=== PATIENT | male | born 1935 | race Caucasian/White ===

== ENCOUNTER 2018-10-26 11:15 | Outpatient (RCR) | payer MEDICARE, SELFPAY ==
--- NOTE | 2018-09-04 16:18 | PT.OIE ---
Current Diagnoses Unilateral primary osteoarthritis, left knee (09/04/18) Past Surgical History History of knee replacement History of vasectomy Provider Visit Care Team Role Provider Type Mechelle Hernandez DO Family Provider Physician Primary Care Provider Specialty: Family Practice Address: [address] [place] [address], [id number] Email: [email or web address] Norman Conrad MD Attending Provider Non-Staff Specialty: Orthopedics Address: [address] [place] [address] , [place], [address] Email: Physical Therapy Initial Evaluation PT-OP-A Visit Information Start: 09/04/18 12:59 Freq: Status: Active Protocol: Document 09/04/18 13:00 AMB (Rec: 09/04/18 15:52 AMB [email or web address]) Out-Patient Physical Therapy Visit Information Visit Information Visit Type Initial Evaluation Visit Start Time 13:00 Visit Stop Time 13:55 Total Visit Minutes 55 Visit Number 1 Number of HOT BRAIDER Visits 0 Evaluation Information Evaluation Date 09/04/18 PT-OP-B Current Condition Start: 09/04/18 12:59 Freq: Status: Active Protocol: Document 09/04/18 13:00 AMB (Rec: 09/04/18 15:52 AMB [email or web address]) Current Condition History of Current Condition Onset Date 08/28/18 Current Complaints s/p L TKA History of Current Condition The patient has had knee pain for years, prior history of R TKA which went well per his report in the mid . Pt lives in multilevel home with his with 2 steps to enter and one railing. He states everything he needs is on the main floor. Things have been going fine since the surgery, does have some neuropathy baseline and notices that the L leg swells in general. Previously he was not using an assistive device, today he attends with a FWW that is too short for him. Treatment Goals Patient/Caregiver Goals Return to golfing Prior Functional Status Baseline Function- ADL's Independent Baseline Function- Mobility Independent Current Functional Impairments (Reported) Functional Limitations- ADL's limited in lower body dressing donning doffing shoes/socks. Functional Limitations- Mobility/Gait Currently using 4WW PT-OP-C Subjective Start: 09/04/18 12:59 Freq: Status: Active Protocol: Document 09/04/18 13:00 AMB (Rec: 09/04/18 15:52 AMB [email or web address]) Patient Questionnaires Lower Extremity Functional Scale LEFS Score 10 LEFS Impairment 80 to 99% Impaired (Score 1-16 ) OP-PT Pain Assessment Pain Assessment Grid Paper Pain Assessment Grid Completed Yes Location Left Knee Intensity 4 Scale Used Numeric (1 - 10) PT-OP-G Mobility & Gait Start: 09/04/18 12:59 Freq: Status: Active Protocol: Document 09/04/18 13:00 AMB (Rec: 09/04/18 16:18 AMB [email or web address]) OP Gait Assessment Gait Gait Assistance Required: Independent Distance (Feet) 50 Able to Maintain Weight Bearing Status Yes During Gait Assistive Devices Assistive Device Front Wheeled Walker Gait Deviations General Gait Pattern Antalgic Decreased Stride Length Decreased Feet Clearance PT-OP-J Posture/Palpation/Skin Start: 09/04/18 12:59 Freq: Status: Active Protocol: Document 09/04/18 13:00 AMB (Rec: 09/04/18 16:18 AMB [email or web address]) Skin Assessment Edema Assessment Left Leg Edema Type Pitting Edema Degree 2+ Edema Appearance Firm Incisional Assessment Incision Appearance/Comments Covered with gauze PT-OP-K Range of Motion Start: 09/04/18 12:59 Freq: Status: Active Protocol: Document 09/04/18 13:00 AMB (Rec: 09/04/18 16:18 AMB [email or web address]) Knee Goniometric Range of Motion Knee Measured in Degrees Right Knee ROM WFL Yes Patient Position Supine Flexion Passive (degrees) 125 Extension Passive (degrees) 0 Left Patient Position Supine Flexion Active (degrees) 80 Flexion Passive (degrees) 77 Extension Active (degrees) 6 Extension Passive (degrees) 3 Knee ROM Limitations Knee ROM Limitations Pain Swelling PT-OP-M Strength Start: 09/04/18 12:59 Freq: Status: Active Protocol: Document 09/04/18 13:00 AMB (Rec: 09/04/18 16:18 AMB [email or web address]) Hip Strength Hip Manual Muscle Testing Right Flexion (L2) 4+ Good+ Extension (S1) 4+ Good+ Abduction 4+ Good+ Left Flexion (L2) 4+ Good+ Extension (S1) 4 Good Abduction 4 Good Knee Strength Knee Manual Muscle Testing Right Flexion (S2) 4+ Good+ Extension (L3) 4+ Good+ Left Flexion (S2) 4 Good Extension (L3) 4 Good PT-OP-R Modalities Start: 09/04/18 12:59 Freq: Status: Active Protocol: Document 09/04/18 13:45 AMB (Rec: 09/04/18 15:54 AMB [email or web address]) Electric Stimulation Electric Stimulation Interferential Current (IFC) Body Location L knee Duration (Minutes) 15 Patient Position Hooklying Combined With Heat/Cold Cold Pack PT-OP-T Assessment and Plan Start: 09/04/18 12:59 Freq: Status: Active Protocol: Document 09/04/18 13:00 AMB (Rec: 09/04/18 16:12 AMB [email or web address]) Physical Therapy Assessment Rehab Potential Rehabilitation Potential Good Evaluation Complexity Number of Personal Factors/Comorbidities 1-2 Number of Body Systems Impaired 4 or More Clinical Presentation at Evaluation Stable Impairments Impairments Balance Functional Mobility Gait Integument Pain ROM Strength Goals Two Impairment Gait Short Term Goal (STG) The patient will ambulate without AD in his home with 2/ 10 knee pain or less. STG Duration 4 weeks Computer Systems Architect Goal (LTG) The patient will ambulate in the community without assistive device for 30 minutes over grass/gravel/ hills to be able to return to golf. LTG Duration 8 weeks Three Impairment Strength Short Term Goal (STG) The patient will improve his LE strength so he can perform a partial squat without UE support. STG Duration 4 weeks Half-Way Goal (LTG) The patient will be independent with his HEP. LTG Duration 8 weeks One Impairment ROM Short Term Goal (STG) The patient will improve his PROM to 0-115 degrees. STG Duration 4 weeks Half-Way Goal (LTG) The patient will improve his AROM to 0-120 degrees. LTG Duration 8 weeks Assessment Summary Assessment The patient attends PT 1 week s/p TKA with swelling pain, and significantly restricted knee flexion. He will benefit from skilled PT to progress his strengthening, ROM, gait, and balance. Physical Therapy Plan Frequency and Duration Frequency of Treatment 3x/Week Duration of Treatment 8 weeks Plan of Care Start Date 09/04/18 Plan of Care End Date 10/30/18 Therapeutic Interventions Therapeutic Interventions Balance Training Gait Training Home Exercise Program Joint Mobilizations Manual Therapy Neuromuscular Re-education Self-Care/Home Management Soft Tissue Mobilization Therapeutic Activities Therapeutic Exercises Modalities Cold Pack/Ice Massage Electric Stimulation Next Visit Focus/Plan Next Note Type Treatment Note Next Visit Plan Start bike vs stepper, work on knee flexion, quad activation
--- NOTE | 2018-09-04 16:19 | PT.OPPOC ---
Current Diagnoses Unilateral primary osteoarthritis, left knee (09/04/18) Provider Visit Care Team Role Provider Type Mechelle Hernandez DO Family Provider Physician Primary Care Provider Specialty: Family Practice Address: [address] [place] [address], [address] Email: [email or web address] Norman Conrad MD Attending Provider Non-Staff Specialty: Orthopedics Address: [address] [place] [address] [place], [address] Email: Plan Of Care PT-OP-T Assessment and Plan Start: 09/04/18 12:59 Freq: Status: Active Protocol: Document 09/04/18 13:00 AMB (Rec: 09/04/18 16:12 AMB [email or web address]) Physical Therapy Assessment Rehab Potential Rehabilitation Potential Good Evaluation Complexity Number of Personal Factors/Comorbidities 1-2 Number of Body Systems Impaired 4 or More Clinical Presentation at Evaluation Stable Impairments Impairments Balance Functional Mobility Gait Integument Pain ROM Strength Goals Two Impairment Gait Short Term Goal (STG) The patient will ambulate without AD in his home with 2/ 10 knee pain or less. STG Duration 4 weeks Nursing Home Goal (LTG) The patient will ambulate in the community without assistive device for 30 minutes over grass/gravel/ hills to be able to return to golf. LTG Duration 8 weeks Three Impairment Strength Short Term Goal (STG) The patient will improve his LE strength so he can perform a partial squat without UE support. STG Duration 4 weeks Bioinformatics Programmer Goal (LTG) The patient will be independent with his HEP. LTG Duration 8 weeks One Impairment ROM Short Term Goal (STG) The patient will improve his PROM to 0-115 degrees. STG Duration 4 weeks Nursing Home Goal (LTG) The patient will improve his AROM to 0-120 degrees. LTG Duration 8 weeks Assessment Summary Assessment The patient attends PT 1 week s/p TKA with swelling pain, and significantly restricted knee flexion. He will benefit from skilled PT to progress his strengthening, ROM, gait, and balance. Physical Therapy Plan Frequency and Duration Frequency of Treatment 3x/Week Duration of Treatment 8 weeks Plan of Care Start Date 09/04/18 Plan of Care End Date 10/30/18 Therapeutic Interventions Therapeutic Interventions Balance Training Gait Training Home Exercise Program Joint Mobilizations Manual Therapy Neuromuscular Re-education Self-Care/Home Management Soft Tissue Mobilization Therapeutic Activities Therapeutic Exercises Modalities Cold Pack/Ice Massage Electric Stimulation Next Visit Focus/Plan Next Note Type Treatment Note Next Visit Plan Start bike vs stepper, work on knee flexion, quad activation Plan of Care Dates Plan of Care Start Date 09/04/18 Plan of Care End Date 10/30/18 Please Sign and Return: I have reviewed this Plan of Care and certify that the skilled therapy services above are required to meet the patient?s needs. Physician Signature Date Printed Name and Credentials Clinical Instructor Signature Printed Name and Credentials
--- NOTE | 2018-09-06 14:10 | PT.OTN ---
Current Diagnoses Unilateral primary osteoarthritis, left knee (09/06/18) Physical Therapy Treatment Note PT-OP-A Visit Information Start: 09/04/18 12:59 Freq: Status: Active Protocol: Document 09/06/18 13:00 AMB (Rec: 09/06/18 13:10 AMB [id number]) Out-Patient Physical Therapy Visit Information Visit Information Visit Type Treatment Note Visit Start Time 13:00 Visit Stop Time 13:55 Total Visit Minutes 55 Visit Number 2 Number of MANAGER GAS Visits 0 Evaluation Information Evaluation Date 09/04/18 PT-OP-B Current Condition Start: 09/04/18 12:59 Freq: Status: Active Protocol: Document 09/04/18 13:00 AMB (Rec: 09/04/18 15:52 AMB [email or web address]) Current Condition History of Current Condition Onset Date 08/28/18 Current Complaints s/p L TKA History of Current Condition The patient has had knee pain for years, prior history of R TKA which went well per his report in the mid . Pt lives in multilevel home with his with 2 steps to enter and one railing. He states everything he needs is on the main floor. Things have been going fine since the surgery, does have some neuropathy baseline and notices that the L leg swells in general. Previously he was not using an assistive device, today he attends with a FWW that is too short for him. Treatment Goals Patient/Caregiver Goals Return to golfing Prior Functional Status Baseline Function- ADL's Independent Baseline Function- Mobility Independent Current Functional Impairments (Reported) Functional Limitations- ADL's limited in lower body dressing donning doffing shoes/socks. Functional Limitations- Mobility/Gait Currently using 4WW PT-OP-C Subjective Start: 09/04/18 12:59 Freq: Status: Active Protocol: Document 09/06/18 13:00 AMB (Rec: 09/06/18 13:10 AMB [id number]) OP-PT Subjective Patient Comments Patient Comments Pt states he slept poorly after last visit, last night he slept fine. PT-OP-G Mobility & Gait Start: 09/04/18 12:59 Freq: Status: Active Protocol: Document 09/04/18 13:00 AMB (Rec: 09/04/18 16:18 AMB [email or web address]) OP Gait Assessment Gait Gait Assistance Required: Independent Distance (Feet) 50 Able to Maintain Weight Bearing Status Yes During Gait Assistive Devices Assistive Device Front Wheeled Walker Gait Deviations General Gait Pattern Antalgic Decreased Stride Length Decreased Feet Clearance PT-OP-J Posture/Palpation/Skin Start: 09/04/18 12:59 Freq: Status: Active Protocol: Document 09/04/18 13:00 AMB (Rec: 09/04/18 16:18 AMB [email or web address]) Skin Assessment Edema Assessment Left Leg Edema Type Pitting Edema Degree 2+ Edema Appearance Firm Incisional Assessment Incision Appearance/Comments Covered with gauze PT-OP-K Range of Motion Start: 09/04/18 12:59 Freq: Status: Active Protocol: Document 09/04/18 13:00 AMB (Rec: 09/04/18 16:18 AMB [email or web address]) Knee Goniometric Range of Motion Knee Measured in Degrees Right Knee ROM WFL Yes Patient Position Supine Flexion Passive (degrees) 125 Extension Passive (degrees) 0 Left Patient Position Supine Flexion Active (degrees) 80 Flexion Passive (degrees) 77 Extension Active (degrees) 6 Extension Passive (degrees) 3 Knee ROM Limitations Knee ROM Limitations Pain Swelling PT-OP-M Strength Start: 09/04/18 12:59 Freq: Status: Active Protocol: Document 09/04/18 13:00 AMB (Rec: 09/04/18 16:18 AMB [email or web address]) Hip Strength Hip Manual Muscle Testing Right Flexion (L2) 4+ Good+ Extension (S1) 4+ Good+ Abduction 4+ Good+ Left Flexion (L2) 4+ Good+ Extension (S1) 4 Good Abduction 4 Good Knee Strength Knee Manual Muscle Testing Right Flexion (S2) 4+ Good+ Extension (L3) 4+ Good+ Left Flexion (S2) 4 Good Extension (L3) 4 Good PT-OP-Q Treatments Start: 09/04/18 12:59 Freq: Status: Active Protocol: Document 09/06/18 13:00 AMB (Rec: 09/06/18 13:27 AMB [id number]) Cardio Equipment Recumbent Bicycle Duration (Minutes) 6 Other 1/2 revolution Gym Equipment Shuttle Recovery Bilateral Squats Resistance 50# Shuttle Recovery Platform Stable Reps/Time 1x10 Unilateral Squats Resistance 50# Shuttle Recovery Platform Stable Reps/Time 2x10 Therapeutic Exercises Supine Exercises 4 Supine Exercise Name heel slide Reps/Minutes 2x12 3 Supine Exercise Name SLR Reps/Minutes 2x10 2 Supine Exercise Name hamstring stretch Reps/Minutes 30x2 1 Supine Exercise Name quad stretch Reps/Minutes 30x2 PT-OP-R Modalities Start: 09/04/18 12:59 Freq: Status: Active Protocol: Document 09/06/18 13:00 AMB (Rec: 09/06/18 13:48 AMB [id number]) Electric Stimulation Electric Stimulation Interferential Current (IFC) Body Location L knee Duration (Minutes) 15 Patient Position Hooklying Combined With Heat/Cold Cold Pack PT-OP-T Assessment and Plan Start: 09/04/18 12:59 Freq: Status: Active Protocol: Document 09/06/18 13:00 AMB (Rec: 09/06/18 14:07 AMB [email or web address]) Physical Therapy Assessment Assessment Summary Assessment The patient seemed to tolerate PT well, altough flexion continues to be stiff. Physical Therapy Plan Next Visit Focus/Plan Next Note Type Treatment Note Next Visit Plan Progress HEP as tolerated.
--- NOTE | 2018-09-08 14:57 | PT.OTN ---
Current Diagnoses Unilateral primary osteoarthritis, left knee (09/08/18) Physical Therapy Treatment Note PT-OP-A Visit Information Start: 09/04/18 12:59 Freq: Status: Active Protocol: Document 09/08/18 13:00 AMB (Rec: 09/08/18 13:12 AMB [id number]) Out-Patient Physical Therapy Visit Information Visit Information Visit Type Treatment Note Visit Start Time 13:00 Visit Stop Time 13:55 Total Visit Minutes 55 Visit Number 3 Number of LEARNING AND DEVELOPMENT ASSISTANT Visits 0 Evaluation Information Evaluation Date 09/04/18 PT-OP-B Current Condition Start: 09/04/18 12:59 Freq: Status: Active Protocol: Document 09/04/18 13:00 AMB (Rec: 09/04/18 15:52 AMB [email or web address]) Current Condition History of Current Condition Onset Date 08/28/18 Current Complaints s/p L TKA History of Current Condition The patient has had knee pain for years, 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 Pt lives in multilevel home with his with 2 steps to enter and one railing. He states everything he needs is on the main floor. Things have been going fine since the surgery, does have some neuropathy baseline and notices that the L leg swells in general. Previously he was not using an assistive device, today he attends with a FWW that is too short for him. Treatment Goals Patient/Caregiver Goals Return to golfing Prior Functional Status Baseline Function- ADL's Independent Baseline Function- Mobility Independent Current Functional Impairments (Reported) Functional Limitations- ADL's limited in lower body dressing donning doffing shoes/socks. Functional Limitations- Mobility/Gait Currently using 4WW PT-OP-C Subjective Start: 09/04/18 12:59 Freq: Status: Active Protocol: Document 09/08/18 13:00 AMB (Rec: 09/08/18 13:12 AMB [id number]) OP-PT Subjective Patient Comments Patient Comments Pt is doing well, was able to use his 's bike yesterday. PT-OP-G Mobility & Gait Start: 09/04/18 12:59 Freq: Status: Active Protocol: Document 09/04/18 13:00 AMB (Rec: 09/04/18 16:18 AMB [email or web address]) OP Gait Assessment Gait Gait Assistance Required: Independent Distance (Feet) 50 Able to Maintain Weight Bearing Status Yes During Gait Assistive Devices Assistive Device Front Wheeled Walker Gait Deviations General Gait Pattern Antalgic Decreased Stride Length Decreased Feet Clearance PT-OP-J Posture/Palpation/Skin Start: 09/04/18 12:59 Freq: Status: Active Protocol: Document 09/04/18 13:00 AMB (Rec: 09/04/18 16:18 AMB [email or web address]) Skin Assessment Edema Assessment Left Leg Edema Type Pitting Edema Degree 2+ Edema Appearance Firm Incisional Assessment Incision Appearance/Comments Covered with gauze PT-OP-K Range of Motion Start: 09/04/18 12:59 Freq: Status: Active Protocol: Document 09/04/18 13:00 AMB (Rec: 09/04/18 16:18 AMB [email or web address]) Knee Goniometric Range of Motion Knee Measured in Degrees Right Knee ROM WFL Yes Patient Position Supine Flexion Passive (degrees) 125 Extension Passive (degrees) 0 Left Patient Position Supine Flexion Active (degrees) 80 Flexion Passive (degrees) 77 Extension Active (degrees) 6 Extension Passive (degrees) 3 Knee ROM Limitations Knee ROM Limitations Pain Swelling PT-OP-M Strength Start: 09/04/18 12:59 Freq: Status: Active Protocol: Document 09/04/18 13:00 AMB (Rec: 09/04/18 16:18 AMB [email or web address]) Hip Strength Hip Manual Muscle Testing Right Flexion (L2) 4+ Good+ Extension (S1) 4+ Good+ Abduction 4+ Good+ Left Flexion (L2) 4+ Good+ Extension (S1) 4 Good Abduction 4 Good Knee Strength Knee Manual Muscle Testing Right Flexion (S2) 4+ Good+ Extension (L3) 4+ Good+ Left Flexion (S2) 4 Good Extension (L3) 4 Good PT-OP-Q Treatments Start: 09/04/18 12:59 Freq: Status: Active Protocol: Document 09/08/18 13:00 AMB (Rec: 09/08/18 13:14 AMB [id number]) Cardio Equipment Recumbent Bicycle Duration (Minutes) 6 Seat Position none Other full revolution after 4 min Gym Equipment Shuttle Recovery Bilateral Squats Resistance 75# Shuttle Recovery Platform Stable Reps/Time 2x10 Unilateral Squats Resistance 50# Shuttle Recovery Platform Stable Reps/Time 2x10 Therapeutic Exercises Supine Exercises 4 Supine Exercise Name heel slide Reps/Minutes 2x12 3 Supine Exercise Name SLR Reps/Minutes 2x10 2 Supine Exercise Name hamstring stretch Reps/Minutes 30x2 1 Supine Exercise Name quad stretch Reps/Minutes 30x2 Manual Therapy Treatment Joint Mobilizations 1 Joint tibiofemoral, PA and AP Manual Techniques 1 Type PROM with OP Comments into flexion and extension PT-OP-R Modalities Start: 09/04/18 12:59 Freq: Status: Active Protocol: Document 09/08/18 13:00 AMB (Rec: 09/08/18 13:22 AMB [id number]) Electric Stimulation Electric Stimulation Interferential Current (IFC) Body Location L knee Duration (Minutes) 15 Patient Position Hooklying Combined With Heat/Cold Cold Pack PT-OP-T Assessment and Plan Start: 09/04/18 12:59 Freq: Status: Active Protocol: Document 09/08/18 13:00 AMB (Rec: 09/08/18 13:22 AMB [id number]) Physical Therapy Assessment Assessment Summary Assessment Pt is progressing appropriately, needs to progress HEP. Physical Therapy Plan Next Visit Focus/Plan Next Note Type Treatment Note Next Visit Plan Progress ROM, gait, strength HEP.
--- NOTE | 2018-09-11 15:52 | PT.OTN ---
Current Diagnoses Unilateral primary osteoarthritis, left knee (09/11/18) Physical Therapy Treatment Note PT-OP-A Visit Information Start: 09/04/18 12:59 Freq: Status: Active Protocol: Document 09/11/18 13:00 AMB (Rec: 09/11/18 13:00 AMB [id number]) Out-Patient Physical Therapy Visit Information Visit Information Visit Type Treatment Note Visit Start Time 13:00 Visit Stop Time 13:55 Total Visit Minutes 55 Visit Number 4 Number of SQL ENGINEER Visits 0 Evaluation Information Evaluation Date 09/04/18 PT-OP-B Current Condition Start: 09/04/18 12:59 Freq: Status: Active Protocol: Document 09/04/18 13:00 AMB (Rec: 09/04/18 15:52 AMB [email or web address]) Current Condition History of Current Condition Onset Date 08/28/18 Current Complaints s/p L TKA History of Current Condition The patient has had knee pain for years, prior history of R TKA which went well per his report in the mid . Pt lives in multilevel home with his with 2 steps to enter and one railing. He states everything he needs is on the main floor. Things have been going fine since the surgery, does have some neuropathy baseline and notices that the L leg swells in general. Previously he was not using an assistive device, today he attends with a FWW that is too short for him. Treatment Goals Patient/Caregiver Goals Return to golfing Prior Functional Status Baseline Function- ADL's Independent Baseline Function- Mobility Independent Current Functional Impairments (Reported) Functional Limitations- ADL's limited in lower body dressing donning doffing shoes/socks. Functional Limitations- Mobility/Gait Currently using 4WW PT-OP-C Subjective Start: 09/04/18 12:59 Freq: Status: Active Protocol: Document 09/11/18 13:00 AMB (Rec: 09/11/18 13:11 AMB [id number]) OP-PT Subjective Patient Comments Patient Comments Pt reports he has been walking and working on the recumbent bike. PT-OP-G Mobility & Gait Start: 09/04/18 12:59 Freq: Status: Active Protocol: Document 09/04/18 13:00 AMB (Rec: 09/04/18 16:18 AMB [email or web address]) OP Gait Assessment Gait Gait Assistance Required: Independent Distance (Feet) 50 Able to Maintain Weight Bearing Status Yes During Gait Assistive Devices Assistive Device Front Wheeled Walker Gait Deviations General Gait Pattern Antalgic Decreased Stride Length Decreased Feet Clearance PT-OP-J Posture/Palpation/Skin Start: 09/04/18 12:59 Freq: Status: Active Protocol: Document 09/04/18 13:00 AMB (Rec: 09/04/18 16:18 AMB [email or web address]) Skin Assessment Edema Assessment Left Leg Edema Type Pitting Edema Degree 2+ Edema Appearance Firm Incisional Assessment Incision Appearance/Comments Covered with gauze PT-OP-K Range of Motion Start: 09/04/18 12:59 Freq: Status: Active Protocol: Document 09/04/18 13:00 AMB (Rec: 09/04/18 16:18 AMB [email or web address]) Knee Goniometric Range of Motion Knee Measured in Degrees Right Knee ROM WFL Yes Patient Position Supine Flexion Passive (degrees) 125 Extension Passive (degrees) 0 Left Patient Position Supine Flexion Active (degrees) 80 Flexion Passive (degrees) 77 Extension Active (degrees) 6 Extension Passive (degrees) 3 Knee ROM Limitations Knee ROM Limitations Pain Swelling PT-OP-M Strength Start: 09/04/18 12:59 Freq: Status: Active Protocol: Document 09/04/18 13:00 AMB (Rec: 09/04/18 16:18 AMB [email or web address]) Hip Strength Hip Manual Muscle Testing Right Flexion (L2) 4+ Good+ Extension (S1) 4+ Good+ Abduction 4+ Good+ Left Flexion (L2) 4+ Good+ Extension (S1) 4 Good Abduction 4 Good Knee Strength Knee Manual Muscle Testing Right Flexion (S2) 4+ Good+ Extension (L3) 4+ Good+ Left Flexion (S2) 4 Good Extension (L3) 4 Good PT-OP-Q Treatments Start: 09/04/18 12:59 Freq: Status: Active Protocol: Document 09/11/18 13:00 AMB (Rec: 09/11/18 13:11 AMB [id number]) Cardio Equipment Recumbent Bicycle Duration (Minutes) 6 Resistance 4 Seat Position 8 Other full revolution after 4 min Gym Equipment Shuttle Recovery Bilateral Squats Resistance 75# Shuttle Recovery Platform Stable Reps/Time 2x10 Unilateral Squats Resistance 50# Shuttle Recovery Platform Stable Reps/Time 2x10 Therapeutic Exercises Supine Exercises 4 Supine Exercise Name heel slide Reps/Minutes 2x12 3 Supine Exercise Name SLR Reps/Minutes 2x10 2 Supine Exercise Name hamstring stretch Reps/Minutes 30x2 1 Supine Exercise Name quad stretch Reps/Minutes 30x2 Standing Exercises 1 Standing Exercise Name sit to stand Reps/Minutes 12 Comments vc for equal weightbearing Manual Therapy Treatment Joint Mobilizations 1 Joint tibiofemoral, PA and AP Manual Techniques 1 Type PROM with OP Comments into flexion and extension PT-OP-R Modalities Start: 09/04/18 12:59 Freq: Status: Active Protocol: Document 09/11/18 13:00 AMB (Rec: 09/11/18 13:21 AMB [id number]) Electric Stimulation Electric Stimulation Interferential Current (IFC) Body Location L knee Duration (Minutes) 15 Patient Position Hooklying Combined With Heat/Cold Cold Pack PT-OP-T Assessment and Plan Start: 09/04/18 12:59 Freq: Status: Active Protocol: Document 09/11/18 13:00 AMB (Rec: 09/11/18 13:21 AMB [id number]) Physical Therapy Assessment Goals Two Impairment Gait Short Term Goal (STG) The patient will ambulate without AD in his home with 2/ 10 knee pain or less. STG Duration 4 weeks Prospecting Observer Goal (LTG) The patient will ambulate in the community without assistive device for 30 minutes over grass/gravel/ hills to be able to return to golf. LTG Duration 8 weeks Three Impairment Strength Short Term Goal (STG) The patient will improve his LE strength so he can perform a partial squat without UE support. STG Duration 4 weeks Prospecting Observer Goal (LTG) The patient will be independent with his HEP. LTG Duration 8 weeks One Impairment ROM Short Term Goal (STG) The patient will improve his PROM to 0-115 degrees. STG Duration 4 weeks Prospecting Observer Goal (LTG) The patient will improve his AROM to 0-120 degrees. LTG Duration 8 weeks Assessment Summary Assessment Pt noticing posterior knee discomfort. Continues to need to progress, ROM, gait progressing well. Physical Therapy Plan Frequency and Duration Frequency of Treatment 3x/Week Duration of Treatment 8 weeks Plan of Care Start Date 09/04/18 Plan of Care End Date 10/30/18 Therapeutic Interventions Therapeutic Interventions Balance Training Gait Training Home Exercise Program Joint Mobilizations Manual Therapy Neuromuscular Re-education Self-Care/Home Management Soft Tissue Mobilization Therapeutic Activities Therapeutic Exercises Modalities Cold Pack/Ice Massage Electric Stimulation Next Visit Focus/Plan Next Note Type Treatment Note Next Visit Plan Progress ROM, gait, strength HEP.
--- NOTE | 2018-09-13 16:33 | PT.OTN ---
Current Diagnoses Unilateral primary osteoarthritis, left knee (09/13/18) Physical Therapy Treatment Note PT-OP-A Visit Information Start: 09/04/18 12:59 Freq: Status: Active Protocol: Document 09/13/18 13:00 AMB (Rec: 09/13/18 16:33 AMB [email or web address]) Out-Patient Physical Therapy Visit Information Visit Information Visit Type Treatment Note Visit Start Time 13:00 Visit Stop Time 13:55 Total Visit Minutes 55 Visit Number 5 Number of BRANCH OPERATIONS SPECIALIST Visits 0 Evaluation Information Evaluation Date 09/04/18 PT-OP-B Current Condition Start: 09/04/18 12:59 Freq: Status: Active Protocol: Document 09/04/18 13:00 AMB (Rec: 09/04/18 15:52 AMB [email or web address]) Current Condition History of Current Condition Onset Date 08/28/18 Current Complaints s/p L TKA History of Current Condition The patient has had knee pain for years, prior history of R TKA which went well per his report in the mid . Pt lives in multilevel home with his with 2 steps to enter and one railing. He states everything he needs is on the main floor. Things have been going fine since the surgery, does have some neuropathy baseline and notices that the L leg swells in general. Previously he was not using an assistive device, today he attends with a FWW that is too short for him. Treatment Goals Patient/Caregiver Goals Return to golfing Prior Functional Status Baseline Function- ADL's Independent Baseline Function- Mobility Independent Current Functional Impairments (Reported) Functional Limitations- ADL's limited in lower body dressing donning doffing shoes/socks. Functional Limitations- Mobility/Gait Currently using 4WW PT-OP-C Subjective Start: 09/04/18 12:59 Freq: Status: Active Protocol: Document 09/13/18 13:00 AMB (Rec: 09/13/18 16:33 AMB [email or web address]) OP-PT Subjective Patient Comments Patient Comments Pt saw yesterday and was cleared to drive. Steri strips are off. PT-OP-G Mobility & Gait Start: 09/04/18 12:59 Freq: Status: Active Protocol: Document 09/04/18 13:00 AMB (Rec: 09/04/18 16:18 AMB [email or web address]) OP Gait Assessment Gait Gait Assistance Required: Independent Distance (Feet) 50 Able to Maintain Weight Bearing Status Yes During Gait Assistive Devices Assistive Device Front Wheeled Walker Gait Deviations General Gait Pattern Antalgic Decreased Stride Length Decreased Feet Clearance PT-OP-J Posture/Palpation/Skin Start: 09/04/18 12:59 Freq: Status: Active Protocol: Document 09/04/18 13:00 AMB (Rec: 09/04/18 16:18 AMB [email or web address]) Skin Assessment Edema Assessment Left Leg Edema Type Pitting Edema Degree 2+ Edema Appearance Firm Incisional Assessment Incision Appearance/Comments Covered with gauze PT-OP-K Range of Motion Start: 09/04/18 12:59 Freq: Status: Active Protocol: Document 09/13/18 13:00 AMB (Rec: 09/13/18 16:33 AMB [email or web address]) Knee Goniometric Range of Motion Knee Measured in Degrees Left Flexion Passive (degrees) 103 PT-OP-M Strength Start: 09/04/18 12:59 Freq: Status: Active Protocol: Document 09/04/18 13:00 AMB (Rec: 09/04/18 16:18 AMB [email or web address]) Hip Strength Hip Manual Muscle Testing Right Flexion (L2) 4+ Good+ Extension (S1) 4+ Good+ Abduction 4+ Good+ Left Flexion (L2) 4+ Good+ Extension (S1) 4 Good Abduction 4 Good Knee Strength Knee Manual Muscle Testing Right Flexion (S2) 4+ Good+ Extension (L3) 4+ Good+ Left Flexion (S2) 4 Good Extension (L3) 4 Good PT-OP-Q Treatments Start: 09/04/18 12:59 Freq: Status: Active Protocol: Document 09/13/18 13:00 AMB (Rec: 09/13/18 16:33 AMB [email or web address]) Cardio Equipment Bicycle (Upright) Duration (Minutes) 6 Resistance 5 Seat Position 5 Gym Equipment Shuttle Recovery Bilateral Squats Resistance 100# Shuttle Recovery Platform Stable Reps/Time 2x10 Unilateral Squats Resistance 75# Shuttle Recovery Platform Stable Reps/Time 2x10 Therapeutic Exercises Supine Exercises 4 Supine Exercise Name heel slide Reps/Minutes 2x12 3 Supine Exercise Name SLR Reps/Minutes 2x10 2 Supine Exercise Name hamstring stretch Reps/Minutes 30x2 1 Supine Exercise Name quad stretch Reps/Minutes 30x2 Standing Exercises 1 Standing Exercise Name sit to stand Reps/Minutes 12 Comments vc for equal weightbearing PT-OP-R Modalities Start: 09/04/18 12:59 Freq: Status: Active Protocol: Document 09/13/18 13:00 AMB (Rec: 09/13/18 16:33 AMB [email or web address]) Electric Stimulation Electric Stimulation Interferential Current (IFC) Body Location L knee Duration (Minutes) 15 Patient Position Hooklying Combined With Heat/Cold Cold Pack PT-OP-T Assessment and Plan Start: 09/04/18 12:59 Freq: Status: Active Protocol: Document 09/13/18 13:00 AMB (Rec: 09/13/18 16:33 AMB [email or web address]) Physical Therapy Assessment Assessment Summary Assessment Oked pt to ambulate without assistive device. Physical Therapy Plan Next Visit Focus/Plan Next Note Type Treatment Note Next Visit Plan Progress ROM, gait, strength HEP.
--- NOTE | 2018-09-15 15:37 | PT.OTN ---
Current Diagnoses Unilateral primary osteoarthritis, left knee (09/15/18) Physical Therapy Treatment Note PT-OP-A Visit Information Start: 09/04/18 12:59 Freq: Status: Active Protocol: Document 09/15/18 09:00 AMB (Rec: 09/15/18 09:08 AMB [email or web address]) Out-Patient Physical Therapy Visit Information Visit Information Visit Type Treatment Note Visit Start Time 09:00 Visit Stop Time 09:55 Total Visit Minutes 55 Visit Number 6 Number of ROLLER PICKER Visits 0 Evaluation Information Evaluation Date 09/04/18 PT-OP-B Current Condition Start: 09/04/18 12:59 Freq: Status: Active Protocol: Document 09/04/18 13:00 AMB (Rec: 09/04/18 15:52 AMB [email or web address]) Current Condition History of Current Condition Onset Date 08/28/18 Current Complaints s/p L TKA History of Current Condition The patient has had knee pain for years, prior history of R TKA which went well per his report in the mid . Pt lives in multilevel home with his with 2 steps to enter and one railing. He states everything he needs is on the main floor. Things have been going fine since the surgery, does have some neuropathy baseline and notices that the L leg swells in general. Previously he was not using an assistive device, today he attends with a FWW that is too short for him. Treatment Goals Patient/Caregiver Goals Return to golfing Prior Functional Status Baseline Function- ADL's Independent Baseline Function- Mobility Independent Current Functional Impairments (Reported) Functional Limitations- ADL's limited in lower body dressing donning doffing shoes/socks. Functional Limitations- Mobility/Gait Currently using 4WW PT-OP-C Subjective Start: 09/04/18 12:59 Freq: Status: Active Protocol: Document 09/15/18 09:00 AMB (Rec: 09/15/18 09:08 AMB [id number]) OP-PT Subjective Patient Comments Patient Comments Pt reports mild quad pain with car transfer (shifting leg over to the side) PT-OP-G Mobility & Gait Start: 09/04/18 12:59 Freq: Status: Active Protocol: Document 09/04/18 13:00 AMB (Rec: 09/04/18 16:18 AMB [email or web address]) OP Gait Assessment Gait Gait Assistance Required: Independent Distance (Feet) 50 Able to Maintain Weight Bearing Status Yes During Gait Assistive Devices Assistive Device Front Wheeled Walker Gait Deviations General Gait Pattern Antalgic Decreased Stride Length Decreased Feet Clearance PT-OP-J Posture/Palpation/Skin Start: 09/04/18 12:59 Freq: Status: Active Protocol: Document 09/04/18 13:00 AMB (Rec: 09/04/18 16:18 AMB [email or web address]) Skin Assessment Edema Assessment Left Leg Edema Type Pitting Edema Degree 2+ Edema Appearance Firm Incisional Assessment Incision Appearance/Comments Covered with gauze PT-OP-K Range of Motion Start: 09/04/18 12:59 Freq: Status: Active Protocol: Document 09/15/18 09:00 AMB (Rec: 09/15/18 15:32 AMB [email or web address]) Knee Goniometric Range of Motion Knee Measured in Degrees Left Flexion Passive (degrees) 107 PT-OP-M Strength Start: 09/04/18 12:59 Freq: Status: Active Protocol: Document 09/04/18 13:00 AMB (Rec: 09/04/18 16:18 AMB [email or web address]) Hip Strength Hip Manual Muscle Testing Right Flexion (L2) 4+ Good+ Extension (S1) 4+ Good+ Abduction 4+ Good+ Left Flexion (L2) 4+ Good+ Extension (S1) 4 Good Abduction 4 Good Knee Strength Knee Manual Muscle Testing Right Flexion (S2) 4+ Good+ Extension (L3) 4+ Good+ Left Flexion (S2) 4 Good Extension (L3) 4 Good PT-OP-Q Treatments Start: 09/04/18 12:59 Freq: Status: Active Protocol: Document 09/15/18 09:00 AMB (Rec: 09/15/18 09:08 AMB [id number]) Cardio Equipment Bicycle (Upright) Duration (Minutes) 6 Resistance 5 Seat Position 5 Therapeutic Exercises Supine Exercises 4 Supine Exercise Name heel slide Reps/Minutes 2x12 3 Supine Exercise Name SLR Reps/Minutes 2x10 2 Supine Exercise Name hamstring stretch Reps/Minutes 30x2 1 Supine Exercise Name quad stretch Reps/Minutes 30x2 Standing Exercises 2 Standing Exercise Name lifting Comments 12# from floor to waist 1 Standing Exercise Name sit to stand Reps/Minutes 12 Comments vc for equal weightbearing Manual Therapy Treatment Joint Mobilizations 1 Joint tibiofemoral, PA and AP Manual Techniques 1 Type PROM with OP Comments into flexion and extension PT-OP-R Modalities Start: 09/04/18 12:59 Freq: Status: Active Protocol: Document 09/15/18 09:00 AMB (Rec: 09/15/18 15:33 AMB [email or web address]) Electric Stimulation Electric Stimulation Interferential Current (IFC) Body Location L knee Duration (Minutes) 15 Patient Position Hooklying Combined With Heat/Cold Cold Pack PT-OP-T Assessment and Plan Start: 09/04/18 12:59 Freq: Status: Active Protocol: Document 09/15/18 09:00 AMB (Rec: 09/15/18 15:32 AMB [email or web address]) Physical Therapy Assessment Assessment Summary Assessment Encouraged pt in equalizing weightbearing with sit to stand. Does notice some quad discomfort. Physical Therapy Plan Next Visit Focus/Plan Next Note Type Treatment Note Next Visit Plan Progress balance
--- NOTE | 2018-09-18 15:51 | PT.OTN ---
Current Diagnoses Unilateral primary osteoarthritis, left knee (09/18/18) Physical Therapy Treatment Note PT-OP-A Visit Information Start: 09/04/18 12:59 Freq: Status: Active Protocol: Document 09/18/18 13:00 AMB (Rec: 09/18/18 13:09 AMB [id number]) Out-Patient Physical Therapy Visit Information Visit Information Visit Type Treatment Note Visit Start Time 13:00 Visit Stop Time 13:55 Total Visit Minutes 55 Visit Number 7 Number of WIRE STOCKKEEPER Visits 0 Evaluation Information Evaluation Date 09/04/18 PT-OP-B Current Condition Start: 09/04/18 12:59 Freq: Status: Active Protocol: Document 09/04/18 13:00 AMB (Rec: 09/04/18 15:52 AMB [email or web address]) Current Condition History of Current Condition Onset Date 08/28/18 Current Complaints s/p L TKA History of Current Condition The patient has had knee pain for years, prior history of R TKA which went well per his report in the mid . Pt lives in multilevel home with his with 2 steps to enter and one railing. He states everything he needs is on the main floor. Things have been going fine since the surgery, does have some neuropathy baseline and notices that the L leg swells in general. Previously he was not using an assistive device, today he attends with a FWW that is too short for him. Treatment Goals Patient/Caregiver Goals Return to golfing Prior Functional Status Baseline Function- ADL's Independent Baseline Function- Mobility Independent Current Functional Impairments (Reported) Functional Limitations- ADL's limited in lower body dressing donning doffing shoes/socks. Functional Limitations- Mobility/Gait Currently using 4WW PT-OP-C Subjective Start: 09/04/18 12:59 Freq: Status: Active Protocol: Document 09/18/18 13:00 AMB (Rec: 09/18/18 13:09 AMB [id number]) OP-PT Subjective Patient Comments Patient Comments Pt continues to note mild quad discomfort. PT-OP-G Mobility & Gait Start: 09/04/18 12:59 Freq: Status: Active Protocol: Document 09/04/18 13:00 AMB (Rec: 09/04/18 16:18 AMB [email or web address]) OP Gait Assessment Gait Gait Assistance Required: Independent Distance (Feet) 50 Able to Maintain Weight Bearing Status Yes During Gait Assistive Devices Assistive Device Front Wheeled Walker Gait Deviations General Gait Pattern Antalgic Decreased Stride Length Decreased Feet Clearance PT-OP-J Posture/Palpation/Skin Start: 09/04/18 12:59 Freq: Status: Active Protocol: Document 09/04/18 13:00 AMB (Rec: 09/04/18 16:18 AMB [email or web address]) Skin Assessment Edema Assessment Left Leg Edema Type Pitting Edema Degree 2+ Edema Appearance Firm Incisional Assessment Incision Appearance/Comments Covered with gauze PT-OP-K Range of Motion Start: 09/04/18 12:59 Freq: Status: Active Protocol: Document 09/15/18 09:00 AMB (Rec: 09/15/18 15:32 AMB [email or web address]) Knee Goniometric Range of Motion Knee Measured in Degrees Left Flexion Passive (degrees) 107 PT-OP-M Strength Start: 09/04/18 12:59 Freq: Status: Active Protocol: Document 09/04/18 13:00 AMB (Rec: 09/04/18 16:18 AMB [email or web address]) Hip Strength Hip Manual Muscle Testing Right Flexion (L2) 4+ Good+ Extension (S1) 4+ Good+ Abduction 4+ Good+ Left Flexion (L2) 4+ Good+ Extension (S1) 4 Good Abduction 4 Good Knee Strength Knee Manual Muscle Testing Right Flexion (S2) 4+ Good+ Extension (L3) 4+ Good+ Left Flexion (S2) 4 Good Extension (L3) 4 Good PT-OP-Q Treatments Start: 09/04/18 12:59 Freq: Status: Active Protocol: Document 09/18/18 13:00 AMB (Rec: 09/18/18 13:09 AMB [email or web address]) Cardio Equipment Bicycle (Upright) Duration (Minutes) 6 Resistance 5 Seat Position 5 Therapeutic Exercises Supine Exercises 2 Supine Exercise Name hamstring stretch Reps/Minutes 30x2 1 Supine Exercise Name quad stretch Reps/Minutes 30x2 Standing Exercises 2 Standing Exercise Name lifting Comments 12# from floor to waist 1 Standing Exercise Name sit to stand Reps/Minutes 12 Comments vc for equal weightbearing Therapeutic Activity Therapeutic Activity 1 Name weightshift for golgIcare Pharmag Manual Therapy Treatment Soft Tissue Mobilization 2 Body Location quad Mobilization Type Myofascial Release Rolling Strumming Intensity/Depth Moderate 1 Body Location scar tissue Mobilization Type Cross-Friction Rolling Intensity/Depth Superficial Joint Mobilizations 1 Joint tibiofemoral, PA and AP Manual Techniques 1 Type PROM with OP Comments into flexion and extension PT-OP-R Modalities Start: 09/04/18 12:59 Freq: Status: Active Protocol: Document 09/18/18 13:00 AMB (Rec: 09/18/18 13:09 AMB [id number]) Electric Stimulation Electric Stimulation Interferential Current (IFC) Body Location L knee Duration (Minutes) 15 Patient Position Hooklying Combined With Heat/Cold Cold Pack PT-OP-T Assessment and Plan Start: 09/04/18 12:59 Freq: Status: Active Protocol: Document 09/18/18 13:00 AMB (Rec: 09/18/18 13:45 AMB [id number]) Physical Therapy Assessment Assessment Summary Assessment Pt tolerated chipping practice well. Good weightshift, but larger golf swings would be harder. Will need to progress balance. Physical Therapy Plan Next Visit Focus/Plan Next Note Type Treatment Note Next Visit Plan Progress balance
--- NOTE | 2018-09-20 15:37 | PT.OTN ---
Current Diagnoses Unilateral primary osteoarthritis, left knee (09/20/18) Physical Therapy Treatment Note PT-OP-A Visit Information Start: 09/04/18 12:59 Freq: Status: Active Protocol: Document 09/20/18 13:00 AMB (Rec: 09/20/18 13:08 AMB [id number]) Out-Patient Physical Therapy Visit Information Visit Information Visit Type Treatment Note Visit Start Time 13:00 Visit Stop Time 13:55 Total Visit Minutes 55 Visit Number 8 Number of TEST DATA DEVELOPER Visits 0 PT-OP-B Current Condition Start: 09/04/18 12:59 Freq: Status: Active Protocol: Document 09/04/18 13:00 AMB (Rec: 09/04/18 15:52 AMB [email or web address]) Current Condition History of Current Condition Onset Date 08/28/18 Current Complaints s/p L TKA History of Current Condition The patient has had knee pain for years, 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 Pt lives in multilevel home with his with 2 steps to enter and one railing. He states everything he needs is on the main floor. Things have been going fine since the surgery, does have some neuropathy baseline and notices that the L leg swells in general. Previously he was not using an assistive device, today he attends with a FWW that is too short for him. Treatment Goals Patient/Caregiver Goals Return to golfing Prior Functional Status Baseline Function- ADL's Independent Baseline Function- Mobility Independent Current Functional Impairments (Reported) Functional Limitations- ADL's limited in lower body dressing donning doffing shoes/socks. Functional Limitations- Mobility/Gait Currently using 4WW PT-OP-C Subjective Start: 09/04/18 12:59 Freq: Status: Active Protocol: Document 09/20/18 13:00 AMB (Rec: 09/20/18 13:08 AMB [id number]) OP-PT Subjective Patient Comments Patient Comments Pt is stiff today Quad pain still. PT-OP-G Mobility & Gait Start: 09/04/18 12:59 Freq: Status: Active Protocol: Document 09/04/18 13:00 AMB (Rec: 09/04/18 16:18 AMB [email or web address]) OP Gait Assessment Gait Gait Assistance Required: Independent Distance (Feet) 50 Able to Maintain Weight Bearing Status Yes During Gait Assistive Devices Assistive Device Front Wheeled Walker Gait Deviations General Gait Pattern Antalgic Decreased Stride Length Decreased Feet Clearance PT-OP-J Posture/Palpation/Skin Start: 09/04/18 12:59 Freq: Status: Active Protocol: Document 09/04/18 13:00 AMB (Rec: 09/04/18 16:18 AMB [email or web address]) Skin Assessment Edema Assessment Left Leg Edema Type Pitting Edema Degree 2+ Edema Appearance Firm Incisional Assessment Incision Appearance/Comments Covered with gauze PT-OP-K Range of Motion Start: 09/04/18 12:59 Freq: Status: Active Protocol: Document 09/15/18 09:00 AMB (Rec: 09/15/18 15:32 AMB [email or web address]) Knee Goniometric Range of Motion Knee Measured in Degrees Left Flexion Passive (degrees) 107 PT-OP-M Strength Start: 09/04/18 12:59 Freq: Status: Active Protocol: Document 09/04/18 13:00 AMB (Rec: 09/04/18 16:18 AMB [email or web address]) Hip Strength Hip Manual Muscle Testing Right Flexion (L2) 4+ Good+ Extension (S1) 4+ Good+ Abduction 4+ Good+ Left Flexion (L2) 4+ Good+ Extension (S1) 4 Good Abduction 4 Good Knee Strength Knee Manual Muscle Testing Right Flexion (S2) 4+ Good+ Extension (L3) 4+ Good+ Left Flexion (S2) 4 Good Extension (L3) 4 Good PT-OP-Q Treatments Start: 09/04/18 12:59 Freq: Status: Active Protocol: Document 09/20/18 13:00 AMB (Rec: 09/20/18 15:37 AMB [email or web address]) Cardio Equipment Bicycle (Upright) Duration (Minutes) 6 Resistance 5 Seat Position 4 Gym Equipment Shuttle Recovery Bilateral Squats Resistance 100# Shuttle Recovery Platform Stable Reps/Time 2x10 Unilateral Squats Resistance 75# Shuttle Recovery Platform Stable Reps/Time 2x10 Therapeutic Exercises Standing Exercises 4 Standing Exercise Name standing quad stretch on stair Reps/Minutes 30x2 3 Standing Exercise Name standing hamstring stretch Reps/Minutes 30x2 1 Standing Exercise Name sit to stand Reps/Minutes 12 Comments vc for equal weightbearing Manual Therapy Treatment Soft Tissue Mobilization 2 Body Location quad Mobilization Type Myofascial Release Rolling Strumming Intensity/Depth Moderate 1 Body Location scar tissue Mobilization Type Cross-Friction Rolling Intensity/Depth Superficial Joint Mobilizations 1 Joint tibiofemoral, PA and AP Manual Techniques 1 Type PROM with OP Comments into flexion and extension PT-OP-R Modalities Start: 09/04/18 12:59 Freq: Status: Active Protocol: Document 09/20/18 13:00 AMB (Rec: 09/20/18 15:37 AMB [email or web address]) Electric Stimulation Electric Stimulation Interferential Current (IFC) Body Location L knee Duration (Minutes) 15 Patient Position Hooklying Combined With Heat/Cold Cold Pack PT-OP-T Assessment and Plan Start: 09/04/18 12:59 Freq: Status: Active Protocol: Document 09/20/18 13:00 AMB (Rec: 09/20/18 15:37 AMB [email or web address]) Physical Therapy Assessment Assessment Summary Assessment Pt is progressing, but will need to watch quad soreness Physical Therapy Plan Next Visit Focus/Plan Next Note Type Treatment Note Next Visit Plan Progress dynamic stability exercises
--- NOTE | 2018-09-22 16:12 | PT.OTN ---
Current Diagnoses Unilateral primary osteoarthritis, left knee (09/22/18) Physical Therapy Treatment Note PT-OP-A Visit Information Start: 09/04/18 12:59 Freq: Status: Active Protocol: Document 09/22/18 13:00 AMB (Rec: 09/22/18 13:07 AMB [id number]) Out-Patient Physical Therapy Visit Information Visit Information Visit Type Treatment Note Visit Start Time 13:00 Visit Stop Time 13:55 Total Visit Minutes 55 Visit Number 9 Number of HOSE CEMENTER Visits 0 PT-OP-B Current Condition Start: 09/04/18 12:59 Freq: Status: Active Protocol: Document 09/04/18 13:00 AMB (Rec: 09/04/18 15:52 AMB [email or web address]) Current Condition History of Current Condition Onset Date 08/28/18 Current Complaints s/p L TKA History of Current Condition The patient has had knee pain for years, prior history of R TKA which went well per his report in the mid . Pt lives in multilevel home with his with 2 steps to enter and one railing. He states everything he needs is on the main floor. Things have been going fine since the surgery, does have some neuropathy baseline and notices that the L leg swells in general. Previously he was not using an assistive device, today he attends with a FWW that is too short for him. Treatment Goals Patient/Caregiver Goals Return to golfing Prior Functional Status Baseline Function- ADL's Independent Baseline Function- Mobility Independent Current Functional Impairments (Reported) Functional Limitations- ADL's limited in lower body dressing donning doffing shoes/socks. Functional Limitations- Mobility/Gait Currently using 4WW PT-OP-C Subjective Start: 09/04/18 12:59 Freq: Status: Active Protocol: Document 09/22/18 13:00 AMB (Rec: 09/22/18 13:07 AMB [id number]) OP-PT Subjective Patient Comments Patient Comments Left sided knee pain with twisting leg at night. PT-OP-G Mobility & Gait Start: 09/04/18 12:59 Freq: Status: Active Protocol: Document 09/04/18 13:00 AMB (Rec: 09/04/18 16:18 AMB [email or web address]) OP Gait Assessment Gait Gait Assistance Required: Independent Distance (Feet) 50 Able to Maintain Weight Bearing Status Yes During Gait Assistive Devices Assistive Device Front Wheeled Walker Gait Deviations General Gait Pattern Antalgic Decreased Stride Length Decreased Feet Clearance PT-OP-J Posture/Palpation/Skin Start: 09/04/18 12:59 Freq: Status: Active Protocol: Document 09/04/18 13:00 AMB (Rec: 09/04/18 16:18 AMB [email or web address]) Skin Assessment Edema Assessment Left Leg Edema Type Pitting Edema Degree 2+ Edema Appearance Firm Incisional Assessment Incision Appearance/Comments Covered with gauze PT-OP-K Range of Motion Start: 09/04/18 12:59 Freq: Status: Active Protocol: Document 09/22/18 13:00 AMB (Rec: 09/22/18 16:12 AMB [email or web address]) Knee Goniometric Range of Motion Knee Measured in Degrees Left Flexion Passive (degrees) 111 PT-OP-M Strength Start: 09/04/18 12:59 Freq: Status: Active Protocol: Document 09/04/18 13:00 AMB (Rec: 09/04/18 16:18 AMB [email or web address]) Hip Strength Hip Manual Muscle Testing Right Flexion (L2) 4+ Good+ Extension (S1) 4+ Good+ Abduction 4+ Good+ Left Flexion (L2) 4+ Good+ Extension (S1) 4 Good Abduction 4 Good Knee Strength Knee Manual Muscle Testing Right Flexion (S2) 4+ Good+ Extension (L3) 4+ Good+ Left Flexion (S2) 4 Good Extension (L3) 4 Good PT-OP-Q Treatments Start: 09/04/18 12:59 Freq: Status: Active Protocol: Document 09/22/18 13:00 AMB (Rec: 09/22/18 13:11 AMB [id number]) Cardio Equipment Bicycle (Upright) Duration (Minutes) 6 Resistance 5 Seat Position 3 Gym Equipment Shuttle Recovery Bilateral Squats Resistance 100# Shuttle Recovery Platform Stable Reps/Time 2x10 Unilateral Squats Resistance 75# Shuttle Recovery Platform Stable Reps/Time 2x10 Therapeutic Exercises Supine Exercises 2 Supine Exercise Name hamstring stretch Reps/Minutes 30x2 1 Supine Exercise Name quad stretch Reps/Minutes 30x2 Sidelying Exercises 2 Sidelying Exercise Name hip ER Reps/Minutes 2x10 1 Sidelying Exercise Name hip abd Reps/Minutes 2x10 Standing Exercises 4 Standing Exercise Name standing quad stretch on stair Reps/Minutes 30x2 3 Standing Exercise Name standing hamstring stretch Reps/Minutes 30x2 1 Standing Exercise Name sit to stand Reps/Minutes 12 Comments vc for equal weightbearing Manual Therapy Treatment Soft Tissue Mobilization 2 Body Location quad Mobilization Type Myofascial Release Rolling Strumming Intensity/Depth Moderate 1 Body Location scar tissue Mobilization Type Cross-Friction Rolling Intensity/Depth Superficial Manual Techniques 1 Type PROM with OP Comments into flexion and extension PT-OP-R Modalities Start: 09/04/18 12:59 Freq: Status: Active Protocol: Document 09/22/18 13:00 AMB (Rec: 09/22/18 16:03 AMB [email or web address]) Electric Stimulation Electric Stimulation Interferential Current (IFC) Body Location L knee Duration (Minutes) 15 Patient Position Hooklying Combined With Heat/Cold Cold Pack PT-OP-T Assessment and Plan Start: 09/04/18 12:59 Freq: Status: Active Protocol: Document 09/22/18 13:00 AMB (Rec: 09/22/18 13:18 AMB [id number]) Physical Therapy Assessment Assessment Summary Assessment Continue to work on lateral knee tightness, progress hip abduction strength Physical Therapy Plan Next Visit Focus/Plan Next Note Type Treatment Note Next Visit Plan Progress dynamic stability exercises
--- NOTE | 2018-09-25 15:16 | PT.OTN ---
Current Diagnoses Unilateral primary osteoarthritis, left knee (09/25/18) Physical Therapy Treatment Note PT-OP-A Visit Information Start: 09/04/18 12:59 Freq: Status: Active Protocol: Document 09/25/18 13:00 AMB (Rec: 09/25/18 13:08 AMB [id number]) Out-Patient Physical Therapy Visit Information Visit Information Visit Type Treatment Note Visit Start Time 13:00 Visit Stop Time 13:55 Total Visit Minutes 55 Visit Number 10 Number of LABORATORY ANALYST Visits 0 PT-OP-B Current Condition Start: 09/04/18 12:59 Freq: Status: Active Protocol: Document 09/04/18 13:00 AMB (Rec: 09/04/18 15:52 AMB [email or web address]) Current Condition History of Current Condition Onset Date 08/28/18 Current Complaints s/p L TKA History of Current Condition The patient has had knee pain for years, 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 Pt lives in multilevel home with his with 2 steps to enter and one railing. He states everything he needs is on the main floor. Things have been going fine since the surgery, does have some neuropathy baseline and notices that the L leg swells in general. Previously he was not using an assistive device, today he attends with a FWW that is too short for him. Treatment Goals Patient/Caregiver Goals Return to golfing Prior Functional Status Baseline Function- ADL's Independent Baseline Function- Mobility Independent Current Functional Impairments (Reported) Functional Limitations- ADL's limited in lower body dressing donning doffing shoes/socks. Functional Limitations- Mobility/Gait Currently using 4WW PT-OP-C Subjective Start: 09/04/18 12:59 Freq: Status: Active Protocol: Document 09/25/18 13:00 AMB (Rec: 09/25/18 13:08 AMB [id number]) OP-PT Subjective Patient Comments Patient Comments Pt reporting lateral knee pain is better , some groin pain. PT-OP-G Mobility & Gait Start: 09/04/18 12:59 Freq: Status: Active Protocol: Document 09/04/18 13:00 AMB (Rec: 09/04/18 16:18 AMB [email or web address]) OP Gait Assessment Gait Gait Assistance Required: Independent Distance (Feet) 50 Able to Maintain Weight Bearing Status Yes During Gait Assistive Devices Assistive Device Front Wheeled Walker Gait Deviations General Gait Pattern Antalgic Decreased Stride Length Decreased Feet Clearance PT-OP-J Posture/Palpation/Skin Start: 09/04/18 12:59 Freq: Status: Active Protocol: Document 09/04/18 13:00 AMB (Rec: 09/04/18 16:18 AMB [email or web address]) Skin Assessment Edema Assessment Left Leg Edema Type Pitting Edema Degree 2+ Edema Appearance Firm Incisional Assessment Incision Appearance/Comments Covered with gauze PT-OP-K Range of Motion Start: 09/04/18 12:59 Freq: Status: Active Protocol: Document 09/22/18 13:00 AMB (Rec: 09/22/18 16:12 AMB [email or web address]) Knee Goniometric Range of Motion Knee Measured in Degrees Left Flexion Passive (degrees) 111 PT-OP-M Strength Start: 09/04/18 12:59 Freq: Status: Active Protocol: Document 09/04/18 13:00 AMB (Rec: 09/04/18 16:18 AMB [email or web address]) Hip Strength Hip Manual Muscle Testing Right Flexion (L2) 4+ Good+ Extension (S1) 4+ Good+ Abduction 4+ Good+ Left Flexion (L2) 4+ Good+ Extension (S1) 4 Good Abduction 4 Good Knee Strength Knee Manual Muscle Testing Right Flexion (S2) 4+ Good+ Extension (L3) 4+ Good+ Left Flexion (S2) 4 Good Extension (L3) 4 Good PT-OP-Q Treatments Start: 09/04/18 12:59 Freq: Status: Active Protocol: Document 09/25/18 13:00 AMB (Rec: 09/25/18 13:16 AMB [id number]) Cardio Equipment Bicycle (Upright) Duration (Minutes) 6 Resistance 5 Seat Position 3, then 2 Gym Equipment Shuttle Recovery Bilateral Squats Resistance 112# Shuttle Recovery Platform Stable Reps/Time 2x10 Unilateral Squats Resistance 75# Shuttle Recovery Platform Stable Reps/Time 2x10 Therapeutic Exercises Supine Exercises 2 Supine Exercise Name hamstring stretch Reps/Minutes 30x2 Comments with adductor 1 Supine Exercise Name quad stretch Reps/Minutes 30x2 Therapeutic Activity Therapeutic Activity 1 Name Floor transfer training Comments with environmental support SBA pt tolerated kneeling well Manual Therapy Treatment Soft Tissue Mobilization 1 Body Location scar tissue Mobilization Type Cross-Friction Rolling Intensity/Depth Superficial Joint Mobilizations 1 Joint tibiofemoral, PA and AP Manual Techniques 1 Type PROM with OP Comments into flexion and extension PT-OP-R Modalities Start: 09/04/18 12:59 Freq: Status: Active Protocol: Document 09/25/18 13:00 AMB (Rec: 09/25/18 15:15 AMB [email or web address]) Electric Stimulation Electric Stimulation Interferential Current (IFC) Body Location L knee Duration (Minutes) 15 Patient Position Hooklying Combined With Heat/Cold Cold Pack PT-OP-T Assessment and Plan Start: 09/04/18 12:59 Freq: Status: Active Protocol: Document 09/25/18 13:00 AMB (Rec: 09/25/18 13:18 AMB [id number]) Physical Therapy Assessment Assessment Summary Assessment Pt tolerated adductor stretching and quadruped well. Physical Therapy Plan Next Visit Focus/Plan Next Note Type Treatment Note Next Visit Plan Progress dynamic stability exercises
--- NOTE | 2018-09-28 13:45 | PT.OTN ---
Current Diagnoses Unilateral primary osteoarthritis, left knee (09/28/18) Physical Therapy Treatment Note PT-OP-A Visit Information Start: 09/04/18 12:59 Freq: Status: Active Protocol: Document 09/28/18 13:00 AMB (Rec: 09/28/18 13:10 AMB [id number]) Out-Patient Physical Therapy Visit Information Visit Information Visit Type Treatment Note Visit Start Time 13:00 Visit Stop Time 13:55 Total Visit Minutes 55 Visit Number 11 Number of GEODETIC ENGINEER Visits 0 Evaluation Information Evaluation Date 09/04/18 PT-OP-B Current Condition Start: 09/04/18 12:59 Freq: Status: Active Protocol: Document 09/04/18 13:00 AMB (Rec: 09/04/18 15:52 AMB [email or web address]) Current Condition History of Current Condition Onset Date 08/28/18 Current Complaints s/p L TKA History of Current Condition The patient has had knee pain for years, prior history of R TKA which went well per his report in the mid . Pt lives in multilevel home with his with 2 steps to enter and one railing. He states everything he needs is on the main floor. Things have been going fine since the surgery, does have some neuropathy baseline and notices that the L leg swells in general. Previously he was not using an assistive device, today he attends with a FWW that is too short for him. Treatment Goals Patient/Caregiver Goals Return to golfing Prior Functional Status Baseline Function- ADL's Independent Baseline Function- Mobility Independent Current Functional Impairments (Reported) Functional Limitations- ADL's limited in lower body dressing donning doffing shoes/socks. Functional Limitations- Mobility/Gait Currently using 4WW PT-OP-C Subjective Start: 09/04/18 12:59 Freq: Status: Active Protocol: Document 09/28/18 13:00 AMB (Rec: 09/28/18 13:10 AMB [id number]) OP-PT Subjective Patient Comments Patient Comments Some inner thigh pain continues, feels like he overdid it on Tuesday and was sore, difficulty sleeping that night. PT-OP-G Mobility & Gait Start: 09/04/18 12:59 Freq: Status: Active Protocol: Document 09/04/18 13:00 AMB (Rec: 09/04/18 16:18 AMB [email or web address]) OP Gait Assessment Gait Gait Assistance Required: Independent Distance (Feet) 50 Able to Maintain Weight Bearing Status Yes During Gait Assistive Devices Assistive Device Front Wheeled Walker Gait Deviations General Gait Pattern Antalgic Decreased Stride Length Decreased Feet Clearance PT-OP-J Posture/Palpation/Skin Start: 09/04/18 12:59 Freq: Status: Active Protocol: Document 09/04/18 13:00 AMB (Rec: 09/04/18 16:18 AMB [email or web address]) Skin Assessment Edema Assessment Left Leg Edema Type Pitting Edema Degree 2+ Edema Appearance Firm Incisional Assessment Incision Appearance/Comments Covered with gauze PT-OP-K Range of Motion Start: 09/04/18 12:59 Freq: Status: Active Protocol: Document 09/22/18 13:00 AMB (Rec: 09/22/18 16:12 AMB [email or web address]) Knee Goniometric Range of Motion Knee Measured in Degrees Left Flexion Passive (degrees) 111 PT-OP-M Strength Start: 09/04/18 12:59 Freq: Status: Active Protocol: Document 09/04/18 13:00 AMB (Rec: 09/04/18 16:18 AMB [email or web address]) Hip Strength Hip Manual Muscle Testing Right Flexion (L2) 4+ Good+ Extension (S1) 4+ Good+ Abduction 4+ Good+ Left Flexion (L2) 4+ Good+ Extension (S1) 4 Good Abduction 4 Good Knee Strength Knee Manual Muscle Testing Right Flexion (S2) 4+ Good+ Extension (L3) 4+ Good+ Left Flexion (S2) 4 Good Extension (L3) 4 Good PT-OP-Q Treatments Start: 09/04/18 12:59 Freq: Status: Active Protocol: Document 09/28/18 13:00 AMB (Rec: 09/28/18 13:10 AMB [id number]) Cardio Equipment Bicycle (Upright) Duration (Minutes) 6 Resistance 6 Seat Position 3, then 2 Gym Equipment Shuttle Recovery Bilateral Squats Resistance 112# Shuttle Recovery Platform Stable Reps/Time 2x10 Unilateral Squats Resistance 75# Shuttle Recovery Platform Stable Reps/Time 2x10 Therapeutic Exercises Supine Exercises 2 Supine Exercise Name hamstring stretch Reps/Minutes 30x2 Comments with adductor 1 Supine Exercise Name quad stretch Reps/Minutes 30x2 Soft Tissue Mobilization 1 Body Location scar tissue Mobilization Type Cross-Friction Rolling Intensity/Depth Superficial Joint Mobilizations 1 Joint tibiofemoral, PA and AP Manual Techniques 1 Type PROM with OP Comments into flexion and extension PT-OP-R Modalities Start: 09/04/18 12:59 Freq: Status: Active Protocol: Document 09/28/18 13:00 AMB (Rec: 09/28/18 13:44 AMB [id number]) Electric Stimulation Electric Stimulation Interferential Current (IFC) Body Location L knee Duration (Minutes) 15 Patient Position Hooklying Combined With Heat/Cold Cold Pack PT-OP-T Assessment and Plan Start: 09/04/18 12:59 Freq: Status: Active Protocol: Document 09/28/18 13:00 AMB (Rec: 09/28/18 13:14 AMB [id number]) Physical Therapy Assessment Assessment Summary Assessment The patient's thigh pain is improving well. Physical Therapy Plan Next Visit Focus/Plan Next Note Type Treatment Note Next Visit Plan Progress dynamic stability exercises
--- NOTE | 2018-10-02 13:42 | PT.OTN ---
Current Diagnoses Unilateral primary osteoarthritis, left knee (10/02/18) Physical Therapy Treatment Note PT-OP-A Visit Information Start: 09/04/18 12:59 Freq: Status: Active Protocol: Document 10/02/18 13:00 AMB (Rec: 10/02/18 13:06 AMB [id number]) Out-Patient Physical Therapy Visit Information Visit Information Visit Type Treatment Note Visit Start Time 13:00 Visit Stop Time 13:55 Total Visit Minutes 55 Visit Number 12 Number of AUDIO VISUAL TECH Visits 0 PT-OP-B Current Condition Start: 09/04/18 12:59 Freq: Status: Active Protocol: Document 09/04/18 13:00 AMB (Rec: 09/04/18 15:52 AMB [email or web address]) Current Condition History of Current Condition Onset Date 08/28/18 Current Complaints s/p L TKA History of Current Condition The patient has had knee pain for years, 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 Pt lives in multilevel home with his with 2 steps to enter and one railing. He states everything he needs is on the main floor. Things have been going fine since the surgery, does have some neuropathy baseline and notices that the L leg swells in general. Previously he was not using an assistive device, today he attends with a FWW that is too short for him. Treatment Goals Patient/Caregiver Goals Return to golfing Prior Functional Status Baseline Function- ADL's Independent Baseline Function- Mobility Independent Current Functional Impairments (Reported) Functional Limitations- ADL's limited in lower body dressing donning doffing shoes/socks. Functional Limitations- Mobility/Gait Currently using 4WW PT-OP-C Subjective Start: 09/04/18 12:59 Freq: Status: Active Protocol: Document 10/02/18 13:00 AMB (Rec: 10/02/18 13:06 AMB [id number]) OP-PT Subjective Patient Comments Patient Comments Left hip has been hurting since lifting a battery into the car at [employer] yesterday. PT-OP-G Mobility & Gait Start: 09/04/18 12:59 Freq: Status: Active Protocol: Document 09/04/18 13:00 AMB (Rec: 09/04/18 16:18 AMB [email or web address]) OP Gait Assessment Gait Gait Assistance Required: Independent Distance (Feet) 50 Able to Maintain Weight Bearing Status Yes During Gait Assistive Devices Assistive Device Front Wheeled Walker Gait Deviations General Gait Pattern Antalgic Decreased Stride Length Decreased Feet Clearance PT-OP-J Posture/Palpation/Skin Start: 09/04/18 12:59 Freq: Status: Active Protocol: Document 09/04/18 13:00 AMB (Rec: 09/04/18 16:18 AMB [email or web address]) Skin Assessment Edema Assessment Left Leg Edema Type Pitting Edema Degree 2+ Edema Appearance Firm Incisional Assessment Incision Appearance/Comments Covered with gauze PT-OP-K Range of Motion Start: 09/04/18 12:59 Freq: Status: Active Protocol: Document 09/22/18 13:00 AMB (Rec: 09/22/18 16:12 AMB [email or web address]) Knee Goniometric Range of Motion Knee Measured in Degrees Left Flexion Passive (degrees) 111 PT-OP-M Strength Start: 09/04/18 12:59 Freq: Status: Active Protocol: Document 09/04/18 13:00 AMB (Rec: 09/04/18 16:18 AMB [email or web address]) Hip Strength Hip Manual Muscle Testing Right Flexion (L2) 4+ Good+ Extension (S1) 4+ Good+ Abduction 4+ Good+ Left Flexion (L2) 4+ Good+ Extension (S1) 4 Good Abduction 4 Good Knee Strength Knee Manual Muscle Testing Right Flexion (S2) 4+ Good+ Extension (L3) 4+ Good+ Left Flexion (S2) 4 Good Extension (L3) 4 Good PT-OP-Q Treatments Start: 09/04/18 12:59 Freq: Status: Active Protocol: Document 10/02/18 13:00 AMB (Rec: 10/02/18 13:08 AMB [id number]) Cardio Equipment Recumbent Bicycle Duration (Minutes) 5 Resistance 6 Seat Position 3 Gym Equipment Shuttle Recovery Bilateral Squats Resistance 112# Shuttle Recovery Platform Stable Reps/Time 2x10 Unilateral Squats Resistance 87# Shuttle Recovery Platform Stable Reps/Time 2x10 Therapeutic Exercises Supine Exercises 2 Supine Exercise Name hamstring stretch Reps/Minutes 30x2 Comments with adductor 1 Supine Exercise Name quad stretch Reps/Minutes 30x2 Standing Exercises 1 Standing Exercise Name sit to stand Reps/Minutes 12 Comments vc for equal weightbearing Manual Therapy Treatment Soft Tissue Mobilization 1 Body Location scar tissue Mobilization Type Cross-Friction Rolling Intensity/Depth Superficial Joint Mobilizations 1 Joint tibiofemoral, PA and AP Manual Techniques 1 Type PROM with OP Comments into flexion and extension PT-OP-R Modalities Start: 09/04/18 12:59 Freq: Status: Active Protocol: Document 10/02/18 13:00 AMB (Rec: 10/02/18 13:08 AMB [id number]) Electric Stimulation Electric Stimulation Interferential Current (IFC) Body Location L knee Duration (Minutes) 15 Patient Position Hooklying Combined With Heat/Cold Cold Pack PT-OP-T Assessment and Plan Start: 09/04/18 12:59 Freq: Status: Active Protocol: Document 10/02/18 13:00 AMB (Rec: 10/02/18 13:41 AMB [id number]) Physical Therapy Assessment Assessment Summary Assessment The patient did well with ther ex and felt that it helped loosen up his hip. Continue to progress strengthening. Physical Therapy Plan Next Visit Focus/Plan Next Note Type Treatment Note Next Visit Plan Progress flexion, terminal extension and quad stability
--- NOTE | 2018-10-05 15:07 | PT.OTN ---
Current Diagnoses Unilateral primary osteoarthritis, left knee (10/05/18) Physical Therapy Treatment Note PT-OP-A Visit Information Start: 09/04/18 12:59 Freq: Status: Active Protocol: Document 10/05/18 13:00 AMB (Rec: 10/05/18 13:10 AMB [id number]) Out-Patient Physical Therapy Visit Information Visit Information Visit Type Treatment Note Visit Start Time 13:00 Visit Stop Time 13:55 Total Visit Minutes 55 Visit Number 13 Number of ALARM FIELD TECHNICIAN Visits 0 Evaluation Information Evaluation Date 09/04/18 PT-OP-B Current Condition Start: 09/04/18 12:59 Freq: Status: Active Protocol: Document 09/04/18 13:00 AMB (Rec: 09/04/18 15:52 AMB [email or web address]) Current Condition History of Current Condition Onset Date 08/28/18 Current Complaints s/p L TKA History of Current Condition The patient has had knee pain for years, prior history of R TKA which went well per his report in the mid . Pt lives in multilevel home with his with 2 steps to enter and one railing. He states everything he needs is on the main floor. Things have been going fine since the surgery, does have some neuropathy baseline and notices that the L leg swells in general. Previously he was not using an assistive device, today he attends with a FWW that is too short for him. Treatment Goals Patient/Caregiver Goals Return to golfing Prior Functional Status Baseline Function- ADL's Independent Baseline Function- Mobility Independent Current Functional Impairments (Reported) Functional Limitations- ADL's limited in lower body dressing donning doffing shoes/socks. Functional Limitations- Mobility/Gait Currently using 4WW PT-OP-C Subjective Start: 09/04/18 12:59 Freq: Status: Active Protocol: Document 10/05/18 13:00 AMB (Rec: 10/05/18 13:10 AMB [id number]) OP-PT Subjective Patient Comments Patient Comments Pt saw yesterday and he said he is doing very well. PT-OP-G Mobility & Gait Start: 09/04/18 12:59 Freq: Status: Active Protocol: Document 09/04/18 13:00 AMB (Rec: 09/04/18 16:18 AMB [email or web address]) OP Gait Assessment Gait Gait Assistance Required: Independent Distance (Feet) 50 Able to Maintain Weight Bearing Status Yes During Gait Assistive Devices Assistive Device Front Wheeled Walker Gait Deviations General Gait Pattern Antalgic Decreased Stride Length Decreased Feet Clearance PT-OP-J Posture/Palpation/Skin Start: 09/04/18 12:59 Freq: Status: Active Protocol: Document 09/04/18 13:00 AMB (Rec: 09/04/18 16:18 AMB [email or web address]) Skin Assessment Edema Assessment Left Leg Edema Type Pitting Edema Degree 2+ Edema Appearance Firm Incisional Assessment Incision Appearance/Comments Covered with gauze PT-OP-K Range of Motion Start: 09/04/18 12:59 Freq: Status: Active Protocol: Document 09/22/18 13:00 AMB (Rec: 09/22/18 16:12 AMB [email or web address]) Knee Goniometric Range of Motion Knee Measured in Degrees Left Flexion Passive (degrees) 111 PT-OP-M Strength Start: 09/04/18 12:59 Freq: Status: Active Protocol: Document 09/04/18 13:00 AMB (Rec: 09/04/18 16:18 AMB [email or web address]) Hip Strength Hip Manual Muscle Testing Right Flexion (L2) 4+ Good+ Extension (S1) 4+ Good+ Abduction 4+ Good+ Left Flexion (L2) 4+ Good+ Extension (S1) 4 Good Abduction 4 Good Knee Strength Knee Manual Muscle Testing Right Flexion (S2) 4+ Good+ Extension (L3) 4+ Good+ Left Flexion (S2) 4 Good Extension (L3) 4 Good PT-OP-Q Treatments Start: 09/04/18 12:59 Freq: Status: Active Protocol: Document 10/05/18 13:00 AMB (Rec: 10/05/18 15:06 AMB [email or web address]) Cardio Equipment Bicycle (Upright) Duration (Minutes) 6 Resistance 11 Seat Position 3, then 2 Therapeutic Exercises Supine Exercises 1 Supine Exercise Name quad stretch Reps/Minutes 30x2 Sidelying Exercises 1 Sidelying Exercise Name hip abd Reps/Minutes 2x10 Standing Exercises 4 Standing Exercise Name standing quad stretch on stair Reps/Minutes 30x2 3 Standing Exercise Name standing hamstring stretch Reps/Minutes 30x2 1 Standing Exercise Name sit to stand Reps/Minutes 12 Comments vc for equal weightbearing Manual Therapy Treatment Soft Tissue Mobilization 1 Body Location scar tissue Mobilization Type Cross-Friction Rolling Intensity/Depth Superficial Joint Mobilizations 1 Joint tibiofemoral, PA and AP Manual Techniques 1 Type PROM with OP Comments into flexion and extension PT-OP-R Modalities Start: 09/04/18 12:59 Freq: Status: Active Protocol: Document 10/05/18 13:00 AMB (Rec: 10/05/18 15:06 AMB [email or web address]) Electric Stimulation Electric Stimulation Interferential Current (IFC) Body Location L knee Duration (Minutes) 15 Patient Position Hooklying Combined With Heat/Cold Cold Pack PT-OP-T Assessment and Plan Start: 09/04/18 12:59 Freq: Status: Active Protocol: Document 10/05/18 13:00 AMB (Rec: 10/05/18 13:46 AMB [email or web address]) Physical Therapy Assessment Assessment Summary Assessment Continued to encourage hip abductor strengthening and stretching at home. Physical Therapy Plan Next Visit Focus/Plan Next Note Type Treatment Note Next Visit Plan Progress flexion, terminal extension and quad stability
--- NOTE | 2018-10-09 15:56 | PT.OTN ---
Current Diagnoses Unilateral primary osteoarthritis, left knee (10/09/18) Physical Therapy Treatment Note PT-OP-A Visit Information Start: 09/04/18 12:59 Freq: Status: Active Protocol: Document 10/09/18 13:00 AMB (Rec: 10/09/18 13:10 AMB [id number]) Out-Patient Physical Therapy Visit Information Visit Information Visit Type Treatment Note Visit Start Time 13:00 Visit Stop Time 13:55 Total Visit Minutes 55 Visit Number 14 Number of CARDIOLOGY NURSE PRACTITIONER Visits 0 Evaluation Information Evaluation Date 09/04/18 PT-OP-B Current Condition Start: 09/04/18 12:59 Freq: Status: Active Protocol: Document 09/04/18 13:00 AMB (Rec: 09/04/18 15:52 AMB [email or web address]) Current Condition History of Current Condition Onset Date 08/28/18 Current Complaints s/p L TKA History of Current Condition The patient has had knee pain for years, prior history of R TKA which went well per his report in the mid . Pt lives in multilevel home with his with 2 steps to enter and one railing. He states everything he needs is on the main floor. Things have been going fine since the surgery, does have some neuropathy baseline and notices that the L leg swells in general. Previously he was not using an assistive device, today he attends with a FWW that is too short for him. Treatment Goals Patient/Caregiver Goals Return to golfing Prior Functional Status Baseline Function- ADL's Independent Baseline Function- Mobility Independent Current Functional Impairments (Reported) Functional Limitations- ADL's limited in lower body dressing donning doffing shoes/socks. Functional Limitations- Mobility/Gait Currently using 4WW PT-OP-C Subjective Start: 09/04/18 12:59 Freq: Status: Active Protocol: Document 10/09/18 13:00 AMB (Rec: 10/09/18 13:10 AMB [id number]) OP-PT Subjective Patient Comments Patient Comments Pt heading to [place] soon PT-OP-G Mobility & Gait Start: 09/04/18 12:59 Freq: Status: Active Protocol: Document 09/04/18 13:00 AMB (Rec: 09/04/18 16:18 AMB [email or web address]) OP Gait Assessment Gait Gait Assistance Required: Independent Distance (Feet) 50 Able to Maintain Weight Bearing Status Yes During Gait Assistive Devices Assistive Device Front Wheeled Walker Gait Deviations General Gait Pattern Antalgic Decreased Stride Length Decreased Feet Clearance PT-OP-J Posture/Palpation/Skin Start: 09/04/18 12:59 Freq: Status: Active Protocol: Document 09/04/18 13:00 AMB (Rec: 09/04/18 16:18 AMB [email or web address]) Skin Assessment Edema Assessment Left Leg Edema Type Pitting Edema Degree 2+ Edema Appearance Firm Incisional Assessment Incision Appearance/Comments Covered with gauze PT-OP-K Range of Motion Start: 09/04/18 12:59 Freq: Status: Active Protocol: Document 09/22/18 13:00 AMB (Rec: 09/22/18 16:12 AMB [email or web address]) Knee Goniometric Range of Motion Knee Measured in Degrees Left Flexion Passive (degrees) 111 PT-OP-M Strength Start: 09/04/18 12:59 Freq: Status: Active Protocol: Document 09/04/18 13:00 AMB (Rec: 09/04/18 16:18 AMB [email or web address]) Hip Strength Hip Manual Muscle Testing Right Flexion (L2) 4+ Good+ Extension (S1) 4+ Good+ Abduction 4+ Good+ Left Flexion (L2) 4+ Good+ Extension (S1) 4 Good Abduction 4 Good Knee Strength Knee Manual Muscle Testing Right Flexion (S2) 4+ Good+ Extension (L3) 4+ Good+ Left Flexion (S2) 4 Good Extension (L3) 4 Good PT-OP-Q Treatments Start: 09/04/18 12:59 Freq: Status: Active Protocol: Document 10/09/18 13:00 AMB (Rec: 10/09/18 13:10 AMB [id number]) Cardio Equipment Bicycle (Upright) Duration (Minutes) 6 Resistance 11 Seat Position 3, then 2 Gym Equipment Shuttle Recovery Bilateral Squats Resistance 112# Shuttle Recovery Platform Stable Reps/Time 2x10 Unilateral Squats Resistance 87# Shuttle Recovery Platform Stable Reps/Time 2x10 Therapeutic Exercises Standing Exercises 4 Standing Exercise Name standing quad stretch on stair Reps/Minutes 30x2 3 Standing Exercise Name standing hamstring stretch Reps/Minutes 30x2 1 Standing Exercise Name sit to stand Reps/Minutes 12 Comments vc for equal weightbearing Manual Therapy Treatment Soft Tissue Mobilization 1 Body Location scar tissue Mobilization Type Cross-Friction Rolling Intensity/Depth Superficial Joint Mobilizations 1 Joint tibiofemoral, PA and AP Manual Techniques 1 Type PROM with OP Comments into flexion and extension PT-OP-R Modalities Start: 09/04/18 12:59 Freq: Status: Active Protocol: Document 10/09/18 13:00 AMB (Rec: 10/09/18 15:56 AMB [email or web address]) Electric Stimulation Electric Stimulation Interferential Current (IFC) Body Location L knee Duration (Minutes) 15 Patient Position Hooklying Combined With Heat/Cold Cold Pack PT-OP-T Assessment and Plan Start: 09/04/18 12:59 Freq: Status: Active Protocol: Document 10/09/18 13:00 AMB (Rec: 10/09/18 15:56 AMB [email or web address]) Physical Therapy Assessment Assessment Summary Assessment Pt with 115 degrees AROM, missing 3 degrees extension. Pt with slight discomfort over IT band, otherwise doing well . Physical Therapy Plan Next Visit Focus/Plan Next Note Type Treatment Note Next Visit Plan Progress flexion, terminal extension and quad stability
--- NOTE | 2018-10-26 12:30 | PT.OTN ---
Current Diagnoses Unilateral primary osteoarthritis, left knee (10/26/18) Physical Therapy Treatment Note PT-OP-A Visit Information Start: 09/04/18 12:59 Freq: Status: Active Protocol: Document 10/26/18 11:15 AMB (Rec: 10/26/18 11:24 AMB [id number]) Out-Patient Physical Therapy Visit Information Visit Information Visit Type Treatment Note Visit Start Time 13:00 Visit Stop Time 13:55 Total Visit Minutes 55 Visit Number 15 Number of TELEPHONE MAINTAINER Visits 0 Evaluation Information Evaluation Date 09/04/18 PT-OP-B Current Condition Start: 09/04/18 12:59 Freq: Status: Active Protocol: Document 09/04/18 13:00 AMB (Rec: 09/04/18 15:52 AMB [email or web address]) Current Condition History of Current Condition Onset Date 08/28/18 Current Complaints s/p L TKA History of Current Condition The patient has had knee pain for years, prior history of R TKA which went well per his report in the mid . Pt lives in multilevel home with his with 2 steps to enter and one railing. He states everything he needs is on the main floor. Things have been going fine since the surgery, does have some neuropathy baseline and notices that the L leg swells in general. Previously he was not using an assistive device, today he attends with a FWW that is too short for him. Treatment Goals Patient/Caregiver Goals Return to golfing Prior Functional Status Baseline Function- ADL's Independent Baseline Function- Mobility Independent Current Functional Impairments (Reported) Functional Limitations- ADL's limited in lower body dressing donning doffing shoes/socks. Functional Limitations- Mobility/Gait Currently using 4WW PT-OP-C Subjective Start: 09/04/18 12:59 Freq: Status: Active Protocol: Document 10/26/18 11:15 AMB (Rec: 10/26/18 11:24 AMB [id number]) OP-PT Subjective Patient Comments Patient Comments Pt returns from trip. His calf is bothering him because he pushed up into a single leg heel raise putting the trailer away. His knee hasn't been bothering him. PT-OP-G Mobility & Gait Start: 09/04/18 12:59 Freq: Status: Active Protocol: Document 09/04/18 13:00 AMB (Rec: 09/04/18 16:18 AMB [email or web address]) OP Gait Assessment Gait Gait Assistance Required: Independent Distance (Feet) 50 Able to Maintain Weight Bearing Status Yes During Gait Assistive Devices Assistive Device Front Wheeled Walker Gait Deviations General Gait Pattern Antalgic Decreased Stride Length Decreased Feet Clearance PT-OP-J Posture/Palpation/Skin Start: 09/04/18 12:59 Freq: Status: Active Protocol: Document 09/04/18 13:00 AMB (Rec: 09/04/18 16:18 AMB [email or web address]) Skin Assessment Edema Assessment Left Leg Edema Type Pitting Edema Degree 2+ Edema Appearance Firm Incisional Assessment Incision Appearance/Comments Covered with gauze PT-OP-K Range of Motion Start: 09/04/18 12:59 Freq: Status: Active Protocol: Document 09/22/18 13:00 AMB (Rec: 09/22/18 16:12 AMB [email or web address]) Knee Goniometric Range of Motion Knee Measured in Degrees Left Flexion Passive (degrees) 111 PT-OP-M Strength Start: 09/04/18 12:59 Freq: Status: Active Protocol: Document 09/04/18 13:00 AMB (Rec: 09/04/18 16:18 AMB [email or web address]) Hip Strength Hip Manual Muscle Testing Right Flexion (L2) 4+ Good+ Extension (S1) 4+ Good+ Abduction 4+ Good+ Left Flexion (L2) 4+ Good+ Extension (S1) 4 Good Abduction 4 Good Knee Strength Knee Manual Muscle Testing Right Flexion (S2) 4+ Good+ Extension (L3) 4+ Good+ Left Flexion (S2) 4 Good Extension (L3) 4 Good PT-OP-Q Treatments Start: 09/04/18 12:59 Freq: Status: Active Protocol: Document 10/26/18 11:15 AMB (Rec: 10/26/18 12:01 AMB [email or web address]) Cardio Equipment Bicycle (Upright) Duration (Minutes) 6 Resistance 12 Seat Position 2 Therapeutic Exercises Supine Exercises 2 Supine Exercise Name hamstring stretch Reps/Minutes 30x2 Comments with adductor 1 Supine Exercise Name quad stretch Reps/Minutes 30x2 Sidelying Exercises 1 Sidelying Exercise Name hip abd Reps/Minutes 2x10 Standing Exercises 1 Standing Exercise Name sit to stand Reps/Minutes 12 Comments vc for equal weightbearing Manual Therapy Treatment Soft Tissue Mobilization 1 Body Location scar tissue Mobilization Type Cross-Friction Rolling Intensity/Depth Superficial Joint Mobilizations 1 Joint tibiofemoral, PA and AP Manual Techniques 1 Type PROM with OP Comments into flexion and extension PT-OP-R Modalities Start: 09/04/18 12:59 Freq: Status: Active Protocol: Document 10/09/18 13:00 AMB (Rec: 10/09/18 15:56 AMB [email or web address]) Electric Stimulation Electric Stimulation Interferential Current (IFC) Body Location L knee Duration (Minutes) 15 Patient Position Hooklying Combined With Heat/Cold Cold Pack PT-OP-T Assessment and Plan Start: 09/04/18 12:59 Freq: Status: Active Protocol: Document 10/26/18 11:15 AMB (Rec: 10/26/18 12:01 AMB [email or web address]) Physical Therapy Assessment Assessment Summary Assessment Pt with 118 degrees of flexion . Pt with left face swelling (pt thinks it is salivary gland swelling which he has had before). It worsened throughout the treatment, so pt left 5 minutes early to go see his MD. Physical Therapy Plan Next Visit Focus/Plan Next Note Type Discharge Summary
--- NOTE | 2018-12-11 08:20 | PT.OPDS ---
Current Diagnoses Unilateral primary osteoarthritis, left knee (10/26/18) Provider Visit Care Team Role Provider Type Mechelle Hernandez DO Family Provider Physician Primary Care Provider Specialty: Family Practice Address: [address] [place] [address], [id number] Email: [email or web address] Norman Conrad MD Attending Provider Non-Staff Specialty: Orthopedics Address: [address] [place] [address], [id number] Email: Visit Number Visit Number 15 Discharge Summary PT-OP-B Current Condition Start: 09/04/18 12:59 Freq: Status: Active Protocol: Document 09/04/18 13:00 AMB (Rec: 09/04/18 15:52 AMB [id number]) Current Condition History of Current Condition Onset Date 08/28/18 Current Complaints s/p L TKA History of Current Condition The patient has had knee pain for years, 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 Pt lives in multilevel home with his with 2 steps to enter and one railing. He states everything he needs is on the main floor. Things have been going fine since the surgery, does have some neuropathy baseline and notices that the L leg swells in general. Previously he was not using an assistive device, today he attends with a FWW that is too short for him. Treatment Goals Patient/Caregiver Goals Return to golfing Prior Functional Status Baseline Function- ADL's Independent Baseline Function- Mobility Independent Current Functional Impairments (Reported) Functional Limitations- ADL's limited in lower body dressing donning doffing shoes/socks. Functional Limitations- Mobility/Gait Currently using 4WW PT-OP-C Subjective Start: 09/04/18 12:59 Freq: Status: Active Protocol: Document 10/26/18 11:15 AMB (Rec: 10/26/18 11:24 AMB [id number]) OP-PT Subjective Patient Comments Patient Comments Pt returns from trip. His calf is bothering him because he pushed up into a single leg heel raise putting the trailer away. His knee hasn't been bothering him. PT-OP-G Mobility & Gait Start: 09/04/18 12:59 Freq: Status: Active Protocol: Document 12/11/18 08:16 AMB (Rec: 12/11/18 08:18 AMB [email or web address]) OP Gait Assessment Comments Gait Comments Pt ambulates without AD PT-OP-J Posture/Palpation/Skin Start: 09/04/18 12:59 Freq: Status: Active Protocol: Document 12/11/18 08:16 AMB (Rec: 12/11/18 08:18 AMB [email or web address]) Skin Assessment Edema Assessment Left Leg Comments No significant edema at last visit, scar healed well. PT-OP-K Range of Motion Start: 09/04/18 12:59 Freq: Status: Active Protocol: Document 12/11/18 08:16 AMB (Rec: 12/11/18 08:18 AMB [email or web address]) Knee Goniometric Range of Motion Knee Measured in Degrees Left Flexion Passive (degrees) 118 PT-OP-M Strength Start: 09/04/18 12:59 Freq: Status: Active Protocol: Document 09/04/18 13:00 AMB (Rec: 09/04/18 16:18 AMB [email or web address]) Hip Strength Hip Manual Muscle Testing Right Flexion (L2) 4+ Good+ Extension (S1) 4+ Good+ Abduction 4+ Good+ Left Flexion (L2) 4+ Good+ Extension (S1) 4 Good Abduction 4 Good Knee Strength Knee Manual Muscle Testing Right Flexion (S2) 4+ Good+ Extension (L3) 4+ Good+ Left Flexion (S2) 4 Good Extension (L3) 4 Good PT-OP-T Assessment and Plan Start: 09/04/18 12:59 Freq: Status: Active Protocol: Document 12/11/18 08:16 AMB (Rec: 12/11/18 08:18 AMB [email or web address]) Physical Therapy Assessment Goals Two Impairment Gait Short Term Goal (STG) The patient will ambulate without AD in his home with 2/ 10 knee pain or less. STG Duration MET Billiard Table Repairer Goal (LTG) The patient will ambulate in the community without assistive device for 30 minutes over grass/gravel/ hills to be able to return to golf. LTG Duration MET Three Impairment Strength Short Term Goal (STG) The patient will improve his LE strength so he can perform a partial squat without UE support. STG Duration MET Assisted Goal (LTG) The patient will be independent with his HEP. LTG Duration MET One Impairment ROM Short Term Goal (STG) The patient will improve his PROM to 0-115 degrees. STG Duration MET Billiard Table Repairer Goal (LTG) The patient will improve his AROM to 0-120 degrees. LTG Duration 8 weeks Assessment Summary Assessment The patient was seen for 15 visits s/p TKA. He canceled his last remaining appointment due to other health concerns coming up. Overall he rehabbed well from his surgery , at his last appointment he was missing to 2 degrees of flexion from his goal of 120 degrees but otherwise had met his goals. He has not been seen since September, therefore he is discharged at this time . Physical Therapy Plan Discharge Physical Therapy Discharge Reasons No Longer Attending PT
== END 2018-12-11 13:00 ==
LOC: PHYS 11:15
PROVIDERS: Family Provider Family Medicine; PCP Family Medicine; Visit Provider Orthopaedic Surgery
DX: M17.12 Unilateral primary osteoarthritis, left knee (principal)
CPT/HCPCS: 97014; 97110; 97140; 97161; 97530; G0283

== ENCOUNTER → 2018-11-15 14:14 | Outpatient (CLI) | payer MEDICARE, SELFPAY ==
[2018-11-15 15:22] LABS: Blood Urea Nitrogen 18 mg/dL (9-20); Calcium 9.2 mg/dL (8.4-10.2); Carbon Dioxide 28 mmol/L (22-32); Chloride 105 mmol/L (98-107); Creatine Kinase 124 U/L (55-170); Estimated Glomerular Filt Rate > 60.0 mL/min (>60); Glucose 91 mg/dL (80-110); HEMOLYSIS < 15 (0-50); Potassium 4.2 mmol/L (3.4-5.1); Sodium 144 mmol/L (137-145)
[2018-11-15 15:34] LABS: Troponin I < 0.012 ng/mL (0.01-0.034)
[2018-11-15 15:37] LABS: CKMB % Relative Index 1.9 % (1.5-5.0); Creatine Kinase MB 2.36 ng/mL (<2.37)
== END ==
PROVIDERS: PCP Family Medicine; Visit Provider Family Medicine
DX: I10 Essential (primary) hypertension (principal); R07.9 Chest pain, unspecified
CPT/HCPCS: 36415; 80048; 82550; 82553; 84484

== ENCOUNTER → 2019-12-05 15:28 | Outpatient (CLI) | payer MEDICARE, SELFPAY ==
[2019-12-05 17:35] LABS: BUN Creatinine Ratio 16.4 (6-22); Blood Urea Nitrogen 18 mg/dL (9-20); Calcium 9.4 mg/dL (8.4-10.2); Carbon Dioxide 27 mmol/L (22-32); Chloride 106 mmol/L (98-107); Estimated Glomerular Filt Rate > 60.0 mL/min (>60); Glucose 92 mg/dL (80-110); HEMOLYSIS < 15 (0-50); Potassium 4.4 mmol/L (3.4-5.1); Sodium 142 mmol/L (137-145)
== END ==
PROVIDERS: Family Provider Family Medicine; PCP Family Medicine; Visit Provider Family Medicine
DX: I10 Essential (primary) hypertension (principal); R73.01 Impaired fasting glucose
CPT/HCPCS: 36415; 80048

== ENCOUNTER → 2021-02-02 10:13 | Outpatient (CLI) | payer MEDICARE, SELFPAY ==
[2021-02-02 11:41] LABS: Alanine Aminotransferase 24 IU/L (<50); Albumin Globulin Ratio 1.6 (1.0-2.8); Alkaline Phosphatase 49 U/L (38-126); Aspartate Aminotransferase 29 IU/L (17-59); BUN Creatinine Ratio 21.3 (6-22); Bilirubin Total 0.6 mg/dL (0.2-1.3); Blood Urea Nitrogen 23 mg/dL (9-20); Calcium 9.3 mg/dL (8.4-10.2); Carbon Dioxide 32 mmol/L (22-32); Chloride 107 mmol/L (98-107); Cholesterol 160 mg/dL (140-199); Estimated Glomerular Filt Rate > 60.0 mL/min (>60); Globulin 2.5 g/dL (1.7-4.1); Glucose 102 mg/dL (80-110); HDL Cholesterol 67 mg/dL (40-60); HEMOLYSIS < 15 (0-50); LDL Cholesterol Calculated 83 mg/dL (<100); Potassium 5.1 mmol/L (3.4-5.1); Sodium 140 mmol/L (137-145); Total Protein 6.5 g/dL (6.3-8.2); Triglycerides 48 mg/dL (35-150)
[2021-02-02 11:46] LABS: Microalbumi Creatinin Ratio Ur 10.2 ug/mg CR (<30); Microalbumin Urine Random 1.1 mg/dL (0-1.6)
== END ==
PROVIDERS: Family Provider Family Medicine; PCP Family Medicine; Referring Provider Family Medicine; Visit Provider Family Medicine
DX: F10.20 Alcohol dependence, uncomplicated (principal); I10 Essential (primary) hypertension; G62.9 Polyneuropathy, unspecified; R73.01 Impaired fasting glucose
CPT/HCPCS: 36415; 80053; 80061; 82043; 82570

== ENCOUNTER → 2021-04-04 09:29 | Outpatient (CLI) | payer MEDICARE, SELFPAY ==
--- NOTE | 2021-04-04 09:33 | DI.RAD.S_ITS ---
PROCEDURE: XR HIP W PEL IF DONE NATALIE MIN 4V INDICATIONS: left sided hip and groin pain TECHNIQUE: AP pelvis with lateral view(s) of both hip(s). COMPARISON: [facility], CR, XR PELVIS WITH LATERAL HIP RIGHT, 05/09/2018, 15:53. FINDINGS: Bones: No fractures or dislocations. Pelvic ring appears intact. No suspicious bony lesions. There is moderate to severe superior joint space narrowing seen of both hips, with associated remodeling changes with subchondral sclerosis and osteophyte formation. Soft tissues: The visualized bowel gas pattern is normal. No suspicious soft tissue calcifications. 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 If it would be helpful for clinical management decision making, please consider a dedicated hip MRI for further evaluation (assuming that there is no contraindication). If there is strong clinical concern for a labral abnormality, this should be performed according to the arthrogram protocol. Dictated by: Lorenzo Orozco M.D. on 04/04/2021 at 10:04 Approved by: Lorenzo Orozco M.D. on 04/04/2021 at 10:04
== END ==
PROVIDERS: Family Provider Family Medicine; PCP Family Medicine; Referring Provider Family Medicine; Visit Provider Family Medicine
DX: M25.552 Pain in left hip (principal); R10.32 Left lower quadrant pain
CPT/HCPCS: 73522

== ENCOUNTER 2021-06-25 15:00 | Outpatient (RCR) | payer MEDICARE, SELFPAY ==
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
--- NOTE | 2021-05-04 17:58 | PT.OPPOC ---
Physical, Occupational & Speech Therapy At Located Within [facility] Current Diagnoses Pain in left hip (05/04/21) Stiffness of left hip, not elsewhere classified (05/04/21) Muscle weakness (generalized) (05/04/21) Abnormal posture (05/04/21) Visit Care Team Role Provider Type Mechelle Hernandez DO Attending Provider Physician Family Provider Primary Care Provider Referring Provider Specialty: Family Practice Address: [address] [place] [address], [facility] [address], [place], [address] Email: [email or web address] Plan Of Care PT-OP-T Assessment and Plan Start: 04/23/21 17:57 Freq: Status: Active Protocol: Document 05/04/21 09:09 LRN (Rec: 05/04/21 09:54 LRN [id number]) Physical Therapy Assessment Rehab Potential Rehabilitation Potential Good Evaluation Complexity Number of Personal Factors/Comorbidities 1-2 Number of Body Systems Impaired 4 or More Clinical Presentation at Evaluation Stable Impairments Impairments Activity Tolerance,Functional Activities,Pain,Posture,ROM, Soft Tissue Mobility Other Impairments Rolling in bed and L sidelye limited due to pain. Goals Two Impairment Mechanical dysfunction of the pelvis with L PSIS anterior Short Term Goal (STG) Pt will be demonstrate improved standing posture of symmetry of pelvis. STG Duration 06/03/21 Mcc Goal (LTG) Pt will be able to swing a gold club without sharp pain. LTG Duration 08/02/21 Three Impairment Decreased trunk & hip mobility causing pain with functional activities. Short Term Goal (STG) Pt will be able to put on socks without pain. STG Duration 06/03/21 Model Making Supervisor Goal (LTG) Pt will be able to bend over to pck up golf cipriano without pain. LTG Duration 08/02/21 One Impairment Pt lacks appropriates self care HEP Mcc Goal (LTG) Pt will be independent in a self care HEP. LTG Duration 08/02/21 Assessment Summary Assessment Pt presents with L hip pain adjacent and posterior to the greater trochanter that is reproduced with hip and trunk stretch. He has palpable tenderness; therefore soft tissue dysfunction of hip ER's at the greater trochanter with possible bursitis is present. The pt demonstrates postural deviations with excessive L hip ER and anterior positioning of L innominate in standing. Pt will benefit from skilled physical therapy to achieve the above stated goals. Physical Therapy Plan Frequency and Duration Frequency of Treatment 2x/Week Plan of Care Start Date 05/04/21 Plan of Care End Date 08/02/21 Therapeutic Interventions Therapeutic Interventions Home Exercise Program,Joint Mobilizations,Manual Therapy, Neuromuscular Re-education, Patient/Caregiver Education, Self-Care/Home Management,Soft Tissue Mobilization, Therapeutic Activities, Therapeutic Exercises Modalities Cold Pack/Ice Massage,Hot Packs Next Visit Focus/Plan Next Note Type Treatment Note Next Visit Plan Assess active trunk mobility and core stability. Review hip IR stretch and issue HEP of hip stretches (IR, HS/LE neural, IT band, Piriformis, Iliopsoas). DTM to lateral hip rotators. Assess hip strength. Plan of Care Dates Plan of Care Start Date 05/04/21 Plan of Care End Date 08/02/21 Electronically Signed by: Lala Langston, PT 05/04/21 [id number] Please Sign and Return: I have reviewed this Plan of Care and certify that the skilled therapy services above are required to meet the patient?s needs. Physician Signature Date Printed Name and Credentials Clinical Instructor Signature Printed Name and Credentials
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
== END 2021-06-26 08:46 | disposition home or self-care (01) ==
LOC: PHYS 15:00
PROVIDERS: Family Provider Family Medicine; PCP Family Medicine; Referring Provider Family Medicine; Visit Provider Family Medicine
DX: M25.552 Pain in left hip (principal); M62.81 Muscle weakness (generalized); R29.3 Abnormal posture; M25.652 Stiffness of left hip, not elsewhere classified
CPT/HCPCS: 97110; 97140; 97162; 97535

== ENCOUNTER 2021-10-22 18:26 | Inpatient (IN) | payer MEDICARE, SELFPAY ==
--- NOTE | 2021-10-22 18:49 | DI.RAD.S_ITS ---
PROCEDURE: XR CHEST 1V INDICATIONS: chest pain TECHNIQUE: One view of the chest was acquired. COMPARISON: [facility], , CHEST 2 VIEW, 04/23/2015, 9:39. FINDINGS: Surgical changes and devices: None. Lungs and pleura: Lungs are clear. No pleural effusions or pneumothorax. Mediastinum: Mediastinal contours appear normal. Heart size is enlarged. Bones and chest wall: No suspicious bony lesions. Overlying soft tissues appear unremarkable. IMPRESSION: 1. Stable cardiomegaly. 2. No acute cardiopulmonary abnormality. Dictated by: Henrique Villanueva M.D. on 10/22/2021 at 20:08 Approved by: Henrique Villanueva M.D. on 10/22/2021 at 20:09
[2021-10-22 18:50] VITALS: BP 143/74; PULSE 73; RESP 18; TEMP 38.3; O2SAT 99; BMI 31.9
[2021-10-22 19:12] VITALS: PULSE 78; RESP 28; TEMP 39.2; O2SAT 96
[2021-10-22 19:18] LABS: Add Manual Diff / Slide Review NO; Basophils Absolute Auto 0 /uL (0-100); Basophils Percent Auto 0.2 % (0-2); Eosinophils Absolute Auto 0 /uL (0-450); Hematocrit 41.5 % (41-53); Hemoglobin 13.8 g/dL (13.5-17.5); Lymphocytes Absolute Auto 500 /uL (1100-4500); Lymphocytes Percent Auto 3.1 % (25-40); Mean Corpuscular HGB Conc 33.4 % (30-36); Mean Corpuscular Hemoglobin 33.9 PG (26-34); Mean Corpuscular Volume 101.7 fL (80-100); Monocytes Absolute Auto 700 /uL (0-900); Monocytes Percent Auto 4.7 % (3-14); Neutrophils Absolute Auto 13800 /uL (1500-7000); Platelet Count 60 X10^3/uL (150-400); Red Blood Cell Count 4.08 X10^6/uL (4.5-5.9); Red Cell Distribution Width 13.7 % (11.6-14.8)
[2021-10-22 19:30] VITALS: BP 139/79; PULSE 80; RESP 32; O2SAT 97
[2021-10-22 19:30] LABS: Alanine Aminotransferase 33 IU/L (<50); Albumin 4.4 g/dL (3.5-5.0); Albumin Globulin Ratio 1.6 (1.0-2.8); Alkaline Phosphatase 58 U/L (38-126); Aspartate Aminotransferase 45 IU/L (17-59); BUN Creatinine Ratio 19.1 (6-22); Bilirubin Total 0.9 mg/dL (0.2-1.3); Blood Urea Nitrogen 22 mg/dL (9-20); Calcium 9.2 mg/dL (8.4-10.2); Carbon Dioxide 25 mmol/L (22-32); Chloride 102 mmol/L (98-107); Creatine Kinase 137 U/L (55-170); Estimated Glomerular Filt Rate > 60.0 mL/min (>60); Globulin 2.8 g/dL (1.7-4.1); Glucose 163 mg/dL (80-110); HEMOLYSIS < 15 (0-50); Lactate (Lactic Acid) 1.3 mmol/L (0.7-2.1); Lipase 40 U/L (23-300); Potassium 4.3 mmol/L (3.4-5.1); Sodium 136 mmol/L (137-145); Total Protein 7.2 g/dL (6.3-8.2)
[2021-10-22] MEDS: ACETAMINOPHEN 325 MG TABLET 975 MG PO (19:30)
[2021-10-22] MEDS: SODIUM CHLORIDE 0.9% 1,000 ML 200 ML IV (19:31)
[2021-10-22 19:39] LABS: COVID19 -Nasal RAPID Negative (Negative)
[2021-10-22 19:41] LABS: Troponin I < 0.012 ng/mL (0.01-0.034)
--- NOTE | 2021-10-22 19:41 | DI.US.S_ITS ---
PROCEDURE: US PERIPH VENOUS LOW EXTREM LT INDICATIONS: EDEMA, REDNESS TECHNIQUE: Real-time imaging, as well as color and pulse Doppler interrogation, were performed of the lower extremity deep veins from the inguinal ligament to the popliteal fossa. COMPARISON: None. FINDINGS: The common femoral, femoral and popliteal veins are normally compressible, and free of intraluminal thrombus. Color and pulse Doppler demonstrate normal phasic intraluminal flow. There is normal augmentation response to distal compression maneuver. IMPRESSION: No DVT in the left lower extremity. Dictated by: Henrique Villanueva M.D. on 10/22/2021 at 20:38 Approved by: Henrique Villanueva M.D. on 10/22/2021 at 20:39
[2021-10-22 19:45] LABS: CKMB % Relative Index 0.9 % (1.5-5.0); Creatine Kinase MB 1.18 ng/mL (<2.37)
[2021-10-22 19:47] LABS: Procalcitonin 0.43 ng/mL (<0.5)
[2021-10-22 20:00] VITALS: BP 147/70; PULSE 90; RESP 29
[2021-10-22 20:00] LABS: NT-proBNP (BNP-Adult 18+) 2480 pg/mL (<450)
--- NOTE | 2021-10-22 20:09 | PC.NURSE ---
Assisted to to obtain urine by standing at side of bed and was unsuccessful at this time.
--- NOTE | 2021-10-22 20:18 | ED_ITS ---
HPI - Fever General Chief Complaint: Fever Stated Complaint: Shakes,Lt Leg Swollen/Red/Pain Time Seen by Provider: 10/22/21 19:16 Source: patient Mode of arrival: Family Vehicle Limitations: no limitations History of Present Illness HPI Narrative: Patient is an 86-year-old male BPH hypertension, is move presents with fever generalized weakness and redness in his left leg. He says it started yesterday but seemed of got progressively worse. He is currently febrile with temperature of a 100.9?. states that she noted the leg was quite warm and red. He denies any injury. Seems to be more posteriorly. He is also noted to be in atrial fibrillation which he does not have a history of. He denies any shor tness of breath no orthopnea no palpitations he denies any productive cough no painful or frequent urination he denies any abdominal pain, no no nausea vomiting or diarrhea. Related Data Previous Rx's Medication Instructions Recorded gabapentin 300 mg capsule 600 mg PO HS #180 cap 12/22/20 (Neurontin) sertraline 25 mg tablet 50 mg PO QDAY #180 tab 02/02/21 tamsulosin 0.4 mg capsule (Flomax) 0.4 mg PO QDAY #90 cap 02/02/21 amlodipine 5 mg tablet 5 mg PO DAILY #90 tab 04/01/21 Allergies Allergy/AdvReac Type Severity Reaction Status Date / Time No Known Drug Allergies Allergy Verified 02/02/21 09:20 Review of Systems Review of Systems Narrative: GENERAL: Denies chills, fatigue, malaise, fever, sweats, travel HEENT: + very hard of hearing Denies sinus pain, ear pain, sore throat, diffic ulty swallowing, neck pain RESPIRATORY: Denies dyspnea, cough, wheezing, hemoptysis, sputum. CARDIOVASCULAR: Denies chest pain, palpitations, orthopnea, edema GASTROINTESTINAL: Denies nausea, vomiting, abdominal pain, diarrhea, constipation, melena. : +BPH MUSCULOSKELETAL: Denies weakness, joint pain, or bony pain SKIN: Redness left leg NEUROLOGIC: Denies weakness, dizziness, headache, numbness, change in speech, confusion PSYCHIATRIC: No concerning psychosocial issues. 12 point review of systems is negative except for those stated above and HPI Patient History Medical History (Updated 10/23/21 @ 03:14 by Ibis Forde DO) Anxiety BPH w urinary obs/LUTS Bradycardia Hearing deficit Pancreatitis (~1989) Peripheral neuropathy (~2011) Pneumonia Skin cancer (~2011) Umbilical hernia without obstruction and without gangrene (2018) Surgical History (Updated 02/02/21 @ 18:18 by Mechelle Hernandez DO) Anesthesia H/O umbilical hernia repair (~08/2019) History of cataract removal with insertion of prosthetic lens (~2011) History of knee replacement (~2009) History of vasectomy Family History Father No problems noted. Mother No problems noted. Sister No problems noted. Social History marital status: household members: spouse occupational status: previously employed Smoking Status: Former smoker alcohol intake: current substance use type: does not use Smoking Status: Former smoker alcohol intake frequency: 3 or more drinks per day Substance Use Type: does not use Exam Initial Vital Signs Initial Vital Signs: Vital Signs Temperature 100.9 F H 10/22/21 18:50 Pulse Rate 73 10/22/21 18:50 Respiratory Rate 18 10/22/21 18:50 Blood Pressure 143/74 H 10/22/21 18:50 Pulse Oximetry 99 10/22/21 18:50 GENERAL: Alert 86-year-old male appears to not feel HEENT: Head atraumatic,EOMI, pupils reactive, face symmetric, moist mucous membranes CARDIOVASCULAR: Irregularly irregular RESPIRATORY: Breath sounds equal bilaterally, no wheezes rales or rhonchi. ABDOMEN: Soft, nontender. Normoactive bowel sounds all 4 quadrants. No guarding or rebound. EXTREMITIES: Normal range of motion, no clubbing or edema. Neurovascularly intact Left ankle mildly red able to flex and extend no significant tenderness over Achilles NEUROLOGICAL: Alert and oriented x4.Normal gait and speech. SKIN: Left leg is mildly erythematous to more posteriorly small area but it is quite warm to touch. No other rashes noted. Course Orders Ordered: ED Orders 10/22/21 18:40 COVID19 -Nasal swab/Pre-Proc Stat 10/22/21 18:49 XR chest 1V Stat EKG-12 Lead Stat 10/22/21 19:10 BNP [NT-proBNP (BNP-Adult 18+)] Stat Complete Blood Count AUTO DIFF Stat Comprehensive Metabolic Panel Stat Lactate (Lactic Acid) Stat Lipase Stat Procalcitonin Stat Troponin & CK Cardiac Panel Stat 10/22/21 19:25 COVID19 - ADMIT (MEDICAL TECHNOLOGIST BLOOD BANK swab/PCR) Stat 10/22/21 19:38 Blood Culture Stat 10/22/21 19:41 periph venous low extrem lt Stat 10/22/21 21:15 UA Complete [Urinalysis and Microscopic] Stat Acetaminophen (Acetaminophen 325 Mg Tablet) 650 mg PO Q6HR PRN PRN Reason: Fever/Mild Pain (1-3) Amlodipine Besylate (Amlodipine 5 Mg Tablet) 5 mg PO DAILY HELEN Cyclobenzaprine HCl (Cyclobenzaprine 10 Mg Tablet) 10 mg PO BEDTIME PRN PRN Reason: muscle spasm Enoxaparin Sodium (Enoxaparin 40 Mg/0.4 Ml Syringe) 40 mg SUBCUT DAILY HELEN Gabapentin (Gabapentin 300 Mg Capsule) 600 mg PO BEDTIME HELEN Last Admin: 10/22/21 22:09 Dose: 300 mg Documented by: PANCHITO Sodium Chloride (Normal Saline 0.9%) 1,000 mls @ 150 mls/hr IV CONT HELEN Last Admin: 10/23/21 02:09 Dose: 150 mls/hr Documented by: Infusion: 10/23/21 02:09 Dose: 150 mls/hr Documented by: Admin: 10/22/21 22:10 Dose: 150 mls/hr Documented by: PANCHITO Ibuprofen (Ibuprofen 600 Mg Tablet) 600 mg PO Q6HR PRN PRN Reason: Fever/Mild Pain (1-3) Lorazepam (Lorazepam 1 Mg Tablet) 0 mg PO CIWAPRN PRN; Protocol PRN Reason: Alcohol Withdrawal Naloxone HCl (Naloxone 0.4 Mg/Ml Vial) 0.2 mg IV Q2MIN PRN PRN Reason: Opiate Reversal Sertraline HCl (Sertraline 50 Mg Tablet) 50 mg PO DAILY HELEN Tamsulosin HCl (Tamsulosin 0.4 Mg Capsule) 0.4 mg PO DAILY [facility] Discontinued Medications Acetaminophen (Acetaminophen 325 Mg Tablet) 975 mg PO NOW ONE Stop: 10/22/21 19:18 Last Admin: 10/22/21 19:30 Dose: 975 mg Documented by: DANIEL Furosemide (Furosemide 40 Mg/4 Ml Vial) 20 mg IV NOW ONE Stop: 10/22/21 20:41 Last Admin: 10/22/21 20:47 Dose: 20 mg Documented by: DANIEL Sodium Chloride (Normal Saline 0.9%) 1,000 mls @ 200 mls/hr IV CONT HELEN Last Admin: 10/22/21 19:31 Dose: 200 mls/hr Documented by: DANIEL Ceftriaxone Sodium 2,000 mg/ (Sodium Chloride) 100 mls @ 200 mls/hr IV NOW ONE Stop: 10/22/21 20:19 Last Infusion: 10/22/21 22:03 Dose: 0 mls/hr Documented by: Admin: 10/22/21 20:46 Dose: 200 mls/hr Documented by: DANIEL Ketorolac Tromethamine (Ketorolac 30 Mg/Ml Vial) 15 mg IV NOW ONE Stop: 10/22/21 21:03 Last Admin: 10/22/21 21:09 Dose: 15 mg Documented by: DANIEL Lidocaine HCl (Lidocaine 2% (Glydo) 6 Ml Gel) 6 ml TOP NOW ONE Stop: 10/22/21 21:07 Last Admin: 10/22/21 21:09 Dose: 6 ml Documented by: DANIEL Vital Signs Vital signs: Vital Signs - 8 hr 10/22/21 19:12 10/22/21 19:30 10/22/21 20:00 Temperature 102.6 F H Pulse Rate 78 80 90 Respiratory Rate 28 H 32 H 29 H Blood Pressure 139/79 147/70 H Pulse Oximetry 96 97 10/22/21 20:30 10/22/21 20:49 Temperature 103.1 F H Pulse Rate 86 82 Respiratory Rate 36 H 29 H Blood Pressure 138/65 Pulse Oximetry 96 95 MDM - Fever Lab Data Result diagrams: 10/22/21 19:10 10/22/21 19:10 Labs: Lab Results 10/22/21 10/22/21 10/22/21 Range/Units 18:40 19:10 19:10 WBC 15.0 H (4.5-11.0) X10^3/uL RBC 4.08 L (4.5-5.9) X10^6/uL Hgb 13.8 (13.5-17.5) g/dL Hct 41.5 (41-53) % MCV 101.7 H (80-100) fL MCH 33.9 (26-34) PG MCHC 33.4 (30-36) % RDW 13.7 (11.6-14.8) % Plt Count 60 L (150-400) X10^3/uL Neut % (Auto) 92.0 H (50-75) % Lymph % (Auto) 3.1 L (25-40) % [place] % (Auto) 4.7 (3-14) % Eos % (Auto) 0.0 L (2-4) % Baso % (Auto) 0.2 (0-2) % Neut # (Auto) 74800 H (7093-3386) /uL Lymph # (Auto) 500 L (7304-6543) /uL [place] # (Auto) 700 (0-900) /uL Eos # (Auto) 0 (0-450) /uL Baso # (Auto) 0 (0-100) /uL Sodium 136 L (137-145) mmol/L Potassium 4.3 (3.4-5.1) mmol/L Chloride 102 (98-107) mmol/L Carbon Dioxide 25 (22-32) mmol/L BUN 22 H (9-20) mg/dL Creatinine 1.15 (0.66-1.25) mg/dL Estimated GFR > 60.0 (>60) mL/min BUN/Creatinine Ratio 19.1 (6-22) Glucose 163 H (80-110) mg/dL Lactate (0.7-2.1) mmol/L Calcium 9.2 (8.4-10.2) mg/dL Total Bilirubin 0.9 (0.2-1.3) mg/dL AST 45 (17-59) IU/L ALT 33 (<50) IU/L Alkaline Phosphatase 58 (38-126) U/L Total Creatine Kinase 137 (55-170) U/L CK-MB (CK-2) 1.18 (<2.37) ng/mL CK-MB (CK-2) Rel Index 0.9 L (1.5-5.0) % Troponin I < 0.012 (0.01-0.034) ng/mL NT-Pro-B Natriuret Pep (<450) pg/mL Total Protein 7.2 (6.3-8.2) g/dL Albumin 4.4 (3.5-5.0) g/dL Globulin 2.8 (1.7-4.1) g/dL Albumin/Globulin Ratio 1.6 (1.0-2.8) Lipase 40 (23-300) U/L Procalcitonin (<0.5) ng/mL SARS-CoV-2 (PCR) Negative (Negative) 10/22/21 10/22/21 10/22/21 Range/Units 19:10 19:10 19:10 WBC (4.5-11.0) X10^3/uL RBC (4.5-5.9) X10^6/uL Hgb (13.5-17.5) g/dL Hct (41-53) % MCV (80-100) fL MCH (26-34) PG MCHC (30-36) % RDW (11.6-14.8) % Plt Count (150-400) X10^3/uL Neut % (Auto) (50-75) % Lymph % (Auto) (25-40) % [place] % (Auto) (3-14) % Eos % (Auto) (2-4) % Baso % (Auto) (0-2) % Neut # (Auto) (6425-2706) /uL Lymph # (Auto) (2025-3410) /uL [place] # (Auto) (0-900) /uL Eos # (Auto) (0-450) /uL Baso # (Auto) (0-100) /uL Sodium (137-145) mmol/L Potassium (3.4-5.1) mmol/L Chloride (98-107) mmol/L Carbon Dioxide (22-32) mmol/L BUN (9-20) mg/dL Creatinine (0.66-1.25) mg/dL Estimated GFR (>60) mL/min BUN/Creatinine Ratio (6-22) Glucose (80-110) mg/dL Lactate 1.3 (0.7-2.1) mmol/L Calcium (8.4-10.2) mg/dL Total Bilirubin (0.2-1.3) mg/dL AST (17-59) IU/L ALT (<50) IU/L Alkaline Phosphatase (38-126) U/L Total Creatine Kinase (55-170) U/L CK-MB (CK-2) (<2.37) ng/mL CK-MB (CK-2) Rel Index (1.5-5.0) % Troponin I (0.01-0.034) ng/mL NT-Pro-B Natriuret Pep 2480 H (<450) pg/mL Total Protein (6.3-8.2) g/dL Albumin (3.5-5.0) g/dL Globulin (1.7-4.1) g/dL Albumin/Globulin Ratio (1.0-2.8) Lipase (23-300) U/L Procalcitonin 0.43 (<0.5) ng/mL SARS-CoV-2 (PCR) (Negative) 10/22/ Range/Units 19:25 WBC (4.5-11.0) X10^3/uL RBC (4.5-5.9) X10^6/uL Hgb (13.5-17.5) g/dL Hct (41-53) % MCV (80-100) fL MCH (26-34) PG MCHC (30-36) % RDW (11.6-14.8) % Plt Count (150-400) X10^3/uL Neut % (Auto) (50-75) % Lymph % (Auto) (25-40) % [place] % (Auto) (3-14) % Eos % (Auto) (2-4) % Baso % (Auto) (0-2) % Neut # (Auto) (5646-1693) /uL Lymph # (Auto) (1516-0015) /uL [place] # (Auto) (0-900) /uL Eos # (Auto) (0-450) /uL Baso # (Auto) (0-100) /uL Sodium (137-145) mmol/L Potassium (3.4-5.1) mmol/L Chloride (98-107) mmol/L Carbon Dioxide (22-32) mmol/L BUN (9-20) mg/dL Creatinine (0.66-1.25) mg/dL Estimated GFR (>60) mL/min BUN/Creatinine Ratio (6-22) Glucose (80-110) mg/dL Lactate (0.7-2.1) mmol/L Calcium (8.4-10.2) mg/dL Total Bilirubin (0.2-1.3) mg/dL AST (17-59) IU/L ALT (<50) IU/L Alkaline Phosphatase (38-126) U/L Total Creatine Kinase (55-170) U/L CK-MB (CK-2) (<2.37) ng/mL CK-MB (CK-2) Rel Index (1.5-5.0) % Troponin I (0.01-0.034) ng/mL NT-Pro-B Natriuret Pep (<450) pg/mL Total Protein (6.3-8.2) g/dL Albumin (3.5-5.0) g/dL Globulin (1.7-4.1) g/dL Albumin/Globulin Ratio (1.0-2.8) Lipase (23-300) U/L Procalcitonin (<0.5) ng/mL SARS-CoV-2 (PCR) Negative (Negative) Imaging Data Chest x-ray: Radiologist's Impression: PROCEDURE:? XR CHEST 1V ? INDICATIONS:? chest pain ? TECHNIQUE:? One view of the chest was acquired.? ? COMPARISON:? [facility], CHEST 2 VIEW, 04/23/2015, 9:39. ? FINDINGS:? ? Surgical changes and devices:? None.? ? Lungs and pleura:? Lungs are clear.? No pleural effusions or pneumothorax.? ? Mediastinum:? Mediastinal contours appear normal.? Heart size is enlarged.? ? Bones and chest wall:? No suspicious bony lesions.? Overlying soft tissues appear unremarkable.? ? IMPRESSION:? 1. Stable cardiomegaly. 2. No acute cardiopulmonary abnormality. ? ? Dictated by: Henrique Villanueva M.D. on 10/22/2021 at 20:08 ? ? Approved by: Henrique Villanueva M.D. on 10/22/2021 at 20:09 ? US - DVT: Radiologist's Impression: PROCEDURE:? US PERIPH VENOUS LOW EXTREM LT ? INDICATIONS:? EDEMA, REDNESS ? TECHNIQUE:? Real-time imaging, as well as color and pulse Doppler interrogation, were performed of the lower extremity deep veins from the inguinal ligament to the popliteal fossa.? ? COMPARISON:? None. ? FINDINGS:? The common femoral, femoral and popliteal veins are normally compressible, and free of intraluminal thrombus.? Color and pulse Doppler demonstrate normal phasic intraluminal flow.? There is normal augmentation response to distal compression maneuver. ? ? IMPRESSION:? No DVT in the left lower extremity. ? ? Dictated by: Henrique Villanueva M.D. on 10/22/2021 at 20:38 ? ? ECG Data Interpretation: Atrial fibrillation rate [address] changes priors to MDM Narrative Medical decision making narrative: Patient overall appears to not feel well. Temperature rises to 102. Blood cultures and urine culture pending. Although was unable to urinate. Bladder scan showed 600 in his bladder is however with Lasix high he still was unable to urinate [place] catheter was placed in over 4 L came out. He had no abdominal pain or symptoms of urinary retention. He does have leukocytosis of 15 mild redness on the left leg but it is quite warm to touch no evidence of DVT. La ctate is 1.3, and procalcitonin 0.3. His probable source is left leg. He is not hypotensive. He is given 1 dose Rocephin in the ER Is also noted to be in new onset atrial fibrillation no prior history and probable new onset congestive heart failure. BNP is elevated 2400 is within negative troponin. Dr. Rubi updated patient's symptoms test results and half late accepts patient. Discharge Plan Departure Patient Disposition: Admitted As Inpatient Clinical Impression: Cellulitis, Atrial fibrillation, new onset, Acute urinary retention Admit Date/Time: 10/22/21 20:50 Admit Provider: Mariluz Gates
[2021-10-22 20:21] LABS: COVID19 - ADMIT (NP swab/PCR) Negative (Negative)
[2021-10-22 20:30] VITALS: PULSE 86; RESP 36; O2SAT 96
[2021-10-22] MEDS: cefTRIAXone 2,000 MG in SODIUM CHLORIDE 0.9% 100 ML 200 ML IV (20:46)
[2021-10-22] MEDS: FUROSEMIDE 40 MG/4 ML VIAL 20 MG IV (20:47)
[2021-10-22 20:49] VITALS: BP 138/65; PULSE 82; RESP 29; TEMP 39.5; O2SAT 95
[2021-10-22] MEDS: LIDOCAINE 2% (GLYDO) 6 ML GEL TOP (21:09)
[2021-10-22] MEDS: KETOROLAC 30 MG/ML VIAL 15 MG IV (21:09)
[2021-10-22 21:23] LABS: Appearance Urine UA CLEAR; Bilirubin Urine UA NEGATIVE (NEGATIVE); Color Urine UA YELLOW; Glucose Urine UA NEGATIVE (Negative); Ketones Urine UA NEGATIVE (NEGATIVE); Leukocyte Esterase Urine UA NEGATIVE (NEGATIVE); Nitrite Urine UA NEGATIVE (Negative); Occult Blood Urine UA TRACE-INTACT (Negative); Protein Urine UA NEGATIVE (Negative); Urobilinogen Urine UA 0.2 E.U./dL (0.2)
[2021-10-22 21:37] LABS: Bacteria Urine None Seen; Culture Indicated Urine Cult Not Indicated; RBC Urine 0-1/HPF (0-5/HPF); WBC Urine None Seen (0-5/HPF)
[2021-10-22 21:45] VITALS: BMI 31.9
[2021-10-22] MEDS: GABAPENTIN 300 MG CAPSULE 600 MG PO (22:09)
[2021-10-22] MEDS: SODIUM CHLORIDE 0.9% 1,000 ML 150 ML IV (22:10)
[2021-10-23] VITALS (11 sets, daily range): BP systolic 110–138; BP diastolic 51–59; PULSE 60–98; RESP 13–32; TEMP 37.1–38.8; O2SAT 92–98
[2021-10-23] MEDS: SODIUM CHLORIDE 0.9% 1,000 ML 150 ML IV ×2 (02:09→08:56)
[2021-10-23] MEDS: ACETAMINOPHEN 325 MG TABLET 650 MG PO ×2 (03:03→16:00)
--- NOTE | 2021-10-23 06:36 | PC.ADMIT ---
[email or web address] Admission Note: Pt arrived to unit in no apparent cardiovascular or respiratory distress, lomeli cath in place and draining. Elevated temperature, tylenol given in ED, cooling measures taken including ice on groin axilla and neck, cold PO intake, and minimal bed coverings. Pt tolerates with no complaint. Pt reports to admitting RN only drinking approx 2 drinks a night and no falls. Pt's pulled this RN aside away from pt and reported pt drinking throughout day (paraphrased: kahlua in coffee x2, then beer, switches to vodka cocktails at 4 pm, then drinks wine at night) and endorses frequent falls, mostly related to alcohol usage. Pt's also reports mild dementia and confusion, and requests bed alarm for pt as prior hospital visits included the pt repeatedly getting out of bed on own. Provider made aware of excessive ETOH intake not reported in ED. Seizure precautions in place. Pt CIWA score 0 throughout night. Alert and oriented through night. Rec'd tylenol x1 for elevated temperature. Cooling measures removed and reapplied as appropriate. The patient,Kenji Cantrell,86 y/o, was given written information regarding hospital policies, unit procedures and contact persons. Patient's smoking status: Former smoker. Vital Signs - 8 hr 10/23/21 00:39 10/23/21 03:03 10/23/21 04:15 Temperature 98.8 F 101.3 F H 101.2 F H Pulse Rate 60 61 Respiratory Rate 14 14 Blood Pressure 134/51 L 114/58 L Pulse Oximetry 97 93 10/23/21 06:35 Temperature 100 F H Pulse Rate Respiratory Rate Blood Pressure Pulse Oximetry
[2021-10-23 06:55] LABS: Add Manual Diff / Slide Review NO; Basophils Absolute Auto 0 /uL (0-100); Basophils Percent Auto 0.4 % (0-2); Eosinophils Absolute Auto 0 /uL (0-450); Hematocrit 37.1 % (41-53); Hemoglobin 12.5 g/dL (13.5-17.5); Lymphocytes Absolute Auto 900 /uL (1100-4500); Lymphocytes Percent Auto 7.3 % (25-40); Mean Corpuscular HGB Conc 33.7 % (30-36); Mean Corpuscular Hemoglobin 34.2 PG (26-34); Mean Corpuscular Volume 101.6 fL (80-100); Monocytes Absolute Auto 700 /uL (0-900); Monocytes Percent Auto 5.4 % (3-14); Neutrophils Absolute Auto 10900 /uL (1500-7000); Neutrophils Percent Auto 86.9 % (50-75); Platelet Count 51 X10^3/uL (150-400); Red Blood Cell Count 3.65 X10^6/uL (4.5-5.9); Red Cell Distribution Width 13.8 % (11.6-14.8); White Blood Cell Count 12.5 X10^3/uL (4.5-11.0)
[2021-10-23 07:04] LABS: Alanine Aminotransferase 118 IU/L (<50); Albumin 3.5 g/dL (3.5-5.0); Albumin Globulin Ratio 1.5 (1.0-2.8); Alkaline Phosphatase 52 U/L (38-126); Aspartate Aminotransferase 148 IU/L (17-59); BUN Creatinine Ratio 17.1 (6-22); Bilirubin Total 0.9 mg/dL (0.2-1.3); Blood Urea Nitrogen 21 mg/dL (9-20); Calcium 8.4 mg/dL (8.4-10.2); Carbon Dioxide 25 mmol/L (22-32); Chloride 103 mmol/L (98-107); Estimated Glomerular Filt Rate 56.1 mL/min (>60); Globulin 2.4 g/dL (1.7-4.1); Glucose 116 mg/dL (80-110); HEMOLYSIS < 15 (0-50); Magnesium 1.9 mg/dL (1.6-2.3); Sodium 134 mmol/L (137-145); Total Protein 5.9 g/dL (6.3-8.2)
--- NOTE | 2021-10-23 08:16 | PM.HP.1 ---
History of Present Illness History of Present Illness Date Patient Seen: 10/23/21 Time Patient Seen: 09:20 Chief complaint: Shasohail,Lt Leg Swollen/Red/Pain Narrative: Pt is an 86yo man with HTN, BPH, peripheral neuropathy, and alcohol dependence who presented with fever and left leg pain. The pt reports that on 10/21 he started to have significant chills. He was able to lay down for most of the day, and they gradually subsided. At that time, he also had mild left leg pain. Yesterday, when at Thanksgiving dinner, the pt then had more severe chills. His reports that she could visibly see him shaking. His leg was still bothering him, and they examined it to find that it was rather red and swollen. He denies any recent injury or trauma. He was feeling very weak with the chills as well. His then brought him to the ED for evaluation. The pt reports that prior to 10/21 he was feeling fine without any symptoms. He denies any recent chest pain, SOB, diarrhea, abdominal pain, or dysuria. He states that he has been urinating regularly and frequently. The pt does report that for the last several days he has had significant left ankle discomfort when ambulating, particularly on stairs. The pt reports that he drinks on average 2 alcoholic beverages/day. His , however, states that he frequently had coffee with Kahlua in the morning, followed by beer and vodka drinks in the late morning/afternoon, and then wine at the end of the day. She states that he does frequently trip on his feet, particularly his left foot that has worse neuropathy. He does fall to the floor relatively frequently as well. Patient History Medical History (Updated 10/23/21 @ 03:14 by Ibis Forde DO) Anxiety BPH w urinary obs/LUTS Bradycardia Hearing deficit Pancreatitis (~1989) Peripheral neuropathy (~2011) Pneumonia Skin cancer (~2011) Umbilical hernia without obstruction and without gangrene (2017) Surgical History (Updated 02/02/21 @ 18:18 by Mechelle Hernandez DO) Anesthesia H/O umbilical hernia repair (~08/2019) History of cataract removal with insertion of prosthetic lens (~2011) History of knee replacement (~2009) History of vasectomy Family & Social History Family History Father No problems noted. Mother No problems noted. Sister No problems noted. Social History: household members spouse Prior Living Arrangements House Safety & Behavioral: Feels Safe in Current Yes Environment Been Physically Hurt or No Threatened By a Person Suicidal Ideation Description None Suicide Plan Description No Plan Tobacco & Substance use: Tobacco type cigarettes Smoking Status Former smoker alcohol intake current alcohol intake frequency 3 or more drinks per day Substance Use Type does not use Meds Home Medications and Allergies Home Medications Medication Instructions Recorded Confirmed Type gabapentin 300 mg capsule 600 mg PO HS #180 cap 12/22/20 10/22/21 Rx (Neurontin) sertraline 25 mg tablet 50 mg PO QDAY #180 tab 02/02/21 10/22/21 Rx tamsulosin 0.4 mg capsule (Flomax) 0.4 mg PO QDAY #90 cap 02/02/21 10/22/21 Rx amlodipine 5 mg tablet 5 mg PO DAILY #90 tab 04/01/21 10/22/21 Rx Allergies Allergy/AdvReac Type Severity Reaction Status Date / Time No Known Drug Allergies Allergy Verified 02/02/21 09:20 Exam Vital Signs (past 8 hours): - 10/23/21 00:39 10/23/21 03:03 10/23/21 04:15 Temperature 98.8 F 101.3 F H 101.2 F H Pulse Rate 60 61 Respiratory Rate 14 14 Blood Pressure 134/51 L 114/58 L Pulse Oximetry 97 93 10/23/21 06:35 Temperature 100 F H Pulse Rate Respiratory Rate Blood Pressure Pulse Oximetry Oxygen Delivery Method Room Air Oxygen Flow Rate 0 Narrative Exam Narrative: GEN - alert, cooperative and no distress HEENT - normocephalic and atraumatic, sclera white, moist mucus membranes NECK - FROM, no adenopathy, no JVD HEART - irregularly irregular rhythm, normal rate, S1, S2 normal, no S3 or S4, grade 3/6 systolic murmur LUNGS - symmetric chest rise, no accessory muscles, clear to auscultation bilaterally ABD - nondistended, normal bowel sounds, soft, nontender and no hepatomegaly, splenomegaly or masses EXT - right LE with trace pitting edema, left LE with 1+ pitting edema to mild-calf level, erythematous and warm to knee level SKIN - no rashes or suspicious lesions NEURO - no gross deficits Objective Labs Result Diagrams: 10/23/21 06:35 10/23/21 06:35 Labs: Laboratory Results - last 24 hr 10/22/21 10/22/21 10/22/21 18:40 19:10 19:10 WBC 15.0 H RBC 4.08 L Hgb 13.8 Hct 41.5 MCV 101.7 H MCH 33.9 MCHC 33.4 RDW 13.7 Plt Count 60 L Neut % (Auto) 92.0 H Lymph % (Auto) 3.1 L [place] % (Auto) 4.7 Eos % (Auto) 0.0 L Baso % (Auto) 0.2 Neut # (Auto) 85320 H Lymph # (Auto) 500 L [place] # (Auto) 700 Eos # (Auto) 0 Baso # (Auto) 0 Sodium 136 L Potassium 4.3 Chloride 102 Carbon Dioxide 25 BUN 22 H Creatinine 1.15 Estimated GFR > 60.0 BUN/Creatinine Ratio 19.1 Glucose 163 H Lactate Calcium 9.2 Magnesium Total Bilirubin 0.9 AST 45 ALT 33 Alkaline Phosphatase 58 Total Creatine Kinase 137 CK-MB (CK-2) 1.18 CK-MB (CK-2) Rel Index 0.9 L Troponin I < 0.012 NT-Pro-B Natriuret Pep Total Protein 7.2 Albumin 4.4 Globulin 2.8 Albumin/Globulin Ratio 1.6 Lipase 40 Procalcitonin Urine Color Urine Appearance Urine pH Ur Specific [place] Urine Protein Urine Glucose (UA) Urine Ketones Urine Occult Blood Urine Nitrate Urine Bilirubin Urine Urobilinogen Ur Leukocyte Esterase Urine RBC Urine WBC Urine Bacteria Ur Culture Indicated? SARS-CoV-2 (PCR) Negative 10/22/21 10/22/21 10/22/21 19:10 19:10 19:10 WBC RBC Hgb Hct MCV MCH MCHC RDW Plt Count Neut % (Auto) Lymph % (Auto) [place] % (Auto) Eos % (Auto) Baso % (Auto) Neut # (Auto) Lymph # (Auto) [place] # (Auto) Eos # (Auto) Baso # (Auto) Sodium Potassium Chloride Carbon Dioxide BUN Creatinine Estimated GFR BUN/Creatinine Ratio Glucose Lactate 1.3 Calcium Magnesium Total Bilirubin AST ALT Alkaline Phosphatase Total Creatine Kinase CK-MB (CK-2) CK-MB (CK-2) Rel Index Troponin I NT-Pro-B Natriuret Pep 2480 H Total Protein Albumin Globulin Albumin/Globulin Ratio Lipase Procalcitonin 0.43 Urine Color Urine Appearance Urine pH Ur Specific [place] Urine Protein Urine Glucose (UA) Urine Ketones Urine Occult Blood Urine Nitrate Urine Bilirubin Urine Urobilinogen Ur Leukocyte Esterase Urine RBC Urine WBC Urine Bacteria Ur Culture Indicated? SARS-CoV-2 (PCR) 10/22/21 10/22/21 10/23/21 19:25 21:15 06:35 WBC 12.5 H RBC 3.65 L Hgb 12.5 L Hct 37.1 L MCV 101.6 H MCH 34.2 H MCHC 33.7 RDW 13.8 Plt Count 51 L Neut % (Auto) 86.9 H Lymph % (Auto) 7.3 L [place] % (Auto) 5.4 Eos % (Auto) 0.0 L Baso % (Auto) 0.4 Neut # (Auto) 47771 H Lymph # (Auto) 900 L [place] # (Auto) 700 Eos # (Auto) 0 Baso # (Auto) 0 Sodium Potassium Chloride Carbon Dioxide BUN Creatinine Estimated GFR BUN/Creatinine Ratio Glucose Lactate Calcium Magnesium Total Bilirubin AST ALT Alkaline Phosphatase Total Creatine Kinase CK-MB (CK-2) CK-MB (CK-2) Rel Index Troponin I NT-Pro-B Natriuret Pep Total Protein Albumin Globulin Albumin/Globulin Ratio Lipase Procalcitonin Urine Color Yellow Urine Appearance Clear Urine pH 6.0 Ur Specific [place] 1.010 Urine Protein Negative Urine Glucose (UA) Negative Urine Ketones Negative Urine Occult Blood Trace-intact Urine Nitrate Negative Urine Bilirubin Negative Urine Urobilinogen 0.2 Ur Leukocyte Esterase Negative Urine RBC 0-1/hpf Urine WBC None seen Urine Bacteria None seen Ur Culture Indicated? Cult not indicated SARS-CoV-2 (PCR) Negative 10/23/21 06:35 WBC RBC Hgb Hct MCV MCH MCHC RDW Plt Count Neut % (Auto) Lymph % (Auto) [place] % (Auto) Eos % (Auto) Baso % (Auto) Neut # (Auto) Lymph # (Auto) [place] # (Auto) Eos # (Auto) Baso # (Auto) Sodium 134 L Potassium 4.0 Chloride 103 Carbon Dioxide 25 BUN 21 H Creatinine 1.23 Estimated GFR 56.1 L BUN/Creatinine Ratio 17.1 Glucose 116 H Lactate Calcium 8.4 Magnesium 1.9 Total Bilirubin 0.9 AST 148 H ALT 118 H Alkaline Phosphatase 52 Total Creatine Kinase CK-MB (CK-2) CK-MB (CK-2) Rel Index Troponin I NT-Pro-B Natriuret Pep Total Protein 5.9 L Albumin 3.5 Globulin 2.4 Albumin/Globulin Ratio 1.5 Lipase Procalcitonin Urine Color Urine Appearance Urine pH Ur Specific [place] Urine Protein Urine Glucose (UA) Urine Ketones Urine Occult Blood Urine Nitrate Urine Bilirubin Urine Urobilinogen Ur Leukocyte Esterase Urine RBC Urine WBC Urine Bacteria Ur Culture Indicated? SARS-CoV-2 (PCR) Assessment & Plan Assessment & Plan narrative: Pt is an 86yo man with HTN, BPH, peripheral neuropathy, and alcohol dependence who presented with fever and left leg pain. Found to have significant cellulitis of the left leg. Also with new diagnosis of atrial fibrillation. Cellulitis: Pt with continued fevers. No DVT on work-up from the ED. - F/U blood cultures - Continue Ceftriaxone, if continues to spike fevers may need to broaden coverage - Tylenol PRN for fever - Xray left ankle as pt does endorse significant pain when ambulating that seems different than cellulitis - Continue to trend CBC Atrial fibrillation: New onset, uncertain duration. Pt asymptomatic and rate controlled. CXR in the ED only with stable cardiomegaly. - Echocardiogram ordered - TSH - After discussion with pt and his , due to relatively frequent falls at home with alcoholism, not a good candidate for anticoagulation - Start 81mg Aspirin daily Urinary retention: Found in the ED. With known BPH. - F/U urine culture - Salcido in place for now, consider removal tomorrow and voiding trial - Continue home Tamsulosin Elevated liver enzymes: Unclear etiology. Possible due to chronic alcohol consumption, however not elevated at initial ED presentation - Continue to trend with repeat CMP tomorrow - It remain elevated, plan to run Hepatitis panel, and potentially obtain liver ultrasound Thrombocytopenia: Most likely due to alcoholism - Continue to trend - No active bleeding, no need for transfusion at this time - Hold Lovenox LE edema: With elevated BNP, negative troponin. Possible new CHF. No oxygen requirement or SOB. S/P 40mg IV Lasix in the ED with excellent urine output. - Continue to monitor for signs of fluid overload - Echo as above - d/c mIVF as pt drinking fluids Alcohol dependence: No signs of withdrawal at this point. Does have macrocytic anemia, likely resultant. - CIWA protocol - Ativan PRN as needed based on Protocol - B12 and folate levels HTN: Stable - Continue home Amlodipine Neuropathy: - Continue home Gabapentin - PT consulted to evaluate gait with frequent tripping/falling at home Depression: Stable - Continue heather Sertraline Code: DNR FEN: Regular diet DVT ppx: Holding Lovenox for now due to thrombocytopenia. SCDs. Dispo: Anticipated need for at least 2 additional midnights, as pt will need to be afebrile for at least 24hrs prior to discontinuation of IV antibiotics and still with fevers. Should be able to d/c home when stable. Time Spent With Patient Critical Care time: I spent a total of [] minutes of critical care time on this patient's care today; this time is exclusive of procedural time. Quality VTE Deep Vein Thrombosis/Pulmonary Embolism Present on Admission: No
[2021-10-23] MEDS: TAMSULOSIN 0.4 MG CAPSULE PO (08:56)
[2021-10-23] MEDS: AMLODIPINE 5 MG TABLET PO (08:56)
[2021-10-23] MEDS: SERTRALINE 50 MG TABLET PO (08:56)
--- NOTE | 2021-10-23 10:28 | PC.NURSE ---
Addendum entered by Debra Gillette R.N. 10/23/21 18:11: Patients temp is 100.0, given tylenol a bit earlier and down from 101.0. Patient will start iv antibiotics tonight. He is watching the [place] football game now and is compliant and staying in bed. No ativan needed at this time, seizure pads in place. Addendum entered by Debra Gillette R.N. 10/23/21 17:36: Patients temp 101 VIA oral thermometer and 103.9 via temporal. Patient just given tylenol and will check temp again soon. He is now being compliant and staying in bed. CIWA an 8 and no ativan given at this time. Addendum entered by Debra Gillette R.N. 10/23/21 17:20: Patient starting to shake and become anxious, he is having some sweating and trying to get out of bed alot. CIWA score and 8. Will give patient 1mg of iv ativan after a bit, he is being compliant now. Will continue to watch for alchol withdrawal at this time. Original Note: 0800-Assess- Patient is pleasant and cooperative. His CIWA score is O, he has seizure pads in place. L.Leg is red and swollen and hot to touch. Patient has a temp of 101.9, tylenol given. Rechecked and down to 101.4. Will keep an eye on his. in and states that she is going to start patient on iv antibiotics. She is aware that he had a low platelet count of 60 and now 51. O lovenox or ibuprofen given. She states that she is going to start him on low dose aspirin. He is resting comfortably and refused his breakfast this morning.
--- NOTE | 2021-10-23 10:29 | DI.ECHO.S_ITS ---
[facility] +---------+ [facility] +---------+ : : [address] : : : : [id number] : : : : Phone: [phone]+ Echocardiogram Report + + :Name: KATH VALADEZ Study Date: 10/23/2021 Height: 68 in : :[facility] ReadingLocation: Weight: 210 lb : : Gender: Male BSA: 2.1 m2 : :: 1935 Age: 86 yrs BP: 134/51 mmHg: :Reason For Study: ATRIAL FIBRILLATION : :Ordering Physician: ANANTH, : :AVERY Performed By: Feli Maravilla : :Referring: AVERY WADSWORTH : + + Interpretation Summary There is mild concentric left ventricular hypertrophy. The ejection fraction is estimated to be 60-65%. Diastolic function could not be accurately assessed due to atrial fibrillation. The right ventricle is moderately dilated. The right ventricular systolic function is normal. Severe biatrial enlargement. There is moderate mitral regurgitation. There is mild tricuspid regurgitation. PASP is approximately 50 to 55 mmHg. Procedure: A two-dimensional transthoracic echocardiogram with color flow and Doppler was performed. The study quality was technically adequate. Comparison is made with the echocardiogram of 12/15/2017. The patient was in atrial fibrillation with heart rates between 55-74 bpm during the exam. Left Ventricle: The left ventricle is normal in size. There is mild concentric left ventricular hypertrophy. The ejection fraction is estimated to be 60-65%. Diastolic function could not be accurately assessed due to atrial fibrillation. Right Ventricle: The right ventricle is moderately dilated. The right ventricular systolic function is normal. Atria: The left atrium is severely dilated. The right atrium is severely dilated. There is no Doppler evidence for an interatrial shunt. Mitral Valve: There is mild mitral annular calcification. The mitral valve leaflets appear mildly thickened, but open well. There is moderate mitral regurgitation. Aortic Valve: The aortic valve is trileaflet. The aortic valve opens well. There is no aortic valve stenosis. No aortic regurgitation is present. Tricuspid Valve: The tricuspid valve is normal in structure and function. There is mild tricuspid regurgitation. PASP is approximately 50 to 55 mmHg. Pulmonic Valve: The pulmonic valve leaflets are thin and pliable; valve motion is normal. There is trace pulmonic regurgitation. Great Vessels: The aortic root is normal size. The ascending aorta is mildly enlarged. The IVC is dilated (diameter is greater than 2.1 cm) and it collapses less than 50% with a sniff. This suggests a high right atrial pressure of 15 mm Hg. Pericardium/ Pleura There is no pericardial effusion. There is no pleural effusion. MMode/2D Measurements & Calculations LVIDd: 4.8 cm LVOT diam: 2.1 cm LVIDs: 3.4 cm Ao root diam: 3.7 cm FS: 29.6 % asc Aorta Diam: 3.6 cm IVSd: 1.2 cm LVPWd: 1.2 cm LV rivera. diameter/BSA (cm/m^2): 2.3 LV sys. diameter/BSA (cm/m^2): 1.6 LA A2 area: 45.5 cm2 RA long axis: 6.7 cm LA A4 area: 40.5 cm2 RA area: 29.4 cm2 LA length (vol): 8.0 cm RA vol: 109.6 ml LA vol: 194.3 ml RA : 52.5 ml/m2 LA vol index: 93.1 ml/m2 IVC diam: 2.6 cm RVD1 (basal): 4.3 cm TAPSE: 1.8 cm Doppler Measurements & Calculations Ao V2 max: 159.9 cm/sec LVOT Max Filiberto: 136.7 cm/sec Ao V2 mean: 110.8 cm/sec LV V1 max P.5 mmHg Ao max P.2 mmHg LV V1 VTI: 28.2 cm Ao mean P.5 mmHg JAMARCUS(I,D): 3.2 cm2 Ao V2 VTI: 31.3 cm JAMARCUS(V,D): 3.1 cm2 sev ratio: 0.90 JAMARCUS indexed to BSA (cm^2/m^2): 1.6 MV E max filiberto: 123.5 cm/sec TR max filiberto: 303.6 cm/sec MV A max filiberto: 1.9 cm/sec TR max P.9 mmHg MV E/A: 65.8 PA V2 max: 93.8 cm/sec Med Peak E' Filiberto: 7.7 cm/sec PA V2 mean: 66.6 cm/sec E/E' med: 16.0 PA mean P.0 mmHg Lat Peak E' Filiberto: 12.5 cm/sec PA pr(Accel): 41.3 mmHg E/E' lat: 9.9 E/e' average: 12.9 MV dec time: 0.17 sec SVLVOT): 101.2 ml Reading Physician:01:11 PM
--- NOTE | 2021-10-23 10:31 | DI.RAD.S_ITS ---
PROCEDURE: XR ANKLE LT MIN 3V INDICATIONS: left ankle pain TECHNIQUE: 3 views of the ankle were acquired. COMPARISON: [facility], , ANKLE 3 VIEWS LEFT, 11/10/2012, 7:34. FINDINGS: Bones: No fractures or dislocations. Minimal irregularity at the distal tip of the fibula appears similar to the prior exam from 2011. Small plantar calcaneal spur. Small spur at the medial malleolus. Ankle mortise is normally aligned. No suspicious bony lesions. Soft tissues: No tibiotalar joint effusion. Achilles tendon appears normal. IMPRESSION: No acute osseous abnormality. Several small osteophytes. Dictated by: Morris Escobedo M.D. on 10/23/2021 at 10:59 Approved by: Morris Escobedo M.D. on 10/23/2021 at 11:03
--- NOTE | 2021-10-23 14:39 | PT.IIE ---
Surgical History (Last Updated 02/02/21 @ 18:18 by Mechelle Hernandez DO) Anesthesia History of knee replacement (~2009) History of vasectomy Medical History (Last Updated 02/25/21 @ 15:55 by Mechelle Hernandez DO) Anxiety BPH w urinary obs/LUTS Bradycardia Hearing deficit Pancreatitis (~1989) Peripheral neuropathy (~2011) Pneumonia Skin cancer (~2011) Umbilical hernia without obstruction and without gangrene (2018) Physical Therapy Inpatient Evaluation/Re-Eval M1 PT/OT-IP Prior Functional Status Start: 10/23/21 14:20 Freq: NEEDED Status: Active Protocol: Document 10/23/21 14:21 AMB (Rec: 10/23/21 14:39 AMB [id number]) Medical Review Prior Functional Status Medical History Reviewed Yes Mobility and Gait Pt reports 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 Pt reports 4-6 falls in the last 6 months. He states that this is because he has neuropathy in his left leg and he catches the foot on things. He does not use an assistive device. Social History Household Members spouse Living Arrangements House Number of Floors (Floors) Two Floors Number of Stairs To Enter/Railing? 3 stairs to enter without railing Additional Social History Comment has Parkinson's. She has a FWW, but the patient does not. M2 PT-IP Current Condition Start: 10/23/21 14:20 Freq: NEEDED Status: Active Protocol: Document 10/23/21 14:21 AMB (Rec: 10/23/21 14:39 AMB [id number]) Physical Therapy Current Condition Current Condition Evaluation Date 10/23/21 Treatment Diagnosis L cellulitis Onset Date 10/22/21 M4 PT-IP Mobility and Gait Start: 10/23/21 14:20 Freq: NEEDED Status: Active Protocol: Document 10/23/21 14:21 AMB (Rec: 10/23/21 14:39 AMB [id number]) PT-Bed Mobility Assessment Rolling Type of Rolling Roll to Left Level of Assist Standby Assistance Supine to Sit Supine to Sit Contact Guard Assistance Sit to Supine Sit to Supine Minimal Assistance Scooting Scooting to Edge of Bed Standby Assistance Scooting Up and Down in Bed Standby Assistance PT-Transfer Assessment Sit to and From Stand Sit to and from Stand Standby Assistance Equipment Transfer Assistive Device Gait Belt,Front Wheeled Walker Transfers Transfer Destination Bed Transfer Technique Stand Step Pivot Transfer Ability Level of Assist Contact Guard Assistance Comments Mobility Comments Pt needs a moment to put weight through his L LE. Once he has taken a few steps he is able to weightbear through it easier. He was able to get out of bed with SBA, but did need assist to get L LE back into bed. Did use bed rails fairly heavily, states this is because he has his catheter in. Gait Assessment Gait Gait Assistance Required: Contact Guard Assist Distance (Feet) 100 Assistive Devices Assistive Device Gait Belt,Front Wheeled Walker Gait Deviations General Gait Pattern Antalgic,Decreased Feet Clearance Factors Limiting Gait Function Factors Limiting Gait Function Decreased Activity Tolerance, Decreased Sensation,Decreased Strength,Limited Range of Motion,Pain Comments Gait Comments Kenji ambulated with FWW in hallway. While he states he has a FWW at home, this is really his 's. Poor weightbearing to begin with but improves with time. L LE is swollen, and he does not dorisflex it as much as the right. M7 PT-IP Assessment and Plan Start: 10/23/21 14:20 Freq: NEEDED Status: Active Protocol: Document 10/23/21 14:21 AMB (Rec: 10/23/21 14:39 AMB [id number]) PT Summary Assessment and Plan Potential Rehabilitation Potential Good Status of Condition at Evaluation Stable Summary Impairments Pain,ROM,Strength,Balance, Transfers,Gait Assessment Summary Kenji did well with bed mobility but did need use of bed rails. He also needed assist getting his left leg into bed. He ambulated with FWW, and while he stated he had one at home, it is his 's who has Parkinson's, so he may need to get a FWW for himself if his difficulty fully weightbearing on the L LE continues. He would likely be able to discharge home but could consider outpatient physical therapy for his long standing fall issues likely due to his neuropathy. Goals Bed Mobility Goal Standby Assistance Transfer Goal Standby Assistance Gait Goal Standby Assistance Gait Distance 300 Days to Meet Goals 3 Frequency of Treatment Frequency Of Treatment Once a Day Treatment Plan Physical Therapy Treatment Plan Bed Mobility Training,Transfer Training,Gait Training, Therapeutic Exercise,Balance Retraining Other Recommendations and Next Treatment Stairs, does pt need a FWW for Focus home? Recommendations To Nursing Amount of Assist Needed 1 Person Assist Discharge Recommendations PT Discharge Recommendations Home with Assistance, Outpatient PT Equipment Needed for Home Before FWW? Discharge Transportation Needs at Discharge Private Vehicle
[2021-10-23] MEDS: ASPIRIN EC 81 MG TABLET PO (16:00)
[2021-10-23] MEDS: cefTRIAXone 2,000 MG in SODIUM CHLORIDE 0.9% 100 ML 200 ML IV (19:56)
[2021-10-23] MEDS: GABAPENTIN 300 MG CAPSULE 600 MG PO (20:01)
[2021-10-23] MEDS: LORazepam 1 MG TABLET PO (21:01)
--- NOTE | 2021-10-23 21:26 | DI.RAD.S_ITS ---
PROCEDURE: XR CHEST 1V INDICATIONS: tachypnea TECHNIQUE: One view of the chest was acquired. COMPARISON: [facility], CR, XR CHEST 1V, 10/22/2021, 19:49. FINDINGS: Surgical changes and devices: None. Lungs and pleura: Low lung volumes. No pneumothorax or pleural effusion. Sondra B lines and scattered ground-glass opacity seen in both lungs. Mediastinum: Cardiac silhouette and mediastinal contours are stable. Bones and chest wall: No suspicious bony lesions. Overlying soft tissues appear unremarkable. IMPRESSION: Pulmonary edema which appears progressed since yesterday. Recommend clinical and laboratory correlation to exclude underlying infection. Low lung volumes. Dictated by: Charlie Blanc M.D. on 10/23/2021 at 21:46 Approved by: Charlie Blanc M.D. on 10/23/2021 at 21:46
--- NOTE | 2021-10-23 21:35 | PC.NURSE ---
Addendum entered by Adryan Torres R.N. 10/24/21 01:46: Ativan administered per [facility] protocol. Chest X-ray ordered by provider. Further medications ordered by provider. Patient now asleep. Original Note: Patient growing increasingly anxious and restless. Pulled IV out. Respirations 32, O2 86% on RA, Pulse 118. Fine crackles in both bases and upper airway wheezing. Respiratory therapy and provider notified. RT placed patient on 5L of O2. Provider ordered chest X-ray and instructed to hold reinserting IV for the time being.
[2021-10-24] VITALS (10 sets, daily range): BP systolic 114–132; BP diastolic 55–79; PULSE 60–79; RESP 16–26; TEMP 36.1–39.3; O2SAT 93–97
[2021-10-24] MEDS: FUROSEMIDE 20 MG/2 ML VIAL IV ×2 (00:11→11:34)
[2021-10-24] MEDS: PIPERACILLIN/TAZO 4.5 GM in SODIUM CHLORIDE 0.9% 100 ML 200 ML IV (00:17)
[2021-10-24] MEDS: VANCOMYCIN 2,000 MG/400 ML PIGGYBACK 200 MG IV (00:54)
--- NOTE | 2021-10-24 02:03 | PM.PN.1 ---
Subjective Subjective Date Patient Seen: 10/24/21 Time Patient Seen: 08:00 Interval history: The pt does not entirely recall the events of last evening. As per nursing, the pt became very agitated. He was very anxious and restless, and pulled out his IV. During this incident, he was noted to be quite tachypneic. He ultimately calmed after receiving 1mg Ativan PO per CIWA protocol. His O2 saturation was then noted to be 86%, and he was started on 5L NC. CXR was completed that showed possible pulmonary edema vs infiltrate. The pt was given 20mg IV Lasix with good urinary output. He did require one additional dose of Ativan overnight due to elevated CIWA scoring. This morning, the pt reports that he feels overall well. He states his leg pain is improving. He denies significant cough, chest pain. His SOB is minimal. Exam Vital Signs (past 8 hours): - 10/23/21 20:00 10/23/21 21:21 10/23/21 22:14 Temperature 101.7 F H Pulse Rate 90 98 H 72 Respiratory Rate 22 32 H 26 H Blood Pressure 138/59 L Pulse Oximetry 94 92 10/24/21 00:00 Temperature 99.8 F H Pulse Rate 64 Respiratory Rate 20 Blood Pressure 123/64 Pulse Oximetry 97 Oxygen Delivery Method Nasal Cannula Oxygen Flow Rate 5 Narrative Exam Narrative: Gen: NAD, laying comfortably in bed CV: irregularly irregular rhythm, grade 2/6 systolic murmur Resp: coarse breath sounds in all lobes with faint crackles bilateral bases, no wheezing Abd: soft, nontender, nondistended Ext: right LE with no edema; left LE with trace pitting edema, erythema slightly improved, significantly decreased warmth Objective Labs Result Diagrams: 10/24/21 05:51 10/24/21 05:51 Labs: Laboratory Results - last 24 hr 10/23/21 10/23/21 06:35 06:35 WBC 12.5 H RBC 3.65 L Hgb 12.5 L Hct 37.1 L MCV 101.6 H MCH 34.2 H MCHC 33.7 RDW 13.8 Plt Count 51 L Neut % (Auto) 86.9 H Lymph % (Auto) 7.3 L Florence % (Auto) 5.4 Eos % (Auto) 0.0 L Baso % (Auto) 0.4 Neut # (Auto) 78652 H Lymph # (Auto) 900 L Florence # (Auto) 700 Eos # (Auto) 0 Baso # (Auto) 0 Sodium 134 L Potassium 4.0 Chloride 103 Carbon Dioxide 25 BUN 21 H Creatinine 1.23 Estimated GFR 56.1 L BUN/Creatinine Ratio 17.1 Glucose 116 H Calcium 8.4 Magnesium 1.9 Total Bilirubin 0.9 AST 148 H ALT 118 H Alkaline Phosphatase 52 Total Protein 5.9 L Albumin 3.5 Globulin 2.4 Albumin/Globulin Ratio 1.5 PFSH Medical History (Updated 10/23/21 @ 03:14 by Ibis Forde DO) Anxiety BPH w urinary obs/LUTS Bradycardia Hearing deficit Pancreatitis (~1989) Peripheral neuropathy (~2011) Pneumonia Skin cancer (~2011) Umbilical hernia without obstruction and without gangrene (2017) Surgical History (Updated 02/02/21 @ 18:18 by Mechelle Hernandez DO) Anesthesia H/O umbilical hernia repair (~08/2019) History of cataract removal with insertion of prosthetic lens (~2011) History of knee replacement (~2009) History of vasectomy Family History Father No problems noted. Mother No problems noted. Sister No problems noted. Social History marital status: household members: spouse occupational status: previously employed Smoking Status: Former smoker alcohol intake: current substance use type: does not use Assessment & Plan Assessment & Plan narrative: Pt is an 86yo man with HTN, BPH, peripheral neuropathy, and alcohol dependence who presented with fever and left leg pain.? Found to have significant cellulitis of the left leg.? Also with new diagnosis of atrial fibrillation.? Cellulitis:? Pt with continued fevers, afebrile this morning.? WBC count up slightly this morning. No DVT on work-up from the ED. Cellulitis does appear to be improving on exam. - F/U blood cultures, no growth at 24hrs - Due to persistent fevers after 2 doses Ceftriaxone, transitioned to Vancomycin and Zosyn last night - Tylenol PRN for fever - Ankle x-ray without significant abnormalities yesterday - Continue to trend CBC Acute hypoxic respiratory failure: After episode of agitation last night. Unclear etiology. Possibly due to volume overload. Also consider aspiration, although no specific witnessed event, other pneumonia, or PE. Received IV Lasix last night with good output. 5L NC weaned down to 3L this morning. - Continue oxygen support, work on weaning today - CT PE protocol today to ensure no PE present - On Vancomycin and Zosyn as above - Encourage use of IS - Monitor urine output and consider additional IV Lasix Atrial fibrillation:? New onset, uncertain duration.? Pt asymptomatic and rate controlled.? CXR in the ED only with stable cardiomegaly. Echo showing severely dilated atria. TSH normal range. - After discussion with pt and his , due to relatively frequent falls at home with alcoholism, not a good candidate for anticoagulation - Continue 81mg Aspirin daily Urinary retention:? Found in the ED.? With known BPH. - Trial lomeli removal tomorrow - Continue home Tamsulosin Elevated liver enzymes:? Unclear etiology.? Possible due to chronic alcohol consumption, however not elevated at initial ED presentation. Improved slightly this morning. - Continue to trend with repeat CMP tomorrow Thrombocytopenia:? Most likely due to alcoholism - Continue to trend - No active bleeding, no need for transfusion at this time - Hold Lovenox LE edema:? With elevated BNP, negative troponin.? Echo without evidence of systolic dysfunction, but cannot rule-out diastolic dysfunction. Pt does have severely dilated atria.? S/P total 60mg IV Lasix thus far this hospitalization. Most likely with diastolic CHF. - Repeat BNP this morning - Consider repeat Lasix dosing as above Alcohol dependence:? Withdrawal symptoms last night.? Does have macrocytic anemia, likely resultant. B12 and folate levels normal. - CIWA protocol - Ativan PRN as needed based on Protocol HTN:? Stable - Continue home Amlodipine Neuropathy: - Continue home Gabapentin - PT recommended possible 4-wheeled walker at home Depression:? Stable - Continue heather Sertraline Code:? DNR FEN:? Regular diet DVT ppx:? Holding Lovenox for now due to thrombocytopenia.? SCDs. Dispo:? Pending afebrile for at least 24hrs, marshal respiratory status. Anticipate d/c no earlier than 10/26. Time Spent With Patient Critical Care time: I spent a total of [] minutes of critical care time on this patient's care today; this time is exclusive of procedural time. Quality VTE Deep Vein Thrombosis/Pulmonary Embolism Present on Admission: No
[2021-10-24] MEDS: ACETAMINOPHEN 325 MG TABLET 650 MG PO (03:56)
[2021-10-24] MEDS: PIPERACILLIN/TAZO 3.375 GM in SODIUM CHLORIDE 0.9% 100 ML 25 ML IV ×3 (03:56→20:08)
[2021-10-24] MEDS: LORazepam 1 MG TABLET PO (03:58)
[2021-10-24 06:21] LABS: Alanine Aminotransferase 112 IU/L (<50); Albumin 3.3 g/dL (3.5-5.0); Albumin Globulin Ratio 1.3 (1.0-2.8); Alkaline Phosphatase 57 U/L (38-126); Aspartate Aminotransferase 97 IU/L (17-59); BUN Creatinine Ratio 16.7 (6-22); Bilirubin Total 0.7 mg/dL (0.2-1.3); Blood Urea Nitrogen 20 mg/dL (9-20); Calcium 8.1 mg/dL (8.4-10.2); Carbon Dioxide 22 mmol/L (22-32); Chloride 103 mmol/L (98-107); Estimated Glomerular Filt Rate 57.7 mL/min (>60); Globulin 2.6 g/dL (1.7-4.1); Glucose 137 mg/dL (80-110); HEMOLYSIS < 15 (0-50); Potassium 3.5 mmol/L (3.4-5.1); Sodium 132 mmol/L (137-145); Total Protein 5.9 g/dL (6.3-8.2)
[2021-10-24 06:28] LABS: Add Manual Diff / Slide Review NO; Basophils Absolute Auto 0 /uL (0-100); Eosinophils Absolute Auto 0 /uL (0-450); Hematocrit 35.4 % (41-53); Lymphocytes Absolute Auto 500 /uL (1100-4500); Lymphocytes Percent Auto 3.6 % (25-40); Mean Corpuscular Hemoglobin 34.2 PG (26-34); Mean Corpuscular Volume 100.7 fL (80-100); Monocytes Absolute Auto 700 /uL (0-900); Monocytes Percent Auto 4.9 % (3-14); Neutrophils Absolute Auto 12700 /uL (1500-7000); Neutrophils Percent Auto 91.5 % (50-75); Platelet Count 72 X10^3/uL (150-400); Red Blood Cell Count 3.52 X10^6/uL (4.5-5.9); Red Cell Distribution Width 13.7 % (11.6-14.8); White Blood Cell Count 13.9 X10^3/uL (4.5-11.0)
[2021-10-24 06:56] LABS: TSH w/ Reflex to FT4 0.86 uIU/mL (0.47-4.68)
[2021-10-24 07:26] LABS: Folate 17.4 ng/mL (2.76-20.0); Vitamin B12 308 pg/mL (239-931)
[2021-10-24] MEDS: ASPIRIN EC 81 MG TABLET PO (08:58)
[2021-10-24] MEDS: TAMSULOSIN 0.4 MG CAPSULE PO (08:58)
[2021-10-24] MEDS: SERTRALINE 50 MG TABLET PO (08:58)
[2021-10-24] MEDS: AMLODIPINE 5 MG TABLET PO (08:58)
[2021-10-24] MEDS: IBUPROFEN 600 MG TABLET PO (08:59)
--- NOTE | 2021-10-24 09:15 | DI.CT.S_ITS ---
PROCEDURE: CT ANGIO CHEST PE PROTOCOL INDICATIONS: acutely worsening short of breath with oxygen requirement, tachypnea TECHNIQUE: After the administration of intravenous contrast, 2 mm thick sections acquired from the pulmonary apices to the posterior costophrenic angles. 3-dimensional maximum intensity projection (MIP) coronal and sagittal reformats were then acquired through the thorax. For radiation dose reduction, the following was used: automated exposure control, adjustment of mA and/or kV according to patient size. COMPARISON: [facility], CR, XR CHEST 1V, 10/22/2021, 19:49. [facility], CR, XR CHEST 1V, 10/23/2021, 21:32. FINDINGS: Image quality: Excellent. Pulmonary arteries: Pulmonary arteries are normal in size, and demonstrate no intraluminal filling defects to suggest central pulmonary embolism. Lungs and pleura: Small bilateral pleural effusions are seen, right larger than left. Mild patchy ground-glass opacities can be seen. The central airways are patent. No pneumothorax is seen. Mediastinum: Heart size is moderately enlarged, without pericardial effusion. No mediastinal or hilar adenopathy. Thoracic aorta is normal in caliber and enhancement. Esophagus is normal in caliber, without hiatal hernia. Bones and chest wall: No suspicious bony lesions. Age-appropriate bony degenerative changes are seen. Accentuated thoracic kyphosis is seen. Ribs and thoracic spine appear intact throughout. There is a chest wall lipoma seen on the right laterally, as on series 4, image 124 measuring 3 cm. Thyroid gland demonstrates no significant abnormality. No axillary or supraclavicular adenopathy. Abdomen: Visualized upper abdominal solid organs appear normal in the early arterial phase of enhancement. IMPRESSION: Negative for pulmonary embolism. Cardiomegaly with small pleural effusions and diffuse pulmonary ground-glass opacities. Please correlate with patient presentation, physical examination findings, and laboratory values for congestive heart failure. Incidental note is made of: 3 cm right chest wall lipoma. Dictated by: Lorenzo Orozco M.D. on 10/24/2021 at 9:23 Approved by: Lorenzo Orozco M.D. on 10/24/2021 at 9:26
--- NOTE | 2021-10-24 09:48 | PC.NURSE ---
Addendum entered by Debra Gillette R.N. 10/24/21 18:37: Patient is doing well. Eating well at meals. Had a bowel movement and he denies pain. Original Note: Patient is doing better today. He is afebrile and states that the pain to his l.arriola is better. Alert and oriented x2. No restlessness and keeping lines in. in room and visiting. Patient ate well at breakfast.
[2021-10-24 09:53] LABS: NT-proBNP (BNP-Adult 18+) 7470 pg/mL (<450)
--- NOTE | 2021-10-24 10:54 | PT.IPTN ---
Physical Therapy Treatment Note M2 PT-IP Current Condition Start: 10/23/21 14:20 Freq: NEEDED Status: Active Protocol: Document 10/23/21 14:21 AMB (Rec: 10/23/21 14:39 AMB [id number]) Physical Therapy Current Condition Current Condition Evaluation Date 10/23/21 Treatment Diagnosis L cellulitis Onset Date 10/22/21 M3 PT-IP Subjective Start: 10/23/21 14:20 Freq: NEEDED Status: Active Protocol: Document 10/24/21 10:20 [place] (Rec: 10/24/21 13:05 [place] [id number]) Subjective Physical Therapy Visit Type Type Treatment Note Visit Start Time 10:20 Visit Stop Time 10:54 Total Visit Minutes 34 Number of AUTOMOTIVE SERVICE CASHIER Visits 1 M4 PT-IP Mobility and Gait Start: 10/23/21 14:20 Freq: NEEDED Status: Active Protocol: Document 10/24/21 10:20 [place] (Rec: 10/24/21 13:05 [place] [id number]) PT-Bed Mobility Assessment Sit to Supine Sit to Supine Minimal Assistance Scooting Scooting to Edge of Bed Standby Assistance Scooting Up and Down in Bed Standby Assistance PT-Transfer Assessment Sit to and From Stand Sit to and from Stand Contact Guard Assistance Equipment Transfer Assistive Device Gait Belt,Front Wheeled Walker Transfers Transfer Destination Bed Transfer Technique Pt ambulated w/ FWW Transfer Ability Level of Assist Contact Guard Assistance Comments Mobility Comments Pt in bed w/ spouse in room upon arrival from therapy. CGA for sup<>sit from flat bed and SBA for scooting to EOB. Pt on 3.5L and O2 99%. Removed O2 and pt remained 97-98% on RA. Pt sit<>stand CGA w/ FWW and O2 remained 97%. He then ambulated ~30 ft arounf room and O2 decreased to 92% on RA. Pt sat back down, 3.5L o2 reapplied and O2 increased to 98%, after ~2 min rest break pt ambulated additional 30 ft around room w/ FWW CGA on RA, pts O2 decreased to 94%, pt sat down reapplied O2 which increased to 98% he took another 2 min rest break and then completed 3rd bout of 30 ft ambulation w/ FWW CGA on RA . O2 remained 94-95% during last bout of ambulation, pt denied SOB but reported slight fatigue and returned to bed. Min A for LE guidance into bed . Pt instructed to perform ankle pumps and left in bed w/ all needs in reach. Gait Assessment Gait Gait Assistance Required: Contact Guard Assist Distance (Feet) 90 Assistive Devices Assistive Device Gait Belt,Front Wheeled Walker Gait Deviations General Gait Pattern Antalgic,Decreased Feet Clearance Factors Limiting Gait Function Factors Limiting Gait Function Decreased Activity Tolerance, Decreased Sensation,Decreased Strength,Limited Range of Motion,Pain Comments Gait Comments Pt ambulated 3x 30 ft w/ FWW CGA and on RA. Pt able to maintain 92-95% O2 during ambualtion, 2 min rest breaks on 3.5L O2 to recover. Pt ambulated slowly w/ decreased stride and foot clearance and reported that he typically ambulates much quicker at home . L LE is swollen, and he does not dorisflex it as much as the right. Stair Climbing Assessment Comments Stair Climbing Comments Not assessed. M6 PT-IP Treatment Start: 10/23/21 14:20 Freq: NEEDED Status: Active Protocol: Document 10/24/21 10:20 [place] (Rec: 10/24/21 13:05 MO [id number]) Physical Therapy Treatment Exercises Exercises Ankle Pumps Education Education Provided Safety Other Treatments Other Treatment Performed Diaphragmatic breathing M7 PT-IP Assessment and Plan Start: 10/23/21 14:20 Freq: NEEDED Status: Active Protocol: Document 10/24/21 10:20 [place] (Rec: 10/24/21 13:05 [place] [id number]) PT Summary Assessment and Plan Potential Rehabilitation Potential Good Status of Condition at Evaluation Stable Summary Impairments Pain,ROM,Strength,Balance, Transfers,Gait Assessment Summary Pt requring SBA to Min A for bed mobility, CGA for sit<> Stands and ambulation w/ FWW. Able to tolerate 3 bouts of 30 ft ambulaltion w/ FWW and CGA on RA but requires 2 min rest breaks in between each to reapply O2 and recover to 98% . Pt ranged from 92-96% on RA during ambulation. Pts has PD and has FWW but states she rarely needs it and patient may use at home. Anticipating pt will be safe to d/c home w/ assisting but would benefit from HHPT to improve balance and functional mobility independence. Goals Bed Mobility Goal Standby Assistance Transfer Goal Standby Assistance Gait Goal Standby Assistance Gait Distance 300 Days to Meet Goals 3 Frequency of Treatment Frequency Of Treatment Once a Day Treatment Plan Physical Therapy Treatment Plan Bed Mobility Training,Transfer Training,Gait Training, Therapeutic Exercise,Balance Retraining Other Recommendations and Next Treatment Stairs. Pts has FWW at [facility] that she infrequently uses and will let pt use while he needs it. Recommendations To Nursing Amount of Assist Needed 1 Person Assist Discharge Recommendations PT Discharge Recommendations Home with Assistance,Home Health,Outpatient PT Transportation Needs at Discharge Private Vehicle
[2021-10-24] MEDS: POTASSIUM CHLORIDE 20 MEQ TAB 40 MEQ PO (15:35)
--- NOTE | 2021-10-24 16:16 | CM.DANOTE ---
DCP Assessment: Patient is a 86 yr old male who was admitted for Lt Leg Cellulites - CM met with patient at the bedside and explained role. patient was alert and oriented at time of CM visit however was distracted with the foot ball game. patient states [place] with his Karina the house has three floors and patients son lives near by. Patient states at his base line he is independent and drives. 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 PT recommended home with HH for help with ROM strength and balance. I: medicare and AARP Plan: [place] home with and HH services- CM has F2F ready to sign for MD for PT, OT and an aid to help with ADLs if needed. CM will follow up with MD and patient to facilitate HH plan. Violetta Calloway Discharge Planning/Care Management Discharge Assessment Start: 10/24/21 16:08 Freq: Status: Active Protocol: Document 10/24/21 16:08 (Rec: 10/24/21 16:16 [id number]) Discharge Planning Assessment Assigned Commercial Account Manager Violetta Calloway DPOA/Assigned Designee Name Karina Cantrell () Contact Information [phone] Advance Directives? No History Provided By Patient,Family Member,Medical Record Prior Living Arrangements House Household Members spouse Type of transporation used prior to Drives own vehicle admit Independent with ADL's Yes Is patient alert and oriented? Yes Caregiver for Another No Patient/Family Preference Home with Home Health Comment Patient requested HH services at [place]- CM will work with MD to get F2F signed and Home Health set up at [place] Barriers to Discharge No Discharge Plan Home with Home Health Referrals Initiated Home Health If patient plan is home with home health No: not yet working on MD : Has signed face to face form been signature completed? Medicare Choice List Provided Yes SNF/HH Preference Signature and Cheyanne Whiteboard Updated in Patient Room with Yes name and ext. # of Commercial Account Manager Review Status In Process Next Review Type Continued Stay Review
[2021-10-24] MEDS: GABAPENTIN 300 MG CAPSULE 600 MG PO (20:08)
[2021-10-25] VITALS (9 sets, daily range): BP systolic 109–139; BP diastolic 50–79; PULSE 56–73; RESP 16–22; TEMP 36.3–38.2; O2SAT 88–967
[2021-10-25] MEDS: VANCOMYCIN 1,500 MG/300 ML PIGGYBACK 200 MG IV (00:22)
--- NOTE | 2021-10-25 01:09 | PC.NURSE ---
Patient continually removing nasal cannula. Placing back on as often as possible. Difficulty titrating patient off oxygen.
--- NOTE | 2021-10-25 03:32 | PC.NURSE ---
Alerted to patient via bed alarm. Patient extremely agitated and anxious, pulled out IV, removed tele monitor, and removed nasal cannula. Patient stated they were about to blow and had better get me to the bathroom or we're going to have a mess. Proceeded to have a copious bowel movement. Patient now resting comfortably in bed.
[2021-10-25] MEDS: PIPERACILLIN/TAZO 3.375 GM in SODIUM CHLORIDE 0.9% 100 ML 25 ML IV ×3 (03:48→23:28)
[2021-10-25 05:19] LABS: Add Manual Diff / Slide Review NO; Basophils Absolute Auto 0 /uL (0-100); Basophils Percent Auto 0.1 % (0-2); Eosinophils Absolute Auto 0 /uL (0-450); Hematocrit 36.4 % (41-53); Hemoglobin 12.3 g/dL (13.5-17.5); Lymphocytes Absolute Auto 500 /uL (1100-4500); Lymphocytes Percent Auto 3.7 % (25-40); Mean Corpuscular HGB Conc 33.9 % (30-36); Mean Corpuscular Volume 100.4 fL (80-100); Monocytes Absolute Auto 900 /uL (0-900); Monocytes Percent Auto 6.5 % (3-14); Neutrophils Absolute Auto 12500 /uL (1500-7000); Neutrophils Percent Auto 89.7 % (50-75); Platelet Count 87 X10^3/uL (150-400); Red Blood Cell Count 3.62 X10^6/uL (4.5-5.9); Red Cell Distribution Width 13.7 % (11.6-14.8); White Blood Cell Count 13.9 X10^3/uL (4.5-11.0)
[2021-10-25 05:21] LABS: Alanine Aminotransferase 84 IU/L (<50); Albumin 3.2 g/dL (3.5-5.0); Albumin Globulin Ratio 1.1 (1.0-2.8); Alkaline Phosphatase 60 U/L (38-126); Aspartate Aminotransferase 52 IU/L (17-59); BUN Creatinine Ratio 17.1 (6-22); Bilirubin Total 0.7 mg/dL (0.2-1.3); Blood Urea Nitrogen 18 mg/dL (9-20); Calcium 8.4 mg/dL (8.4-10.2); Carbon Dioxide 25 mmol/L (22-32); Chloride 101 mmol/L (98-107); Estimated Glomerular Filt Rate > 60.0 mL/min (>60); Globulin 2.8 g/dL (1.7-4.1); Glucose 143 mg/dL (80-110); HEMOLYSIS < 15 (0-50); Potassium 3.5 mmol/L (3.4-5.1); Sodium 134 mmol/L (137-145)
[2021-10-25] MEDS: AMLODIPINE 5 MG TABLET PO (08:50)
[2021-10-25] MEDS: FUROSEMIDE 20 MG/2 ML VIAL IV (08:50)
[2021-10-25] MEDS: ACETAMINOPHEN 325 MG TABLET 650 MG PO ×2 (08:50→23:38)
[2021-10-25] MEDS: ASPIRIN EC 81 MG TABLET PO (08:50)
[2021-10-25] MEDS: TAMSULOSIN 0.4 MG CAPSULE PO (08:50)
[2021-10-25] MEDS: SERTRALINE 50 MG TABLET PO (08:50)
--- NOTE | 2021-10-25 09:28 | PC.NURSE ---
Addendum entered by Debra Gillette R.N. 10/25/21 12:31: Patient is doing well, he will have his lomeli catheter taken out shortly, no more pink tinged sputum as of lately. He will also get 40mg of iv lasix tonight around 2100. Addendum entered by Debra Gillette R.N. 10/25/21 10:09: CIWA score is 0. Just worked with physical therapy and walked in the halls, he is sitting up in the chair and denies pain. He did have an episode of coughing up pink tinged sputum and Dr. Gates is aware. Original Note: Assess-Patient is alert and oriented x3, he is forgetful. CIWA score is a 0. He has not had any loose stool this am since 7am. Ate about 50% of his oatmeal. Talking to Dr. Gates now.
[2021-10-25] MEDS: POTASSIUM CHLORIDE 20 MEQ TAB 40 MEQ PO (10:47)
--- NOTE | 2021-10-25 13:39 | PT.IPTN ---
Current Diagnoses Cellulitis of left lower limb (10/22/21) Physical Therapy Treatment Note M2 PT-IP Current Condition Start: 10/23/21 14:20 Freq: NEEDED Status: Active Protocol: Document 10/23/21 14:21 AMB (Rec: 10/23/21 14:39 AMB [id number]) Physical Therapy Current Condition Current Condition Evaluation Date 10/23/21 Treatment Diagnosis L cellulitis Onset Date 10/22/21 M3 PT-IP Subjective Start: 10/23/21 14:20 Freq: NEEDED Status: Active Protocol: Document 10/25/21 13:29 SAK (Rec: 10/25/21 13:38 SAK [id number]) Subjective Physical Therapy Visit Type Type Treatment Note Visit Start Time 09:27 Visit Stop Time 09:52 Total Visit Minutes 25 Number of WILDLIFE VETERINARIAN Visits 0 Physical Therapy Visit Comments Patient Comments Willing to participate in PT, I need to get these legs going. Patient Goals To get stronger and go home M4 PT-IP Mobility and Gait Start: 10/23/21 14:20 Freq: NEEDED Status: Active Protocol: Document 10/25/21 13:29 SAK (Rec: 10/25/21 13:38 SAK [id number]) PT-Bed Mobility Assessment Rolling Type of Rolling Roll to Left Level of Assist Standby Assistance Supine to Sit Supine to Sit Standby Assistance PT-Transfer Assessment Equipment Orthotic/Prosthetic Devices or Brace: No Transfers Transfer Destination Bed Transfer Technique Pt ambulated w/ FWW Transfer Ability Level of Assist Contact Guard Assistance Comments Mobility Comments Patient in bed, spouse in room when PT arrived. O2 per NC at 3.5L, O2 96%. Supine to sit with SBA with HOB sl elevatd. Removed O2, patient at 93%. Sit to stand with CGA . Gait training 150' with FWW, CGA, minimal SOB, O2 sats at 91% after gait, up to 94% after 1 min. Gait Assessment Gait Gait Assistance Required: Contact Guard Assist Distance (Feet) 150 Assistive Devices Assistive Device Gait Belt,Front Wheeled Walker Gait Deviations General Gait Pattern Decreased Feet Clearance Factors Limiting Gait Function Factors Limiting Gait Function Decreased Activity Tolerance, Decreased Sensation,Decreased Strength,Limited Range of Motion,Pain Comments Gait Comments Gait slow but steady using FWW . Stair Climbing Assessment Comments Stair Climbing Comments Not assessed. M6 PT-IP Treatment Start: 10/23/21 14:20 Freq: NEEDED Status: Active Protocol: Document 10/25/21 13:29 [facility] (Rec: 10/25/21 13:38 SAK [id number]) Physical Therapy Treatment Other Treatments Other Treatment Performed Diaphragmatic breathing M7 PT-IP Assessment and Plan Start: 10/23/21 14:20 Freq: NEEDED Status: Active Protocol: Document 10/25/21 13:29 [facility] (Rec: 10/25/21 13:38 SAK [id number]) PT Summary Assessment and Plan Potential Rehabilitation Potential Good Status of Condition at Evaluation Stable Summary Impairments Pain,ROM,Strength,Balance, Transfers,Gait Assessment Summary Patient improved in gait distance today, no use of supplemental oxygen. With gait O2 sats decreased to 91% from 96%, min SOB. Good progress Goals Bed Mobility Goal Standby Assistance Transfer Goal Standby Assistance Gait Goal Standby Assistance Gait Distance 300 Days to Meet Goals 3 Frequency of Treatment Frequency Of Treatment Once a Day Treatment Plan Physical Therapy Treatment Plan Bed Mobility Training,Transfer Training,Gait Training, Therapeutic Exercise,Balance Retraining Other Recommendations and Next Treatment Gait training on stairs [facility] Recommendations To Nursing Amount of Assist Needed 1 Person Assist Discharge Recommendations PT Discharge Recommendations Home with Assistance,Home Health,Outpatient PT Transportation Needs at Discharge Private Vehicle
--- NOTE | 2021-10-25 15:41 | PM.PN.1 ---
Subjective Subjective Date Patient Seen: 10/25/21 Time Patient Seen: 08:45 Interval history: This morning the pt reports that he is feeling unchanged from yesterday. He denies any SOB. He has coughed up some pinkish-brown fluid this morning. He denies any chest pain. He does report that he got agitated last night, which nursing confirms. He unfortunately pulled out his IV again. He did not receive any Ativan, however. Exam Vital Signs (past 8 hours): - 10/25/21 08:00 10/25/21 08:50 10/25/21 12:00 Temperature 99.9 F H 99 F 97.9 F Pulse Rate 71 56 L Respiratory Rate 20 20 Blood Pressure 126/73 109/50 L Pulse Oximetry 88 L 96 Oxygen Delivery Method Nasal Cannula Oxygen Flow Rate 3 Narrative Exam Narrative: Gen:? NAD, laying comfortably in bed CV:? irregularly irregular rhythm, grade 2/6 systolic murmur Resp:? coarse breath sounds in all lobes with faint crackles bilateral bases, no wheezing Abd:? soft, nontender, nondistended Ext:? right LE with no edema; left LE with trace pitting edema, erythema and warmth stable from yesterday Objective Labs Result Diagrams: 10/25/21 04:35 10/25/21 04:35 Labs: Laboratory Results - last 24 hr 10/25/21 10/25/21 04:35 04:35 WBC 13.9 H RBC 3.62 L Hgb 12.3 L Hct 36.4 L MCV 100.4 H MCH 34.0 MCHC 33.9 RDW 13.7 Plt Count 87 L Neut % (Auto) 89.7 H Lymph % (Auto) 3.7 L [place] % (Auto) 6.5 Eos % (Auto) 0.0 L Baso % (Auto) 0.1 Neut # (Auto) 98468 H Lymph # (Auto) 500 L [place] # (Auto) 900 Eos # (Auto) 0 Baso # (Auto) 0 Sodium 134 L Potassium 3.5 Chloride 101 Carbon Dioxide 25 BUN 18 Creatinine 1.05 Estimated GFR > 60.0 BUN/Creatinine Ratio 17.1 Glucose 143 H Calcium 8.4 Total Bilirubin 0.7 AST 52 ALT 84 H Alkaline Phosphatase 60 Total Protein 6.0 L Albumin 3.2 L Globulin 2.8 Albumin/Globulin Ratio 1.1 [facility] Medical History (Updated 10/23/21 @ 03:14 by Ibis Forde DO) Anxiety BPH w urinary obs/LUTS Bradycardia Hearing deficit Pancreatitis (~1989) Peripheral neuropathy (~2011) Pneumonia Skin cancer (~2011) Umbilical hernia without obstruction and without gangrene (2018) Surgical History (Updated 02/02/21 @ 18:18 by Mechelle Hernandez DO) Anesthesia H/O umbilical hernia repair (~08/2019) History of cataract removal with insertion of prosthetic lens (~2011) History of knee replacement (~2009) History of vasectomy Family History Father No problems noted. Mother No problems noted. Sister No problems noted. Social History marital status: household members: spouse occupational status: previously employed Smoking Status: Former smoker alcohol intake: current substance use type: does not use Assessment & Plan Assessment & Plan narrative: Pt is an 86yo man with HTN, BPH, peripheral neuropathy, and alcohol dependence who presented with fever and left leg pain.? Found to have significant cellulitis of the left leg.? Also with new diagnosis of atrial fibrillation.? Cellulitis:? Afebrile for > 24hrs, although temp did reach 100.3F early this morning. WBC count stable, but not dramatically improved. No DVT on work-up from the ED.? Cellulitis stable. - F/U blood cultures, no growth at 48 hrs - Continue Vancomycin and Zosyn - Tylenol PRN for fever - Ankle x-ray without significant abnormalities - Continue to trend CBC Acute hypoxic respiratory failure:? Appears to be due to acute exacerbation of likely congestive heart failure with preserved EF. CT yesterday without evidence of PE, mild patchy ground glass opacities and pleural effusions most consistent with pulmonary edema. Stable on 3L O2. - Continue oxygen support, work on weaning today - Encourage use of IS - Received 20mg IV Lasix this morning. Plan to add additional 40mg this evening. Atrial fibrillation:? New onset, uncertain duration.? Pt asymptomatic and rate controlled.? CXR in the ED only with stable cardiomegaly.? Echo showing severely dilated atria.? TSH normal range.? - After discussion with pt and his , due to relatively frequent falls at home with alcoholism, not a good candidate for anticoagulation - Continue 81mg Aspirin daily Urinary retention:? Found in the ED.? With known BPH. - Trial lomeli removal today - Continue home Tamsulosin Elevated liver enzymes:? Unclear etiology.? Possible due to chronic alcohol consumption, however not elevated at initial ED presentation.? Improving. - Continue to trend with repeat CMP tomorrow Thrombocytopenia:? Most likely due to alcoholism. Trending up. - Continue to trend - No active bleeding, no need for transfusion at this time - Hold Lovenox. Could consider administration tomorrow if continues to improve. Alcohol dependence:? Withdrawal symptoms again. last night.? Does have macrocytic anemia, likely resultant.? B12 and folate levels normal. - [facility] protocol - Ativan PRN as needed based on Protocol HTN:? Stable - Continue home Amlodipine Neuropathy: - Continue home Gabapentin - PT recommended possible 4-wheeled walker at home Depression:? Stable - Continue heather Sertraline Code:? DNR FEN:? Regular diet DVT ppx:? Holding Lovenox for now due to thrombocytopenia.? SCDs. Dispo:? Pending continued improvement in cellulitis, marshal respiratory status.? Anticipate d/c potentially in 2 days. Time Spent With Patient Critical Care time: I spent a total of [] minutes of critical care time on this patient's care today; this time is exclusive of procedural time. Quality VTE Deep Vein Thrombosis/Pulmonary Embolism Present on Admission: No
[2021-10-25] MEDS: FUROSEMIDE 20 MG/2 ML VIAL 40 MG IV (21:47)
[2021-10-25] MEDS: GABAPENTIN 300 MG CAPSULE 600 MG PO (21:47)
[2021-10-26] VITALS (10 sets, daily range): BP systolic 116–128; BP diastolic 64–75; PULSE 55–68; RESP 14–18; TEMP 36.9–38.1; O2SAT 95–100
--- NOTE | 2021-10-26 01:37 | PC.NURSE ---
Pt was bladder scan around 2200 with 999 Mll according to the scan, pt doesn't have any discomfort or any sensation as to needing to urinate, lomeli catheter reinserted with 1600 cc of clear urine right away. will update MD in the am
[2021-10-26] MEDS: VANCOMYCIN 1,500 MG/300 ML PIGGYBACK 200 MG IV (03:48)
[2021-10-26] MEDS: ACETAMINOPHEN 325 MG TABLET 650 MG PO (05:46)
--- NOTE | 2021-10-26 07:05 | PC.NURSE ---
Pt had a bladder scan of >999, lomeli cath reinserted, Dr. Gates aware, pt has been having low temps 100.7. 99.9, 100.6. tylenol PO given twice. Pt also has a rash to his full back which he state is normal for him, Pt now has a new order for benadryl 50 mg PO.
--- NOTE | 2021-10-26 08:19 | P.PN_ITS ---
Subjective Subjective Date Patient Seen: 10/26/21 Time Patient Seen: 08:20 Interval history: Patient with episode urinary retention again last night. Ultrasound showed greater than a 1000 mL present. They then obtained 1600 mL when they put the [place] catheter in. Patient is alert and oriented x3. He remembers me but does not remember my name. His is present at the bedside. He states he has pain in his left lower leg only if he stretches it significantly. He is otherwise feeling well without complaining of any pain. He had 2 loose stools yesterday. He is currently hungry. He denies pain abdominal pain or nausea. He denies shortness of breath lightheadedness or dizziness. It looks like he was about 18 hours afebrile and then had a temperature last night at about 11 30 of 100 point 6. He is now afebrile. Reviewed Dr. olivia woods workup and notes and diagnostics from hospitalization thus far as well as ER workup. Patient is relatively new to ct. Exam Vital Signs (past 8 hours): - 10/26/21 00:35 10/26/21 01:39 10/26/21 03:58 Temperature 99.1 F 99 F 99.5 F Pulse Rate 58 L Respiratory Rate 18 Blood Pressure 116/68 Pulse Oximetry 95 10/26/21 05:42 10/26/21 05:46 10/26/21 06:56 Temperature 100.6 F H 100.5 F H 99 F Pulse Rate Respiratory Rate Blood Pressure Pulse Oximetry Oxygen Delivery Method Nasal Cannula Oxygen Flow Rate 2 Narrative Exam Narrative: T current is 99. Patient is in the mid to upper 90s on 2 L nasal cannula oxygen. Vital signs are stable HEENT: Unremarkable, mucous membranes moist and pink Neck: Supple without adenopathy or thyromegaly Chest: Bibasilar crackles Cor: Regular rate and rhythm. No obvious ectopy Extremities: Left lower extremity shows 1 to 2+ pitting edema up to the knee. Patient with nodule distal left posterior aspect of the leg which is suspected the start of the bug bite. There is increased warmth and erythema but overall this is reported to be improved since hospitalization Neurologic exam is nonfocal Objective Labs Result Diagrams: 10/25/21 04:35 10/25/21 04:35 [facility] Medical History (Updated 10/23/21 @ 03:14 by Ibis Forde DO) Anxiety BPH w urinary obs/LUTS Bradycardia Hearing deficit Pancreatitis (~1989) Peripheral neuropathy (~2011) Pneumonia Skin cancer (~2011) Umbilical hernia without obstruction and without gangrene (2018) Surgical History (Updated 02/02/21 @ 18:18 by Mechelle Hernandez DO) Anesthesia H/O umbilical hernia repair (~08/2019) History of cataract removal with insertion of prosthetic lens (~2011) History of knee replacement (~2009) History of vasectomy Family History Father No problems noted. Mother No problems noted. Sister No problems noted. Social History marital status: household members: spouse occupational status: previously employed Smoking Status: Former smoker alcohol intake: current substance use type: does not use Assessment & Plan Assessment & Plan narrative: Assessment & Plan narrative: Pt is an 86yo man with HTN, BPH, peripheral neuropathy, and alcohol dependence who presented with fever and left leg pain.? Found to have significant cellulitis of the left leg.? Also with new diagnosis of atrial fibrillation.? Cellulitis:?? No DVT on work-up from the ED.? Cellulitis is slowly improving. Will repeat venous Doppler today. Suspect possible bite was the origin of the infection. He is very slow to improve but I suspect this is related to his age and comorbidities. - F/U blood cultures, no growth at 48 hrs - Continue Vancomycin and Zosyn - Tylenol PRN for fever - Ankle x-ray without significant abnormalities - Continue to trend CBC Acute hypoxic respiratory failure:? Appears to be due to acute exacerbation of likely congestive heart failure with preserved EF.? CT yesterday without evidence of PE, mild patchy ground glass opacities and pleural effusions most consistent with pulmonary edema.? Slowly improving. We will continue to wean oxygen - Continue oxygen support, work on weaning today - Encourage use of IS -40 mg of IV Lasix. Atrial fibrillation:? New onset, uncertain duration.? Pt asymptomatic and rate controlled.? CXR in the ED only with stable cardiomegaly.? Echo showing severely dilated atria.? TSH normal range.? - After discussion with pt and his , due to relatively frequent falls at home with alcoholism, not a good candidate for anticoagulation - Continue 81mg Aspirin daily Currently seems to be in sinus rhythm. We will check an EKG. We will continue with diuresis Urinary retention:? Found in the ED.? With known BPH. -failed trial of removing catheter. Catheter reinserted. Will attempt to consult urology inpatient - Continue home Tamsulosin but will increase dose to 0.8 mg daily Elevated liver enzymes:? Unclear etiology.? Possible due to chronic alcohol consumption, however not elevated at initial ED presentation.? Improving. - Continue to trend with repeat CMP tomorrow Thrombocytopenia:? Most likely due to alcoholism.? Trending up. - Continue to trend - No active bleeding, no need for transfusion at this time - Hold Lovenox.? Could consider administration tomorrow if continues to improve. Alcohol dependence:? Withdrawal symptoms again.? last night.? Does have macrocytic anemia, likely resultant.? B12 and folate levels normal. - [facility] protocol - Ativan PRN as needed based on Protocol Patient is now day 5 status post last alcohol intake. We had a long con versation today about alcohol and toxicity to the heart as well as the complications of this medical illness and patient agrees he will quit using alcohol. We will continue to use lorazepam sparingly. HTN:? Stable - Continue home Amlodipine Neuropathy: - Continue home Gabapentin - PT recommended possible 4-wheeled walker at home Depression:? Stable - Continue heather Sertraline Code:? DNR FEN:? Regular diet DVT ppx:? Holding Lovenox for now due to thrombocytopenia.? SCDs. Dispo:? Pending continued improvement in cellulitis, marshal respiratory status.? Anticipate d/c potentially in 2 days. 70 minutes was spent with patient discussing the case with Dr. Peace, nursing and with patient and his and formulating plan Time Spent With Patient Critical Care time: I spent a total of [] minutes of critical care time on this patient's care today; this time is exclusive of procedural time. Quality VTE Deep Vein Thrombosis/Pulmonary Embolism Present on Admission: No
[2021-10-26 08:21] LABS: Add Manual Diff / Slide Review NO; Basophils Absolute Auto 100 /uL (0-100); Basophils Percent Auto 0.4 % (0-2); Eosinophils Absolute Auto 400 /uL (0-450); Eosinophils Percent Auto 2.7 % (2-4); Hemoglobin 12.3 g/dL (13.5-17.5); Lymphocytes Absolute Auto 1000 /uL (1100-4500); Lymphocytes Percent Auto 7.9 % (25-40); Mean Corpuscular HGB Conc 34.3 % (30-36); Mean Corpuscular Hemoglobin 34.3 PG (26-34); Mean Corpuscular Volume 100.1 fL (80-100); Monocytes Absolute Auto 1300 /uL (0-900); Monocytes Percent Auto 9.8 % (3-14); Neutrophils Absolute Auto 10500 /uL (1500-7000); Neutrophils Percent Auto 79.2 % (50-75); Platelet Count 79 X10^3/uL (150-400); White Blood Cell Count 13.2 X10^3/uL (4.5-11.0)
[2021-10-26 08:36] LABS: Alanine Aminotransferase 74 IU/L (<50); Albumin 3.1 g/dL (3.5-5.0); Albumin Globulin Ratio 1.2 (1.0-2.8); Alkaline Phosphatase 76 U/L (38-126); Aspartate Aminotransferase 51 IU/L (17-59); BUN Creatinine Ratio 14.8 (6-22); Bilirubin Total 0.6 mg/dL (0.2-1.3); Blood Urea Nitrogen 16 mg/dL (9-20); Calcium 8.4 mg/dL (8.4-10.2); Carbon Dioxide 27 mmol/L (22-32); Chloride 102 mmol/L (98-107); Estimated Glomerular Filt Rate > 60.0 mL/min (>60); Globulin 2.6 g/dL (1.7-4.1); Glucose 119 mg/dL (80-110); HEMOLYSIS < 15 (0-50); Potassium 3.2 mmol/L (3.4-5.1); Sodium 136 mmol/L (137-145); Total Protein 5.7 g/dL (6.3-8.2)
[2021-10-26] MEDS: PIPERACILLIN/TAZO 3.375 GM in SODIUM CHLORIDE 0.9% 100 ML 25 ML IV ×3 (08:40→22:55)
[2021-10-26] MEDS: TAMSULOSIN 0.4 MG CAPSULE PO (08:41)
[2021-10-26] MEDS: FUROSEMIDE 20 MG/2 ML VIAL 40 MG IV ×2 (08:41→20:52)
[2021-10-26] MEDS: SERTRALINE 50 MG TABLET PO (08:41)
[2021-10-26] MEDS: ASPIRIN EC 81 MG TABLET PO (08:41)
[2021-10-26] MEDS: AMLODIPINE 5 MG TABLET PO (08:41)
--- NOTE | 2021-10-26 08:45 | DI.US.S_ITS ---
PROCEDURE: US PERIP VENOUS LOW EXTREM LT INDICATIONS: swelling, pain TECHNIQUE: Real-time imaging, as well as color and pulse Doppler interrogation, were performed of the lower extremity deep veins from the inguinal ligament to the popliteal fossa. COMPARISON: [facility], US, US [facility] VENOUS LOW EXTREM LT, 10/22/2021, 20:12. [facility], CT, CT ANGIO CHEST PE PROTOCOL, 10/24/2021, 9:34. FINDINGS: The common femoral, femoral and popliteal veins are normally compressible, and free of intraluminal thrombus. Color and pulse Doppler demonstrate normal phasic intraluminal flow. There is normal augmentation response to distal compression maneuver. IMPRESSION: Negative for deep venous thrombosis. Dictated by: Lorenzo Orozco M.D. on 10/26/2021 at 13:38 Approved by: Lorenzo Orozco M.D. on 10/26/2021 at 13:39
--- NOTE | 2021-10-26 11:08 | CM.DPC ---
DCP Cont: Laura from [facility] called and left a message, they do not serve [place]. Called Isabella at [facility] to see if she had referral, and she stated, she does not have referral. Went ahead and sent referral to [facility], and Isabella is aware. Sent face sheet, face to face, and H&P. P: DCP to continue to follow. Plan is for patient to go home with [facility] when stable. They will just need orders and DC Summary upon discharge. Radha Linares RN/Mechanical Service Representative
[2021-10-26] MEDS: POTASSIUM CHLORIDE 20 MEQ TAB 40 MEQ PO ×2 (13:01→20:52)
[2021-10-26] MEDS: TAMSULOSIN 0.4 MG CAPSULE 0.8 MG PO (13:01)
[2021-10-26] MEDS: LORATADINE 10 MG TABLET PO (13:02)
--- NOTE | 2021-10-26 14:31 | PT.IPTN ---
Current Diagnoses Cellulitis of left lower limb (10/22/21) Physical Therapy Treatment Note M2 PT-IP Current Condition Start: 10/23/21 14:20 Freq: NEEDED Status: Active Protocol: Document 10/23/21 14:21 AMB (Rec: 10/23/21 14:39 AMB [id number]) Physical Therapy Current Condition Current Condition Evaluation Date 10/23/21 Treatment Diagnosis L cellulitis Onset Date 10/22/21 M3 PT-IP Subjective Start: 10/23/21 14:20 Freq: NEEDED Status: Active Protocol: Document 10/26/21 14:17 LJ (Rec: 10/26/21 14:31 LJ [email or web address]) Subjective Physical Therapy Visit Type Type Treatment Note Visit Start Time 09:10 Visit Stop Time 09:35 Total Visit Minutes 25 Number of MOTOR OPERATOR Visits 1 Physical Therapy Visit Comments Patient Comments Leg is feeling better M4 PT-IP Mobility and Gait Start: 10/23/21 14:20 Freq: NEEDED Status: Active Protocol: Document 10/26/21 14:17 LJ (Rec: 10/26/21 14:31 LJ [email or web address]) PT-Bed Mobility Assessment Rolling Type of Rolling Roll to Left Level of Assist Standby Assistance Sit to Supine Sit to Supine Standby Assistance Scooting Scooting to Edge of Bed Standby Assistance Scooting Up and Down in Bed Standby Assistance PT-Transfer Assessment Sit to and From Stand Sit to and from Stand Contact Guard Assistance Equipment Transfer Assistive Device Gait Belt,Front Wheeled Walker Orthotic/Prosthetic Devices or Brace: No Transfers Transfer Destination Toilet Transfer Technique Pt ambulated w/ FWW Transfer Ability Level of Assist Standby Assistance Comments Mobility Comments Pt in bed and spouse in room. O2 with NC at 97% 2.0 L. SBA for supine>sit using bed rails . Pt able to situate himself on side of bed SBA. CGA for sit>stand. on RA pt maintained O2 at 94%. Pt then ambulatted to end of hallway to trial stairs, initially CGA then SBA . Pt trialed stairs and continued to ambulate around N nursing station SBA without LOB and back to room where he entered the bathroom and sat on the toilet. Pt was left on the toilet with ELECTRONICS INSTRUCTOR in attendance. Gait Assessment Gait Gait Assistance Required: Standby Assistance,Contact Guard Assist Distance (Feet) 300 Assistive Devices Assistive Device Gait Belt,Front Wheeled Walker Gait Deviations General Gait Pattern Decreased Feet Clearance Factors Limiting Gait Function Factors Limiting Gait Function Decreased Activity Tolerance, Decreased Sensation,Decreased Strength,Limited Range of Motion,Pain Comments Gait Comments Gait slow but steady using FWW . Pt without fatigue or LOB. O2 at 94%. Demonstrated decreased foot clearance but able to correct slightly when cued. Stair Climbing Assessment Evaluation Level of Assist On Stairs Standby Assistance Devices Stair Climbing Assistive Devices Left Railing,Right Railing Technique/Endurance Stair Climbing Direction Ascend and Descend Stair Climbing Technique Step Over Step,Step to Step Number of Steps Climbed 3 Stair Climbing Set # Repetitions (reps) 2 Comments Stair Climbing Comments Pt safe on stairs with both gait patterns. Cued to ascend with stronger leg leading and descend with weaker leg leading. M6 PT-IP Treatment Start: 10/23/21 14:20 Freq: NEEDED Status: Active Protocol: Document 10/26/21 14:17 ALEXUS (Rec: 10/26/21 14:31 [email or web address]) Physical Therapy Treatment Exercises Exercises Ankle Pumps Education Education Provided Safety Other Treatments Other Treatment Performed Diaphragmatic breathing M7 PT-IP Assessment and Plan Start: 10/23/21 14:20 Freq: NEEDED Status: Active Protocol: Document 10/26/21 14:17 ALEXUS (Rec: 10/26/21 14:31 [email or web address]) PT Summary Assessment and Plan Potential Rehabilitation Potential Good Status of Condition at Evaluation Stable Summary Impairments Pain,ROM,Strength,Balance, Transfers,Gait Assessment Summary Patient increased gait distance today compared to yesterday. No use of supplemental oxygen and pt without SOB during ambulation. O2 remained steady at 93%-94% during gait and stair training. Pt repeated several times that his leg felt much better. Goals Bed Mobility Goal Standby Assistance Transfer Goal Standby Assistance Gait Goal Standby Assistance Gait Distance 300 Days to Meet Goals 3 Frequency of Treatment Frequency Of Treatment Once a Day Treatment Plan Physical Therapy Treatment Plan Bed Mobility Training,Transfer Training,Gait Training, Therapeutic Exercise,Balance Retraining Other Recommendations and Next Treatment Gait training on stairs Focus Recommendations To Nursing Amount of Assist Needed 1 Person Assist Discharge Recommendations PT Discharge Recommendations Home with Assistance,Home Health,Outpatient PT Transportation Needs at Discharge Private Vehicle
[2021-10-26 15:56] LABS: HEMOLYSIS < 15 (0-50)
[2021-10-26] MEDS: GABAPENTIN 300 MG CAPSULE 600 MG PO (20:52)
[2021-10-26] MEDS: diphenhydrAMINE 25 MG TABLET PO (20:52)
[2021-10-27] VITALS (9 sets, daily range): BP systolic 116–132; BP diastolic 61–91; PULSE 49–58; RESP 16–18; TEMP 36.1–38.2; O2SAT 94–97
[2021-10-27] MEDS: ACETAMINOPHEN 325 MG TABLET 650 MG PO ×2 (03:43→21:53)
[2021-10-27] MEDS: VANCOMYCIN 1,500 MG/300 ML PIGGYBACK 200 MG IV (03:43)
[2021-10-27 03:57] LABS: Alanine Aminotransferase 87 IU/L (<50); Albumin 3.1 g/dL (3.5-5.0); Albumin Globulin Ratio 1.1 (1.0-2.8); Alkaline Phosphatase 105 U/L (38-126); Aspartate Aminotransferase 61 IU/L (17-59); Bilirubin Total 0.7 mg/dL (0.2-1.3); Blood Urea Nitrogen 15 mg/dL (9-20); Calcium 8.5 mg/dL (8.4-10.2); Carbon Dioxide 30 mmol/L (22-32); Chloride 103 mmol/L (98-107); Estimated Glomerular Filt Rate > 60.0 mL/min (>60); Globulin 2.7 g/dL (1.7-4.1); Glucose 116 mg/dL (80-110); HEMOLYSIS < 15 (0-50); Potassium 3.4 mmol/L (3.4-5.1); Sodium 138 mmol/L (137-145); Total Protein 5.8 g/dL (6.3-8.2)
[2021-10-27 04:02] LABS: Add Manual Diff / Slide Review NO; Basophils Absolute Auto 100 /uL (0-100); Basophils Percent Auto 0.5 % (0-2); Eosinophils Absolute Auto 500 /uL (0-450); Eosinophils Percent Auto 4.4 % (2-4); Hematocrit 37.1 % (41-53); Hemoglobin 12.6 g/dL (13.5-17.5); Lymphocytes Absolute Auto 1400 /uL (1100-4500); Lymphocytes Percent Auto 11.5 % (25-40); Mean Corpuscular HGB Conc 33.9 % (30-36); Mean Corpuscular Hemoglobin 33.7 PG (26-34); Mean Corpuscular Volume 99.6 fL (80-100); Monocytes Absolute Auto 1100 /uL (0-900); Neutrophils Absolute Auto 8900 /uL (1500-7000); Neutrophils Percent Auto 74.6 % (50-75); Platelet Count 75 X10^3/uL (150-400); Red Blood Cell Count 3.73 X10^6/uL (4.5-5.9); Red Cell Distribution Width 13.9 % (11.6-14.8); White Blood Cell Count 11.9 X10^3/uL (4.5-11.0)
--- NOTE | 2021-10-27 08:29 | DI.US.S_ITS ---
PROCEDURE: US ABDOMEN LIMITED INDICATIONS: ABNORMAL LFTS TECHNIQUE: Real-time focused scanning was performed of the abdomen, with image documentation. COMPARISON: None. FINDINGS: The liver is borderline enlarged measuring 20 centimeters in transverse dimension. There is increased hepatic parenchymal echogenicity indicative of hepatic steatosis with a small area of focal sparing near the gallbladder fossa. No focal hepatic mass. The gallbladder is normal in appearance. No intrahepatic or extrahepatic biliary ductal dilatation. IMPRESSION: Hepatic steatosis. Dictated by: Mark Amado M.D. on 10/27/2021 at 11:13 Approved by: Mark Amado M.D. on 10/27/2021 at 11:31
--- NOTE | 2021-10-27 08:48 | PM.PN.1 ---
Subjective Subjective Date Patient Seen: 10/27/21 Time Patient Seen: 08:54 Interval history: Met with patient and his . Patient had a good night last night. He did not become disoriented. The rash is less HE today. He got up with physical therapy yesterday and did well without problems. He is not having any shortness of breath. Does not have any chest pain. Is not having any abdominal pain. Twelve point review of systems is otherwise negative Exam Vital Signs (past 8 hours): - 10/27/21 03:43 10/27/21 03:54 10/27/21 06:14 Temperature 100.8 F H 100.8 F H 98.7 F Pulse Rate 54 L Respiratory Rate 16 Blood Pressure 130/68 Pulse Oximetry 94 10/27/21 06:48 10/27/21 07:47 Temperature 98.8 F 98.7 F Pulse Rate 54 L Respiratory Rate 16 Blood Pressure 132/65 Pulse Oximetry 95 Oxygen Delivery Method Nasal Cannula Oxygen Flow Rate 0 Narrative Exam Narrative: Alert and oriented x3. Vital signs are stable including O2 sat 95% on room air. T-max of a 100.8? at 3:00 a.m.. He has been afebrile since then. HEENT is unremarkable Neck: Supple without adenopathy Chest: Clear to auscultation without wheezes rhonchi or crackles Cor: Regular rate and rhythm with no evidence of ectopy and distant S1-S2 Abdomen: Positive bowel sounds, soft, nontender, nondistended Extremities: Still with 1+ pitting edema left lower extremity with some tenderness in his distal quadriceps and Achilles tendon. The swelling is diminished from yesterday. The erythema is diminished from yesterday as is the calor. Overall improved. Pulses intact bilaterally Neurologic exam nonfocal Skin he has a erythematous maculopapular rash on his back which is non purpura. Objective Labs Result Diagrams: 10/27/21 03:30 10/27/21 03:30 Labs: Laboratory Results - last 24 hr 10/26/21 10/27/21 10/27/21 15:42 03:30 03:30 WBC 11.9 H RBC 3.73 L Hgb 12.6 L Hct 37.1 L MCV 99.6 MCH 33.7 MCHC 33.9 RDW 13.9 Plt Count 75 L Neut % (Auto) 74.6 Lymph % (Auto) 11.5 L [place] % (Auto) 9.0 Eos % (Auto) 4.4 H Baso % (Auto) 0.5 Neut # (Auto) 8900 H Lymph # (Auto) 1400 [place] # (Auto) 1100 H Eos # (Auto) 500 H Baso # (Auto) 100 Sodium Potassium 3.0 L Chloride Carbon Dioxide BUN Creatinine Estimated GFR BUN/Creatinine Ratio Glucose Calcium Total Bilirubin AST ALT Alkaline Phosphatase Total Protein Albumin Globulin Albumin/Globulin Ratio Vancomycin Trough 7.0 L 10/27/21 03:30 WBC RBC Hgb Hct MCV MCH MCHC RDW Plt Count Neut % (Auto) Lymph % (Auto) [place] % (Auto) Eos % (Auto) Baso % (Auto) Neut # (Auto) Lymph # (Auto) [place] # (Auto) Eos # (Auto) Baso # (Auto) Sodium 138 Potassium 3.4 Chloride 103 Carbon Dioxide 30 BUN 15 Creatinine 1.07 Estimated GFR > 60.0 BUN/Creatinine Ratio 14.0 Glucose 116 H Calcium 8.5 Total Bilirubin 0.7 AST 61 H ALT 87 H Alkaline Phosphatase 105 Total Protein 5.8 L Albumin 3.1 L Globulin 2.7 Albumin/Globulin Ratio 1.1 Vancomycin Trough PFS Medical History (Updated 10/23/21 @ 03:14 by Ibis Forde DO) Anxiety BPH w urinary obs/LUTS Bradycardia Hearing deficit Pancreatitis (~1989) Peripheral neuropathy (~2011) Pneumonia Skin cancer (~2011) Umbilical hernia without obstruction and without gangrene (2017) Surgical History (Updated 02/02/21 @ 18:18 by Mechelle Hernandez DO) Anesthesia H/O umbilical hernia repair (~08/2019) History of cataract removal with insertion of prosthetic lens (~2011) History of knee replacement (~2009) History of vasectomy Family History Father No problems noted. Mother No problems noted. Sister No problems noted. Social History marital status: household members: spouse occupational status: previously employed Smoking Status: Former smoker alcohol intake: current substance use type: does not use Assessment & Plan Assessment & Plan narrative: Pt is an 86yo man with HTN, BPH, peripheral neuropathy, and alcohol dependence who presented with fever and left leg pain.? Found to have significant cellulitis of the left leg.? Also with new diagnosis of atrial fibrillation.? Cellulitis:?? No DVT on work-up from the ED and repeat ultrasound yesterday was negative for DVT. Cellulitis is slowly improving.? Suspect possible bite was the origin of the infection.? He is slow to improve but I suspect this is related to his age and comorbidities. There is a definite improvement in his left lower extremity cellulitis from yesterday. - F/U blood cultures, no growth at 48 hrs -suspect low-grade temperature overnight was related to sleeping and possibly being overheated. At this point we do not have a culture to far a low and he has had 5 complete days of IV antibiotics with vancomycin and Zosyn. He is now having diarrhea. We will stop the IV Zosyn and vancomycin and will start home on Augmentin orally. We will add acidophilus. - Tylenol PRN for fever - Ankle x-ray without significant abnormalities. Repeat venous Doppler 10/26/2021 is negative - Continue to trend CBC Will add compression stocking to the left lower extremity Acute hypoxic respiratory failure:? Appears to be due to acute exacerbation of likely congestive heart failure with preserved EF.? CT 1128 showed no PE. Patient has had aggressive diuresis with IV Lasix 40 mg q.12 hours. He is now off oxygen and lung sounds are clear. He is not having symptoms. We will decrease IV Lasix to 40 mg in a.m. will continue to follow - Encourage use of IS - Atrial fibrillation:? New onset, uncertain duration. Suspect related to severe atrial dilation and overall illness. Patient now appears to be in sinus rhythm. We discussed anticoagulation again which patient contraindicated due to frequent falls. We will continue to hold Lovenox due to severe thrombocytopenia. - Continue 81mg Aspirin daily Currently seems to be in sinus rhythm.? We will check an EKG.? We will continue with diuresis Urinary retention:? Found in the ED.? With known BPH. -failed trial of removing catheter.? Catheter reinserted.? Will attempt to consult urology inpatient - Continue home Tamsulosin but will increase dose to 0.8 mg daily. Call in to Urology was made. Elevated liver enzymes:? Unclear etiology.? Possible due to chronic alcohol consumption, however not elevated at initial ED presentation.? Improving. - Continue to trend with repeat CMP tomorrow. We will do abdominal ultrasound to evaluate liver and rule out biliary disease Thrombocytopenia:? Most likely due to alcoholism.? Trending up. - Continue to trend - No active bleeding, no need for transfusion at this time - Hold Lovenox.? Could consider administration tomorrow if continues to improve. Alcohol dependence:? Patient had a good night last night without confusion. I think we are safe from that aspect of alcohol withdrawal. We will continue to monitor closely. I had a long conversation with the patient about the effect of alcohol to his health and toxicity to the heart and he agrees to continue not using alcohol. Does have macrocytic anemia, likely resultant.? B12 and folate levels normal. - CIWA protocol - Ativan PRN as needed based on Protocol HTN:? Stable - Continue home Amlodipine Neuropathy: - Continue home Gabapentin - PT recommended possible 4-wheeled walker at home Depression:? Stable - Continue heather Sertraline Rash on back which I think is related to heat rash. He has previously does get this. He symptom medically improved today without significant clinical change in the rash. I do not think this is allergic reaction to medications as it is only present on his back. Plan: Continue with triamcinolone Benadryl in the evening Code:? DNR FEN:? Regular diet DVT ppx:? Holding Lovenox for now due to thrombocytopenia.? SCDs. 60 minute spent with patient and discussion with nursing, family, formulating a plan and pharmacy. Time Spent With Patient Critical Care time: I spent a total of [] minutes of critical care time on this patient's care today; this time is exclusive of procedural time. Quality VTE Deep Vein Thrombosis/Pulmonary Embolism Present on Admission: No
[2021-10-27] MEDS: SERTRALINE 50 MG TABLET PO (09:07)
[2021-10-27] MEDS: FUROSEMIDE 40 MG/4 ML VIAL IV (09:07)
[2021-10-27] MEDS: AMOXICILLIN/CLAV 875/125 MG 1 TAB PO ×2 (09:07→21:54)
[2021-10-27] MEDS: ASPIRIN EC 81 MG TABLET PO (09:08)
[2021-10-27] MEDS: TAMSULOSIN 0.4 MG CAPSULE 0.8 MG PO (09:08)
[2021-10-27] MEDS: POTASSIUM CHLORIDE 20 MEQ TAB 40 MEQ PO (09:08)
[2021-10-27] MEDS: AMLODIPINE 5 MG TABLET PO (09:08)
[2021-10-27] MEDS: TRIAMCINOLONE 0.1% CREAM 1 APPLIC TOP (09:56)
--- NOTE | 2021-10-27 12:00 | PT.IPTN ---
Current Diagnoses Cellulitis of left lower limb (10/22/21) Physical Therapy Treatment Note M2 PT-IP Current Condition Start: 10/23/21 14:20 Freq: NEEDED Status: Active Protocol: Document 10/23/21 14:21 AMB (Rec: 10/23/21 14:39 AMB [id number]) Physical Therapy Current Condition Current Condition Evaluation Date 10/23/21 Treatment Diagnosis L cellulitis Onset Date 10/22/21 M3 PT-IP Subjective Start: 10/23/21 14:20 Freq: NEEDED Status: Active Protocol: Document 10/27/21 11:41 KS (Rec: 10/27/21 12:59 KS [id number]) Subjective Physical Therapy Visit Type Type Treatment Note Visit Start Time 11:41 Visit Stop Time 12:00 Total Visit Minutes 19 Number of SLOT SHIFT SUPERVISOR Visits 2 M4 PT-IP Mobility and Gait Start: 10/23/21 14:20 Freq: NEEDED Status: Active Protocol: Document 10/27/21 11:41 KS (Rec: 10/27/21 12:59 KS [id number]) PT-Bed Mobility Assessment Supine to Sit Supine to Sit Standby Assistance Scooting Scooting to Edge of Bed Standby Assistance Scooting Up and Down in Bed Standby Assistance PT-Transfer Assessment Sit to and From Stand Sit to and from Stand Contact Guard Assistance Equipment Transfer Assistive Device Gait Belt,Front Wheeled Walker Orthotic/Prosthetic Devices or Brace: No Transfers Transfer Destination Chair Transfer Technique Pt ambulated w/ and w/o FWW Transfer Ability Level of Assist Standby Assistance,Contact Guard Assistance,1 Person Assistance,Use of Upper Extremities Comments Mobility Comments Pt in bed upon arrival from therapy. SBA for sup<>sit and scooting EOB. CGA for sit<> Stand w/ FWW. Pt then ambulated ~240 ft w/ FWW and CGA. Pt demonstrated good use of FWW w/o relying much on BUE . Returned to room and pt ambulated additional ~20 ft w/ o AD and CGA. 1x lateral LOB to L due to sock falling off, pt recovered CGA. Pt returned to chair CGA and left in chair w/ all needs in reach. Gait Assessment Gait Gait Assistance Required: Standby Assistance,Contact Guard Assist Distance (Feet) 260 Assistive Devices Assistive Device None,Gait Belt,Front Wheeled Walker Gait Deviations General Gait Pattern Decreased Feet Clearance Factors Limiting Gait Function Factors Limiting Gait Function Decreased Activity Tolerance, Decreased Sensation,Decreased Strength,Limited Range of Motion,Pain Comments Gait Comments Pt ambulated ~240 ft w/ FWW, no LOB or fatigue. HE then ambulated ~20 ft w/o AD CGA 1x LOB due to sock. Able to recover CGA. Will plan to trial ambulation w/ SPC next treatment to determine appropriate LRAD. M6 PT-IP Treatment Start: 10/23/21 14:20 Freq: NEEDED Status: Active Protocol: Document 10/27/21 11:41 KS (Rec: 10/27/21 12:59 NC [id number]) Physical Therapy Treatment Exercises Exercises Ankle Pumps Education Education Provided Safety Other Treatments Other Treatment Performed Diaphragmatic breathing M7 PT-IP Assessment and Plan Start: 10/23/21 14:20 Freq: NEEDED Status: Active Protocol: Document 10/27/21 11:41 KS (Rec: 10/27/21 12:59 NC [id number]) PT Summary Assessment and Plan Potential Rehabilitation Potential Good Status of Condition at Evaluation Stable Summary Impairments Pain,ROM,Strength,Balance, Transfers,Gait Assessment Summary Pt SBA for bed mobility and transfers. Able to ambulate ~ 240 ft w/ FWW CGA and 20 ft w/ o AD CGA. Will continue to progress pt, will plan to ambulation w/ SPC to determine most appropriate LRAD. Showing good tolerance for activity and would benefit from outpatient PT when medically stable to improve strength and balance. Goals Bed Mobility Goal Standby Assistance Transfer Goal Standby Assistance Gait Goal Standby Assistance Gait Distance 300 Days to Meet Goals 3 Frequency of Treatment Frequency Of Treatment Once a Day Treatment Plan Physical Therapy Treatment Plan Bed Mobility Training,Transfer Training,Gait Training, Therapeutic Exercise,Balance Retraining Other Recommendations and Next Treatment Ambulation w/ SPC. Focus Recommendations To Nursing Amount of Assist Needed 1 Person Assist Discharge Recommendations PT Discharge Recommendations Home with Assistance,Home Health,Outpatient PT Transportation Needs at Discharge Private Vehicle
--- NOTE | 2021-10-27 13:33 | DIET.PN1 ---
Dietary Progress Note RD Note: 86y M screened by RD for LOS d5. Pt cellulitis improving per clinical team. Pts POs 50-100% this visit. Ht: 172.72 cm Wt: 95.254 kg BMI: 31.9 Last BM: 10/27/21 (10/27/21 10:39) MNA: 14 Henry Score: 20 Diet: 10/22/21 Breakfast General (Regular) Diet Diet Modifications: Nutrition Percent Meal Consumed 50% 10/26/21 17:35 Percent Meal Consumed 25% 10/26/21 12:30 Percent Meal Consumed 100% 10/26/21 08:45 Percent Meal Consumed 50% 10/25/21 14:19 Labs: RBC 3.73 X10^6/uL (4.5-5.9) L 10/27/21 03:30 Hgb 12.6 g/dL (13.5-17.5) L 10/27/21 03:30 Hct 37.1 % (41-53) L 10/27/21 03:30 Creatinine 1.07 mg/dL (0.66-1.25) 10/27/21 03:30 Lactate 1.3 mmol/L (0.7-2.1) 10/22/21 19:10 NT-Pro-B Natriuret Pep 7470 pg/mL (<450) H 10/24/21 05:51 Nutrition Diagnosis: none Interventions: none indicated at this time Electronically Signed by: Amara Ndiaye 10/27/21 13:33 Clinical Dietitian [address] [id number]
[2021-10-27] MEDS: LACTOBACILLUS ACIDOPHILUS TABLET 1 EACH PO (17:12)
[2021-10-27] MEDS: GABAPENTIN 300 MG CAPSULE 600 MG PO (21:54)
[2021-10-28 04:00] VITALS: BP 135/74; PULSE 62; RESP 18; TEMP 37.2; O2SAT 95
[2021-10-28 05:52] LABS: Basophils Absolute Auto 100 /uL (0-100); Eosinophils Absolute Auto 500 /uL (0-450); Lymphocytes Absolute Auto 1600 /uL (1100-4500); Red Cell Distribution Width 13.7 % (11.6-14.8)
[2021-10-28 06:11] LABS: Alanine Aminotransferase 75 IU/L (<50); Albumin 3.3 g/dL (3.5-5.0); Albumin Globulin Ratio 1.2 (1.0-2.8); Alkaline Phosphatase 119 U/L (38-126); Aspartate Aminotransferase 41 IU/L (17-59); BUN Creatinine Ratio 16.5 (6-22); Bilirubin Total 0.6 mg/dL (0.2-1.3); Blood Urea Nitrogen 16 mg/dL (9-20); Calcium 8.8 mg/dL (8.4-10.2); Carbon Dioxide 32 mmol/L (22-32); Chloride 101 mmol/L (98-107); Estimated Glomerular Filt Rate > 60.0 mL/min (>60); Globulin 2.8 g/dL (1.7-4.1); Glucose 108 mg/dL (80-110); HEMOLYSIS < 15 (0-50); Potassium 3.5 mmol/L (3.4-5.1); Sodium 139 mmol/L (137-145); Total Protein 6.1 g/dL (6.3-8.2)
[2021-10-28 06:30] LABS: Add Manual Diff / Slide Review NO; Basophils Percent Auto 0.9 % (0-2); Eosinophils Percent Auto 4.4 % (2-4); Hematocrit 37.6 % (41-53); Lymphocytes Percent Auto 13.7 % (25-40); Mean Corpuscular HGB Conc 34.6 % (30-36); Mean Corpuscular Hemoglobin 34.3 PG (26-34); Mean Corpuscular Volume 99.3 fL (80-100); Monocytes Absolute Auto 1100 /uL (0-900); Monocytes Percent Auto 8.9 % (3-14); Neutrophils Absolute Auto 8600 /uL (1500-7000); Neutrophils Percent Auto 72.1 % (50-75); Platelet Count 226 X10^3/uL (150-400); Red Blood Cell Count 3.79 X10^6/uL (4.5-5.9); White Blood Cell Count 11.9 X10^3/uL (4.5-11.0)
[2021-10-28 08:00] VITALS: BP 125/74; PULSE 55; RESP 22; TEMP 37; O2SAT 94
[2021-10-28] MEDS: AMOXICILLIN/CLAV 875/125 MG 1 TAB PO (08:36)
[2021-10-28] MEDS: AMLODIPINE 5 MG TABLET PO (08:36)
[2021-10-28] MEDS: TAMSULOSIN 0.4 MG CAPSULE 0.8 MG PO (08:36)
[2021-10-28] MEDS: SERTRALINE 50 MG TABLET PO (08:36)
[2021-10-28] MEDS: ASPIRIN EC 81 MG TABLET PO (08:36)
[2021-10-28] MEDS: LACTOBACILLUS ACIDOPHILUS TABLET 1 EACH PO (08:36)
[2021-10-28] MEDS: POTASSIUM CHLORIDE 20 MEQ TAB 40 MEQ PO (08:37)
[2021-10-28] MEDS: FUROSEMIDE 40 MG/4 ML VIAL IV (08:37)
--- NOTE | 2021-10-28 09:50 | PT.IPTN ---
Current Diagnoses Cellulitis of left lower limb (10/22/21) Physical Therapy Treatment Note M2 PT-IP Current Condition Start: 10/23/21 14:20 Freq: NEEDED Status: Discharge Protocol: Document 10/28/21 09:25 SP (Rec: 10/28/21 16:29 SP [id number]) Physical Therapy Current Condition Current Condition Evaluation Date 10/23/21 Treatment Diagnosis L cellulitis Onset Date 10/22/21 M3 PT-IP Subjective Start: 10/23/21 14:20 Freq: NEEDED Status: Discharge Protocol: Document 10/28/21 09:25 SP (Rec: 10/28/21 16:29 SP [id number]) Subjective Physical Therapy Visit Type Type Treatment Note Visit Start Time 09:25 Visit Stop Time 09:50 Total Visit Minutes 25 Notes in room, completed caregiver training with able to support him. She has Parkinson's, only has use FWW to use at night for safety if unsteady, stable well balance no AD otherwise. Number of CHURN OPERATOR MARGARINE Visits 2 Physical Therapy Visit Comments Patient Comments Pt willing to work with therapy. Patient Goals Return home with to assist him as needed. M4 PT-IP Mobility and Gait Start: 10/23/21 14:20 Freq: NEEDED Status: Discharge Protocol: Document 10/28/21 09:25 SP (Rec: 10/28/21 16:29 SP [id number]) PT-Bed Mobility Assessment Supine to Sit Supine to Sit Standby Assistance Scooting Scooting to Edge of Bed Standby Assistance PT-Transfer Assessment Sit to and From Stand Sit to and from Stand Contact Guard Assistance Equipment Transfer Assistive Device None,Gait Belt,Straight Cane, Front Wheeled Walker Orthotic/Prosthetic Devices or Brace: No Transfers Transfer Destination Chair Transfer Technique Pt ambulated w/ and w/o SPC CGA, SBA FWW Transfer Ability Level of Assist Standby Assistance,Contact Guard Assistance,1 Person Assistance,Use of Upper Extremities Comments Mobility Comments Pt in bed when arrived, Dr Hickman in room. Pt completed HOB flat supine>sit, scoot to EOB SBA. donned gait belt in sitting. Sit>stand CGA with use SPC decreased wB into LLE initially improved with wt shifts pre gait, gait around room CGA- 5%A w/ SPC intially then progressed CGA with distance, trunk wt shifts but self recovery w/ SPC, progressed gait in to hallway and down to stairs, completed stairs and back approx 240 ft total, CGA antalgic gait trunk wt shifts mod cues for 2pt gait patterning no LOB, pt able to walk around in room with out AD but still trunk wt shifts CGA via , sBA use of FWW in room. Pt returned to chair sBA using FWW. CHURN OPERATOR MARGARINE recommended use of FWW at this time and HHPT for progressing strength and dynamic balance with LRAD with pt agreement. Pt was in chair call light and all needs in reach with in room before left. CHURN OPERATOR MARGARINE notified nurse progression in mobility, able to return home with to assist him as needed using fWW when medically cleared. Gait Assessment Gait Gait Assistance Required: Standby Assistance,Contact Guard Assist Distance (Feet) 240 Assistive Devices Assistive Device None,Gait Belt,Straight Cane, Front Wheeled Walker Orthotic/Prosthetic Devices or Brace: No Gait Deviations General Gait Pattern Decreased Feet Clearance Factors Limiting Gait Function Factors Limiting Gait Function Decreased Activity Tolerance, Decreased Strength,Poor Balance Comments Gait Comments see mobilit comments Stair Climbing Assessment Evaluation Level of Assist On Stairs Standby Assistance,Contact Guard Assistance Devices Stair Climbing Assistive Devices Straight Cane,Right Railing Technique/Endurance Stair Climbing Direction Ascend and Descend Stair Climbing Technique Step to Step Number of Steps Climbed 3 Stair Climbing Set # Repetitions (reps) 1 Comments Stair Climbing Comments Pt has 3 steps R HR and SPC at home. completed ascend/ descend step to patterning R HR and SPC in LUE, CGA via , stable no LOB. PT-Balance Assessment Sitting Balance and Reactions Static Sitting Balance Ability Normal Dynamic Sitting Balance Ability Normal Standing Balance and Reactions Static Standing Balance Ability Fair Dynamic Standing Balance Ability Fair Device Used SPC, SBA FWW M6 PT-IP Treatment Start: 10/23/21 14:20 Freq: NEEDED Status: Discharge Protocol: Document 10/28/21 09:25 SP (Rec: 10/28/21 16:29 SP [id number]) Physical Therapy Treatment Education Education Provided Safety M7 PT-IP Assessment and Plan Start: 10/23/21 14:20 Freq: NEEDED Status: Discharge Protocol: Document 10/28/21 09:25 SP (Rec: 10/28/21 16:29 SP [id number]) PT Summary Assessment and Plan Potential Rehabilitation Potential Good Status of Condition at Evaluation Stable Summary Impairments Pain,ROM,Strength,Balance, Transfers,Gait Progress Towards Goals Progressing Toward Goals,Slow Progress due to Activity Tolerance Assessment Summary SBA for bed mobilty, CGA transfers and gait w/ SPC. SBA gait with FWW. Completed stair mgt x3 steps R HR and SPC in LUE cGA via assist as needed. Pt more stable and recommended use of FWW and pt / in agreement. Has a SPC at home can use on stairs for extra support with only 1 HR. Recomending HHPT for progressing strength, balance with LRAD and improve functional dynamic balance. Pt in agreement. Pt is ok to return home when meically cleared with to assist him. Goals Bed Mobility Goal Standby Assistance Transfer Goal Standby Assistance Gait Goal Standby Assistance Gait Distance 300 Days to Meet Goals 3 Frequency of Treatment Frequency Of Treatment Once a Day Treatment Plan Physical Therapy Treatment Plan Bed Mobility Training,Transfer Training,Gait Training, Therapeutic Exercise,Balance Retraining Other Recommendations and Next Treatment balance, gait w/ SPC Focus Recommendations To Nursing Amount of Assist Needed 1 Person Assist Discharge Recommendations PT Discharge Recommendations Home with Assistance,Home Health Transportation Needs at Discharge Private Vehicle
--- NOTE | 2021-10-28 09:50 | P.DS_ITS ---
History of Present Illness History of Present Illness Date Patient Seen: 10/28/21 Time Patient Seen: 09:50 Date of Onset of Symptoms: 11/19/21 Chief complaint: Shakes,Lt Leg Swollen/Red/Pain Discharge Providers Provider Date of admission: 10/22/21 20:50 Discharge Date: 10/28/21 Primary care physician: Isabella Hickman MD Consults: 10/23/21 10:31 Consult to Physical Therapy Evaluate & Treat Comment: Physician Instructions: Evaluate and Treat Discharge provider: Isabella Hickman MD Summary Hospital Course Discharge Diagnosis: Cellulitis due to possible insect bite, improved AFib with RVR now in normal sinus rhythm Leukocytosis improved but not back to baseline Alcohol abuse with alcohol withdrawal, resolved 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 Patient was noted to have AFib with RVR. Patient had echo that showed severe dilated atrium but fairly normal ejection fraction and felt to have pulmonary edema secondary to AFib with RVR. He was aggressively diuresed and at the time of discharge did not need further diuresis. Was no longer using oxygen. Patient did require oxygen it was felt this was secondary to pulmonary edema. CT scan showed no evidence of PE or other pulmonary abnormalities other than pulmonary edema. He had 2 ultrasound of his legs which showed no DVT. It was thought cellulitis was related to some bite. [place] in the [place] is [place] a lot. He also had urinary retention in the ER a catheter was placed. Catheter was taken out and he failed a trial. He had at 1600 cc in his bladder at the time that catheter was reinserted. Dr. Tubbs was consulted via phone and will see him as outpatient and he recommended sending him home on catheter and then he would see him in the next 2 weeks and give a trial in the clinic of removing the catheter. His Flomax was increased from 0.4 mg daily to 0.8 mg daily and he was tolerating this well at the time of discharge. Patient was originally put on Zosyn and then added vancomycin. It took some time for his fever to come down and his clinical picture to improved. He received a total of 6 days of these antibiotics. He was switched over to Augmentin on day 6 and was on the Augmentin for greater than 24 prior to discharge. He had no temperature overnight the night prior to discharge. He was afebrile for approximately 36 hours at the time of discharge. He was discharged home on his home medications. Had we stop the furosemide and the potassium as he was adequately diuresed. He was discharged home on incre ased dose of Flomax at 0.8, augment 10, triamcinolone for a rash on his back thought to be a heat rash. Dr. Tubbs within 2 weeks. He will see me next week. We will check labs. Status at Discharge Cognitive/behavioral status at discharge: oriented and at baseline, oriented Functional status at discharge: uses cane/walker Overall status at discharge: patient is progressing back to baseline Exam Vital Signs (past 8 hours): - 10/28/21 04:00 10/28/21 08:00 Temperature 98.9 F 98.6 F Pulse Rate 62 55 L Respiratory Rate 18 22 Blood Pressure 135/74 125/74 Pulse Oximetry 95 94 Oxygen Delivery Method Nasal Cannula Oxygen Flow Rate 0 Narrative Exam Narrative: Afebrile vital signs are stable alert and oriented x3 HEENT is unremarkable Neck: Supple without adenopathy Chest: Clear to auscultation without wheezes rhonchi crackles Cor: Regular rate and rhythm with no evidence of ectopy Abdomen: Positive bowel sounds, soft, nontender Extremities: Marked decreased swelling in his left lower extremity now there is just trace edema. Erythema is markedly decreased scale ir is decreased. Nodule posterior distal gastrocnemius is resolved. Rash on his back is improved less prominent less erythematous Neurologic exam nonfocal Objective Labs Result Diagrams: 10/28/21 05:30 10/28/21 05:30 Labs: Laboratory Results - last 24 hr 10/28/21 10/28/21 05:30 05:30 WBC 11.9 H RBC 3.79 L Hgb 13.0 L Hct 37.6 L MCV 99.3 MCH 34.3 H MCHC 34.6 RDW 13.7 Plt Count 226 Neut % (Auto) 72.1 Lymph % (Auto) 13.7 L Cobb % (Auto) 8.9 Eos % (Auto) 4.4 H Baso % (Auto) 0.9 Neut # (Auto) 8600 H Lymph # (Auto) 1600 Cobb # (Auto) 1100 H Eos # (Auto) 500 H Baso # (Auto) 100 Sodium 139 Potassium 3.5 Chloride 101 Carbon Dioxide 32 BUN 16 Creatinine 0.97 Estimated GFR > 60.0 BUN/Creatinine Ratio 16.5 Glucose 108 Calcium 8.8 Total Bilirubin 0.6 AST 41 ALT 75 H Alkaline Phosphatase 119 Total Protein 6.1 L Albumin 3.3 L Globulin 2.8 Albumin/Globulin Ratio 1.2 [facility] Medical History (Updated 10/23/21 @ 03:14 by Ibis Forde DO) Anxiety BPH w urinary obs/LUTS Bradycardia Hearing deficit Pancreatitis (~1989) Peripheral neuropathy (~2011) Pneumonia Skin cancer (~2011) Umbilical hernia without obstruction and without gangrene (2017) Surgical History (Updated 02/02/21 @ 18:18 by Mechelle Hernandez DO) Anesthesia H/O umbilical hernia repair (~08/2019) History of cataract removal with insertion of prosthetic lens (~2011) History of knee replacement (~2009) History of vasectomy Family History Father No problems noted. Mother No problems noted. Sister No problems noted. Social History marital status: household members: spouse occupational status: previously employed Smoking Status: Former smoker alcohol intake: current substance use type: does not use Discharge Assessment & Plan Assessment and Plan Assessment: Cellulitis improved AFib with RVR, resolved No anticoagulation due to falls and comorbidities and now in sinus rhythm Pulmonary edema improved with diuresis thought to be secondary to AFib with RVR Leukocytosis improved Alcohol withdrawal, improved Plan of Treatment: Patient will be discharged home with 9 more days of Augmentin. He will continue same outpatient medications except Flomax will be increased to 0.8 mg. He will take a probiotic while he is on antibiotics. He will use triamcinolone as needed for the rash on his back. He will of stain from alcohol. He will see me next week and see Dr. Tubbs within 2 weeks. He will continue the Salcido catheter. Discharge Plan Discharge Plan Patient Disposition: Home Discharge orders & Medications Prescriptions: New triamcinolone acetonide 0.1 % Cream 1 applic topical QID PRN (Reason: Rash) Qty: 60 2RF tamsulosin [Flomax] 0.4 mg Capsule 0.8 mg PO DAILY Qty: 90 3RF amoxicillin-pot clavulanate [Augmentin] 875-125 mg Tablet 1 tab PO BID Qty: 18 0RF Bacid 1 billion cell- 250 mg Tablet 1 ea PO BIDWM Qty: 90 3RF Continued gabapentin [Neurontin] 300 mg capsule 600 mg PO HS Qty: 180 3RF tamsulosin [Flomax] 0.4 mg capsule 0.4 mg PO QDAY Qty: 90 3RF sertraline 25 mg tablet 50 mg PO QDAY Qty: 180 3RF amlodipine 5 mg tablet 5 mg PO DAILY Qty: 90 1RF Follow up/Referrals: Isabella Hickman MD [Primary Care Provider] - Diet/Activity/Treatments Diet: Low-sodium Catheter: 2-way Salcido Catheter comment: leave in catheter until sees Dr. Tubbs Skin/Wound/Dressing Care Report to your healthcare provider any signs of infection, such as:: chills, fever, night sweats and increased pain Discharge Data Primary Care Provider: Isabella Hickman VTE Deep Vein Thrombosis/Pulmonary Embolism Present on Admission: No
--- NOTE | 2021-10-28 11:09 | PC.NURSE ---
Pt is dressed and ready for discharge home with Spouse. IV removed. Salcido Catheter Care and Leg bag teaching has been performed. Reviewed discharge instructions with Pt and Spouse-discussed d/c meds, time of last dose, reviewed stroke education, and follow up with Urology and PCP. Encouraged Pt to drink water and observe urine output for any signs of infection such as cloudy urine, odor, or blood clots. Pt and Spouse denied further questions and Pt was taken out via w/c by RN to POV with Spouse and all belongings.
--- NOTE | 2021-10-28 11:46 | CM.DPNOTE ---
Faxed DC summary and order to [facility] and received fax conf. Nellie Sanabria CM Asst.
--- NOTE | 2021-10-28 12:10 | CM.DPC ---
DCP Discharge Home with HH Per MD, pt is medically stable to d/c home today and no identified barriers to discharge. Per PT, initially recommending home with outpt PT but as of this morning back to recommending home with spouse assist and HH. Per RN, pt to d/c home with lomeli bag and teaching completed and no concerns at this time, spouse bedside and providing transport home. [facility] was previously given referral and [facility] had already been faxed. NATALI Ballard kindly faxing d/c summary and HH orders to [facility] to review for d/c home. Plan: Patient discharged home this morning via spouse POV and lomeli leg bag and new [facility] referral to follow pt for HH RN/PT/OT/[employer]ESS[employer] IN FAMILY [employer]UDIES after d/c. No further SW needs at this time. CASS Hester
== END 2021-10-28 11:16 | disposition home or self-care (01) | DRG 602 ==
LOC: ED 20:50 → AC 20:50
PROVIDERS: Admitting Provider Family Medicine; Emergency Provider Emergency Medicine; Family Provider Family Medicine; PCP Family Medicine; Referring Provider Emergency Medicine; Visit Provider Family Medicine
DX: L03.116 Cellulitis of left lower limb (principal); J96.01 Acute respiratory failure with hypoxia; J81.0 Acute pulmonary edema; F10.239 Alcohol dependence with withdrawal, unspecified; I48.91 Unspecified atrial fibrillation; R33.9 Retention of urine, unspecified; D69.59 Other secondary thrombocytopenia; R74.01 Elevation of levels of liver transaminase levels; I11.0 Hypertensive heart disease with heart failure; N40.1 Benign prostatic hyperplasia with lower urinary tract symptoms; F32.A Depression, unspecified; G62.9 Polyneuropathy, unspecified; R21 Rash and other nonspecific skin eruption; Z66 Do not resuscitate; Z20.822 Contact with and (suspected) exposure to COVID-19; Z87.891 Personal history of nicotine dependence
CPT/HCPCS: 36415; 51798; 71045; 71275; 73610; 76705; 80053; 80202; 81001; 82550; 82553; 82607; 82746; 83605; 83690; 83735; 83880; 84132; 84145; 84443; 84484; 85025; 87040; 87635; 93005; 93306; 93971; 94760; 94762; 96365; 96375; 97116; 97161; 97530; 99223; 99233; 99284; C9803; J0696; J1885; J1940; J2543; Q9967

== ENCOUNTER 2021-11-14 22:27 | Emergency (ER) | payer MEDICARE, SELFPAY ==
[2021-11-10 12:57] VITALS: BMI 31.9
[2021-11-14 22:41] VITALS: BP 162/67; PULSE 59; RESP 18; TEMP 36.4; O2SAT 97
--- NOTE | 2021-11-15 00:23 | ED.MALEGU ---
HPI - Male Genitourinary General Chief complaint: Urogenital-Male Stated complaint: CATHETER ISN'T WORKING Time Seen by Provider: 11/15/21 00:23 Source: patient and family Mode of arrival: Ambulatory Limitations: no limitations History of Present Illness HPI Narrative: This is an 86-year-old male with catheter in place who states that stop draining urine about 3:00 p.m. during the afternoon. Patient states they could tell it was not draining. He has not any fevers or other issues. It was irrigated here in the department is now flowing. He has follow-up appointment this Tuesday the with Dr. Tubbs the urologist to have it removed. He does not have any other complaints or concerns at this time. Related Data Home Medications Medication Instructions Recorded Confirmed amlodipine 5 mg tablet 5 mg PO DAILY 11/10/21 11/10/21 furosemide 20 mg tablet 20 mg PO DAILY 11/10/21 11/10/21 bgidvafk-bfs-DC-lycopen-lutein PO 11/10/21 11/10/21 [Centrum Silver Men] potassium chloride 20 mEq 20 meq PO DAILY 11/10/21 11/10/21 tablet,extended release vitamin B complex (B 1 tab PO DAILY 11/10/21 11/10/21 Complex-Vitamin B12) Previous Rx's Medication Instructions Recorded gabapentin 300 mg capsule 600 mg PO HS #180 cap 12/22/20 (Neurontin) sertraline 25 mg tablet 50 mg PO QDAY #180 tab 02/02/21 tamsulosin 0.4 mg capsule (Flomax) 0.4 mg PO QDAY #90 cap 02/02/21 L.acidophilus-L.bulgar-B.bifid-S.thermoph 1 ea PO BIDWM #90 tab 10/28/21 1 billion cell-250 mg tablet (Bacid) tamsulosin 0.4 mg capsule (Flomax) 0.8 mg PO DAILY #90 cap 10/28/21 triamcinolone acetonide 0.1 % 1 applic TOPICAL QID PRN #60 g 10/28/21 topical cream ciprofloxacin HCl 250 mg tablet 250 mg PO BID #6 tab 11/10/21 (Cipro) Allergies Allergy/AdvReac Type Severity Reaction Status Date / Time No Known Drug Allergies Allergy Verified 11/10/21 11:46 Review of Systems Review of Systems ROS Unobtainable: All systems reviewed & are unremarkable except as noted in HPI and below Patient History Medical History Anxiety Arthritis BPH w urinary obs/LUTS Bradycardia Hearing deficit Pancreatitis (~1989) Peripheral neuropathy (~2011) Pneumonia Skin cancer (~2011) Umbilical hernia without obstruction and without gangrene (2018) Urinary retention Surgical History Anesthesia H/O umbilical hernia repair (~08/2019) History of cataract removal with insertion of prosthetic lens (~2011) History of knee replacement (~2009) History of vasectomy Family History Father No problems noted. Mother No problems noted. Sister No problems noted. Social History marital status: household members: spouse occupational status: previously employed Smoking Status: Former smoker alcohol intake: current substance use type: does not use Smoking Status: Former smoker alcohol intake frequency: 0-2 drinks per day Substance Use Type: does not use Exam Narrative Exam Narrative: GENERAL: Alert and oriented x three, male in mild distress. HEENT: Head normocephalic, atraumatic, EOMI, pupils reactive, face symmetric, moist mucous membranes NECK: Supple, full range of motion CARDIOVASCULAR: Regular rate and rhythm without murmurs, rubs or gallops. RESPIRATORY: Breath sounds equal bilaterally, no wheezes rales or rhonchi. ABDOMEN: Soft, nontender. Normoactive bowel sounds all 4 quadrants. No guarding or rebound, rigidity, no mass : No CVA tenderness. Salcido catheter in place, it has been irrigated is now draining clear urine patient has about 6-700 cc out. EXTREMITIES: Normal range of motion, no clubbing or edema. Neurovascularly intact NEUROLOGICAL: Cranial nerves II through XII grossly intact. Moving all extremities SKIN: Warm, dry, no petechiae, no rashes or lesions. Initial Vital Signs Initial Vital Signs: Vital Signs Temperature 97.6 F 11/14/21 22:41 Pulse Rate 59 L 11/14/21 22:41 Respiratory Rate 18 11/14/21 22:41 Blood Pressure 162/67 H 11/14/21 22:41 Pulse Oximetry 97 11/14/21 22:41 Course Vital Signs Vital signs: Vital Signs - 8 hr 11/14/21 22:41 Temperature 97.6 F Pulse Rate 59 L Respiratory Rate 18 Blood Pressure 162/67 H Pulse Oximetry 97 MDM - Male Genitourinary MDM Narrative Medical decision making narrative: Patient has an indwelling catheter was not draining, it was flushed, balloon was deflated and reinflated and patient's catheter is now draining appropriately. Patient has not had any other symptoms or issues. Discharge Plan Departure Patient Disposition: Home Clinical Impression: Malfunction of indwelling urinary catheter Instructions: How to Care for Your Salcido Catheter -- Male Activity Restrictions/Additional Instructions: Follow-up with your physician or urologist for recheck. Please return if you have recurrent blockage, fevers, if you are not draining any urine, having large clots that seemed to be blocking urine output or other new or concerning symptoms. Prescriptions: No Action gabapentin [Neurontin] 300 mg capsule 600 mg PO HS Qty: 180 3RF tamsulosin [Flomax] 0.4 mg capsule 0.4 mg PO QDAY Qty: 90 3RF sertraline 25 mg tablet 50 mg PO QDAY Qty: 180 3RF triamcinolone acetonide 0.1 % Cream 1 applic topical QID PRN (Reason: Rash) Qty: 60 2RF tamsulosin [Flomax] 0.4 mg Capsule 0.8 mg PO DAILY Qty: 90 3RF Bacid 1 billion cell- 250 mg Tablet 1 ea PO BIDWM Qty: 90 3RF vitamin B complex [B Complex-Vitamin B12] Tablet 1 tab PO DAILY 0RF ochfrpix-waz-BM-lycopen-lutein [Centrum Silver Men] PO 0RF potassium chloride 20 mEq tablet extended release 20 meq PO DAILY 0RF furosemide 20 mg tablet 20 mg PO DAILY 0RF amlodipine 5 mg tablet 5 mg PO DAILY 0RF ciprofloxacin HCl [Cipro] 250 mg tablet 250 mg PO BID Qty: 6 0RF Rx Instructions: Start taking the morning of 11/16/21. Take one pill in morning and one in evening until bottle is empty. Referrals: Isabella Hickman MD [Primary Care Provider] -
--- NOTE | 2021-11-15 00:51 | PC.NURSE ---
Salcido cath was irrigated by Aide Scott RN, now flowing freely clear yellow urine.
== END 2021-11-15 00:53 | disposition home or self-care (01) ==
PROVIDERS: Emergency Provider Emergency Medicine; Family Provider Family Medicine; PCP Family Medicine
DX: T83.018A Breakdown (mechanical) of other urinary catheter, initial encounter (principal)
CPT/HCPCS: 99281

== ENCOUNTER → 2021-12-04 13:41 | Outpatient (CLI) | payer MEDICARE, SELFPAY ==
[2021-11-10 12:57] VITALS: BMI 31.9
[2021-12-04 14:20] LABS: COVID19 -Nasal RAPID Negative (Negative)
== END ==
PROVIDERS: Family Provider Family Medicine; PCP Family Medicine; Visit Provider Specialist
DX: Z20.822 Contact with and (suspected) exposure to COVID-19 (principal)
CPT/HCPCS: 87635; C9803

== ENCOUNTER 2021-12-07 11:52 | Day surgery (SDC) | payer MEDICARE, SELFPAY ==
[2021-11-10 12:57] VITALS: BMI 31.9
[2021-12-03 09:43] VITALS: BMI 29.9
[2021-12-07] VITALS (11 sets, daily range): BP systolic 123–145; BP diastolic 61–89; PULSE 58–69; RESP 12–19; TEMP 36.4–36.8; O2SAT 93–98; BMI 31.0
--- NOTE | 2021-12-07 | PATH_ITS ---
[facility] Accession Number: [id number] . 01 Material submitted: . prostate - PROSTATE CHIPS . 02 Diagnosis: Prostate, Transurethral Resection of Prostate (Weight 11 grams): Prostatic adenocarcinoma. Please see Cancer Case Summary, below. . CANCER CASE SUMMARY . Procedure: Transurethral resection of prostate (TURP). . Tumor . Histologc type: Acinar adenocarcinoma. Histologic grade: Grade group 1 (Laura score 3+3=6/10). Treatment effect: No known presurgical therapy. . Tumor Quantitation Estimated percentage of prostate involved by tumor: 11-20%. Number of positive chips: Approximately 27. Total number of chips: Approximately 174. . Periprostatic fat invasion: Not identified. . Seminal vesicle invasion: Not identified. . Additional findings: High-grade prostatic intraepithelial neoplasia (HGPIN), glandular and stromal hyperplasia. MRV 12/09/2021 1644 Local . 02 Electronically signed: . Trinh Murphy MD, Pathologist NPI- [id number] . 01 Gross description: . The specimen is received in formalin, labeled with the patient's name and prostate chips consists of dunn-white prostate chip fragments measuring 7.0 x 7.0 x 1.0 cm in aggregate and weighing 11 grams. The specimen is entirely submitted. . Summary of Sections: A1-A8: Multiple fragments, entirely submitted. ([id number]) /MRV 12/08/2021 1411 Local . 02 Pathologist provided ICD-10: C61, R33.9 . 02 CPT . 490028 Performed at: 01 [facility] [address] [place] [address] Suite [facility], [place], [place] [id number] MD Pravin Gentile MD Phone: [phone] Performed at: 02 [facility] [place] [address] [place] [id number] MD Taylor Elliott MD Phone: [phone]
[2021-12-07] MEDS: SODIUM CHLORIDE 0.9% 500 ML, NEOMYCIN/POLYMYXIN B IRR 1 ML IRR (14:10)
[2021-12-07] MEDS: LACTATED RINGERS 1,000 ML 42 ML IV (14:11)
[2021-12-07] MEDS: AMPICILLIN/SULBACTAM 3 GM 3 GM in SODIUM CHLORIDE 0.9% 100 ML IV (14:22)
[2021-12-07] MEDS: ACETAMINOPHEN 325 MG TABLET 975 MG PO (14:25)
[2021-12-07] MEDS: GABAPENTIN 300 MG CAPSULE PO (14:26)
--- NOTE | 2021-12-07 14:42 | PM.PREOP ---
Pre-operative Note Interval Note History & Physical reviewed/Exam performed by Physician: Yes Changes to H&P: No
[2021-12-07] MEDS: GENTAMICIN 160 MG in SODIUM CHLORIDE 0.9% 100 ML 104 ML IV (15:23)
--- NOTE | 2021-12-07 15:48 | SUR.OPER ---
Lithotomy on padded OR bed, head on pillow, arms secured on padded arm boards at <90 degrees abduction. Legs secured in padded yellow fins stirrups.
--- NOTE | 2021-12-07 16:27 | SUR.OPER ---
Patients bilateral hearing aids taken out by patient and placed into specimen cup with patient label. Brought with patient to OR and then to PACU.
[2021-12-07] MEDS: BELLADONNA/OPIUM SUPPOSITORIES 1 EACH PR (17:05)
--- NOTE | 2021-12-07 17:24 | PM.OP.1 ---
Operative Date/Time/Diagnoses Date of procedure: 12/07/21 Time of procedure: 17:24 Pre-op diagnosis: Urinary retention Post-op diagnosis: same Procedure & Clinicians Procedure: Transurethral resection of prostate Same procedure as scheduled: Yes Indications: Urinary retain Surgeon: Danette Tubbs Click Yes if Unassisted: Yes Anesthesia Type: General Operative Notes Findings: 1. Urethra-normal 2. External sphincter-partially gaping with mild catheter excoriation. 3. Prostate-4.5+ cm length with very elevated median bar. 4. Bladder-2+ trabeculation with early cellule formation. Normal ureteral orifices bilaterally. No stone, tumor, foreign body visualized. Small to moderate amount amorphous debris. Closure Type: not applicable Specimen(s): other (Prostate resection chips) Applied: catheter ([address] hematuria catheter.) Estimated Blood Loss (mL): 25 Blood products transfused: none Procedure in detail: The patient was positioned in supine in general anesthesia. His in repositioned in semi lithotomy and the lower abdomen, genitalia, and groin were then prepped and draped in sterile fashion. Twenty-five Burmese resectoscope was then advanced lower urinary tract with the findings as described above under direct visualization. Resectoscope was then fitted with the working element and a resection loop. TUR incisions were made at 11 1:00 a.m. positions at the bladder neck to just proximal verumontanum. Resection of the right and then the left lateral lobe was undertaken in the same manner. Finally the elevated median bar and lobe were resected from bladder neck to point proximal to the veru. Resection was confined within the prostatic capsule. No perforations were noted. All chips and clots were either irrigated or mechanically removed from the confines of the bladder and prostatic fossa. The chips were then submitted to pathology for routine gross and microscopic examination. The bladder was then left partially filled and resectoscope was removed. A [address]ese, 3 way hematuria catheter was then advanced into lower urinary track over catheter guide. The balloon was then inflated to 40 cc. The catheter was then hand irrigated with a catheter tip syringe and was readily clear without clots or obstruction. This rule a catheter was then placed of 3 way normal saline continuous bladder irrigation. The patient was then repositioned in supine, was awakened, transferred to [facility], and transferred to recovery in stable condition. Complications: none Post-operative Condition: stable Disposition: PACU Plan for aftercare: Admit to acute care.
--- NOTE | 2021-12-07 19:27 | PC.NURSE ---
Addendum entered by Daniela Whiting R.N. 12/07/21 19:34: Bedrest thru the NOC, then OOB in AM. patient and staff aware. Original Note: admit to floor @ 1830. patient is a/o, voices needs. requested sandwich and ice water. denies pain/discomfort, no n/v. 3 way lomeli patent, CBI. draining light beth to gravity. h/a placed in a container at bedside. declined to put anything in safe. coat and shoes in belongings bag in room. no significant skin issues. SBA mobility. tolerating RA. VSS call light w/in reach.
[2021-12-07] MEDS: CIPROFLOXACIN 250 MG TABLET PO (20:38)
[2021-12-07] MEDS: GABAPENTIN 300 MG CAPSULE 600 MG PO (20:38)
[2021-12-08 04:11] VITALS: BP 124/75; PULSE 60; RESP 18; TEMP 36.6; O2SAT 96
[2021-12-08] MEDS: CIPROFLOXACIN 250 MG TABLET PO (07:47)
--- NOTE | 2021-12-08 07:49 | P.PN_ITS ---
Subjective Subjective Date Patient Seen: 12/08/21 Time Patient Seen: 07:50 Interval history: Postoperative day 1. Status post transurethral resection of prostate for urinary retention and failure of multiple voiding trials and medical therapy. Patient reports restful night. He denies pain, nausea, or vomiting. He is tolerating p.o. and drinking copious fluids. Exam Vital Signs (past 8 hours): - 12/08/21 04:11 Temperature 97.9 F Pulse Rate 60 Respiratory Rate 18 Blood Pressure 124/75 Pulse Oximetry 96 Oxygen Delivery Method Room Air Oxygen Flow Rate 0 Narrative Exam Narrative: Patient is in no acute distress, appropriate, and conversant. Chest-equal and unlabored expansion bilaterally. Heart-normal sinus rhythm. Abdomen-protuberant and soft. No distention. Nontender. Salcido intact at slow CBI drip rate. Outflow is watermelon to very light beth without clot. [facility] Medical History Afib Anxiety Arthritis BPH w urinary obs/LUTS Bradycardia Hearing deficit Pancreatitis (~1989) Peripheral neuropathy (~2011) Pneumonia Skin cancer (~2011) Umbilical hernia without obstruction and without gangrene (2017) Urinary retention Surgical History Anesthesia H/O umbilical hernia repair (~08/2019) History of cataract removal with insertion of prosthetic lens (~2011) History of knee replacement (~2009) History of vasectomy Family History Father No problems noted. Mother No problems noted. Sister No problems noted. Social History marital status: household members: spouse occupational status: previously employed Smoking Status: Former smoker alcohol intake: current substance use type: does not use Assessment & Plan Assessment & Plan narrative: Assessment: 1. Stable postoperative day 1 status post transurethral resection of the prostate. Plan: 1. Plug Salcido inflow and ambulate this morning. Anticipate discharge later this day. 2. Will arrange outpatient supervised voiding trial in the Urology Clinic at discharge. 3. Pathology pending. Will follow-up by phone when final. Time Spent With Patient Critical Care time: I spent a total of [] minutes of critical care time on this patient's care today; this time is exclusive of procedural time. Quality VTE Deep Vein Thrombosis/Pulmonary Embolism Present on Admission: No
[2021-12-08 07:50] VITALS: BP 129/71; PULSE 61; RESP 16; TEMP 36.4; O2SAT 94
[2021-12-08 08:00] VITALS: O2SAT 98
[2021-12-08] MEDS: AMLODIPINE 5 MG TABLET PO (08:39)
[2021-12-08] MEDS: FUROSEMIDE 20 MG TABLET PO (08:40)
[2021-12-08] MEDS: TAMSULOSIN 0.4 MG CAPSULE PO (08:40)
[2021-12-08] MEDS: SERTRALINE 50 MG TABLET PO (08:40)
[2021-12-08] MEDS: POTASSIUM CHLORIDE 20 MEQ TAB PO (08:40)
[2021-12-08 11:35] VITALS: BP 151/76; PULSE 62; RESP 16; TEMP 36.8; O2SAT 98
--- NOTE | 2021-12-08 12:12 | P.DS_ITS ---
History of Present Illness History of Present Illness Date Patient Seen: 12/08/21 Time Patient Seen: 12:12 Chief complaint: TURP *OPB* Narrative: The patient denies complaints. Since visit encounter this morning he has tolerated general diet and ambulated without assistance. He is tolerating p.o. fluids and urine outflow has remained watermelon/light beth without clot. He denies pain. Discharge Providers Provider Discharge Date: 12/08/21 Primary care physician: Isabella Hickman MD Discharge provider: Danette Tubbs MD Summary Hospital Course Discharge Diagnosis: Urinary retention Hospital Course: The patient was admitted on 12/07/2021 and underwent uncomplicated transurethral resection of the prostate for urinary retention. His postoperative course was essentially unremarkable in that he tolerated a general diet early the 1st postoperative morning and subsequent. He had resumption of bowel function. He was able to ambulate and transfer without assistance or pain. In the early afternoon of 12/08/2021 the patient is stable for discharge with indwelling Salcido catheter. Pathology is pending at discharge. Exam Vital Signs (past 8 hours): - 12/08/21 07:50 12/08/21 08:00 12/08/21 11:35 Temperature 97.5 F L 98.3 F Pulse Rate 61 62 Respiratory Rate 16 16 Blood Pressure 129/71 151/76 H Pulse Oximetry 94 98 98 Oxygen Delivery Method Room Air Oxygen Flow Rate 0 Narrative Exam Narrative: Not repeated. [facility] Medical History Afib Anxiety Arthritis BPH w urinary obs/LUTS Bradycardia Hearing deficit Pancreatitis (~1989) Peripheral neuropathy (~2011) Pneumonia Skin cancer (~2011) Umbilical hernia without obstruction and without gangrene (2017) Urinary retention Surgical History Anesthesia H/O umbilical hernia repair (~08/2019) History of cataract removal with insertion of prosthetic lens (~2011) History of knee replacement (~2009) History of vasectomy Family History Father No problems noted. Mother No problems noted. Sister No problems noted. Social History marital status: household members: spouse occupational status: previously employed Smoking Status: Former smoker alcohol intake: current substance use type: does not use Discharge Assessment & Plan Assessment and Plan Assessment: 1. Stable postoperative day 1 status post transurethral section of prostate. 2. Pathology pending. Plan of Treatment: 1. Discharge home. 2. Outpatient supervised voiding trial on 12/10/2021 in the Urology Clinic. 3. Will resume ciprofloxacin 250 mg p.o. b.i.d. to complete prescription. 4. Discuss surgical pathology report when final as outpatient. Discharge Plan Discharge orders & Medications Prescriptions: No Action gabapentin [Neurontin] 300 mg capsule 600 mg PO HS Qty: 180 3RF tamsulosin [Flomax] 0.4 mg capsule 0.4 mg PO QDAY Qty: 90 3RF sertraline 25 mg tablet 50 mg PO QDAY Qty: 180 3RF triamcinolone acetonide 0.1 % Cream 1 applic topical QID PRN (Reason: Rash) Qty: 60 2RF tamsulosin [Flomax] 0.4 mg Capsule 0.8 mg PO DAILY Qty: 90 3RF Bacid 1 billion cell- 250 mg Tablet 1 ea PO BIDWM Qty: 90 3RF ciprofloxacin HCl 250 mg tablet 250 mg PO BID Qty: 4 0RF Rx Instructions: start taking evening of 11/25/21 and continue taking one tablet morning and night until the bottle is empty. ciprofloxacin HCl [Cipro] 250 mg tablet 250 mg PO BID Qty: 6 0RF Rx Instructions: Start taking the morning of 12/23/21, which is one day before your procedure. Continue to take twice a day until the bottle is empty. vitamin B complex [B Complex-Vitamin B12] Tablet 1 tab PO DAILY 0RF typyvggy-qva-UI-lycopen-lutein [Centrum Silver Men] PO 0RF potassium chloride 20 mEq tablet extended release 20 meq PO DAILY 0RF furosemide 20 mg tablet 20 mg PO DAILY 0RF amlodipine 5 mg tablet 5 mg PO DAILY 0RF Follow up/Referrals: Isabella Hickman MD [Primary Care Provider] - Discharge Data Primary Care Provider: Isabella Hickman Attending Provider: Danette Tubbs VTE Deep Vein Thrombosis/Pulmonary Embolism Present on Admission: No
== END 2021-12-08 13:12 | disposition home or self-care (01) ==
LOC: OR 11:53 → AC 11:54
PROVIDERS: Family Provider Family Medicine; PCP Family Medicine; Referring Provider Specialist; Visit Provider Specialist
PROC: 0VT08ZZ Resection of Prostate, Via Natural or Artificial Opening Endoscopic (ICD-10-PCS; CPT 52601; principal; 2021-12-07 13:30)
DX: C61 Malignant neoplasm of prostate (principal); N40.1 Benign prostatic hyperplasia with lower urinary tract symptoms; R33.8 Other retention of urine; N13.8 Other obstructive and reflux uropathy; E66.9 Obesity, unspecified; E11.9 Type 2 diabetes mellitus without complications; F41.9 Anxiety disorder, unspecified; Z68.29 Body mass index [BMI] 29.0-29.9, adult
CPT/HCPCS: 52601; 82962; 94762; J0295; J1100; J2704; J3010

== ENCOUNTER → 2021-12-10 15:59 | Outpatient (CLI) | payer MEDICARE, SELFPAY ==
[2021-12-07 13:03] VITALS: BMI 31.0
== END ==
PROVIDERS: Family Provider Family Medicine; PCP Family Medicine; Referring Provider Specialist; Visit Provider Specialist
DX: R30.0 Dysuria (principal); Z09 Encounter for follow-up examination after completed treatment for conditions other than malignant neoplasm; C61 Malignant neoplasm of prostate
CPT/HCPCS: 51702; 51798; 87086

== ENCOUNTER → 2021-12-11 14:13 | Outpatient (CLI) | payer MEDICARE, SELFPAY ==
[2021-12-07 13:03] VITALS: BMI 31.0
--- NOTE | 2021-12-11 14:15 | DI.RAD.S_ITS ---
PROCEDURE: XR KUB INDICATIONS: urinary retention, indwelling lomeli cath TECHNIQUE: One view of the abdomen acquired. COMPARISON: None. FINDINGS: Surgical changes and devices: None. Bowel: Bowel gas pattern is normal. A moderate amount of stool is seen within the colon. Soft tissues: No suspicious abdominal calcifications. Visualized solid organ contours appear normal in size. Bones: No suspicious bony lesions. Age-appropriate bony degenerative changes are seen. IMPRESSION: There is a moderate amount of stool seen within the colon. Please correlate with an underlying history of constipation. Dictated by: Lorenzo Orozco M.D. on 12/11/2021 at 14:47 Approved by: Lorenzo Orozco M.D. on 12/11/2021 at 14:48
== END ==
PROVIDERS: Family Provider Family Medicine; PCP Family Medicine; Referring Provider Urology; Visit Provider Urology
DX: R33.9 Retention of urine, unspecified (principal); T83.9XXA Unspecified complication of genitourinary prosthetic device, implant and graft, initial encounter
CPT/HCPCS: 51710; 74018

== ENCOUNTER → 2021-12-24 19:23 | Outpatient (ROUT) | payer MEDICARE, SELFPAY ==
[2021-12-14 11:26] VITALS: BMI 31.0
[2021-12-24 21:18] LABS: COVID-19 CEPHEID PCR (VTM/NP) Negative (Negative)
== END ==
PROVIDERS: Family Provider Family Medicine; PCP Family Medicine; Visit Provider Family Medicine
DX: J06.9 Acute upper respiratory infection, unspecified (principal)
CPT/HCPCS: U0003

== ENCOUNTER → 2021-12-29 17:14 | Outpatient (CLI) | payer MEDICARE, SELFPAY ==
[2021-12-14 11:26] VITALS: BMI 31.0
[2021-12-29 18:07] LABS: COVID19 - ADMIT (NP swab/PCR) Negative (Negative)
== END ==
PROVIDERS: Family Provider Family Medicine; PCP Family Medicine; Visit Provider Family Medicine
DX: Z20.822 Contact with and (suspected) exposure to COVID-19 (principal); N40.1 Benign prostatic hyperplasia with lower urinary tract symptoms; N13.8 Other obstructive and reflux uropathy
CPT/HCPCS: 99211; U0003

== ENCOUNTER → 2022-01-28 14:22 | Outpatient (CLI) | payer MEDICARE, SELFPAY ==
[2021-12-14 11:26] VITALS: BMI 31.0
== END ==
PROVIDERS: Family Provider Family Medicine; PCP Family Medicine; Visit Provider Specialist
DX: C61 Malignant neoplasm of prostate (principal); R30.0 Dysuria; R33.9 Retention of urine, unspecified
CPT/HCPCS: 51798; 81002; 87077; 87086; 87147; 87186; 99214

== ENCOUNTER → 2022-02-24 08:08 | Outpatient (CLI) | payer MEDICARE, SELFPAY ==
[2021-12-14 11:26] VITALS: BMI 31.0
[2022-02-24 10:18] LABS: Prostate Specific Antigen 2.25 ng/mL (0.10-4.00)
== END ==
PROVIDERS: Family Provider Family Medicine; PCP Family Medicine; Referring Provider Specialist; Visit Provider Specialist
DX: R97.20 Elevated prostate specific antigen [PSA] (principal)
CPT/HCPCS: 36415; 84153

== ENCOUNTER → 2022-03-04 09:50 | Outpatient (CLI) | payer MEDICARE, SELFPAY ==
[2021-12-14 11:26] VITALS: BMI 31.0
== END ==
PROVIDERS: Family Provider Family Medicine; PCP Family Medicine; Visit Provider Specialist
DX: R30.0 Dysuria (principal); C61 Malignant neoplasm of prostate; R33.9 Retention of urine, unspecified
CPT/HCPCS: 51798; 81002; 87086; 99214

== ENCOUNTER 2022-05-13 10:20 | Emergency (ER) | payer MEDICARE, SELFPAY ==
[2021-12-14 11:26] VITALS: BMI 31.0
[2022-05-13 10:25] VITALS: BP 179/72; PULSE 53; RESP 15; TEMP 36.8; O2SAT 96; BMI 30.4
[2022-05-13 10:30] VITALS: BP 165/74; PULSE 47; RESP 20; O2SAT 97
--- NOTE | 2022-05-13 10:30 | DI.RAD.S_ITS ---
PROCEDURE: XR CHEST 2V INDICATIONS: SOB, cough TECHNIQUE: 2 views of the chest were acquired. COMPARISON: [facility], CR, XR CHEST 1V, 10/23/2021, 21:32. FINDINGS: Surgical changes and devices: None. Lungs and pleura: Lungs are clear. No pleural effusions or pneumothorax. Minimal appearance of increased pulmonary vascularity Mediastinum: Mediastinal contours are normal. Heart size is enlarged. Bones and chest wall: No suspicious bony abnormalities. Soft tissues appear unremarkable. IMPRESSION: Cardiomegaly with minimal increased vascularity suggestive of edema. Dictated by: Flori Arguelles M.D. on 05/13/2022 at 11:13 Approved by: Flori Arguelles M.D. on 05/13/2022 at 11:13
[2022-05-13 10:51] LABS: COVID19 -Nasal RAPID Negative (Negative)
[2022-05-13 11:00] VITALS: PULSE 42; RESP 18; O2SAT 96
--- NOTE | 2022-05-13 11:14 | ED_ITS ---
HPI - URI/Sore Throat General Chief Complaint: Upper Respiratory Symptoms Stated Complaint: Coughing up dark brown phlegm- ref by Marylou Time Seen by Provider: 05/13/22 10:30 Source: patient Mode of arrival: Ambulatory History of Present Illness HPI Narrative: 87-year-old male former smoker with history of hypertension, AFib presents with runny nose, nasal congestion, sneezing and sore throat for about the past week and over the past 3 days increasing cough with sputum production. He denies any fever or chills. He denies chest pain, dizziness, weakness or lightheadedness. He has no nausea, vomiting, diarrhea or urinary symptoms. Related Data Home Medications Medication Instructions Recorded Confirmed amlodipine 5 mg tablet 5 mg PO DAILY 11/10/21 03/04/22 wrpoiiie-kpc-FV-lycopen-lutein PO 11/10/21 03/04/22 [Centrum Silver Men] vitamin B complex (B 1 tab PO DAILY 11/10/21 03/04/22 Complex-Vitamin B12 tablet) Previous Rx's Medication Instructions Recorded gabapentin 300 mg capsule 600 mg PO HS #180 caps 12/22/20 (Neurontin) sertraline 25 mg tablet 50 mg PO QDAY #180 tabs 02/02/21 L.acidophilus-L.bulgar-B.bifid-S.thermoph 1 ea PO BIDWM #90 tabs 10/28/21 1 billion cell-250 mg tablet (Bacid) triamcinolone acetonide 0.1 % 1 applic topical QID PRN Rash #60 10/28/21 topical cream grams amoxicillin 500 mg tablet 1,000 mg PO Q8H 5 days #30 tabs 05/13/22 Allergies Allergy/AdvReac Type Severity Reaction Status Date / Time No Known Drug Allergies Allergy Verified 05/13/22 10:30 Review of Systems Review of Systems Narrative: GENERAL: See HPI HEENT: See HPI RESPIRATORY: See HPI CARDIOVASCULAR: See HPI GASTROINTESTINAL: Denies nausea, vomiting, abdominal pain, diarrhea, constipation, melena. : Denies dysuria, frequency, incontinence, hematuria, urinary retention. MUSCULOSKELETAL: denies weakness, joint pain, or bony pain SKIN: Denies rash, skin lesions, or other NEUROLOGIC: Denies weakness, headache, numbness, change in speech, confusion, seizures, incoordination. PSYCHIATRIC: No concerning psychosocial issues. 12 point review of systems is negative except for those stated above Patient History Medical History Afib Anxiety Arthritis BPH w urinary obs/LUTS Bradycardia Hearing deficit Pancreatitis (~1989) Peripheral neuropathy (~2011) Pneumonia Postop check Skin cancer (~2011) Umbilical hernia without obstruction and without gangrene (2018) Urinary retention Surgical History Anesthesia H/O umbilical hernia repair (~08/2019) History of cataract removal with insertion of prosthetic lens (~2011) History of knee replacement (~2009) History of vasectomy Family History Father No problems noted. Mother No problems noted. Sister No problems noted. Social History marital status: household members: spouse occupational status: previously employed Smoking Status: Former smoker alcohol intake: current substance use type: does not use Smoking Status: Former smoker alcohol intake frequency: 0-2 drinks per day Substance Use Type: does not use Exam Narrative Exam Narrative: GENERAL: [87] year old patient appears stated age. Well-developed patient, in no obvious respiratory distress HEAD: Atraumatic. Normocephalic. EYES: Pupils equal round and reactive. Extraocular motions intact. No scleral icterus. No injection or drainage. ENT: Nose with clear nasal drainage bilaterally. Throat without erythema, tonsillar hypertrophy or exudate. Airway patent. NECK: Trachea midline. Non tender CARDIOVASCULAR: Regular rhythm without murmurs, gallops, or rubs. RESPIRATORY: No increased work of breathing, tachypnea, use of accessory muscles, there are faint crackles in the right base GASTROINTESTINAL: Abdomen soft, non-tender, nondistended. EXTREMITIES: No edema or joint tenderness. BACK: Nontender without deformity or crepitance. No flank tenderness. NEURO: AOx3. SKIN: No rash or erythema of visible areas Initial Vital Signs Initial Vital Signs: Vital Signs Temperature 98.2 F 05/13/22 10:25 Pulse Rate 53 L 05/13/22 10:25 Respiratory Rate 15 05/13/22 10:25 Blood Pressure 179/72 H 05/13/22 10:25 Pulse Oximetry 96 06/16/22 10:25 Oxygen Delivery Method 05/13/22 10:25 Course Orders Ordered: ED Orders 05/13/22 10:25 COVID19 -Nasal RAPID/Pre-Proc Stat 05/13/22 10:30 Chest [XR chest 2V] Stat Vital Signs Vital signs: Vital Signs - 8 hr 05/13/22 10:25 05/13/22 10:30 05/13/22 10:30 Temperature 98.2 F Pulse Rate 53 L 47 L Respiratory Rate 15 20 Blood Pressure 179/72 H 165/74 H Pulse Oximetry 96 97 Oxygen Delivery Method Room Air 05/13/22 11:00 05/13/22 11:34 Temperature Pulse Rate 42 L 78 Respiratory Rate 18 16 Blood Pressure 177/74 H Pulse Oximetry 96 98 Oxygen Delivery Method Room Air MDM - URI/Sore Throat Lab Data Labs: Lab Results 05/13/22 Range/Units 10:25 SARS-CoV-2 (PCR) Negative (Negative) Imaging Data Chest x-ray: Radiologist's Impression: Close Chest X-Ray (Signed) Flori Arguelles - 05/13/22 KUB X-Ray (Signed) Lorenzo Orozco - 12/11/21 Telemetry Strips 12/07/21 Abdomen Ultrasound (Signed) Mark Amado - 10/27/21 Vascular Ultrasound (Signed) Lorenzo Orozco - 10/26/21 Chest CTA (Signed) Lorenzo Orozco - 10/24/21 Chest X-Ray (Signed) Charlie Blanc - 10/23/21 Ankle X-Ray (Signed) Morris Escobedo - 10/23/21 Echocardiogram Ultrasound (Signed) Do Andujar - 10/23/21 Telemetry Strips 10/22/21 Vascular Ultrasound (Signed) Henrique Villanueva - 10/22/21 Chest X-Ray (Signed) Henrique Villanueva - 10/22/21 Hip X-Ray (Signed) Lorenzo Orozco - 04/04/[address] [address] XRay Report Signed Patient: Kneji Cantrell MR#: [id number] : 1935 Acct:[id number] Age/Sex: 87 / M Date of Service: 05/13/22 Loc: ED Accession Number: [id number] ?? Procedure: XR chest 2V Ordering Provider: Dwain Lema D.O. PROCEDURE:? XR CHEST 2V ? INDICATIONS:? SOB, cough ? TECHNIQUE:? 2 views of the chest were acquired.? ? COMPARISON:? [facility], CR, XR CHEST 1V, 10/23/2021, 21:32. ? FINDINGS:? ? Surgical changes and devices:? None.? ? Lungs and pleura:? Lungs are clear.? No pleural effusions or pneumothorax.? Minimal appearance of increased pulmonary vascularity ? Mediastinum:? Mediastinal contours are normal.? Heart size is enlarged. ? Bones and chest wall:? No suspicious bony abnormalities.? Soft tissues appear unremarkable.? ? IMPRESSION:? Cardiomegaly with minimal increased vascularity suggestive of edema. ? ? Dictated by: Flori Arguelles M.D. on 05/13/2022 at 11:13 ? ? Approved by: Flori Arguelles M.D. on 05/13/2022 at 11:13 ? MDM Narrative Medical decision making narrative: Patient has had upper respiratory symptoms including nasal congestion, runny nose and has had cough productive of brownish sputum for the past few days. He is a former smoker and faint crackles are noted in his right base. He overall appears quite well and is in no significant respiratory distress, no use of accessory muscles or hypoxemia. Chest x-ray is very reassuring. Other considerations would include pulmonary embolism, CHF, renal failure, however given his overall appearance, lack of abnormal vitals, lack of pain the seems unlikely. Will treat for community-acquired pneumonia, extensive return precautions given and questions answered to his apparent satisfaction Discharge Plan Departure Patient Disposition: Home Clinical Impression: Right lower lobe pneumonia Instructions: DI for Pneumonia -- Adult Activity Restrictions/Additional Instructions: *You have been diagnosed with [community-acquired pneumonia. As we discussed your physical exam and history are very reassuring, COVID is negative *What to do: *Please continue to take your regular medications as directed. [x ] New medication prescriptions sent to your pharmacy: [ [facility]] [ ] New medication written as a paper prescription [ ] No new medications given *Please follow up with your primary care provider in 2-3 days, call for an appointment. Let them know you were seen in the Emergency Department and that we ask that you be seen in follow up. We will electronically transmit a record of today's note if your PCP is in our system *If you do not have a primary care provider please contact the [facility] Resource line at [phone]. They will ask some questions about your medical history and help get you set up with a doctor in the community. *Return to Emergency Department if you should have any new, worsening or concerning symptoms, such as [fever greater than 101 F, shaking chills, worsening pain, persistent vomiting or other bothersome symptoms] Prescriptions: New amoxicillin 500 mg tablet 1,000 mg PO Q8H 5 Days Qty: 30 0RF No Action gabapentin [Neurontin] 300 mg capsule 600 mg PO HS Qty: 180 3RF sertraline 25 mg tablet 50 mg PO QDAY Qty: 180 3RF triamcinolone acetonide 0.1 % Cream 1 applic topical QID PRN (Reason: Rash) Qty: 60 2RF Bacid 1 billion cell- 250 mg Tablet 1 ea PO BIDWM Qty: 90 3RF vitamin B complex [B Complex-Vitamin B12] Tablet 1 tab PO DAILY itsfynsd-cos-RF-lycopen-lutein [Centrum Silver Men] PO amlodipine 5 mg tablet 5 mg PO DAILY Referrals: Isabella Hickman MD [Primary Care Provider] - Visit Report Forms: Patient Portal/API
[2022-05-13 11:34] VITALS: BP 177/74; PULSE 78; RESP 16; O2SAT 98
== END 2022-05-13 11:34 | disposition home or self-care (01) ==
PROVIDERS: Emergency Provider Emergency Medicine; Family Provider Family Medicine; PCP Family Medicine
DX: J18.9 Pneumonia, unspecified organism (principal); Z20.822 Contact with and (suspected) exposure to COVID-19
CPT/HCPCS: 71046; 87635; 99283; C9803

== ENCOUNTER → 2022-05-26 12:23 | Outpatient (CLI) | payer MEDICARE, SELFPAY ==
[2021-12-14 11:26] VITALS: BMI 31.0
[2022-05-26 13:48] LABS: Prostate Specific Antigen 1.34 ng/mL (0.10-4.00)
== END ==
PROVIDERS: Family Provider Family Medicine; PCP Family Medicine; Referring Provider Specialist; Visit Provider Specialist
DX: R97.20 Elevated prostate specific antigen [PSA] (principal)
CPT/HCPCS: 36415; 84153

== ENCOUNTER → 2022-06-24 10:20 | Outpatient (CLI) | payer MEDICARE, SELFPAY ==
[2021-12-14 11:26] VITALS: BMI 31.0
[2022-06-24 10:44] LABS: COVID19 -Nasal RAPID Negative (Negative)
== END ==
PROVIDERS: Family Provider Family Medicine; PCP Family Medicine; Visit Provider Specialist
DX: Z20.822 Contact with and (suspected) exposure to COVID-19 (principal)
CPT/HCPCS: 87635; C9803

== ENCOUNTER 2022-06-25 06:16 | Day surgery (SDC) | payer MEDICARE, SELFPAY ==
[2021-12-14 11:26] VITALS: BMI 31.0
[2022-06-25] VITALS (9 sets, daily range): BP systolic 127–147; BP diastolic 58–82; PULSE 42–59; RESP 15–20; TEMP 36.4–36.7; O2SAT 94–97; BMI 30.5
[2022-06-25] MEDS: LACTATED RINGERS 1,000 ML 42 ML IV (06:49)
--- NOTE | 2022-06-25 07:17 | SUR.PREOP ---
Declined active warming
--- NOTE | 2022-06-25 07:26 | PM.PREOP ---
Pre-operative Note COVID-19 Criteria for continued procedure: Expected advancement of disease process, Increased loss of function, Deterioration of the patient's condition or overall health, Delay expected to result in less-positive ultimate med/surg outcome and Non-surgical alternatives not available or appropriate per current SOC Interval Note History & Physical reviewed/Exam performed by Physician: Yes Changes to H&P: No
[2022-06-25] MEDS: CEFAZOLIN 2 GM/20 ML SYRINGE IV (08:03)
[2022-06-25] MEDS: TRANEXAMIC ACID 1,000 MG in SODIUM CHLORIDE 0.9% 100 ML 200 MG IV (08:05)
--- NOTE | 2022-06-25 08:16 | SUR.OPER ---
Lithotomy on padded OR bed, head on pillow, arms secured on padded arm boards at <90 degrees abduction. Legs secured in padded yellow fins stirrups.
[2022-06-25] MEDS: BELLADONNA/OPIUM SUPPOSITORIES 1 EACH PR (08:50)
--- NOTE | 2022-06-25 09:00 | P.OP_ITS ---
Operative Date/Time/Diagnoses Date of procedure: 06/25/22 Time of procedure: 09:01 Pre-op diagnosis: Urinary retention Post-op diagnosis: same Procedure & Clinicians Procedure: 1. Redo transurethral resection of the prostate (less than 1 year). Same procedure as scheduled: Yes Indications: 1. Urinary retention. 2. Residual, obstructing prostate. 3. Relative bladder neck contracture. 4. History of urinary retention. Surgeon: Danette Tubbs Click Yes if Unassisted: Yes Anesthesia Type: General Operative Notes Findings: 1. Urethra-normal caliber without annular stricture or lesion. 2. External sphincter coapted with normal urothelium. 3. Prostate-coapted in apical lateral tissue most distally. There is residual/regrowth prostate predominantly at the left anterior and lateral proxim al fossa extending across the midline. There is a well vascularized relative bladder neck contracture. 4. Bladder 2+ trabeculation. Normal ureteral orifices bilaterally. No stone, tumor, or foreign body seen. Closure Type: not applicable Specimen(s): none sent Applied: catheter (Twenty-two Maori coude hematuria catheter.) Estimated Blood Loss (mL): 5 Blood products transfused: none Procedure in detail: The patient was positioned supine was administered general anesthesia. He was then repositioned in semi lithotomy and the lower abdomen, genitalia, and groin were then prepped and draped in sterile fashion. The resectoscope was then advanced and lower urinary tract with the findings as described above under direct visualization. The working element was then fitted with the button electrode and TUR of obstructing tissue and lateral resection of the bladder neck contracture or undertaken. Additional resection at the posterior bladder neck was performed to remove a horizontal lip at juncture with bladder proper. Hemostasis was obtained with the button cautery. Bladder was then left partially filled all instrumentation was removed. A 22 Maori coude-tip hematuria catheter was then advanced into the bladder, the balloon was filled with 30 cc, the bladder contents drained. A catheter was then attached to gravity drainage. The patient was then repositioned in supine, was awakened, was transferred to [facility], and transported recovery in stable condition. Complications: none Post-operative Condition: stable Disposition: PACU Plan for aftercare: Discharge home.
== END 2022-06-25 09:59 | disposition home or self-care (01) ==
PROVIDERS: Family Provider Family Medicine; PCP Family Medicine; Referring Provider Specialist; Visit Provider Specialist
PROC: 0VT08ZZ Resection of Prostate, Via Natural or Artificial Opening Endoscopic (ICD-10-PCS; CPT 52601; principal; 2022-06-25 07:45)
DX: R33.9 Retention of urine, unspecified (principal); N32.0 Bladder-neck obstruction; N13.8 Other obstructive and reflux uropathy; N40.1 Benign prostatic hyperplasia with lower urinary tract symptoms; Z85.51 Personal history of malignant neoplasm of bladder
CPT/HCPCS: 52630; 82962; J0690; J1100; J2405; J2704; J3010

== ENCOUNTER → 2022-07-16 11:54 | Outpatient (CLI) | payer MEDICARE, SELFPAY ==
[2021-12-14 11:26] VITALS: BMI 31.0
[2022-07-16 12:47] LABS: Appearance Urine UA CLOUDY; Bilirubin Urine UA NEGATIVE (NEGATIVE); Color Urine UA YELLOW; Glucose Urine UA NEGATIVE (Negative); Ketones Urine UA NEGATIVE (NEGATIVE); Leukocyte Esterase Urine UA 3+ (NEGATIVE); Nitrite Urine UA NEGATIVE (Negative); Occult Blood Urine UA 3+ (Negative); Protein Urine UA TRACE (Negative); Urobilinogen Urine UA 0.2 E.U./dL (0.2)
[2022-07-16 13:16] LABS: Bacteria Urine Few (2-10); RBC Urine 5-10/HPF (0-5/HPF); Squamous Epithelial Cell Urine None Seen (0-5/HPF); WBC Urine 30-100/HPF (0-5/HPF)
[2022-07-16 13:17] LABS: Culture Indicated Urine Specimen Cultured
== END ==
PROVIDERS: Family Provider Family Medicine; PCP Family Medicine; Referring Provider Specialist; Visit Provider Specialist
DX: R30.0 Dysuria (principal)
CPT/HCPCS: 81001; 87077; 87086; 87186

== ENCOUNTER → 2022-08-09 10:44 | Outpatient (CLI) | payer MEDICARE, SELFPAY ==
[2021-12-14 11:26] VITALS: BMI 31.0
== END ==
PROVIDERS: Family Provider Family Medicine; PCP Family Medicine; Visit Provider Specialist
DX: C61 Malignant neoplasm of prostate (principal); N13.8 Other obstructive and reflux uropathy; N40.1 Benign prostatic hyperplasia with lower urinary tract symptoms; R33.8 Other retention of urine; R33.9 Retention of urine, unspecified; Z09 Encounter for follow-up examination after completed treatment for conditions other than malignant neoplasm
CPT/HCPCS: 51798; 81002; 87077; 87086; 99214

== ENCOUNTER 2022-08-20 16:51 | Emergency (ER) | payer MEDICARE, SELFPAY ==
[2021-12-14 11:26] VITALS: BMI 31.0
[2022-08-20] VITALS (21 sets, daily range): BP systolic 98–149; BP diastolic 52–65; PULSE 34–39; RESP 16–25; TEMP 36.7; O2SAT 98–100; BMI 30.4
[2022-08-20 17:38] LABS: Add Manual Diff / Slide Review NO; Basophils Absolute Auto 100 /uL (0-100); Basophils Percent Auto 0.6 % (0-2); Eosinophils Absolute Auto 300 /uL (0-450); Eosinophils Percent Auto 3.2 % (2-4); Hematocrit 35.8 % (41-53); Hemoglobin 12.3 g/dL (13.5-17.5); Lymphocytes Absolute Auto 2200 /uL (1100-4500); Mean Corpuscular HGB Conc 34.3 % (30-36); Monocytes Absolute Auto 600 /uL (0-900); Neutrophils Absolute Auto 5700 /uL (1500-7000); Neutrophils Percent Auto 64.2 % (50-75); Platelet Count 150 X10^3/uL (150-400); Red Blood Cell Count 3.73 X10^6/uL (4.5-5.9); Red Cell Distribution Width 13.7 % (11.6-14.8)
[2022-08-20 17:41] LABS: Alanine Aminotransferase 26 IU/L (<50); Albumin 3.9 g/dL (3.5-5.0); Albumin Globulin Ratio 1.4 (1.0-2.8); Alkaline Phosphatase 60 U/L (38-126); Aspartate Aminotransferase 31 IU/L (17-59); BUN Creatinine Ratio 13.3 (6-22); Bilirubin Total 0.5 mg/dL (0.2-1.3); Blood Urea Nitrogen 17 mg/dL (9-20); Calcium 8.3 mg/dL (8.4-10.2); Carbon Dioxide 29 mmol/L (22-32); Chloride 101 mmol/L (98-107); Estimated Glomerular Filt Rate 55 mL/min (>60); Globulin 2.7 g/dL (1.7-4.1); Glucose 157 mg/dL (80-110); HEMOLYSIS < 15 (0-50); Lipase 82 U/L (23-300); Potassium 4.9 mmol/L (3.4-5.1); Sodium 135 mmol/L (137-145); Total Protein 6.6 g/dL (6.3-8.2)
--- NOTE | 2022-08-20 17:43 | ED.MALEGU ---
HPI - Male Genitourinary <Walt Calhoun MD - Last Filed: 08/25/22 06:52> General Chief complaint: Urogenital-Male Stated complaint: WEAK/PROSTATE CA. BLEEDING WHEN URINATING Time Seen by Provider: 08/20/22 17:31 Source: patient Mode of arrival: Ambulatory History of Present Illness HPI Narrative: Patient here with . Complains of multiple episodes of hematuria with self catheterization and on spontaneous voiding as well. Patient has history of prostate cancer, 2 episodes of TURP in the past. Is not on any blood thinners. Is being followed by Dr. Tubbs urology. Patient has history of overdistended bladder due to urinary retention injury in the past. Patient was on Salcido catheter for many months since September of last year however transition to self catheterization in the past couple of months. No history of bladder cancer. Patient blood pressure is usually low and low blood pressure. That is his baseline. At this time and patient states his current vitals are his baseline. He has recently felt generalized weakness. No dysuria. No fever or chills. Related Data Home Medications Medication Instructions Recorded Confirmed amlodipine 5 mg tablet 5 mg PO DAILY 11/10/21 06/25/22 omkrnvub-aop-UG-lycopen-lutein 1 tab PO DAILY 11/10/21 06/25/22 [Centrum Silver Men] vitamin B complex (B 1 tab PO DAILY 11/10/21 06/25/22 Complex-Vitamin B12 tablet) Previous Rx's Medication Instructions Recorded sertraline 25 mg tablet 50 mg PO QDAY #180 tabs 02/02/21 L.acidophilus-L.bulgar-B.bifid-S.thermoph 1 ea PO BIDWM #90 tabs 10/28/21 1 billion cell-250 mg tablet (Bacid) triamcinolone acetonide 0.1 % 1 applic topical QID PRN Rash #60 10/28/21 topical cream grams gabapentin 300 mg capsule 600 mg PO BEDTIME #180 caps 05/14/22 Allergies Allergy/AdvReac Type Severity Reaction Status Date / Time No Known Drug Allergies Allergy Verified 08/20/22 17:25 Review of Systems <Walt Calhoun MD - Last Filed: 08/25/22 06:52> Review of Systems Narrative: GENERAL: Denies chills, positive fatigue, malaise, negative fever, sweats. HEENT: Denies sinus pain, ear pain, sore throat RESPIRATORY: Denies dyspnea, cough CARDIOVASCULAR: Denies chest pain, palpitations GASTROINTESTINAL: Denies nausea, vomiting, abdominal pain : Denies dysuria, frequency, positive hematuria MUSCULOSKELETAL: denies muscle or bony pain SKIN: Denies rash, skin lesions NEUROLOGIC: Denies weakness, numbness ROS Unobtainable: All systems reviewed & are unremarkable except as noted in HPI and below Patient History <Walt Calhoun MD - Last Filed: 08/25/22 06:52> Medical History Afib Anxiety Arthritis BPH w urinary obs/LUTS Bradycardia Hearing deficit Malignant neoplasm of prostate Pancreatitis (~1989) Peripheral neuropathy (~2011) Pneumonia Postop check Skin cancer (~2011) Umbilical hernia without obstruction and without gangrene (2018) Urinary retention Surgical History Anesthesia H/O umbilical hernia repair (~08/2019) History of cataract removal with insertion of prosthetic lens (~2011) History of knee replacement (~2009) History of vasectomy Family History Father No problems noted. Mother No problems noted. Sister No problems noted. Social History marital status: household members: spouse occupational status: previously employed Smoking Status: Former smoker alcohol intake: never substance use type: does not use Smoking Status: Former smoker alcohol intake frequency: 0-2 drinks per day Substance Use Type: does not use Exam <Walt Calhoun MD - Last Filed: 08/25/22 06:52> Narrative Exam Narrative: GENERAL: in no distress, not toxic not dyspneic HEAD: Normocephalic. EYES: Pupils equal round No scleral icterus. ENT: Mucous membranes moist. NECK: Trachea midline. CARDIOVASCULAR: Regular rate and rhythm without murmurs RESPIRATORY: Clear to auscultation. Breath sounds equal bilaterally. No wheezes, rales, or rhonchi. GASTROINTESTINAL: Abdomen soft, non-tender : Nontender suprapubic region. No peritoneal signs, please see nurse's notes for bladder scan results EXTREMITIES: No gross deformities. BACK: No flank tenderness. NEURO: AOx4. SKIN: Warm and dry PSYCH: Not anxious, is cooperative Initial Vital Signs Initial Vital Signs: Vital Signs Temperature 98.1 F 08/20/22 16:55 Pulse Rate 38 L 08/20/22 16:55 Respiratory Rate 20 08/20/22 16:55 Blood Pressure 98/56 L 08/20/22 16:55 Pulse Oximetry 99 08/20/22 16:55 Oxygen Delivery Method 08/20/22 16:55 <Ibis Forde DO - Last Filed: 08/21/22 07:27> Initial Vital Signs Initial Vital Signs: Vital Signs Temperature 98.1 F 08/20/22 16:55 Pulse Rate 38 L 08/20/22 16:55 Respiratory Rate 20 08/20/22 16:55 Blood Pressure 98/56 L 08/20/22 16:55 Pulse Oximetry 99 08/20/22 16:55 Oxygen Delivery Method 08/20/22 16:55 Course <Walt Calhoun MD - Last Filed: 08/25/22 06:52> Course Course Narrative: 6:00 p.m.. Sign out to Dr. Forde, labs and imaging results are pending. Orders Ordered: ED Orders 08/20/22 17:10 Complete Blood Count AUTO DIFF Stat Comprehensive Metabolic Panel Stat Lipase Stat PT [Prothrombin Time INR] Stat PTT [Partial Thromboplastin Time] Stat 08/20/22 18:25 Urinalysis and Microscopic Stat Urine Culture Stat 08/20/22 19:20 CT abdomen pelvis w con Stat Vital Signs Vital signs: Vital Signs - 8 hr 08/20/22 23:30 08/21/22 00:00 08/21/22 00:30 Pulse Rate 37 L 43 L 38 L Respiratory Rate 22 20 26 H Pulse Oximetry 100 99 99 08/21/22 01:00 08/21/22 01:30 08/21/22 02:00 Pulse Rate 38 L 35 L 47 L Respiratory Rate 25 H 18 22 Pulse Oximetry 99 97 99 08/21/22 02:30 08/21/22 03:00 08/21/22 03:30 Pulse Rate 43 L 36 L 35 L Respiratory Rate 27 H 18 21 Pulse Oximetry 08/21/22 04:00 08/21/22 04:30 08/21/22 05:00 Pulse Rate 37 L 39 L 44 L Respiratory Rate 16 22 28 H Pulse Oximetry <Ibis Forde DO - Last Filed: 08/21/22 07:27> Orders Ordered: ED Orders 08/20/22 17:10 Complete Blood Count AUTO DIFF Stat Comprehensive Metabolic Panel Stat Lipase Stat PT [Prothrombin Time INR] Stat PTT [Partial Thromboplastin Time] Stat 08/20/22 18:25 Urinalysis and Microscopic Stat Urine Culture Stat 08/20/22 19:20 CT abdomen pelvis w con Stat Vital Signs Vital signs: Vital Signs - 8 hr 08/20/22 23:30 08/21/22 00:00 08/21/22 00:30 Pulse Rate 37 L 43 L 38 L Respiratory Rate 22 20 26 H Pulse Oximetry 100 99 99 08/21/22 01:00 08/21/22 01:30 08/21/22 02:00 Pulse Rate 38 L 35 L 47 L Respiratory Rate 25 H 18 22 Pulse Oximetry 99 97 99 08/21/22 02:30 08/21/22 03:00 08/21/22 03:30 Pulse Rate 43 L 36 L 35 L Respiratory Rate 27 H 18 21 Pulse Oximetry 08/21/22 04:00 08/21/22 04:30 08/21/22 05:00 Pulse Rate 37 L 39 L 44 L Respiratory Rate 16 22 28 H Pulse Oximetry MDM - Male Genitourinary <Walt Calhoun MD - Last Filed: 08/25/22 06:52> Lab Data Result diagrams: 08/20/22 17:10 08/20/22 17:10 Labs: Lab Results 08/20/22 08/20/22 08/20/22 Range/Units 17:10 17:10 17:10 WBC 9.0 (4.5-11.0) X10^3/uL RBC 3.73 L (4.5-5.9) X10^6/uL Hgb 12.3 L (13.5-17.5) g/dL Hct 35.8 L (41-53) % MCV 96.0 (80-100) fL MCH 33.0 (26-34) PG MCHC 34.3 (30-36) % RDW 13.7 (11.6-14.8) % Plt Count 150 (150-400) X10^3/uL Neut % (Auto) 64.2 (50-75) % Lymph % (Auto) 25.0 (25-40) % Mesa % (Auto) 7.0 (3-14) % Eos % (Auto) 3.2 (2-4) % Baso % (Auto) 0.6 (0-2) % Neut # (Auto) 5700 (4229-4949) /uL Lymph # (Auto) 2200 (5564-0303) /uL Mesa # (Auto) 600 (0-900) /uL Eos # (Auto) 300 (0-450) /uL Baso # (Auto) 100 (0-100) /uL PT 12.0 (10.1-12.7) SECONDS INR 1.0 (0.9-1.3) APTT 33 (26-36) SECONDS Sodium 135 L (137-145) mmol/L Potassium 4.9 (3.4-5.1) mmol/L Chloride 101 (98-107) mmol/L Carbon Dioxide 29 (22-32) mmol/L BUN 17 (9-20) mg/dL Creatinine 1.28 H (0.66-1.25) mg/dL Estimated GFR 55 L (>60) mL/min BUN/Creatinine Ratio 13.3 (6-22) Glucose 157 H (80-110) mg/dL Calcium 8.3 L (8.4-10.2) mg/dL Total Bilirubin 0.5 (0.2-1.3) mg/dL AST 31 (17-59) IU/L ALT 26 (<50) IU/L Alkaline Phosphatase 60 (38-126) U/L Total Protein 6.6 (6.3-8.2) g/dL Albumin 3.9 (3.5-5.0) g/dL Globulin 2.7 (1.7-4.1) g/dL Albumin/Globulin Ratio 1.4 (1.0-2.8) Lipase 82 (23-300) U/L Urine Color Urine Appearance Urine pH Ur Specific Wister Urine Protein Urine Glucose (UA) Urine Ketones Urine Occult Blood Urine Nitrate Urine Bilirubin Urine Urobilinogen Ur Leukocyte Esterase Urine RBC (0-5/HPF) Urine WBC (0-5/HPF) Urine Bacteria (None) Ur Culture Indicated? SARS-CoV-2 (PCR) (Negative) 08/20/22 08/20/22 Range/Units 18:25 21:44 WBC (4.5-11.0) X10^3/uL RBC (4.5-5.9) X10^6/uL Hgb (13.5-17.5) g/dL Hct (41-53) % MCV (80-100) fL MCH (26-34) PG MCHC (30-36) % RDW (11.6-14.8) % Plt Count (150-400) X10^3/uL Neut % (Auto) (50-75) % Lymph % (Auto) (25-40) % Mesa % (Auto) (3-14) % Eos % (Auto) (2-4) % Baso % (Auto) (0-2) % Neut # (Auto) (5979-4716) /uL Lymph # (Auto) (7099-3899) /uL Mesa # (Auto) (0-900) /uL Eos # (Auto) (0-450) /uL Baso # (Auto) (0-100) /uL PT (10.1-12.7) SECONDS INR (0.9-1.3) APTT (26-36) SECONDS Sodium (137-145) mmol/L Potassium (3.4-5.1) mmol/L Chloride (98-107) mmol/L Carbon Dioxide (22-32) mmol/L BUN (9-20) mg/dL Creatinine (0.66-1.25) mg/dL Estimated GFR (>60) mL/min BUN/Creatinine Ratio (6-22) Glucose (80-110) mg/dL Calcium (8.4-10.2) mg/dL Total Bilirubin (0.2-1.3) mg/dL AST (17-59) IU/L ALT (<50) IU/L Alkaline Phosphatase (38-126) U/L Total Protein (6.3-8.2) g/dL Albumin (3.5-5.0) g/dL Globulin (1.7-4.1) g/dL Albumin/Globulin Ratio (1.0-2.8) Lipase (23-300) U/L Urine Color Red Urine Appearance Turbid Urine pH TNP Ur Specific Wister TNP Urine Protein TNP Urine Glucose (UA) TNP Urine Ketones TNP Urine Occult Blood TNP Urine Nitrate TNP Urine Bilirubin TNP Urine Urobilinogen TNP Ur Leukocyte Esterase TNP Urine RBC >100/hpf H (0-5/HPF) Urine WBC 10-30/hpf H (0-5/HPF) Urine Bacteria None seen (None) Ur Culture Indicated? Specimen cultured SARS-CoV-2 (PCR) Negative (Negative) <Ibis Maurisio, DO - Last Filed: 08/21/22 07:27> Lab Data Labs: Lab Results 08/20/22 08/20/22 08/20/22 Range/Units 17:10 17:10 17:10 WBC 9.0 (4.5-11.0) X10^3/uL RBC 3.73 L (4.5-5.9) X10^6/uL Hgb 12.3 L (13.5-17.5) g/dL Hct 35.8 L (41-53) % MCV 96.0 (80-100) fL MCH 33.0 (26-34) PG MCHC 34.3 (30-36) % RDW 13.7 (11.6-14.8) % Plt Count 150 (150-400) X10^3/uL Neut % (Auto) 64.2 (50-75) % Lymph % (Auto) 25.0 (25-40) % Mesa % (Auto) 7.0 (3-14) % Eos % (Auto) 3.2 (2-4) % Baso % (Auto) 0.6 (0-2) % Neut # (Auto) 5700 (9798-1560) /uL Lymph # (Auto) 2200 (7579-4739) /uL Mesa # (Auto) 600 (0-900) /uL Eos # (Auto) 300 (0-450) /uL Baso # (Auto) 100 (0-100) /uL PT 12.0 (10.1-12.7) SECONDS INR 1.0 (0.9-1.3) APTT 33 (26-36) SECONDS Sodium 135 L (137-145) mmol/L Potassium 4.9 (3.4-5.1) mmol/L Chloride 101 (98-107) mmol/L Carbon Dioxide 29 (22-32) mmol/L BUN 17 (9-20) mg/dL Creatinine 1.28 H (0.66-1.25) mg/dL Estimated GFR 55 L (>60) mL/min BUN/Creatinine Ratio 13.3 (6-22) Glucose 157 H (80-110) mg/dL Calcium 8.3 L (8.4-10.2) mg/dL Total Bilirubin 0.5 (0.2-1.3) mg/dL AST 31 (17-59) IU/L ALT 26 (<50) IU/L Alkaline Phosphatase 60 (38-126) U/L Total Protein 6.6 (6.3-8.2) g/dL Albumin 3.9 (3.5-5.0) g/dL Globulin 2.7 (1.7-4.1) g/dL Albumin/Globulin Ratio 1.4 (1.0-2.8) Lipase 82 (23-300) U/L Urine Color Urine Appearance Urine pH Ur Specific Wister Urine Protein Urine Glucose (UA) Urine Ketones Urine Occult Blood Urine Nitrate Urine Bilirubin Urine Urobilinogen Ur Leukocyte Esterase Urine RBC (0-5/HPF) Urine WBC (0-5/HPF) Urine Bacteria (None) Ur Culture Indicated? SARS-CoV-2 (PCR) (Negative) 08/20/22 08/20/22 Range/Units 18:25 21:44 WBC (4.5-11.0) X10^3/uL RBC (4.5-5.9) X10^6/uL Hgb (13.5-17.5) g/dL Hct (41-53) % MCV (80-100) fL MCH (26-34) PG MCHC (30-36) % RDW (11.6-14.8) % Plt Count (150-400) X10^3/uL Neut % (Auto) (50-75) % Lymph % (Auto) (25-40) % Mesa % (Auto) (3-14) % Eos % (Auto) (2-4) % Baso % (Auto) (0-2) % Neut # (Auto) (7695-4720) /uL Lymph # (Auto) (4096-9165) /uL Mesa # (Auto) (0-900) /uL Eos # (Auto) (0-450) /uL Baso # (Auto) (0-100) /uL PT (10.1-12.7) SECONDS INR (0.9-1.3) APTT (26-36) SECONDS Sodium (137-145) mmol/L Potassium (3.4-5.1) mmol/L Chloride (98-107) mmol/L Carbon Dioxide (22-32) mmol/L BUN (9-20) mg/dL Creatinine (0.66-1.25) mg/dL Estimated GFR (>60) mL/min BUN/Creatinine Ratio (6-22) Glucose (80-110) mg/dL Calcium (8.4-10.2) mg/dL Total Bilirubin (0.2-1.3) mg/dL AST (17-59) IU/L ALT (<50) IU/L Alkaline Phosphatase (38-126) U/L Total Protein (6.3-8.2) g/dL Albumin (3.5-5.0) g/dL Globulin (1.7-4.1) g/dL Albumin/Globulin Ratio (1.0-2.8) Lipase (23-300) U/L Urine Color Red Urine Appearance Turbid Urine pH TNP Ur Specific Wister TNP Urine Protein TNP Urine Glucose (UA) TNP Urine Ketones TNP Urine Occult Blood TNP Urine Nitrate TNP Urine Bilirubin TNP Urine Urobilinogen TNP Ur Leukocyte Esterase TNP Urine RBC >100/hpf H (0-5/HPF) Urine WBC 10-30/hpf H (0-5/HPF) Urine Bacteria None seen (None) Ur Culture Indicated? Specimen cultured SARS-CoV-2 (PCR) Negative (Negative) Imaging Data CT scan - abdomen/pelvis: Radiologist's Impression: Signed Patient: Kenji Cantrell MR#: [id number] : 1935 Acct:[id number] Age/Sex: 87 / M Date of Service: 08/20/22 Loc: ED Accession Number: [id number] ?? Procedure: CT abdomen pelvis w con Ordering Provider: Ibis Forde D.O. PROCEDURE:? CT ABDOMEN PELVIS W CON ? INDICATIONS:? hematuria ? TECHNIQUE:? After the administration of IV contrast, axial sections were acquired from the lung bases to the pubic symphysis.? Coronal and sagittal reformats were performed.? For radiation dose reduction, the following was used:? automated exposure control, adjustment of mA and/or kV according to patient size. ? COMPARISON:? None. ? FINDINGS:? Image quality:? Excellent.? ? Lung bases:? There is mild dependent atelectasis and scarring in the lung bases.? ? Heart:? Heart size is enlarged. ? ? ABDOMEN: Liver:? There is a small focal hypodensity in the inferior right hepatic lobe measuring approximately 0.5 cm which is too small to characterize but likely represents a cyst.? Gallbladder:? Within normal limits without calcified gallstones.? ? Biliary ducts:? No biliary ductal dilatation.? ? Pancreas:? The pancreatic body and tail are hypoplastic in appearance.? Multiple clustered cysts are demonstrated within the pancreatic head and uncinate process with the largest measuring up to approximately 1.8 cm on series 2, image 25. No definite pancreatic duct dilatation.? Spleen:? Normal in size.? There is a splenic calcification suggesting sequelae of old granulomas disease. ? Adrenal Glands:? No adrenal nodules.? ? Kidneys and Ureters:? No hydronephrosis.? Multiple bilateral simple appearing renal cysts are demonstrated.? No discrete renal stones or perinephric stranding.? ? Stomach and Bowel:? Stomach, small bowel loops, and colon are normal in caliber and wall thickness.? The appendix is normal in appearance.? Peritoneum:? No abnormal intraperitoneal fluid.? No free air.? ? Ventral Wall: ? No hernia.? Abdominal Nodes:? No retroperitoneal or mesenteric adenopathy by size criteria.? Vessels:? Aorta and inferior vena cava are normal in size.? ? PELVIS: Pelvic Organs:? Unremarkable.? ? Bladder:? There is a Salcido catheter within a distended urinary bladder.? A large amount of heterogeneous slightly hyperattenuating filling defects are demonstrated within the bladder consistent with blood clot.? An underlying mass cannot be excluded.? Intraluminal gas within the bladder likely reflects sequelae of catheter placement.? No bladder wall thickening. Pelvic Nodes: No enlarged lymph nodes.? Miscellaneous: No inguinal hernias are seen. ? ? ? Bones:? There is a mild superior endplate compression deformity of the L1 vertebral body with loss of height of up to approximately 40%.? Findings are of indeterminate acuity.? No retropulsed fragments in the spinal canal.? Visualized osseous structures demonstrate no suspicious focal lesions. ? IMPRESSION:? ? 1. Large amount of heterogeneous hyperattenuating filling defects demonstrated within the bladder likely representing blood clot.? An underlying mass cannot be excluded.? Recommend follow-up with cystoscopy if clinically indicated. ? 2. No discrete renal mass or hydronephrosis. ? 3. Hypoplastic appearance of the pancreatic body and tail.? 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 Further evaluation may be obtained with a follow-up nonemergent pancreatic protocol MRI.? ? ? Dictated by: Pravin Parham M.D. on 08/20/2022 at 20:37 ? ? Approved by: Pravin Parham M.D. on 08/20/2022 at 20:43 ? MDM Narrative Medical decision making narrative: Patient signed out to me by Dr. Calhoun. Here for hematuria. He has had 2 TURPs in the last 1 year. 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 Initial TURP 12/07/2021 and a revision on 06/25/2022 for partially obstructing tissue and relative bladder neck contracture. He has continue to have urinary retention requiring intermittent catheterization. He usually does it 3-4 times daily. He has a large distended bladder up to 4 L. today he has had gross blood multiple blood clots. He has been irrigated with your volar water multiple blood clots were initially removed. He was picked up continuous normal saline. He has had over 3 L infused and it does clear however with clamped it returns to gross blood. CT does show probable large amount of blood clot in the bladder. 2200 Dr. Haq [facility] states that there is no need to transfer at this time. He recommends thinking straight hand irrigate make sure all the blood clots are out recommend a 24 American catheter. Recommend continuous irrigation for 12-24 hours and bleeding should stop. If it does not stop her H&H is dropping that would be a time to transfer patient Salcido catheter was hand irrigated by nursing staff multiple blood clots were removed. After that continue with saline started. Patient had really no marlyn blood or clots afterwards. It remained this way for numerous hours. Waiting for patient's to come so he can be discharged home Discharge Plan Departure Patient Disposition: Home Clinical Impression: Hematuria Instructions: DI for Hematuria Activity Restrictions/Additional Instructions: *You have been diagnosed with hematuria *What to do: At this time continue to monitor Salcido catheter and hydrate. It should take clear however if bleeding returns or clotting return to return to ED *Continue to take medications as directed *Follow up with your primary care provider in 2-3 days or call [phone] *Return to ER if you should have worsening bleeding abdominal pain Salcido catheter not working or any new, worsening or concerning symptoms Prescriptions: No Action gabapentin 300 mg capsule 600 mg PO BEDTIME Qty: 180 0RF Rx Instructions: NEED TO ESTABLISH CARE WITH NEW PROVIDER FOR FURTHER REFILLS. THANK YOU! 05/14/22 sertraline 25 mg tablet 50 mg PO QDAY Qty: 180 3RF triamcinolone acetonide 0.1 % Cream 1 applic topical QID PRN (Reason: Rash) Qty: 60 2RF Bacid 1 billion cell- 250 mg Tablet 1 ea PO BIDWM Qty: 90 3RF vitamin B complex [B Complex-Vitamin B12] Tablet 1 tab PO DAILY rfhsurwm-jes-KM-lycopen-lutein [Centrum Silver Men] 1 tab PO DAILY amlodipine 5 mg tablet 5 mg PO DAILY Referrals: Isabella Hickman MD [Primary Care Provider] - Visit Report Forms: Patient Portal/API
[2022-08-20 18:47] LABS: Appearance Urine UA Turbid
[2022-08-20 18:48] LABS: Bacteria Urine None Seen; Color Urine UA Red; Culture Indicated Urine Specimen Cultured; RBC Urine >100/HPF (0-5/HPF); WBC Urine 10-30/HPF (0-5/HPF)
--- NOTE | 2022-08-20 19:20 | DI.CT.S_ITS ---
PROCEDURE: CT ABDOMEN PELVIS W CON INDICATIONS: hematuria TECHNIQUE: After the administration of IV contrast, axial sections were acquired from the lung bases to the pubic symphysis. Coronal and sagittal reformats were performed. For radiation dose reduction, the following was used: automated exposure control, adjustment of mA and/or kV according to patient size. COMPARISON: None. FINDINGS: Image quality: Excellent. Lung bases: There is mild dependent atelectasis and scarring in the lung bases. Heart: Heart size is enlarged. ABDOMEN: Liver: There is a small focal hypodensity in the inferior right hepatic lobe measuring approximately 0.5 cm which is too small to characterize but likely represents a cyst. Gallbladder: Within normal limits without calcified gallstones. Biliary ducts: No biliary ductal dilatation. Pancreas: The pancreatic body and tail are hypoplastic in appearance. Multiple clustered cysts are demonstrated within the pancreatic head and uncinate process with the largest measuring up to approximately 1.8 cm on series 2, image 25. No definite pancreatic duct dilatation. Spleen: Normal in size. There is a splenic calcification suggesting sequelae of old granulomas disease. Adrenal Glands: No adrenal nodules. Kidneys and Ureters: No hydronephrosis. Multiple bilateral simple appearing renal cysts are demonstrated. No discrete renal stones or perinephric stranding. Stomach and Bowel: Stomach, small bowel loops, and colon are normal in caliber and wall thickness. The appendix is normal in appearance. Peritoneum: No abnormal intraperitoneal fluid. No free air. Ventral Wall: No hernia. Abdominal Nodes: No retroperitoneal or mesenteric adenopathy by size criteria. Vessels: Aorta and inferior vena cava are normal in size. PELVIS: Pelvic Organs: Unremarkable. Bladder: There is a Salcido catheter within a distended urinary bladder. A large amount of heterogeneous slightly hyperattenuating filling defects are demonstrated within the bladder consistent with blood clot. An underlying mass cannot be excluded. Intraluminal gas within the bladder likely reflects sequelae of catheter placement. No bladder wall thickening. Pelvic Nodes: No enlarged lymph nodes. Miscellaneous: No inguinal hernias are seen. Bones: There is a mild superior endplate compression deformity of the L1 vertebral body with loss of height of up to approximately 40%. Findings are of indeterminate acuity. No retropulsed fragments in the spinal canal. Visualized osseous structures demonstrate no suspicious focal lesions. IMPRESSION: 1. Large amount of heterogeneous hyperattenuating filling defects demonstrated within the bladder likely representing blood clot. An underlying mass cannot be excluded. Recommend follow-up with cystoscopy if clinically indicated. 2. No discrete renal mass or hydronephrosis. 3. Hypoplastic appearance of the pancreatic body and tail. 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 Further evaluation may be obtained with a follow-up nonemergent pancreatic protocol MRI. Dictated by: Pravin Parham M.D. on 08/20/2022 at 20:37 Approved by: Pravin Parham M.D. on 08/20/2022 at 20:43
[2022-08-20 19:29] LABS: PTT Partial Thromboplastin Tim 33 SECONDS (26-36)
--- NOTE | 2022-08-20 20:41 | PC.NURSE ---
irrigation is at max flow with dark cranberry drainage and frequent small clots.
--- NOTE | 2022-08-20 21:47 | PC.NURSE ---
Irrigant changed to sterile water per Dr Forde
[2022-08-20 22:43] LABS: COVID19 -Nasal RAPID Negative (Negative)
[2022-08-21] VITALS (11 sets, daily range): PULSE 35–47; RESP 16–28; O2SAT 97–99
--- NOTE | 2022-08-21 06:30 | PC.NURSE ---
Pt manually irrigated on 2 occasions throughout the night. Large amount of clots >500mls blood clots and dark red thick urine pulled from catheter, Bladder cleared of large clots after second irrigation. bladder irrigant light peach in color after. Catheter irrigation clamped at [address]de. Continues to drain a light pink urine.
--- NOTE | 2022-08-21 11:29 | PC.NURSE ---
0900 pt and spouse taught the use of urinary catheter and given a leg bag as well.
== END 2022-08-21 09:05 | disposition home or self-care (01) ==
PROVIDERS: Emergency Medicine; Emergency Provider Emergency Medicine; Family Provider Family Medicine; PCP Family Medicine
DX: R31.9 Hematuria, unspecified (principal); R33.8 Other retention of urine; Z85.46 Personal history of malignant neoplasm of prostate; Z20.822 Contact with and (suspected) exposure to COVID-19
CPT/HCPCS: 36415; 51798; 74177; 80053; 81001; 83690; 85025; 85610; 85730; 87086; 87635; 99284; C9803; Q9967

== ENCOUNTER → 2022-09-03 11:26 | Outpatient (CLI) | payer MEDICARE, SELFPAY ==
[2021-12-14 11:26] VITALS: BMI 31.0
--- NOTE | 2022-09-03 11:28 | DI.MRI.S_ITS ---
PROCEDURE: MR ABDOMEN WO/W CON INDICATIONS: Cyst of pancreas TECHNIQUE: Coronal HASTE, axial 2D FLASH in- and [id number]; axial breath-hold T2 FSE with fat saturation from the hepatic dome to the iliac crests. Oblique coronal thin-slice and radial thick slab HASTE through the biliary system. Dynamic axial VIBE during administration of contrast. Post-contrast coronal VIBE or 2D FLASH with fat saturation from the hepatic dome to the iliac crests. Optional diffusion weighted imaging and ADC may be performed. COMPARISON: [facility], CT, CT ABDOMEN PELVIS W CON, 08/20/2022, 20:02. FINDINGS: Image quality: Motion degraded Pancreas and biliary system: As seen on CT, the body and tail of the pancreas are atrophied. Prominent pancreatic duct at 5 mm. Cluster of cysts at the pancreatic head and uncinate processed. The largest cyst measures 20 x 17 mm on axial images on post-contrast images, a thin septation is seen going through the cyst. The biliary tree is also prominent in the intrahepatic radicles. The CBD is not pathologically dilated. No gallstone identified. Solid organs: Suspected liver perfusion anomaly on early post gadolinium phases. No focal lesion. Spleen is normal size. No adrenal nodule. Bosniak 1 and 2 renal lesions are present, for which no dedicated followup is necessary per 2019 proposed guidelines. Nodes and vessels: No pathologic adenopathy by size criteria no abdominal aortic aneurysm. Bowel and peritoneum: Patulous distal esophagus, nonspecific. No bowel obstruction or pathologic ascites. Lung bases: No basal effusions. Lungs are not well seen on MRI. Bones and soft tissues: Spondylosis. No suspicious marrow signal otherwise. IMPRESSION: Significant motion degraded MRI. The body and tail of the pancreas are atrophied. The pancreatic duct is mildly dilated at the head measuring up to 5 mm. Intrahepatic biliary tree is prominent, without pathologic CBD dilation. Cluster of cystic lesions are seen at the pancreatic head and uncinate process, the largest measuring up to 2 cm with an internal septation. Given patient's age, follow-up MRI, no further follow-up, or GI consultation for EUS/sampling are all reasonable options depending on other comorbidities. Other incidental findings above. Dictated by: Nakul Simon M.D. on 09/03/2022 at 14:50 Approved by: Nakul Simon M.D. on 09/03/2022 at 15:02
== END ==
PROVIDERS: Family Provider Family Medicine; PCP Family Medicine; Referring Provider Family Medicine; Visit Provider Family Medicine
DX: K86.2 Cyst of pancreas (principal); K86.89 Other specified diseases of pancreas
CPT/HCPCS: 74183; A9579

== ENCOUNTER 2022-10-08 09:36 | Emergency (ER) | payer MEDICARE, SELFPAY ==
[2021-12-14 11:26] VITALS: BMI 31.0
[2022-10-08 09:53] VITALS: BP 130/74; PULSE 44; RESP 15; TEMP 36.7; O2SAT 97; BMI 31.9
[2022-10-08] MEDS: LIDOCAINE 2% (GLYDO) 6 ML GEL TOP (10:10)
--- NOTE | 2022-10-08 10:25 | ED.MALEGU ---
HPI - Male Genitourinary General Chief complaint: Urogenital-Male Stated complaint: cath not working Time Seen by Provider: 10/08/22 09:54 Source: patient Mode of arrival: Ambulatory History of Present Illness HPI Narrative: 87-year-old gentleman with recurrent bladder issues had a TUR in November of 2021 and taken back to the OR for removal of obstructing tissue and bladder neck contracture on June 25, 2022. Had a couple episodes of acute urinary retention required Salcido catheter placement and otherwise has been managing his flaccid bladder with self catheterization. He is followed by Dr. Tubbs. He notes that yesterday he was not able to pass a catheter and was not able to do so today. He is having minimal symptoms the comes in for further evaluation. He describes no abdominal pain, flank pain. He has not started any new medications, not taking any owfr-pdw-[id number] medications. He does not appear to be taking tamsulosin. He describes no fevers, cough, chills, palpitations, dyspnea or orthopnea. Related Data Home Medications Medication Instructions Recorded Confirmed amlodipine 5 mg tablet 5 mg PO DAILY 11/10/21 09/08/22 ocrqdkwk-zrt-ZV-lycopen-lutein 1 tab PO DAILY 11/10/21 09/08/22 [Centrum Silver Men] vitamin B complex (B 1 tab PO DAILY 11/10/21 09/08/22 Complex-Vitamin B12 tablet) Previous Rx's Medication Instructions Recorded sertraline 25 mg tablet 50 mg PO QDAY #180 tabs 02/02/21 L.acidophilus-L.bulgar-B.bifid-S.thermoph 1 ea PO BIDWM #90 tabs 10/28/21 1 billion cell-250 mg tablet (Bacid) triamcinolone acetonide 0.1 % 1 applic topical QID PRN Rash #60 10/28/21 topical cream grams gabapentin 300 mg capsule 600 mg PO BEDTIME #180 caps 05/14/22 tamsulosin 0.4 mg capsule (Flomax) 0.4 mg PO DAILY #30 caps 10/08/22 Allergies Allergy/AdvReac Type Severity Reaction Status Date / Time No Known Drug Allergies Allergy Verified 10/08/22 10:03 Review of Systems Review of Systems Narrative: Remainder of complete review of systems is otherwise unremarkable except for that included in the HPI. Patient History Medical History Afib Anxiety Arthritis BPH w urinary obs/LUTS Bradycardia Flaccid bladder Hearing deficit Malignant neoplasm of prostate Pancreatitis (~1989) Peripheral neuropathy (~2011) Pneumonia Postop check Skin cancer (~2011) Umbilical hernia without obstruction and without gangrene (2018) Urinary retention Urinary retention Surgical History Anesthesia H/O umbilical hernia repair (~08/2019) History of cataract removal with insertion of prosthetic lens (~2011) History of knee replacement (~2009) History of vasectomy Family History Father No problems noted. Mother No problems noted. Sister No problems noted. Social History marital status: household members: spouse occupational status: previously employed Smoking Status: Former smoker alcohol intake: never substance use type: does not use Smoking Status: Former smoker alcohol intake frequency: 0-2 drinks per day Substance Use Type: does not use Exam Initial Vital Signs Initial Vital Signs: Vital Signs Temperature 98.1 F 10/08/22 09:53 Pulse Rate 44 L 10/08/22 09:53 Respiratory Rate 15 10/08/22 09:53 Blood Pressure 130/74 10/08/22 09:53 Pulse Oximetry 97 10/08/22 09:53 Oxygen Delivery Method 10/08/22 09:53 General: Alert appropriate in no acute distress Respiratory: Able to speak in full sentences, no obvious respiratory distress Skin: No obvious rashes, warm and dry Neurologic: Grossly intact no obvious asymmetries or abnormalities Psych: appropriate insight and affect, cooperative Bladder scan shows over a L of urine Salcido catheter placed without difficulty Course Orders Ordered: Discontinued Medications Lidocaine HCl (Lidocaine 2% (Glydo) 6 Ml Gel) 6 ml TOP NOW ONE Stop: 10/08/22 10:07 Last Admin: 10/08/22 10:10 Dose: 6 ml Documented By: DEBBIE Vital Signs Vital signs: Vital Signs - 8 hr 10/08/22 09:53 Temperature 98.1 F Pulse Rate 44 L Respiratory Rate 15 Blood Pressure 130/74 Pulse Oximetry 97 Oxygen Delivery Method Room Air MDM - Male Genitourinary MDM Narrative Medical decision making narrative: 87-year-old gentleman with continued obstructive type symptoms after a TUR and a bladder neck dilation this year. Also diagnosed with flaccid bladder and given the lack of symptoms with more than a L of fluid in the bladder is likely has been a continuous problem. Salcido catheters placed in the emergency department. Will go ahead and place him on tamsulosin daily until directed otherwise by Dr. Tubbs. Will ask him to follow-up with Dr. Tubbs in approximately week to discuss removal of the Salcido catheter. At this point there is no evidence of acute renal injury or infection. He is safe for home discharge. Discharge Plan Departure Patient Disposition: Home Clinical Impression: Acute on chronic urinary retention Instructions: How to Care for Your Salcido Catheter -- Male, DI for Urinary Retention in Men Activity Restrictions/Additional Instructions: Thank you for coming in today Salcido catheter was placed and you will need to contact Dr. Tubbs to discuss further management. You had over a L of urine in your bladder with minimal symptoms. I am going to place you on tamsulosin 0.4 mg daily. Please ask Dr. Tubbs if he recommends continuing this medication. It is to help with prostate symptoms that cause urine retention. The prescription was electronically transmitted to [facility] in [place] If you find that you are getting worse or develop any new symptoms, please feel free to return to the emergency department for further evaluation. Prescriptions: New tamsulosin [Flomax] 0.4 mg capsule 0.4 mg PO DAILY Qty: 30 0RF No Action gabapentin 300 mg capsule 600 mg PO BEDTIME Qty: 180 0RF Rx Instructions: NEED TO ESTABLISH CARE WITH NEW PROVIDER FOR FURTHER REFILLS. THANK YOU! 05/14/22 sertraline 25 mg tablet 50 mg PO QDAY Qty: 180 3RF triamcinolone acetonide 0.1 % Cream 1 applic topical QID PRN (Reason: Rash) Qty: 60 2RF Bacid 1 billion cell- 250 mg Tablet 1 ea PO BIDWM Qty: 90 3RF vitamin B complex [B Complex-Vitamin B12] Tablet 1 tab PO DAILY nyyehxyh-qbd-DA-lycopen-lutein [Centrum Silver Men] 1 tab PO DAILY amlodipine 5 mg tablet 5 mg PO DAILY Referrals: Isabella Hickman MD [Primary Care Provider] -
[2022-10-08] MEDS: TAMSULOSIN 0.4 MG CAPSULE PO (10:40)
[2022-10-08 11:03] VITALS: BP 175/73; PULSE 40; O2SAT 98
[2022-10-08 11:05] LABS: Bacteria Urine Many (>30); Mucus Urine 1+ (Negative); RBC Urine 1-5/HPF (0-5/HPF); WBC Urine 30-100/HPF (0-5/HPF)
== END 2022-10-08 11:04 | disposition home or self-care (01) ==
PROVIDERS: Emergency Provider Emergency Medicine; Family Provider Family Medicine; PCP Family Medicine
DX: R33.9 Retention of urine, unspecified (principal)
CPT/HCPCS: 51798; 81003; 81015; 87077; 87086; 87147; 87186; 99283; 99284

== ENCOUNTER → 2022-11-18 09:14 | Outpatient (CLI) | payer MEDICARE, SELFPAY ==
[2021-12-14 11:26] VITALS: BMI 31.0
== END ==
PROVIDERS: Family Provider Family Medicine; PCP Family Medicine; Visit Provider Specialist
DX: C61 Malignant neoplasm of prostate (principal); N31.2 Flaccid neuropathic bladder, not elsewhere classified; R33.9 Retention of urine, unspecified
CPT/HCPCS: 52000; 87086; 99215

== ENCOUNTER → 2022-12-01 08:04 | Outpatient (CLI) | payer MEDICARE, SELFPAY ==
[2021-12-14 11:26] VITALS: BMI 31.0
[2022-12-01 09:21] LABS: COVID19 -Nasal RAPID Negative (Negative)
== END ==
PROVIDERS: Family Provider Family Medicine; PCP Family Medicine; Visit Provider Specialist
DX: Z20.822 Contact with and (suspected) exposure to COVID-19 (principal)
CPT/HCPCS: 87635; C9803

== ENCOUNTER 2022-12-03 08:32 | Day surgery (SDC) | payer MEDICARE, SELFPAY ==
[2021-12-14 11:26] VITALS: BMI 31.0
[2022-12-03] VITALS (7 sets, daily range): BP systolic 135–150; BP diastolic 52–77; PULSE 39–53; RESP 14–20; TEMP 36.7–37.2; O2SAT 95–100; BMI 33.0
[2022-12-03] MEDS: SODIUM CHLORIDE IRRIG SOLUTION 500 ML, NEOMYCIN/POLYMYXIN B IRR 1 ML IRR (08:52)
--- NOTE | 2022-12-03 09:16 | P.OP.PRE_ITS ---
Pre-operative Note COVID-19 Criteria for continued procedure: Expected advancement of disease process, Possibility delay results in more complex future surgery or treatment, Increased loss of function, Deterioration of the patient's condition or overall health, Delay expected to result in less-positive ultimate med/surg outcome and Non- surgical alternatives not available or appropriate per current SOC Interval Note History & Physical reviewed/Exam performed by Physician: Yes Changes to H&P: No
[2022-12-03] MEDS: LACTATED RINGERS 1,000 ML 21 ML IV (09:21)
[2022-12-03] MEDS: CEFAZOLIN 2 GM/100 ML PREMIX 100 ML IV (10:04)
[2022-12-03] MEDS: TRANEXAMIC ACID 1,000 MG in SODIUM CHLORIDE 0.9% 100 ML 200 MG IV (10:14)
--- NOTE | 2022-12-03 10:20 | SUR.OPER ---
Lithotomy on padded OR bed, head on pillow, arms secured on padded arm boards at <90 degrees abduction. Legs secured in padded yellow fins stirrups.
--- NOTE | 2022-12-03 10:58 | PM.OP.1 ---
Operative Date/Time/Diagnoses Date of procedure: 12/03/22 Time of procedure: 10:30 Pre-op diagnosis: 1. Urinary retention. 2. Bladder outlet obstruction. 3. Prostate cancer. Post-op diagnosis: same Procedure & Clinicians Procedure: 1. Redo Transurethral resection of prostate. Same procedure as scheduled: Yes Indications: 1. Urinary retention. 2. Recurrent bladder outlet obstruction. 3. Prostate cancer. Surgeon: Danette Tubbs Click Yes if Unassisted: Yes Anesthesia Type: General Operative Notes Closure Type: not applicable Specimen(s): none sent Applied: catheter (Twenty Armenian Salcido catheter to gravity drainage.) Estimated Blood Loss (mL): 0 Blood products transfused: none Procedure in detail: The patient was positioned in supine was provided general anesthesia. He was then repositioned in semi lithotomy the lower abdomen, genitalia, and groin were then prepped and draped in sterile fashion. The resectoscope was then passed lower urinary tract advanced proximally under direct visualization with the findings as described above. The working element was then fitted with the button electrode. A ledge at the posterior bladder neck and more proximal nodular regrowth into the region of the distal trigone were then resected with the button electrode and contoured distally to the verumontanum. An additional small amount of left apical distal medial lobe was also resected with the button electrode laterally. Hemostasis was obtained with the button electrode. The bladder was then left partially filled and the resectoscope removed. A 20 Armenian Salcido catheter was then inserted, balloon inflated 10 cc, then was placed gravity drainage. The patient was then awakened, transferred to [facility], and then transferred to recovery in stable condition. Complications: none Post-operative Condition: stable Disposition: PACU Plan for aftercare: Discharge home.
== END 2022-12-03 11:51 | disposition home or self-care (01) ==
PROVIDERS: Family Provider Family Medicine; PCP Family Medicine; Referring Provider Specialist; Visit Provider Specialist
PROC: 0VT08ZZ Resection of Prostate, Via Natural or Artificial Opening Endoscopic (ICD-10-PCS; CPT 52601; principal; 2022-12-03 09:45)
DX: R33.9 Retention of urine, unspecified (principal); N13.9 Obstructive and reflux uropathy, unspecified; C61 Malignant neoplasm of prostate; N31.2 Flaccid neuropathic bladder, not elsewhere classified
CPT/HCPCS: 52630; 82962; J0690; J2704; J3010

== ENCOUNTER → 2023-01-12 11:52 | Outpatient (CLI) | payer MEDICARE, SELFPAY ==
[2022-12-06 14:17] VITALS: BMI 31.0
--- NOTE | 2023-01-12 11:53 | DI.MRI.S_ITS ---
PROCEDURE: MR PELIS WO/W CON INDICATIONS: Prostate CA TECHNIQUE: Coronal HASTE, axial T1 FSE with fat saturation, 3-plane nonbreath-hold T2 FSE. After the administration of contrast, dynamic axial, delayed axial and coronal VIBE or 2-D FLASH with fat saturation through the pelvis. Optional diffusion weighted imaging and ADC may be performed. COMPARISON: None. FINDINGS: Image quality: Diffusion weighted and dynamic contrast enhanced images are diagnostic. Prostate: Gland size is 4.3 by 3.0 x 2.6 cm; ellipsoid gland volume is 18 mL. Prior TURP Lesion 1: Location: Left medial peripheral zone, midgland. Series 4, image 15 Size: 1.2 x 1.6 cm. T2W: Mildly hypointense. DWI: Mildly hyperintense. ADC: Isointense. Enhancement: Positive. Extraprostatic Extension: No. PI-RADS score: 3. Genitourinary system: Bladder wall thickness is normal. Distal ureters are non distended. Bowel and peritoneum: No pathologic free pelvic fluid. Inferior colon and small bowel loops are normal in caliber. Nodes and vessels: No pelvic or inguinal adenopathy by size criteria. Iliac vessels are normal in caliber. Soft tissues: No inguinal hernias. Bones: Marrow demonstrates normal overall signal, without lesions to suggest metastases. IMPRESSION: PI-RADS 3 lesion in the left peripheral zone of the mid gland. Dictated by: Ward Mishra M.D. on 01/12/2023 at 17:23 Approved by: Ward Mishra M.D. on 01/12/2023 at 17:27
== END ==
PROVIDERS: Family Provider Family Medicine; PCP Family Medicine; Referring Provider Specialist; Visit Provider Specialist
DX: C61 Malignant neoplasm of prostate (principal); R33.9 Retention of urine, unspecified; N31.8 Other neuromuscular dysfunction of bladder; N13.8 Other obstructive and reflux uropathy
CPT/HCPCS: 72197; A9579

== ENCOUNTER → 2023-01-25 12:43 | Outpatient (CLI) | payer MEDICARE, SELFPAY ==
[2022-12-06 14:17] VITALS: BMI 31.0
[2023-01-25 14:31] LABS: Prostate Specific Antigen 1.61 ng/mL (0.10-4.00)
== END ==
PROVIDERS: Family Provider Family Medicine; PCP Family Medicine; Referring Provider Specialist; Visit Provider Specialist
DX: C61 Malignant neoplasm of prostate (principal); N13.8 Other obstructive and reflux uropathy; N40.1 Benign prostatic hyperplasia with lower urinary tract symptoms
CPT/HCPCS: 36415; 84153

== ENCOUNTER → 2023-02-03 10:28 | Outpatient (CLI) | payer MEDICARE, SELFPAY ==
[2022-12-06 14:17] VITALS: BMI 31.0
== END ==
PROVIDERS: Family Provider Family Medicine; PCP Family Medicine; Visit Provider Specialist
DX: C61 Malignant neoplasm of prostate (principal); R33.9 Retention of urine, unspecified; Z87.440 Personal history of urinary (tract) infections
CPT/HCPCS: 81002; 87086; 99215

== ENCOUNTER → 2023-02-28 10:27 | Outpatient (CLI) | payer MEDICARE, SELFPAY ==
[2022-12-06 14:17] VITALS: BMI 31.0
--- NOTE | 2023-02-28 | DI.MRI.S_ITS ---
PROCEDURE: MR HEAD/BRAIN WO CON INDICATIONS: AGE RELATED COGNITIVE DECLINE TECHNIQUE: Non-contrast axial T1 spin echo, axial T2 fast spin echo, sagittal and axial FLAIR, coronal T2 fast spin echo, axial gradient echo, axial diffusion and ADC through the brain. COMPARISON: None. FINDINGS: Image quality: Excellent. CSF spaces: Ventricles appear symmetric in size and shape. Basal cisterns are patent. No extra-axial fluid collections. Brain: No intracranial bleeds or mass effects. There is cerebral volume loss for age. There are periventricular and deep white matter chronic small vessel ischemic changes. Brainstem appears normal. Diffusion-weighted images show no acute ischemic insults. No chronic ischemic insults. Normal intravascular flow voids are present. Skull and face: Calvarial bone marrow is normal in signal. Orbits are normal. Note is made of bilateral lens replacements. Sinuses: Mucous retention cysts can be seen within the inferior maxillary sinuses. Mild mucosal thickening can be seen within the maxillary sinuses. Minimal mucosal thickening is seen elsewhere within the paranasal sinuses. There is a small amount of left mastoid air cell fluid present. IMPRESSION: Note is made of age-appropriate brain parenchymal volume loss and chronic small vessel ischemic changes. No findings of acute or subacute infarction can be seen. Additional findings: Paranasal sinus disease Left mastoid air cell fluid Dictated by: Lorenzo Orozco M.D. on 02/28/2023 at 12:04 Approved by: Lorenzo Orozco M.D. on 02/28/2023 at 12:06
== END ==
PROVIDERS: Family Provider Family Medicine; PCP Family Medicine; Referring Provider Family Medicine; Visit Provider Family Medicine
DX: R41.81 Age-related cognitive decline (principal); R41.89 Other symptoms and signs involving cognitive functions and awareness; J32.0 Chronic maxillary sinusitis
CPT/HCPCS: 70551

== ENCOUNTER → 2023-07-27 10:02 | Outpatient (CLI) | payer MEDICARE, SELFPAY ==
[2022-12-06 14:17] VITALS: BMI 31.0
[2023-07-27 14:04] LABS: Prostate Specific Antigen 5.51 ng/mL (0.10-4.00)
== END ==
PROVIDERS: Family Provider Family Medicine; PCP Family Medicine; Referring Provider Specialist; Visit Provider Specialist
DX: N40.1 Benign prostatic hyperplasia with lower urinary tract symptoms (principal); N13.8 Other obstructive and reflux uropathy
CPT/HCPCS: 36415; 84153

== ENCOUNTER → 2023-07-27 13:39 | Outpatient (CLI) | payer MEDICARE, SELFPAY ==
[2022-12-06 14:17] VITALS: BMI 31.0
== END ==
PROVIDERS: Family Provider Family Medicine; PCP Family Medicine; Referring Provider Family Medicine; Visit Provider Family Medicine
DX: R00.1 Bradycardia, unspecified (principal)
CPT/HCPCS: 93246

== ENCOUNTER → 2023-08-01 13:19 | Outpatient (CLI) | payer MEDICARE, SELFPAY ==
[2022-12-06 14:17] VITALS: BMI 31.0
--- NOTE | 2023-08-01 13:21 | DI.ECHO.S_ITS ---
[facility]---------+ [facility] +---------+ : : [address] : : : : [id number] : : : : Phone: [phone] Echocardiogram Report + + :Name: KATH VALADEZ Study Date: 08/01/2023 Height: 68 in : :[facility] ReadingLocation: Weight: 211 lb : : Gender: Male BSA: 2.1 m2 : :: 1935 Age: 88 yrs BP: 145/74 mmHg: :Reason For Study: Paroxysmal Atrial Fibrillation : :Ordering Physician: ARA, : :PARVEEN Performed By: Elizabeth Pinon : :Referring: PARVEEN BULLOCK : + + Interpretation Summary Sinus bradycardia with heart rate 35-40 bpm during the exam. Normal LV size and wall thickness. Normal wall motion and LV systolic function. Ejection fraction is 60-65%. Moderate mitral annular calcification with mild associated mitral regurgitation.. Otherwise no significant valvular abnormalities. Severe left atrial enlargement; otherwise normal chamber sizes. Moderate left atrial enlargement Compared to prior study October 23, 2021, sinus bradycardia is new. Previously patient was in A-fib with controlled rate. Right atrial volume index is down from 52 to 16 mL/mA?. Left atrial volume index is down from 93 mL/mA? to 65 mL/mA?. Left atrial enlargement is new. Procedure: A two-dimensional transthoracic echocardiogram with color flow and Doppler was performed. The study quality was technically adequate. Comparison is made with the echocardiogram of 10/23/2021. The patient was in a bradycardic rhythm during the exam. Left Ventricle: The left ventricle is normal in size. The ejection fraction is estimated to be 60-65%. Diastolic parameters suggest a relaxation abnormality of the left ventricle, consistent with probable normal filling pressures. Right Ventricle: The right ventricle is mildly dilated. The right ventricular systolic function is normal. Atria: The left atrium is severely dilated. Right atrial size is normal. There is no Doppler evidence for an interatrial shunt. Mitral Valve: The mitral valve is normal. There is mild mitral annular calcification. There is no mitral valve stenosis. There is mild mitral regurgitation. Aortic Valve: The aortic valve is trileaflet. The aortic valve opens well. There is no aortic valve stenosis. There is trace aortic regurgitation. Tricuspid Valve: The tricuspid valve is normal. There is no tricuspid stenosis. There is trace tricuspid regurgitation. Pulmonic Valve: The pulmonic valve leaflets are thin and pliable; valve motion is normal. There is no pulmonic valvular stenosis. There is trace pulmonic regurgitation. Great Vessels: The aortic root is normal size. The ascending aorta is at the upper limits of normal in size. The pulmonary artery is normal size. The inferior vena cava was not well visualized. Pericardium/ Pleura There is no pericardial effusion. There is a moderate left-sided pleural effusion. MMode/2D Measurements & Calculations LVIDd: 5.6 cm LVOT diam: 2.0 cm LVIDs: 3.9 cm Ao root diam: 3.4 cm FS: 30.4 % asc Aorta Diam: 3.7 cm IVSd: 1.0 cm LVPWd: 1.5 cm LV rivera. diameter/BSA (cm/m^2): 2.7 LV sys. diameter/BSA (cm/m^2): 1.9 LA A2 area: 37.1 cm2 RA long axis: 4.8 cm LA A4 area: 33.7 cm2 RA area: 13.5 cm2 LA length (vol): 7.9 cm RA vol: 32.4 ml LA vol: 135.2 ml RA : 15.5 ml/m2 LA vol index: 64.7 ml/m2 RVD1 (basal): 4.1 cm LVLs ap4: 6.0 cm LVLd ap2: 7.4 cm TAPSE_phl: 2.7 cm LVLs ap2: 6.5 cm Doppler Measurements & Calculations Ao V2 max: 166.5 cm/sec LVOT Max Filiberto: 131.5 cm/sec Ao V2 mean: 103.3 cm/sec LV V1 max P.9 mmHg Ao max P.0 mmHg LV V1 VTI: 34.4 cm Ao mean P.5 mmHg JAMARCUS(I,D): 2.2 cm2 Ao V2 VTI: 48.9 cm JAMARCUS(V,D): 2.5 cm2 sev ratio: 0.70 JAMARCUS indexed to BSA (cm^2/m^2): 1.1 MV E max filiberto: 69.6 cm/sec TR max filiberto: 240.5 cm/sec MV A max filiberto: 41.5 cm/sec TR max P.2 mmHg MV E/A: 1.7 PA V2 max: 109.0 cm/sec Med Peak E' Filiberto: 5.3 cm/sec PA V2 mean: 70.6 cm/sec E/E' med: 13.2 PA mean P.0 mmHg Lat Peak E' Filiberto: 10.5 cm/sec PA pr(Accel): 40.8 mmHg E/E' lat: 6.6 E/e' average: 9.9 MV dec time: 0.26 sec SV(LVOT): 107.9 ml AV VR_phl: 0.79 JAMARCUS(VTI)/BSA_phl: 1.1 Electronically signed by: Pamela Durham M.D. on Reading Physician:08/04/2023 04:08 PM
== END ==
PROVIDERS: Family Provider Family Medicine; PCP Family Medicine; Referring Provider Family Medicine; Visit Provider Family Medicine
DX: I34.81 Nonrheumatic mitral (valve) annulus calcification (principal); I34.0 Nonrheumatic mitral (valve) insufficiency; J90 Pleural effusion, not elsewhere classified; I48.0 Paroxysmal atrial fibrillation
CPT/HCPCS: 93306

== ENCOUNTER → 2023-08-03 12:07 | Outpatient (CLI) | payer MEDICARE, SELFPAY ==
[2022-12-06 14:17] VITALS: BMI 31.0
== END ==
PROVIDERS: Family Provider Family Medicine; PCP Family Medicine; Visit Provider Specialist
DX: C61 Malignant neoplasm of prostate (principal); T83.511A Infection and inflammatory reaction due to indwelling urethral catheter, initial encounter; N39.0 Urinary tract infection, site not specified; N31.2 Flaccid neuropathic bladder, not elsewhere classified; R33.9 Retention of urine, unspecified; Z87.440 Personal history of urinary (tract) infections
CPT/HCPCS: 51798; 81002; 87077; 87086; 87186; 99215

== ENCOUNTER → 2023-08-25 09:50 | Outpatient (CLI) | payer MEDICARE, SELFPAY ==
[2022-12-06 14:17] VITALS: BMI 31.0
[2023-08-25 11:49] LABS: Prostate Specific Antigen 0.823 ng/mL (0.10-4.00)
== END ==
PROVIDERS: Family Provider Family Medicine; PCP Family Medicine; Referring Provider Specialist; Visit Provider Specialist
DX: N40.1 Benign prostatic hyperplasia with lower urinary tract symptoms (principal); N13.8 Other obstructive and reflux uropathy
CPT/HCPCS: 36415; 84153

== ENCOUNTER → 2023-09-01 11:53 | Outpatient (CLI) | payer MEDICARE, SELFPAY ==
[2022-12-06 14:17] VITALS: BMI 31.0
== END ==
PROVIDERS: Family Provider Family Medicine; PCP Family Medicine; Visit Provider Specialist
DX: N39.0 Urinary tract infection, site not specified (principal); R33.9 Retention of urine, unspecified; R33.8 Other retention of urine; N31.2 Flaccid neuropathic bladder, not elsewhere classified; N40.1 Benign prostatic hyperplasia with lower urinary tract symptoms; N13.8 Other obstructive and reflux uropathy; C61 Malignant neoplasm of prostate; Z87.440 Personal history of urinary (tract) infections
CPT/HCPCS: 51798; 87086; 99215

== ENCOUNTER → 2024-02-23 12:22 | Outpatient (CLI) | payer MEDICARE, SELFPAY ==
[2022-12-06 14:17] VITALS: BMI 31.0
[2024-02-23 19:37] LABS: Prostate Specific Antigen 1.04 ng/mL (0.10-4.00)
== END ==
PROVIDERS: Family Provider Family Medicine; PCP Family Medicine; Referring Provider Specialist; Visit Provider Specialist
DX: C61 Malignant neoplasm of prostate (principal)
CPT/HCPCS: 84153

== ENCOUNTER → 2024-03-01 10:43 | Outpatient (CLI) | payer MEDICARE, SELFPAY ==
[2022-12-06 14:17] VITALS: BMI 31.0
== END ==
PROVIDERS: Family Provider Family Medicine; PCP Family Medicine; Visit Provider Specialist
DX: C61 Malignant neoplasm of prostate (principal); N31.2 Flaccid neuropathic bladder, not elsewhere classified; R33.9 Retention of urine, unspecified; Z87.440 Personal history of urinary (tract) infections
CPT/HCPCS: 81002; 87086; 99214

== ENCOUNTER → 2024-08-22 12:07 | Outpatient (CLI) | payer MEDICARE, SELFPAY ==
[2022-12-06 14:17] VITALS: BMI 31.0
[2024-08-24 07:36] LABS: PSA Free % 21.3 % (.); PSA, Total 0.8 ng/mL (0.0-4.0)
== END ==
PROVIDERS: Family Provider Family Medicine; PCP Family Medicine; Referring Provider Urology; Visit Provider Urology
DX: N40.1 Benign prostatic hyperplasia with lower urinary tract symptoms (principal); N13.8 Other obstructive and reflux uropathy
CPT/HCPCS: 36415; 84153; 84154

== ENCOUNTER 2024-11-27 09:00 | Outpatient (RCR) | payer MEDICARE, SELFPAY ==
[2022-12-06 14:17] VITALS: BMI 31.0
--- NOTE | 2024-09-07 15:30 | PT.OIE ---
Current Diagnoses Unilateral primary osteoarthritis, unspecified knee (09/07/24) Stiffness of right knee, not elsewhere classified (09/07/24) Other lack of coordination (09/07/24) Weakness (09/07/24) Past Medical History (Last Reviewed 08/31/24 @ 08:32 by Kamran Anaya DO) Afib Anxiety Arthritis BPH w urinary obs/LUTS Bradycardia Flaccid bladder Hearing deficit History of UTI Malignant neoplasm of prostate Pancreatitis (~1989) Peripheral neuropathy (~2011) Pneumonia Postop check Skin cancer (~2011) Umbilical hernia without obstruction and without gangrene (2017) Urinary retention Urinary retention UTI (urinary tract infection) Past Surgical History (Last Reviewed 08/31/24 @ 08:32 by Kamran Anaya DO) Anesthesia H/O umbilical hernia repair (~08/2019) History of cataract removal with insertion of prosthetic lens (~2011) History of knee replacement (~2009) History of vasectomy S/P TURP (status post transurethral resection of prostate) (12/07/21) S/P TURP (status post transurethral resection of prostate) (06/25/22) Visit Care Team Role Provider Type Isabella Hickman MD Primary Care Provider Physician Specialty: Family Practice Address: [address] [place] [address], [facility] [place], [address] Email: [email or web address] Mechelle Hernandez DO Family Provider Physician Specialty: Family Practice Address: [address] [place] [address], [place] [address], [place], [address] Email: [email or web address] Us DO Attending Provider Non-Staff Referring Provider Specialty: Orthopedics Address: [address] [place] [address], [place], [address] Email: Physical Therapy Initial Evaluation PT-OP-A Visit Information Start: 09/07/24 09:01 Freq: Status: Active Protocol: Document 09/07/24 09:46 NM (Rec: 09/07/24 11:20 NM [id number]) Out-Patient Physical Therapy Visit Information Visit Information Visit Type Initial Evaluation Visit Note KX after 19 visits Visit Start Time 09:47 Visit Stop Time 10:30 Visit Number 1 Evaluation Information Evaluation Date 09/07/24 Precautions Precautions monitor vitals: low heart rate PT-OP-B Current Condition Start: 09/07/24 09:01 Freq: Status: Active Protocol: Document 09/07/24 09:46 NM (Rec: 09/07/24 11:20 NM [id number]) Current Condition History of Current Condition Current Complaints pain, limited mobility, decreased strength, poor balance History of Current Condition Pt presents with R knee pain. He reports limitations with standing for 30 minutes, states his knee locks on him and shoots pain down his leg; when he moves a little bit, then it feels better and he can walk more normally. He reports problems with balance, transfers especially with STS , bending forward. 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 He reports that his R knee has locked on him 3 times recently , when standing; states unable to bend it without hurting. He saw Dr. 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 States all intact, but reports that knee cap off 12/01 to R. 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 Pt has basement stairs with B railing, requires rails to go up. States no knee pain with stairs. Lives in 3 story home, R rail with stairs. Does not use an AD. 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 Reports several stumbles on uneven ground. States worsening global strength but does not do any exercises except for walking. Lives [place], son helps with the heavy stuff. PMH B TKA, high blood pressure (130-135- 140/70), HR in low 40's; declined pacemaker. Pt denies passing out, lightheadedness, but reports dizziness with positional changes. Prior Treatments and Tests Pt reports radiographs with residential lawn specialist of R knee Treatment Goals Patient/Caregiver Goals balance, strength, transfers Current Functional Impairments (Reported) Functional Limitations- ADL's difficulty with putting on socks due to reaching when crossing leg (R harder) Functional Limitations- Mobility/Gait uses hand rails from stairs (R side usually) Functional Limitations- Work/School getting up/down from floor Functional Limitations- Recreation/ dropping objects and picking Hobbies them up (e.g. sitting at desk when performing coin collection) due to low back strain PT-OP-C Subjective Start: 09/07/24 09:01 Freq: Status: Active Protocol: Document 09/07/24 09:46 NM (Rec: 09/07/24 11:20 NM [id number]) OP-PT Subjective Patient Comments Patient Comments pt consents to participate in evaluation Patient Questionnaires Lymphedema Life Impact Score Lymphedema Score 35/80 OP-PT Pain Assessment Location R knee Pain Location Details medial knee Intensity 4 Scale Used Numeric (0 - 10) Description Sharp Description- Other locking Frequency Frequent Pain Aggravating Factors Activity,Exercise,Standing, Stair Climbing Other Pain Alleviating Factors movement PT-OP-D Balance Start: 09/07/24 09:01 Freq: Status: Active Protocol: Document 09/07/24 09:46 NM (Rec: 09/07/24 11:20 NM [id number]) Balance Tests Durham Balance Test Durham Balance Test Score 36/56 PT-OP-E Functional Tests Start: 09/07/24 09:01 Freq: Status: Active Protocol: Document 09/07/24 09:46 NM (Rec: 09/07/24 11:20 NM [id number]) Functional Tests Dynamic Gait Index (DGI) Score 08/21 PT-OP-F Manual Assessment Start: 09/07/24 09:01 Freq: Status: Active Protocol: Document 09/07/24 09:46 NM (Rec: 09/07/24 11:20 NM [id number]) Manual Assessments Soft Tissue Assessment Soft Tissue Mobility Assessment Tenderness over medial knee near pes anserine and femoral condyle/adductors, distal ITB. Tightness of hip flexors/quad , calves Joint Mobility Assessment Joint Mobility Assessment Limited R knee AROM/PROM. Soft tissue approximation end feel , not empty. Minimal limitations in patellar mobility PT-OP-G Mobility & Gait Start: 09/07/24 09:01 Freq: Status: Active Protocol: Document 09/07/24 09:46 NM (Rec: 09/07/24 11:20 NM [id number]) OP Mobility Evaluation Bed Mobility Supine to and from Sit CGA with cueing Transfers Sit to Stand with B hand support, using BLE to stabilize, initial standing balance unsteady, decreased hip hinge OP Gait Assessment Gait Gait Assistance Required: Standby Assistance Distance (Feet) 150 Comments Gait Comments Less L foot clearance than R, but still limited B. Mild forward trunk lean especially with R stance. When pt distracted, has tendency to stumble. Stair Climbing Evaluation Evaluation Level of Assist On Stairs Contact Guard Assistance Devices Stair Climbing Assistive Devices Right Railing Technique/Endurance Stair Climbing Direction Ascend and Descend Stair Climbing Technique Step Over Step Number of Steps Climbed 4 Stair Climbing Set # Repetitions (reps) 1 Comments Stair Climbing Comments Uses rail to assist with elevation, difficulty controlling descent- CGA PT-OP-J Posture/Palpation/Skin Start: 09/07/24 09:01 Freq: Status: Active Protocol: Document 09/07/24 09:46 NM (Rec: 09/07/24 11:20 NM [id number]) Posture Evaluation Position Standing Head/C-Spine Posture Forward Head T-Spine Posture Increased Kyphosis Shoulder Posture (L) Rounded,(R) Rounded Arm Posture (L) Internally Rotated,(R) Internally Rotated Hip Posture (L) Externally Rotated,(R) Externally Rotated Knee Posture (L) Genu Valgus,(R) Genu Valgus Palpation Assessment Location R knee Palpation Details Tenderness over medial knee near femoral condyle, pes anserine and distal adductors; superior patellar near quad tendon and distal patella near patellar tendon Global hip tightness, quad tightness No tenderness but slight bulge near lateral posterior knee PT-OP-K Range of Motion Start: 09/07/24 09:01 Freq: Status: Active Protocol: Document 09/07/24 09:46 NM (Rec: 09/07/24 11:20 NM [id number]) Knee Goniometric Range of Motion Knee Right Flexion Active (degrees) 110 Extension Active (degrees) 0 Left Flexion Active (degrees) 115 Extension Active (degrees) 2 PT-OP-M Strength Start: 09/07/24 09:01 Freq: Status: Active Protocol: Document 09/07/24 09:46 NM (Rec: 09/07/24 11:20 NM [id number]) Hip Strength Hip Manual Muscle Testing Right Flexion (L2) 4- Good- Extension (S1) 4- Good- Abduction 4- Good- Adduction 4- Good- Left Flexion (L2) 4 Good Extension (S1) 4- Good- Abduction 4- Good- Adduction 4- Good- Knee Strength Knee Manual Muscle Testing Right Flexion (S2) 4- Good- Extension (L3) 4- Good- Comments No pain with resisted motion Left Flexion (S2) 4- Good- Extension (L3) 4 Good Ankle/Foot Strength Ankle and Foot Manual Muscle Testing Right Dorsiflexion (L4) 4- Good- Plantarflexion (S1) 4- Good- Left Dorsiflexion (L4) 4- Good- Plantarflexion (S1) 4- Good- PT-OP-Q Treatments Start: 09/07/24 09:01 Freq: Status: Active Protocol: Document 09/07/24 09:46 NM (Rec: 09/07/24 11:20 NM [id number]) Therapeutic Activity Therapeutic Activity Sit to stand Name 20 plinth Comments No hand out issued. Verbal and visual cueing with hip hinge, scooting to EOB, foot positioning, forward reaching for anterior weight shift, nose over toes and strong push up through legs. Uses BLE to stabilize initially in standing and with transitioning to sit. Uncontrolled descent. Cueing for continued anterior weight shift with descent Self-Care/Home Management Treatment Education Patient Education Safety Other Education Vitals, R arm seated at rest: 122/64 mmHg, 44 bpm, 95% SpO2. PT educated pt on safe vitals parameters for exercise in preparation for future sessions PT-OP-T Assessment and Plan Start: 09/07/24 09:01 Freq: Status: Active Protocol: Document 09/07/24 09:46 NM (Rec: 09/07/24 11:20 NM [id number]) Physical Therapy Assessment Rehab Potential Rehabilitation Potential Good Evaluation Complexity Number of Personal Factors/Comorbidities 3 or More Number of Body Systems Impaired 1-2 Clinical Presentation at Evaluation Stable Impairments Impairments Activity Tolerance,Balance, Functional Activities, Functional Mobility,Gait,Pain, Posture,ROM,Sensation,Soft Tissue Mobility,Strength, Transfers Other Concerns Age Related Concerns Pt's resting heart rate in 40' s. He has been evaluated for a pacemaker several times but has declined getting one at this point. Last follow up with cardioloist 2 months ago, planning to follow up in 6 months from last date. Barriers to Rehabilitation PMH: arthritis (hands), dizziness, B TKA, memory loss, neuropathy Goals Five Impairment not using AD Correction Goal (LTG) If appropriate, pt will be evaluated for and recommended an AD in order to decrease fall risk, improve mobility and safety during gait LTG Duration 12 weeks Four Impairment not performing HEP or any exercise Short Term Goal (STG) Pt will report compliance with HEP at least 2x/wk in order to maximize progression with PT and demonstrate carryover between sessions STG Duration 6 weeks Correction Goal (LTG) Pt will improve global B hip and knee strength to at least 4/5 in order to demonstrate increased strength for gait, balance, transfers, and ADLs LTG Duration 12 weeks Three Impairment reports fear of falling on stairs, 1 rail assist, poor control with descent Sql Server Developer Goal (LTG) Pt will be able to perform at least 12 stairs using 1 or fewer rails while carrying an object without loss of balance or uncontrolled descent in order to improve safety during household mobility LTG Duration 12 weeks Two Impairment BLE weakness, limited STS transfers Short Term Goal (STG) Pt will be able to perform at least 5 STS from standard chair without UE assistance and controlled descent in order to demonstrate increased BLE strength for transfers and safety STG Duration 6 weeks Correction Goal (LTG) Pt will be able to perform at least 10 STS without compensation from standard chair with or without hand support and/or 5x STS test in <18 seconds in order to demonstrate increased BLE strength and improvements in initial standing balance during transfers LTG Duration 12 weeks One Impairment Durham 36/56, DGI 9/24- indicate increased risk of falls Correction Goal (LTG) Pt will improve Durham balance score >44/56 (1 MCID) in order to demonstrate improved standing balance and weight shifting during reaching or ADLs LTG Duration 12 weeks Assessment Summary Assessment Pt is a 89 y.o. male presenting with R knee pain consistent with dx in addition to impairments in gait, balance, ROM, strength, and ability to perform ADLs. Pt has had a R TKA 20 years ago and has been recently assessed by an orthopedic surgeon; planning to proceed with PT at this time and no current plans for surgery. Pt has mild limitations in R knee ROM and strength compared to LLE. He has pain only with knee flexion AROM, but not with resisted motions. Pt demonstrates difficulty with sit to stand transfers, requiring UE assistance for control and balance. His Durham balance score is 36/56 and his DGI is 9/24, indicating increased fall risk in both static and dynamic situations. Pt's resting BP is 122/69 mmHg but his heart rate is 44 bpm, which may impact progression with PT as pt will need to be assessed for safety during exercise. Pt's next follow up with cardiology is in several months. PT educated pt on plan of care and exam findings. Pt would benefit from skilled PT for progressive strengthening, flexibility, gait and balance training in order to improve pain management, decrease fall risk, and to promote safety with functional mobility to maximize independence. Physical Therapy Plan Frequency and Duration Frequency of Treatment 2x/Week Duration of treatment (weeks) 12 Plan of Care Start Date 09/07/24 Plan of Care End Date 11/30/24 Therapeutic Interventions Therapeutic Interventions Balance Training,Gait Training ,Home Exercise Program,Joint Mobilizations,Manual Therapy, Neuromuscular Re-education, Orthotic/Prosthetic Management ,Patient/Caregiver Education, Self-Care/Home Management, Sensory Integration,Soft Tissue Mobilization,Taping, Therapeutic Activities, Therapeutic Exercises Modalities Cold Pack/Ice Massage,Hot Packs Next Visit Focus/Plan Next Note Type Treatment Note Next Visit Plan monitor vitals STS training Initiate HEP with BLE and core strengthening
--- NOTE | 2024-09-10 12:19 | PT.OTN ---
Current Diagnoses Unilateral primary osteoarthritis, unspecified knee (09/10/24) Stiffness of right knee, not elsewhere classified (09/10/24) Other lack of coordination (09/10/24) Weakness (09/10/24) Physical Therapy Treatment Note PT-OP-A Visit Information Start: 09/07/24 09:01 Freq: Status: Active Protocol: Document 09/10/24 11:35 NM (Rec: 09/10/24 12:19 NM [id number]) Out-Patient Physical Therapy Visit Information Visit Information Visit Type Treatment Note Visit Note KX after 19 visits seated BP start of session: 138/73 mmHg, 50 bpm, 95 SPO2 Visit Start Time 11:35 Visit Stop Time 12:15 Visit Number 2 Evaluation Information Evaluation Date 09/07/24 Precautions Precautions monitor vitals: low heart rate PT-OP-B Current Condition Start: 09/07/24 09:01 Freq: Status: Active Protocol: Document 09/07/24 09:46 NM (Rec: 09/07/24 11:20 NM [id number]) Current Condition History of Current Condition Current Complaints pain, limited mobility, decreased strength, poor balance History of Current Condition Pt presents with R knee pain. He reports limitations with standing for 30 minutes, states his knee locks on him and shoots pain down his leg; when he moves a little bit, then it feels better and he can walk more normally. He reports problems with balance, transfers especially with STS , bending forward. 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 He reports that his R knee has locked on him 3 times recently , when standing; states unable to bend it without hurting. He saw Dr. 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 States all intact, but reports that knee cap off 12/01 to R. 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 Pt has basement stairs with B railing, requires rails to go up. States no knee pain with stairs. Lives in 3 story home, R rail with stairs. Does not use an AD. 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 Reports several stumbles on uneven ground. States worsening global strength but does not do any exercises except for walking. [place], son helps with the heavy stuff. PMH B TKA, high blood pressure (130-135- 140/70), HR in low 40's; declined pacemaker. Pt denies passing out, lightheadedness, but reports dizziness with positional changes. Prior Treatments and Tests Pt reports radiographs with outreach specialist of R knee Treatment Goals Patient/Caregiver Goals balance, strength, transfers Current Functional Impairments (Reported) Functional Limitations- ADL's difficulty with putting on socks due to reaching when crossing leg (R harder) Functional Limitations- Mobility/Gait uses hand rails from stairs (R side usually) Functional Limitations- Work/School getting up/down from floor Functional Limitations- Recreation/ dropping objects and picking Hobbies them up (e.g. sitting at desk when performing coin collection) due to low back strain PT-OP-C Subjective Start: 09/07/24 09:01 Freq: Status: Active Protocol: Document 09/10/24 11:35 NM (Rec: 09/10/24 12:19 NM [id number]) OP-PT Subjective Patient Comments Patient Comments Pt reports tightness in legs following session. He reports that his knees hurt after doing his puzzles yesterday when standing over puzzle table. PT-OP-D Balance Start: 09/07/24 09:01 Freq: Status: Active Protocol: Document 09/07/24 09:46 NM (Rec: 09/07/24 11:20 NM [id number]) Balance Tests Durham Balance Test Durham Balance Test Score 36/56 PT-OP-E Functional Tests Start: 09/07/24 09:01 Freq: Status: Active Protocol: Document 09/07/24 09:46 NM (Rec: 09/07/24 11:20 NM [id number]) Functional Tests Dynamic Gait Index (DGI) Score 08/21 PT-OP-F Manual Assessment Start: 09/07/24 09:01 Freq: Status: Active Protocol: Document 09/07/24 09:46 NM (Rec: 09/07/24 11:20 NM [id number]) Manual Assessments Soft Tissue Assessment Soft Tissue Mobility Assessment Tenderness over medial knee near pes anserine and femoral condyle/adductors, distal ITB. Tightness of hip flexors/quad , calves Joint Mobility Assessment Joint Mobility Assessment Limited R knee AROM/PROM. Soft tissue approximation end feel , not empty. Minimal limitations in patellar mobility PT-OP-G Mobility & Gait Start: 09/07/24 09:01 Freq: Status: Active Protocol: Document 09/07/24 09:46 NM (Rec: 09/07/24 11:20 NM [id number]) OP Mobility Evaluation Bed Mobility Supine to and from Sit CGA with cueing Transfers Sit to Stand with B hand support, using BLE to stabilize, initial standing balance unsteady, decreased hip hinge OP Gait Assessment Gait Gait Assistance Required: Standby Assistance Distance (Feet) 150 Comments Gait Comments Less L foot clearance than R, but still limited B. Mild forward trunk lean especially with R stance. When pt distracted, has tendency to stumble. Stair Climbing Evaluation Evaluation Level of Assist On Stairs Contact Guard Assistance Devices Stair Climbing Assistive Devices Right Railing Technique/Endurance Stair Climbing Direction Ascend and Descend Stair Climbing Technique Step Over Step Number of Steps Climbed 4 Stair Climbing Set # Repetitions (reps) 1 Comments Stair Climbing Comments Uses rail to assist with elevation, difficulty controlling descent- CGA PT-OP-J Posture/Palpation/Skin Start: 09/07/24 09:01 Freq: Status: Active Protocol: Document 09/07/24 09:46 NM (Rec: 09/07/24 11:20 NM [id number]) Posture Evaluation Position Standing Head/C-Spine Posture Forward Head T-Spine Posture Increased Kyphosis Shoulder Posture (L) Rounded,(R) Rounded Arm Posture (L) Internally Rotated,(R) Internally Rotated Hip Posture (L) Externally Rotated,(R) Externally Rotated Knee Posture (L) Genu Valgus,(R) Genu Valgus Palpation Assessment Location R knee Palpation Details Tenderness over medial knee near femoral condyle, pes anserine and distal adductors; superior patellar near quad tendon and distal patella near patellar tendon Global hip tightness, quad tightness No tenderness but slight bulge near lateral posterior knee PT-OP-K Range of Motion Start: 09/07/24 09:01 Freq: Status: Active Protocol: Document 09/07/24 09:46 NM (Rec: 09/07/24 11:20 NM [id number]) Knee Goniometric Range of Motion Knee Right Flexion Active (degrees) 110 Extension Active (degrees) 0 Left Flexion Active (degrees) 115 Extension Active (degrees) 2 PT-OP-M Strength Start: 09/07/24 09:01 Freq: Status: Active Protocol: Document 09/07/24 09:46 NM (Rec: 09/07/24 11:20 NM [id number]) Hip Strength Hip Manual Muscle Testing Right Flexion (L2) 4- Good- Extension (S1) 4- Good- Abduction 4- Good- Adduction 4- Good- Left Flexion (L2) 4 Good Extension (S1) 4- Good- Abduction 4- Good- Adduction 4- Good- Knee Strength Knee Manual Muscle Testing Right Flexion (S2) 4- Good- Extension (L3) 4- Good- Comments No pain with resisted motion Left Flexion (S2) 4- Good- Extension (L3) 4 Good Ankle/Foot Strength Ankle and Foot Manual Muscle Testing Right Dorsiflexion (L4) 4- Good- Plantarflexion (S1) 4- Good- Left Dorsiflexion (L4) 4- Good- Plantarflexion (S1) 4- Good- PT-OP-Q Treatments Start: 09/07/24 09:01 Freq: Status: Active Protocol: Document 09/10/24 11:35 NM (Rec: 09/10/24 12:19 NM [id number]) Therapeutic Exercises Supine Exercises hamstring stretch Supine Exercise Name 1. w/ knee flex/ext (strap at knee), 2. with strap at foot for HS/calf Side bilateral Equipment Used strap at foot Reps/Minutes 1. 60 ea, 2. 60 ea Comments good feedback for stretch; cued for form figure 4 stretch Supine Exercise Name 45 deg hip flex Side bilateral Reps/Minutes 60 Comments reports good stretch on R ADD/ glutes Sitting Exercises Hip abduction Sitting Exercise Name clams Side bilateral Resistance level 2 band at thighs Reps/Minutes 15 ea Comments reports stretch in adductors LAQ Side right Resistance AROM > level 1 band Reps/Minutes 10x3 AROM, 10x1 w/ level 1 band Comments cued no trunk ext; better form w/ resistance Other Exercises self soft tissue mobilization Other Exercise Name adductors, quad, HS Side right Equipment Used rolling pin Reps/Minutes 5 minutes Manual Therapy Treatment Consent Patient gave verbal consent for manual Yes treatment Soft Tissue Mobilization R knee/thigh Body Location adductors, TFL, quad, HS, pes anserine Mobilization Type Rolling,Strumming,Sustained Pressure Intensity/Depth Moderate Body Position Hooklying Comments Moderate soft tissue tightness of adductors and hamstrings. Performed moderate distal <> proximal rolling of adductors, tenderness noted along proximal-mid adductors and at pes anserine. Educated on use of tri-career technical counselor for adductors and rolling pin at home for HEP PT-OP-T Assessment and Plan Start: 09/07/24 09:01 Freq: Status: Active Protocol: Document 09/10/24 11:35 NM (Rec: 09/10/24 12:19 NM [id number]) Physical Therapy Assessment Goals Five Impairment not using AD Penitentiary Goal (LTG) If appropriate, pt will be evaluated for and recommended an AD in order to decrease fall risk, improve mobility and safety during gait LTG Duration 12 weeks Four Impairment not performing HEP or any exercise Short Term Goal (STG) Pt will report compliance with HEP at least 2x/wk in order to maximize progression with PT and demonstrate carryover between sessions STG Duration 6 weeks Penitentiary Goal (LTG) Pt will improve global B hip and knee strength to at least 4/5 in order to demonstrate increased strength for gait, balance, transfers, and ADLs LTG Duration 12 weeks Three Impairment reports fear of falling on stairs, 1 rail assist, poor control with descent Vacuum Frame Operator Goal (LTG) Pt will be able to perform at least 12 stairs using 1 or fewer rails while carrying an object without loss of balance or uncontrolled descent in order to improve safety during household mobility LTG Duration 12 weeks Two Impairment BLE weakness, limited STS transfers Short Term Goal (STG) Pt will be able to perform at least 5 STS from standard chair without UE assistance and controlled descent in order to demonstrate increased BLE strength for transfers and safety STG Duration 6 weeks Penitentiary Goal (LTG) Pt will be able to perform at least 10 STS without compensation from standard chair with or without hand support and/or 5x STS test in <18 seconds in order to demonstrate increased BLE strength and improvements in initial standing balance during transfers LTG Duration 12 weeks One Impairment Durham 36/56, DGI 08/21- indicate increased risk of falls Vacuum Frame Operator Goal (LTG) Pt will improve Durham balance score >44/56 (1 MCID) in order to demonstrate improved standing balance and weight shifting during reaching or ADLs LTG Duration 12 weeks Assessment Summary Assessment Pt tolerated session well, reports less tightness and tenderness in R knee at end of session. Demos increased tightness of R adductors and hamstring, tenderness only at pes anserine. Reduced with soft tissue mobilization but still demos restrictions. PT educated pt on use of rolling pin and self soft tissue mobilization at home. Demos good understanding for self mobilization at home. Recommended performing after shower due to muscle relaxation. Good feedback to hip/knee stretches, cueing for correct execution only. Initiated LAQ and hip abduction in sitting. Pt cued for form and to limit trunk compensations. Fatigues quickly so did not increase resistance or reps. Pt declines scheduling sooner appointments despite education that pt can see WEIGHT GUESSER as well rather than waiting for later scheduled appt. Pt would benefit from skilled PT for progressive RLE strengthening and flexibility in order to improve functional mobility and symptom management. Physical Therapy Plan Frequency and Duration Frequency of Treatment 2x/Week Duration of treatment (weeks) 12 Plan of Care Start Date 09/07/24 Plan of Care End Date 11/30/24 Therapeutic Interventions Therapeutic Interventions Balance Training,Gait Training ,Home Exercise Program,Joint Mobilizations,Manual Therapy, Neuromuscular Re-education, Orthotic/Prosthetic Management ,Patient/Caregiver Education, Self-Care/Home Management, Sensory Integration,Soft Tissue Mobilization,Taping, Therapeutic Activities, Therapeutic Exercises Modalities Cold Pack/Ice Massage,Hot Packs Next Visit Focus/Plan Next Note Type Treatment Note Next Visit Plan monitor vitals Mainly seated and supine exercises for now. Assess feedback to stretching and soft tissue mobilization. Cont with quad/ HS/glute strengthening. LAQ, HSC, hip abduction, SLR,hip ER/IR in sitting. STS training
--- NOTE | 2024-09-18 10:59 | PT.OTN ---
Current Diagnoses Unilateral primary osteoarthritis, unspecified knee (09/18/24) Stiffness of right knee, not elsewhere classified (09/18/24) Other lack of coordination (09/18/24) Weakness (09/18/24) Physical Therapy Treatment Note PT-OP-A Visit Information Start: 09/07/24 09:01 Freq: Status: Active Protocol: Document 09/18/24 09:03 NM (Rec: 09/18/24 09:48 NM [id number]) Out-Patient Physical Therapy Visit Information Visit Information Visit Type Treatment Note Visit Note KX after 19 visits seated BP start of session: 123/70 mmHg, 54 bpm, 96 SPO2 Visit Start Time 09:03 Visit Stop Time 09:45 Visit Number 3 Evaluation Information Evaluation Date 09/07/24 Precautions Precautions monitor vitals: low heart rate PT-OP-B Current Condition Start: 09/07/24 09:01 Freq: Status: Active Protocol: Document 09/07/24 09:46 NM (Rec: 09/07/24 11:20 NM [id number]) Current Condition History of Current Condition Current Complaints pain, limited mobility, decreased strength, poor balance History of Current Condition Pt presents with R knee pain. He reports limitations with standing for 30 minutes, states his knee locks on him and shoots pain down his leg; when he moves a little bit, then it feels better and he can walk more normally. He reports problems with balance, transfers especially with STS , bending forward. 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 He reports that his R knee has locked on him 3 times recently , when standing; states unable to bend it without hurting. He saw Dr. 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 States all intact, but reports that knee cap off 12/01 to R. 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 Pt has basement stairs with B railing, requires rails to go up. States no knee pain with stairs. Lives in 3 story home, R rail with stairs. Does not use an AD. 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 Reports several stumbles on uneven ground. States worsening global strength but does not do any exercises except for walking. [place], son helps with the heavy stuff. PMH B TKA, high blood pressure (130-135- 140/70), HR in low 40's; declined pacemaker. Pt denies passing out, lightheadedness, but reports dizziness with positional changes. Prior Treatments and Tests Pt reports radiographs with computer security specialist of R knee Treatment Goals Patient/Caregiver Goals balance, strength, transfers Current Functional Impairments (Reported) Functional Limitations- ADL's difficulty with putting on socks due to reaching when crossing leg (R harder) Functional Limitations- Mobility/Gait uses hand rails from stairs (R side usually) Functional Limitations- Work/School getting up/down from floor Functional Limitations- Recreation/ dropping objects and picking Hobbies them up (e.g. 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 Has been using puzzle table (for standing) but states that his R knee acts up when standing at table . Reports all else just the same. Reports wobbly with when turning. PT-OP-D Balance Start: 09/07/24 09:01 Freq: Status: Active Protocol: Document 09/07/24 09:46 NM (Rec: 09/07/24 11:20 NM [id number]) Balance Tests Durham Balance Test Durham Balance Test Score 36/56 PT-OP-E Functional Tests Start: 09/07/24 09:01 Freq: Status: Active Protocol: Document 09/07/24 09:46 NM (Rec: 09/07/24 11:20 NM [id number]) Functional Tests Dynamic Gait Index (DGI) Score 08/21 PT-OP-F Manual Assessment Start: 09/07/24 09:01 Freq: Status: Active Protocol: Document 09/07/24 09:46 NM (Rec: 09/07/24 11:20 NM [id number]) Manual Assessments Soft Tissue Assessment Soft Tissue Mobility Assessment Tenderness over medial knee near pes anserine and femoral condyle/adductors, distal ITB. Tightness of hip flexors/quad , calves Joint Mobility Assessment Joint Mobility Assessment Limited R knee AROM/PROM. Soft tissue approximation end feel , not empty. Minimal limitations in patellar mobility PT-OP-G Mobility & Gait Start: 09/07/24 09:01 Freq: Status: Active Protocol: Document 09/07/24 09:46 NM (Rec: 09/07/24 11:20 NM [id number]) OP Mobility Evaluation Bed Mobility Supine to and from Sit CGA with cueing Transfers Sit to Stand with B hand support, using BLE to stabilize, initial standing balance unsteady, decreased hip hinge OP Gait Assessment Gait Gait Assistance Required: Standby Assistance Distance (Feet) 150 Comments Gait Comments Less L foot clearance than R, but still limited B. Mild forward trunk lean especially with R stance. When pt distracted, has tendency to stumble. Stair Climbing Evaluation Evaluation Level of Assist On Stairs Contact Guard Assistance Devices Stair Climbing Assistive Devices Right Railing Technique/Endurance Stair Climbing Direction Ascend and Descend Stair Climbing Technique Step Over Step Number of Steps Climbed 4 Stair Climbing Set # Repetitions (reps) 1 Comments Stair Climbing Comments Uses rail to assist with elevation, difficulty controlling descent- CGA PT-OP-J Posture/Palpation/Skin Start: 09/07/24 09:01 Freq: Status: Active Protocol: Document 09/07/24 09:46 NM (Rec: 09/07/24 11:20 NM [id number]) Posture Evaluation Position Standing Head/C-Spine Posture Forward Head T-Spine Posture Increased Kyphosis Shoulder Posture (L) Rounded,(R) Rounded Arm Posture (L) Internally Rotated,(R) Internally Rotated Hip Posture (L) Externally Rotated,(R) Externally Rotated Knee Posture (L) Genu Valgus,(R) Genu Valgus Palpation Assessment Location R knee Palpation Details Tenderness over medial knee near femoral condyle, pes anserine and distal adductors; superior patellar near quad tendon and distal patella near patellar tendon Global hip tightness, quad tightness No tenderness but slight bulge near lateral posterior knee PT-OP-K Range of Motion Start: 09/07/24 09:01 Freq: Status: Active Protocol: Document 09/07/24 09:46 NM (Rec: 09/07/24 11:20 NM [id number]) Knee Goniometric Range of Motion Knee Right Flexion Active (degrees) 110 Extension Active (degrees) 0 Left Flexion Active (degrees) 115 Extension Active (degrees) 2 PT-OP-M Strength Start: 09/07/24 09:01 Freq: Status: Active Protocol: Document 09/07/24 09:46 NM (Rec: 09/07/24 11:20 NM [id number]) Hip Strength Hip Manual Muscle Testing Right Flexion (L2) 4- Good- Extension (S1) 4- Good- Abduction 4- Good- Adduction 4- Good- Left Flexion (L2) 4 Good Extension (S1) 4- Good- Abduction 4- Good- Adduction 4- Good- Knee Strength Knee Manual Muscle Testing Right Flexion (S2) 4- Good- Extension (L3) 4- Good- Comments No pain with resisted motion Left Flexion (S2) 4- Good- Extension (L3) 4 Good Ankle/Foot Strength Ankle and Foot Manual Muscle Testing Right Dorsiflexion (L4) 4- Good- Plantarflexion (S1) 4- Good- Left Dorsiflexion (L4) 4- Good- Plantarflexion (S1) 4- Good- PT-OP-Q Treatments Start: 09/07/24 09:01 Freq: Status: Active Protocol: Document 09/18/24 09:03 NM (Rec: 09/18/24 09:48 NM [id number]) Therapeutic Exercises Sitting Exercises ankle inversion/eversion Sitting Exercise Name 1. inversion, 2. eversion Side bilateral Resistance level 1 band Equipment Used PT holding band, then pt holding band Reps/Minutes 20 ea Comments cued to limit hip motion; self tactile cue at knee LAQ Sitting Exercise Name HEP review Side bilateral Resistance level 1 band Reps/Minutes 10x3 AROM, 10x1 w/ level 1 band Comments cued no trunk ext; better form w/ resistance Standing Exercises heel raises Standing Exercise Name HEP Side bilateral Resistance AROM Equipment Used hand support on ballet bar Reps/Minutes 10 Comments cued no fwd translation, neutral foot position, small ROM side steps Standing Exercise Name HEP Side bilateral Resistance level 1 band just under knees Equipment Used no hand support Reps/Minutes 2x15 ft ea direction Comments cued neutral foot placement, foot clearance; improved w/ reps Therapeutic Activity Therapeutic Activity Sit to stand Name 22 plinth Reps/Minutes 15 minutes Comments Cueing for set up with foot position, scoot up to EOB, level 2 band to limit knee valgus, forward reach with hands to target. Demos instability with initial stance, retropulsion. Changed to 3-count wt shift with pt standing on 3rd shift to facilitate ant shift and nose over toes. Improved initial standing balance. Then progressed to 1 count shift, able to perform with prn CGA PT-OP-T Assessment and Plan Start: 09/07/24 09:01 Freq: Status: Active Protocol: Document 09/18/24 09:03 NM (Rec: 09/18/24 09:48 NM [id number]) Physical Therapy Assessment Goals Five Impairment not using AD Shelter Goal (LTG) If appropriate, pt will be evaluated for and recommended an AD in order to decrease fall risk, improve mobility and safety during gait LTG Duration 12 weeks Four Impairment not performing HEP or any exercise Short Term Goal (STG) Pt will report compliance with HEP at least 2x/wk in order to maximize progression with PT and demonstrate carryover between sessions STG Duration 6 weeks Shelter Goal (LTG) Pt will improve global B hip and knee strength to at least 4/5 in order to demonstrate increased strength for gait, balance, transfers, and ADLs LTG Duration 12 weeks Three Impairment reports fear of falling on stairs, 1 rail assist, poor control with descent Shelter Goal (LTG) Pt will be able to perform at least 12 stairs using 1 or fewer rails while carrying an object without loss of balance or uncontrolled descent in order to improve safety during household mobility LTG Duration 12 weeks Two Impairment BLE weakness, limited STS transfers Short Term Goal (STG) Pt will be able to perform at least 5 STS from standard chair without UE assistance and controlled descent in order to demonstrate increased BLE strength for transfers and safety STG Duration 6 weeks Shelter Goal (LTG) Pt will be able to perform at least 10 STS without compensation from standard chair with or without hand support and/or 5x STS test in <18 seconds in order to demonstrate increased BLE strength and improvements in initial standing balance during transfers LTG Duration 12 weeks One Impairment Durham 36/56, DGI 08/21- indicate increased risk of falls Shelter Goal (LTG) Pt will improve Durham balance score >44/56 (1 MCID) in order to demonstrate improved standing balance and weight shifting during reaching or ADLs LTG Duration 12 weeks Assessment Summary Assessment Good feedback to progressive strengthening in seated and standing. Initiated resisted lateral stepping and heel raises to promote proximal and distal stability during gait. Pt demonstrates weakness with both exercises, and requires cues for correct execution to limit compensations at hips. Trialed seated ankle exercises to also promote increased stability at feet during ambulation. Emphasis on STS transfer training and BLE strengthening. Cueing extensively for foot positioning and weight shifting. At end of session, pt able to stand on first attempt without assistance from UE or PT and without sway with initial standing balance ; however, often requires >1 attempt to stand without cueing. Pt would benefit from skilled PT for progressive strengthening, gait, and balance training in order to decrease fall risk and improve ability to participate in ADLs/IADLs and transfers with more independence and less knee pain. Physical Therapy Plan Frequency and Duration Frequency of Treatment 2x/Week Duration of treatment (weeks) 12 Plan of Care Start Date 09/07/24 Plan of Care End Date 11/30/24 Therapeutic Interventions Therapeutic Interventions Balance Training,Gait Training ,Home Exercise Program,Joint Mobilizations,Manual Therapy, Neuromuscular Re-education, Orthotic/Prosthetic Management ,Patient/Caregiver Education, Self-Care/Home Management, Sensory Integration,Soft Tissue Mobilization,Taping, Therapeutic Activities, Therapeutic Exercises Modalities Cold Pack/Ice Massage,Hot Packs Next Visit Focus/Plan Next Note Type Treatment Note Next Visit Plan monitor vitals Review ankle strengthening in seated and standing, STS training (if able decrease surface ht). Trial step up vs leg press. Cont with quad/ HS/ glute strengthening in seated and standing. LAQ, HSC, hip abduction, SLR, hip ER/IR in sitting. Balance training Manual: STM and joint mobilizations to R knees/ adductors
--- NOTE | 2024-09-21 10:44 | PT.OTN ---
Current Diagnoses Unilateral primary osteoarthritis, unspecified knee (09/21/24) Stiffness of right knee, not elsewhere classified (09/21/24) Other lack of coordination (09/21/24) Weakness (09/21/24) Physical Therapy Treatment Note PT-OP-A Visit Information Start: 09/07/24 09:01 Freq: Status: Active Protocol: Document 09/21/24 07:19 NM (Rec: 09/21/24 07:19 NM [id number]) Out-Patient Physical Therapy Visit Information Visit Information Visit Type Treatment Note Visit Note KX after 19 visits seated BP start of session: L arm 139/66 mmHg, 48 bpm, 95 SPO2 Visit Start Time 09:02 Visit Stop Time 09:42 Visit Number 4 Evaluation Information Evaluation Date 09/07/24 Precautions Precautions monitor vitals: low heart rate PT-OP-B Current Condition Start: 09/07/24 09:01 Freq: Status: Active Protocol: Document 09/07/24 09:46 NM (Rec: 09/07/24 11:20 NM [id number]) Current Condition History of Current Condition Current Complaints pain, limited mobility, decreased strength, poor balance History of Current Condition Pt presents with R knee pain. He reports limitations with standing for 30 minutes, states his knee locks on him and shoots pain down his leg; when he moves a little bit, then it feels better and he can walk more normally. He reports problems with balance, transfers especially with STS , bending forward. 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 He reports that his R knee has locked on him 3 times recently , when standing; states unable to bend it without hurting. He saw Dr. 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 States all intact, but reports that knee cap off 12/01 to R. 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 Pt has basement stairs with B railing, requires rails to go up. States no knee pain with stairs. Lives in 3 story home, R rail with stairs. Does not use an AD. 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 Reports several stumbles on uneven ground. States worsening global strength but does not do any exercises except for walking. [place], son helps with the heavy stuff. PMH B TKA, high blood pressure (130-135- 140/70), HR in low 40's; declined pacemaker. Pt denies passing out, lightheadedness, but reports dizziness with positional changes. Prior Treatments and Tests Pt reports radiographs with water resource engineering specialist of R knee Treatment Goals Patient/Caregiver Goals balance, strength, transfers Current Functional Impairments (Reported) Functional Limitations- ADL's difficulty with putting on socks due to reaching when crossing leg (R harder) Functional Limitations- Mobility/Gait uses hand rails from stairs (R side usually) Functional Limitations- Work/School getting up/down from floor Functional Limitations- Recreation/ dropping objects and picking Hobbies them up (e.g. sitting at desk when performing coin collection) due to low back strain PT-OP-C Subjective Start: 09/07/24 09:01 Freq: Status: Active Protocol: Document 09/21/24 07:19 NM (Rec: 09/21/24 07:19 NM [id number]) OP-PT Subjective Patient Comments Patient Comments Pt reports that he does not have a lot of room in house to do the side steps. He reports R knee 3/10, reports better than previously (states he has less sensation of R knee feeling like it will lock up ). PT-OP-D Balance Start: 09/07/24 09:01 Freq: Status: Active Protocol: Document 09/07/24 09:46 NM (Rec: 09/07/24 11:20 NM [id number]) Balance Tests Durham Balance Test Durham Balance Test Score 36/56 PT-OP-E Functional Tests Start: 09/07/24 09:01 Freq: Status: Active Protocol: Document 09/07/24 09:46 NM (Rec: 09/07/24 11:20 NM [id number]) Functional Tests Dynamic Gait Index (DGI) Score 08/21 PT-OP-F Manual Assessment Start: 09/07/24 09:01 Freq: Status: Active Protocol: Document 09/07/24 09:46 NM (Rec: 09/07/24 11:20 NM [id number]) Manual Assessments Soft Tissue Assessment Soft Tissue Mobility Assessment Tenderness over medial knee near pes anserine and femoral condyle/adductors, distal ITB. Tightness of hip flexors/quad , calves Joint Mobility Assessment Joint Mobility Assessment Limited R knee AROM/PROM. Soft tissue approximation end feel , not empty. Minimal limitations in patellar mobility PT-OP-G Mobility & Gait Start: 09/07/24 09:01 Freq: Status: Active Protocol: Document 09/07/24 09:46 NM (Rec: 09/07/24 11:20 NM [id number]) OP Mobility Evaluation Bed Mobility Supine to and from Sit CGA with cueing Transfers Sit to Stand with B hand support, using BLE to stabilize, initial standing balance unsteady, decreased hip hinge OP Gait Assessment Gait Gait Assistance Required: Standby Assistance Distance (Feet) 150 Comments Gait Comments Less L foot clearance than R, but still limited B. Mild forward trunk lean especially with R stance. When pt distracted, has tendency to stumble. Stair Climbing Evaluation Evaluation Level of Assist On Stairs Contact Guard Assistance Devices Stair Climbing Assistive Devices Right Railing Technique/Endurance Stair Climbing Direction Ascend and Descend Stair Climbing Technique Step Over Step Number of Steps Climbed 4 Stair Climbing Set # Repetitions (reps) 1 Comments Stair Climbing Comments Uses rail to assist with elevation, difficulty controlling descent- CGA PT-OP-J Posture/Palpation/Skin Start: 09/07/24 09:01 Freq: Status: Active Protocol: Document 09/07/24 09:46 NM (Rec: 09/07/24 11:20 NM [id number]) Posture Evaluation Position Standing Head/C-Spine Posture Forward Head T-Spine Posture Increased Kyphosis Shoulder Posture (L) Rounded,(R) Rounded Arm Posture (L) Internally Rotated,(R) Internally Rotated Hip Posture (L) Externally Rotated,(R) Externally Rotated Knee Posture (L) Genu Valgus,(R) Genu Valgus Palpation Assessment Location R knee Palpation Details Tenderness over medial knee near femoral condyle, pes anserine and distal adductors; superior patellar near quad tendon and distal patella near patellar tendon Global hip tightness, quad tightness No tenderness but slight bulge near lateral posterior knee PT-OP-K Range of Motion Start: 09/07/24 09:01 Freq: Status: Active Protocol: Document 09/07/24 09:46 NM (Rec: 09/07/24 11:20 NM [id number]) Knee Goniometric Range of Motion Knee Right Flexion Active (degrees) 110 Extension Active (degrees) 0 Left Flexion Active (degrees) 115 Extension Active (degrees) 2 PT-OP-M Strength Start: 09/07/24 09:01 Freq: Status: Active Protocol: Document 09/07/24 09:46 NM (Rec: 09/07/24 11:20 NM [id number]) Hip Strength Hip Manual Muscle Testing Right Flexion (L2) 4- Good- Extension (S1) 4- Good- Abduction 4- Good- Adduction 4- Good- Left Flexion (L2) 4 Good Extension (S1) 4- Good- Abduction 4- Good- Adduction 4- Good- Knee Strength Knee Manual Muscle Testing Right Flexion (S2) 4- Good- Extension (L3) 4- Good- Comments No pain with resisted motion Left Flexion (S2) 4- Good- Extension (L3) 4 Good Ankle/Foot Strength Ankle and Foot Manual Muscle Testing Right Dorsiflexion (L4) 4- Good- Plantarflexion (S1) 4- Good- Left Dorsiflexion (L4) 4- Good- Plantarflexion (S1) 4- Good- PT-OP-Q Treatments Start: 09/07/24 09:01 Freq: Status: Active Protocol: Document 09/21/24 07:19 NM (Rec: 09/21/24 07:19 NM [id number]) Cardio Equipment Recumbent Stepper (Sci-Fit) Duration (Minutes) 4 Resistance 0 Seat Position 11 Other warm up Therapeutic Exercises Supine Exercises hamstring stretch Supine Exercise Name 1. w/ knee flex/ext (strap at knee), 2. with strap at foot for HS/calf Side bilateral Equipment Used strap at foot Reps/Minutes 1. 60 ea, 2. 60 ea Comments HEP reivew; good feedback for stretch; cued for form Sitting Exercises sit to stand Sitting Exercise Name 20 plinth Side bilateral Equipment Used close SBA Reps/Minutes 2x5 Comments cued for scooting fwd toward EOM; req >1 attempt on 1 STS Standing Exercises Hamstring curls Side bilateral Resistance AROM Equipment Used hand support on ballet bar for balance Reps/Minutes 15 ea Comments cued tall posture calf stretch Side bilateral Resistance JAYDA Reps/Minutes 60 Comments feet adjusted to reduce back pain retro ambulation Standing Exercise Name for HS lengthening Side bilateral Equipment Used 1 finger support on ballet bar for balance, close SBA from PT Reps/Minutes 2x15 ft Comments cued for upright posture, toe> heel for lengthening HS ecc Manual Therapy Treatment Consent Patient gave verbal consent for manual Yes treatment Soft Tissue Mobilization R knee/thigh Body Location adductors, TFL, quad, HS, pes anserine Mobilization Type Instrument Assisted,Rolling, Strumming,Sustained Pressure Intensity/Depth Moderate Body Position Hooklying Comments Moderate soft tissue tightness of adductors and hamstrings. Performed moderate distal <> proximal rolling of adductors, tenderness noted along proximal-mid adductors and at pes anserine. Educated on use of tri-network manager for adductors and rolling pin at home for HEP Joint Mobilizations R knee Joint patellar Direction sup/inf/med/lat Grade II Body Position Supine Reps/Duration 10 ea Comments Less pain post manual. lacking 1 deg ext, 115 deg flexion in R knee PT-OP-T Assessment and Plan Start: 09/07/24 09:01 Freq: Status: Active Protocol: Document 09/21/24 07:19 NM (Rec: 09/21/24 07:19 NM [id number]) Physical Therapy Assessment Goals Five Impairment not using AD Residential Goal (LTG) If appropriate, pt will be evaluated for and recommended an AD in order to decrease fall risk, improve mobility and safety during gait LTG Duration 12 weeks Four Impairment not performing HEP or any exercise Short Term Goal (STG) Pt will report compliance with HEP at least 2x/wk in order to maximize progression with PT and demonstrate carryover between sessions STG Duration 6 weeks Residential Goal (LTG) Pt will improve global B hip and knee strength to at least 4/5 in order to demonstrate increased strength for gait, balance, transfers, and ADLs LTG Duration 12 weeks Three Impairment reports fear of falling on stairs, 1 rail assist, poor control with descent Residential Goal (LTG) Pt will be able to perform at least 12 stairs using 1 or fewer rails while carrying an object without loss of balance or uncontrolled descent in order to improve safety during household mobility LTG Duration 12 weeks Two Impairment BLE weakness, limited STS transfers Short Term Goal (STG) Pt will be able to perform at least 5 STS from standard chair without UE assistance and controlled descent in order to demonstrate increased BLE strength for transfers and safety STG Duration 6 weeks Can Pusher Goal (LTG) Pt will be able to perform at least 10 STS without compensation from standard chair with or without hand support and/or 5x STS test in <18 seconds in order to demonstrate increased BLE strength and improvements in initial standing balance during transfers LTG Duration 12 weeks One Impairment Durham 36/56, DGI 08/21- indicate increased risk of falls Can Pusher Goal (LTG) Pt will improve Durham balance score >44/56 (1 MCID) in order to demonstrate improved standing balance and weight shifting during reaching or ADLs LTG Duration 12 weeks Assessment Summary Assessment Pt tolerated session well, no R knee pain during exercise. Continues to respond well to therapeutic exercise. Emphasis on hamstring length today. Pt lacking 1 deg of ext ( improvement from evaluation) and 115 deg of knee flexion in R knee at end of session. Increased time spent Pt demos progression from 22 plinth to 20 plinth for STS without UE assistance. Cueing only for scooting forward to edge of mat and for forward reach to facilitate weight shift. Still occasionally requires more than 1 attempt to rise but <25 % of the time. Pt would benefit from skilled PT for progressive R knee strengthening and flexibility in order to improve symptom management and strength for transfers. Physical Therapy Plan Frequency and Duration Frequency of Treatment 2x/Week Duration of treatment (weeks) 12 Plan of Care Start Date 09/07/24 Plan of Care End Date 11/30/24 Therapeutic Interventions Therapeutic Interventions Balance Training,Gait Training ,Home Exercise Program,Joint Mobilizations,Manual Therapy, Neuromuscular Re-education, Orthotic/Prosthetic Management ,Patient/Caregiver Education, Self-Care/Home Management, Sensory Integration,Soft Tissue Mobilization,Taping, Therapeutic Activities, Therapeutic Exercises Modalities Cold Pack/Ice Massage,Hot Packs Next Visit Focus/Plan Next Note Type Treatment Note Next Visit Plan monitor vitals HS length, adductor length and strength. Review ankle strengthening in seated and standing, STS training (if able decrease surface ht) trial 18-20. Trial step up vs leg press. Cont with quad/ HS /glute strengthening in seated and standing. LAQ, HSC, hip abduction, SLR, hip ER/IR in sitting. Balance training. Emphasize neutral foot position Manual: STM and joint mobilizations to R knees/ adductors
--- NOTE | 2024-09-27 13:00 | PT.OTN ---
Current Diagnoses Unilateral primary osteoarthritis, unspecified knee (09/27/24) Stiffness of right knee, not elsewhere classified (09/27/24) Other lack of coordination (09/27/24) Weakness (09/27/24) Physical Therapy Treatment Note PT-OP-A Visit Information Start: 09/07/24 09:01 Freq: Status: Active Protocol: Document 09/27/24 10:40 NM (Rec: 09/27/24 11:33 NM [id number]) Out-Patient Physical Therapy Visit Information Visit Information Visit Type Treatment Note Visit Note KX after 19 visits seated BP at start of session: R arm 120/61 bpm, 46 bpm, 96% spO2 Visit Start Time 10:45 Visit Stop Time 11:30 Visit Number 5 Evaluation Information Evaluation Date 09/07/24 Precautions Precautions monitor vitals: low heart rate PT-OP-B Current Condition Start: 09/07/24 09:01 Freq: Status: Active Protocol: Document 09/07/24 09:46 NM (Rec: 09/07/24 11:20 NM [id number]) Current Condition History of Current Condition Current Complaints pain, limited mobility, decreased strength, poor balance History of Current Condition Pt presents with R knee pain. He reports limitations with standing for 30 minutes, states his knee locks on him and shoots pain down his leg; when he moves a little bit, then it feels better and he can walk more normally. He reports problems with balance, transfers especially with STS , bending forward. 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 He reports that his R knee has locked on him 3 times recently , when standing; states unable to bend it without hurting. He saw Dr. 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 States all intact, but reports that knee cap off 12/01 to R. 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 Pt has basement stairs with B railing, requires rails to go up. States no knee pain with stairs. Lives in 3 story home, R rail with stairs. Does not use an AD. 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 Reports several stumbles on uneven ground. States worsening global strength but does not do any exercises except for walking. [place], son helps with the heavy stuff. PMH B TKA, high blood pressure (130-135- 140/70), HR in low 40's; declined pacemaker. Pt denies passing out, lightheadedness, but reports dizziness with positional changes. Prior Treatments and Tests Pt reports radiographs with clinical lab specialist of R knee Treatment Goals Patient/Caregiver Goals balance, strength, transfers Current Functional Impairments (Reported) Functional Limitations- ADL's difficulty with putting on socks due to reaching when crossing leg (R harder) Functional Limitations- Mobility/Gait uses hand rails from stairs (R side usually) Functional Limitations- Work/School getting up/down from floor Functional Limitations- Recreation/ dropping objects and picking Hobbies them up (e.g. sitting at desk when performing coin collection) due to low back strain PT-OP-C Subjective Start: 09/07/24 09:01 Freq: Status: Active Protocol: Document 09/27/24 10:40 NM (Rec: 09/27/24 11:33 NM [id number]) OP-PT Subjective Patient Comments Patient Comments Pt reports no changes since last session, but states that using bike made his knees feel good. Still 02/04 but states less severe. He reports that still has pinpoint pain at quad/superior patella. He reports HEP going well, is doing side steps in shop which is about 30 ft. Has been diong HS stretch but not figure 4 stretch. Trialed rolling pin on thigh muscles, which reports helps. Still reports fewer instances of R knee feeling like it will lock up. Reports that he can also step into his car with his R leg without using step PT-OP-D Balance Start: 09/07/24 09:01 Freq: Status: Active Protocol: Document 09/07/24 09:46 NM (Rec: 09/07/24 11:20 NM [id number]) Balance Tests Durham Balance Test Durham Balance Test Score 36/56 PT-OP-E Functional Tests Start: 09/07/24 09:01 Freq: Status: Active Protocol: Document 09/07/24 09:46 NM (Rec: 09/07/24 11:20 NM [id number]) Functional Tests Dynamic Gait Index (DGI) Score 08/21 PT-OP-F Manual Assessment Start: 09/07/24 09:01 Freq: Status: Active Protocol: Document 09/07/24 09:46 NM (Rec: 09/07/24 11:20 NM [id number]) Manual Assessments Soft Tissue Assessment Soft Tissue Mobility Assessment Tenderness over medial knee near pes anserine and femoral condyle/adductors, distal ITB. Tightness of hip flexors/quad , calves Joint Mobility Assessment Joint Mobility Assessment Limited R knee AROM/PROM. Soft tissue approximation end feel , not empty. Minimal limitations in patellar mobility PT-OP-G Mobility & Gait Start: 09/07/24 09:01 Freq: Status: Active Protocol: Document 09/07/24 09:46 NM (Rec: 09/07/24 11:20 NM [id number]) OP Mobility Evaluation Bed Mobility Supine to and from Sit CGA with cueing Transfers Sit to Stand with B hand support, using BLE to stabilize, initial standing balance unsteady, decreased hip hinge OP Gait Assessment Gait Gait Assistance Required: Standby Assistance Distance (Feet) 150 Comments Gait Comments Less L foot clearance than R, but still limited B. Mild forward trunk lean especially with R stance. When pt distracted, has tendency to stumble. Stair Climbing Evaluation Evaluation Level of Assist On Stairs Contact Guard Assistance Devices Stair Climbing Assistive Devices Right Railing Technique/Endurance Stair Climbing Direction Ascend and Descend Stair Climbing Technique Step Over Step Number of Steps Climbed 4 Stair Climbing Set # Repetitions (reps) 1 Comments Stair Climbing Comments Uses rail to assist with elevation, difficulty controlling descent- CGA PT-OP-J Posture/Palpation/Skin Start: 09/07/24 09:01 Freq: Status: Active Protocol: Document 09/07/24 09:46 NM (Rec: 09/07/24 11:20 NM [id number]) Posture Evaluation Position Standing Head/C-Spine Posture Forward Head T-Spine Posture Increased Kyphosis Shoulder Posture (L) Rounded,(R) Rounded Arm Posture (L) Internally Rotated,(R) Internally Rotated Hip Posture (L) Externally Rotated,(R) Externally Rotated Knee Posture (L) Genu Valgus,(R) Genu Valgus Palpation Assessment Location R knee Palpation Details Tenderness over medial knee near femoral condyle, pes anserine and distal adductors; superior patellar near quad tendon and distal patella near patellar tendon Global hip tightness, quad tightness No tenderness but slight bulge near lateral posterior knee PT-OP-K Range of Motion Start: 09/07/24 09:01 Freq: Status: Active Protocol: Document 09/07/24 09:46 NM (Rec: 09/07/24 11:20 NM [id number]) Knee Goniometric Range of Motion Knee Right Flexion Active (degrees) 110 Extension Active (degrees) 0 Left Flexion Active (degrees) 115 Extension Active (degrees) 2 PT-OP-M Strength Start: 09/07/24 09:01 Freq: Status: Active Protocol: Document 09/07/24 09:46 NM (Rec: 09/07/24 11:20 NM [id number]) Hip Strength Hip Manual Muscle Testing Right Flexion (L2) 4- Good- Extension (S1) 4- Good- Abduction 4- Good- Adduction 4- Good- Left Flexion (L2) 4 Good Extension (S1) 4- Good- Abduction 4- Good- Adduction 4- Good- Knee Strength Knee Manual Muscle Testing Right Flexion (S2) 4- Good- Extension (L3) 4- Good- Comments No pain with resisted motion Left Flexion (S2) 4- Good- Extension (L3) 4 Good Ankle/Foot Strength Ankle and Foot Manual Muscle Testing Right Dorsiflexion (L4) 4- Good- Plantarflexion (S1) 4- Good- Left Dorsiflexion (L4) 4- Good- Plantarflexion (S1) 4- Good- PT-OP-Q Treatments Start: 09/07/24 09:01 Freq: Status: Active Protocol: Document 09/27/24 10:40 NM (Rec: 09/27/24 11:33 NM [id number]) Cardio Equipment Recumbent Stepper (Sci-Fit) Duration (Minutes) 5 Resistance 0 Seat Position 11 Other warmup Therapeutic Exercises Supine Exercises moises stretch Supine Exercise Name trialed in PT Side bilateral Reps/Minutes 60 ea Comments cued let leg relax, flatten back against table for form figure 4 stretch Supine Exercise Name 45 deg hip flex (HEP review) Side bilateral Reps/Minutes 60 Comments reports good stretch on R ADD/ glutes, back better w/ time Sitting Exercises sit to stand Sitting Exercise Name 1. 20 plinth, 2. 18 plinth Side bilateral Equipment Used close SBA, no UE assist Reps/Minutes 1. 10, 2. 5- PT assist to stab 2 attempts Comments still needs initial cue to scoot fwd, then no UE assist; full ecc control LAQ Sitting Exercise Name HEP review Side bilateral Resistance level 1 band Reps/Minutes 20x2 Comments cued no trunk ext; better form w/ resistance Standing Exercises step up Standing Exercise Name trialed 4 fwd step up Side bilateral Equipment Used 1 finger assist balance, close SBA prn sCGA Reps/Minutes 10 ea Manual Therapy Treatment Consent Patient gave verbal consent for manual Yes treatment Soft Tissue Mobilization R knee/thigh Body Location adductors, TFL, quad, HS, pes anserine Mobilization Type Instrument Assisted,Rolling, Strumming,Sustained Pressure Intensity/Depth Moderate Body Position Hooklying Comments Moderate soft tissue tightness of adductors and hamstrings. Performed moderate distal <> proximal rolling of adductors, tenderness noted along proximal-mid adductors and at pes anserine. Possible bursa or trigger point, movable. 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 Goal (LTG) If appropriate, pt will be evaluated for and recommended an AD in order to decrease fall risk, improve mobility and safety during gait LTG Duration 12 weeks Four Impairment not performing HEP or any exercise Short Term Goal (STG) Pt will report compliance with HEP at least 2x/wk in order to maximize progression with PT and demonstrate carryover between sessions STG Duration 6 weeks [employer] Nurs[employer] Worker Goal (LTG) Pt will improve global B hip and knee strength to at least 4/5 in order to demonstrate increased strength for gait, balance, transfers, and ADLs LTG Duration 12 weeks Three Impairment reports fear of falling on stairs, 1 rail assist, poor control with descent Alf Goal (LTG) Pt will be able to perform at least 12 stairs using 1 or fewer rails while carrying an object without loss of balance or uncontrolled descent in order to improve safety during household mobility LTG Duration 12 weeks Two Impairment BLE weakness, limited STS transfers Short Term Goal (STG) Pt will be able to perform at least 5 STS from standard chair without UE assistance and controlled descent in order to demonstrate increased BLE strength for transfers and safety STG Duration 6 weeks Alf Goal (LTG) Pt will be able to perform at least 10 STS without compensation from standard chair with or without hand support and/or 5x STS test in <18 seconds in order to demonstrate increased BLE strength and improvements in initial standing balance during transfers LTG Duration 12 weeks One Impairment Durham 36/56, DGI /- indicate increased risk of falls [employer] Worker Goal (LTG) Pt will improve Durham balance score >44/56 (1 MCID) in order to demonstrate improved standing balance and weight shifting during reaching or ADLs LTG Duration 12 weeks Assessment Summary Assessment Good tolerance for exercise today. Continued with stretching and strengthening of BLE. Emphasis on quad/ glutes during session. Progressed number of reps for LAQ; pt demos less trunk lean today but still needs prn cues for form. Initiated moises stretch for hip flexor/quad; good tolerance with cueing to flatten back and to allow relaxation, very tight hip flexors and quad bilaterally. Educated to perform all stretches and exercise at home for HEP vs only choosing 1-2 of favorites. Pt able to do STS from 20 plinth without UE assist. Still needs cues for scooting forward but better anterior weight shifts and fewer cueing. Trialed 18 STS which pt able to do without UE but demos increased sway and has 2 instances LOB without fall and needs PT assist to stand. Pt would benefit from skilled PT for continued improvements in functional mobility with gait and transfers. Physical Therapy Plan Frequency and Duration Frequency of Treatment 2x/Week Duration of treatment (weeks) 12 Plan of Care Start Date 09/07/24 Plan of Care End Date 11/30/24 Therapeutic Interventions Therapeutic Interventions Balance Training,Gait Training ,Home Exercise Program,Joint Mobilizations,Manual Therapy, Neuromuscular Re-education, Orthotic/Prosthetic Management ,Patient/Caregiver Education, Self-Care/Home Management, Sensory Integration,Soft Tissue Mobilization,Taping, Therapeutic Activities, Therapeutic Exercises Modalities Cold Pack/Ice Massage,Hot Packs Next Visit Focus/Plan Next Note Type Treatment Note Next Visit Plan monitor vitals STS training 18-20. Balance training. Step up. HS length, hip flexor. Review ankle strengthening in seated and standing heel raise. Trial leg press. Cont with quad/ HS/ glute strengthening in seated and standing. LAQ, HSC, hip abduction, SLR, hip ER/IR in sitting. Balance training. Emphasize neutral foot position Manual: STM and joint mobilizations to R knees/ adductors
--- NOTE | 2024-10-02 11:48 | PT.OTN ---
Current Diagnoses Unilateral primary osteoarthritis, unspecified knee (10/02/24) Stiffness of right knee, not elsewhere classified (10/02/24) Other lack of coordination (10/02/24) Weakness (10/02/24) Physical Therapy Treatment Note PT-OP-A Visit Information Start: 09/07/24 09:01 Freq: Status: Active Protocol: Document 10/02/24 08:11 AB (Rec: 10/02/24 11:48 AB [id number]) Out-Patient Physical Therapy Visit Information Visit Information Visit Type Treatment Note Visit Note KX after 19 visits BP seated start of session R UE 139/80 HR 57 BPM O2 sat 96 % Access Code: [email or web address] Visit Start Time 09:03 Visit Stop Time 09:47 Visit Number 6 Number of ELECTRIC CAR OPERATOR Visits 1 Evaluation Information Evaluation Date 09/07/24 Precautions Precautions monitor vitals: low heart rate PT-OP-B Current Condition Start: 09/07/24 09:01 Freq: Status: Active Protocol: Document 09/07/24 09:46 NM (Rec: 09/07/24 11:20 NM [id number]) Current Condition History of Current Condition Current Complaints pain, limited mobility, decreased strength, poor balance History of Current Condition Pt presents with R knee pain. He reports limitations with standing for 30 minutes, states his knee locks on him and shoots pain down his leg; when he moves a little bit, then it feels better and he can walk more normally. He reports problems with balance, transfers especially with STS , bending forward. 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 He reports that his R knee has locked on him 3 times recently , when standing; states unable to bend it without hurting. He saw Dr. 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 States all intact, but reports that knee cap off 12/01 to R. 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 Pt has basement stairs with B railing, requires rails to go up. States no knee pain with stairs. Lives in 3 story home, R rail with stairs. Does not use an AD. 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 Reports several stumbles on uneven ground. States worsening global strength but does not do any exercises except for walking. Lives [place], son helps with the heavy stuff. PMH B TKA, high blood pressure (130-135- 140/70), HR in low 40's; declined pacemaker. Pt denies passing out, lightheadedness, but reports dizziness with positional changes. Prior Treatments and Tests Pt reports radiographs with family dinner service specialist of R knee Treatment Goals Patient/Caregiver Goals balance, strength, transfers Current Functional Impairments (Reported) Functional Limitations- ADL's difficulty with putting on socks due to reaching when crossing leg (R harder) Functional Limitations- Mobility/Gait uses hand rails from stairs (R side usually) Functional Limitations- Work/School getting up/down from floor Functional Limitations- Recreation/ dropping objects and picking Hobbies them up (e.g. 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 Patient reports he is moving slow today. Patient rates right knee pain 1/10 start of session. SLS right LE without UE use 1 sec, left 2 sec. Unable to perform SL heel raise left and right LE with dec height L> R PT-OP-D Balance Start: 09/07/24 09:01 Freq: Status: Active Protocol: Document 09/07/24 09:46 NM (Rec: 09/07/24 11:20 NM [id number]) Balance Tests Durham Balance Test Durham Balance Test Score 36/56 PT-OP-E Functional Tests Start: 09/07/24 09:01 Freq: Status: Active Protocol: Document 09/07/24 09:46 NM (Rec: 09/07/24 11:20 NM [id number]) Functional Tests Dynamic Gait Index (DGI) Score 08/21 PT-OP-F Manual Assessment Start: 09/07/24 09:01 Freq: Status: Active Protocol: Document 09/07/24 09:46 NM (Rec: 09/07/24 11:20 NM [id number]) Manual Assessments Soft Tissue Assessment Soft Tissue Mobility Assessment Tenderness over medial knee near pes anserine and femoral condyle/adductors, distal ITB. Tightness of hip flexors/quad , calves Joint Mobility Assessment Joint Mobility Assessment Limited R knee AROM/PROM. Soft tissue approximation end feel , not empty. Minimal limitations in patellar mobility PT-OP-G Mobility & Gait Start: 09/07/24 09:01 Freq: Status: Active Protocol: Document 09/07/24 09:46 NM (Rec: 09/07/24 11:20 NM [id number]) OP Mobility Evaluation Bed Mobility Supine to and from Sit CGA with cueing Transfers Sit to Stand with B hand support, using BLE to stabilize, initial standing balance unsteady, decreased hip hinge OP Gait Assessment Gait Gait Assistance Required: Standby Assistance Distance (Feet) 150 Comments Gait Comments Less L foot clearance than R, but still limited B. Mild forward trunk lean especially with R stance. When pt distracted, has tendency to stumble. Stair Climbing Evaluation Evaluation Level of Assist On Stairs Contact Guard Assistance Devices Stair Climbing Assistive Devices Right Railing Technique/Endurance Stair Climbing Direction Ascend and Descend Stair Climbing Technique Step Over Step Number of Steps Climbed 4 Stair Climbing Set # Repetitions (reps) 1 Comments Stair Climbing Comments Uses rail to assist with elevation, difficulty controlling descent- CGA PT-OP-J Posture/Palpation/Skin Start: 09/07/24 09:01 Freq: Status: Active Protocol: Document 09/07/24 09:46 NM (Rec: 09/07/24 11:20 NM [id number]) Posture Evaluation Position Standing Head/C-Spine Posture Forward Head T-Spine Posture Increased Kyphosis Shoulder Posture (L) Rounded,(R) Rounded Arm Posture (L) Internally Rotated,(R) Internally Rotated Hip Posture (L) Externally Rotated,(R) Externally Rotated Knee Posture (L) Genu Valgus,(R) Genu Valgus Palpation Assessment Location R knee Palpation Details Tenderness over medial knee near femoral condyle, pes anserine and distal adductors; superior patellar near quad tendon and distal patella near patellar tendon Global hip tightness, quad tightness No tenderness but slight bulge near lateral posterior knee PT-OP-K Range of Motion Start: 09/07/24 09:01 Freq: Status: Active Protocol: Document 09/07/24 09:46 NM (Rec: 09/07/24 11:20 NM [id number]) Knee Goniometric Range of Motion Knee Right Flexion Active (degrees) 110 Extension Active (degrees) 0 Left Flexion Active (degrees) 115 Extension Active (degrees) 2 PT-OP-M Strength Start: 09/07/24 09:01 Freq: Status: Active Protocol: Document 09/07/24 09:46 NM (Rec: 09/07/24 11:20 NM [id number]) Hip Strength Hip Manual Muscle Testing Right Flexion (L2) 4- Good- Extension (S1) 4- Good- Abduction 4- Good- Adduction 4- Good- Left Flexion (L2) 4 Good Extension (S1) 4- Good- Abduction 4- Good- Adduction 4- Good- Knee Strength Knee Manual Muscle Testing Right Flexion (S2) 4- Good- Extension (L3) 4- Good- Comments No pain with resisted motion Left Flexion (S2) 4- Good- Extension (L3) 4 Good Ankle/Foot Strength Ankle and Foot Manual Muscle Testing Right Dorsiflexion (L4) 4- Good- Plantarflexion (S1) 4- Good- Left Dorsiflexion (L4) 4- Good- Plantarflexion (S1) 4- Good- PT-OP-Q Treatments Start: 09/07/24 09:01 Freq: Status: Active Protocol: Document 10/02/24 08:11 AB (Rec: 10/02/24 11:48 AB [id number]) Therapeutic Exercises Supine Exercises hamstring stretch Supine Exercise Name 1. w/ knee flex/ext (strap at knee), 2. with strap at foot for HS/calf Side bilateral Equipment Used strap at foot Reps/Minutes 1. 60 sec with X 10 knee flex/ ext 2 60 sec Sitting Exercises Hip abduction Sitting Exercise Name clams Side bilateral Resistance level 3 band Equipment Used HEP for one minute hold Reps/Minutes one one minute hold then X 15 without hold Standing Exercises sit to stand Standing Exercise Name with UE support Side bilateral Reps/Minutes X2 and X 5 Comments Not added to HEP due to pushes LE's against chair and unsteady X 1 heel raises Standing Exercise Name HEP Side bilateral Resistance AROM Equipment Used hand support Reps/Minutes 12 Comments verbal cues to lower heels to floor slowly Manual Therapy Treatment Soft Tissue Mobilization R knee/thigh Body Location quad, HS and adduct distally Mobilization Type Cross-Friction,Rolling, Strumming Intensity/Depth Moderate Body Position Hooklying Joint Mobilizations R knee Joint patellar Direction sup/inf/med/lat, CW and CCW Grade II Body Position Supine Reps/Duration 10 ea PT-OP-T Assessment and Plan Start: 09/07/24 09:01 Freq: Status: Active Protocol: Document 10/02/24 08:11 AB (Rec: 10/02/24 11:48 AB [id number]) Physical Therapy Assessment Goals Five Impairment not using AD Body Die Maker Goal (LTG) If appropriate, pt will be evaluated for and recommended an AD in order to decrease fall risk, improve mobility and safety during gait LTG Duration 12 weeks Four Impairment not performing HEP or any exercise Short Term Goal (STG) Pt will report compliance with HEP at least 2x/wk in order to maximize progression with PT and demonstrate carryover between sessions STG Duration 6 weeks Body Die Maker Goal (LTG) Pt will improve global B hip and knee strength to at least 4/5 in order to demonstrate increased strength for gait, balance, transfers, and ADLs LTG Duration 12 weeks Three Impairment reports fear of falling on stairs, 1 rail assist, poor control with descent Fpc Goal (LTG) Pt will be able to perform at least 12 stairs using 1 or fewer rails while carrying an object without loss of balance or uncontrolled descent in order to improve safety during household mobility LTG Duration 12 weeks Two Impairment BLE weakness, limited STS transfers Short Term Goal (STG) Pt will be able to perform at least 5 STS from standard chair without UE assistance and controlled descent in order to demonstrate increased BLE strength for transfers and safety STG Duration 6 weeks Fpc Goal (LTG) Pt will be able to perform at least 10 STS without compensation from standard chair with or without hand support and/or 5x STS test in <18 seconds in order to demonstrate increased BLE strength and improvements in initial standing balance during transfers LTG Duration 12 weeks One Impairment Durham 36/56, DGI 08/21- indicate increased risk of falls Fpc Goal (LTG) Pt will improve Durham balance score >44/56 (1 MCID) in order to demonstrate improved standing balance and weight shifting during reaching or ADLs LTG Duration 12 weeks Assessment Summary Assessment SLS without UE use 7 sec each LE post glute med activation. Ruben rates right knee pain 02/04 end of session. Sit to stand with UE use continues not added to HEP due to unsteady and pushes against chair with LE's. Physical Therapy Plan Frequency and Duration Frequency of Treatment 2x/Week Duration of treatment (weeks) 12 Plan of Care Start Date 09/07/24 Plan of Care End Date 11/30/24 Next Visit Focus/Plan Next Note Type Treatment Note Next Visit Plan monitor vitals STS training 18-. Balance training. Step up. HS length, hip flexor. Review ankle strengthening in seated and standing heel raise. Trial leg press. Cont with quad/ HS/ glute strengthening in seated and standing. LAQ, HSC, hip abduction, SLR, hip ER/IR in sitting. Balance training. Emphasize neutral foot position Manual: STM and joint mobilizations to R knees/ adductors
--- NOTE | 2024-10-08 10:38 | PT.OTN ---
Current Diagnoses Unilateral primary osteoarthritis, unspecified knee (10/08/24) Stiffness of right knee, not elsewhere classified (10/08/24) Other lack of coordination (10/08/24) Weakness (10/08/24) Physical Therapy Treatment Note PT-OP-A Visit Information Start: 09/07/24 09:01 Freq: Status: Active Protocol: Document 10/08/24 08:11 AB (Rec: 10/08/24 10:38 AB [id number]) Out-Patient Physical Therapy Visit Information Visit Information Visit Type Treatment Note Visit Note KX after 19 visits BP seated start of session Access Code: [email or web address] Seated BP right UE start of session 132/70 HR 44 BPM SLS 3 sec right LE one sec L LE without UE use Visit Start Time 09:04 Visit Stop Time 09:50 Visit Number 7 Number of MATHEMATICAL ENGINEER Visits 2 Evaluation Information Evaluation Date 09/07/24 PT-OP-B Current Condition Start: 09/07/24 09:01 Freq: Status: Active Protocol: Document 09/07/24 09:46 NM (Rec: 09/07/24 11:20 NM [id number]) Current Condition History of Current Condition Current Complaints pain, limited mobility, decreased strength, poor balance History of Current Condition Pt presents with R knee pain. He reports limitations with standing for 30 minutes, states his knee locks on him and shoots pain down his leg; when he moves a little bit, then it feels better and he can walk more normally. He reports problems with balance, transfers especially with STS , bending forward. 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 He reports that his R knee has locked on him 3 times recently , when standing; states unable to bend it without hurting. He saw Dr. 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 States all intact, but reports that knee cap off 12/01 to R. 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 Pt has basement stairs with B railing, requires rails to go up. States no knee pain with stairs. Lives in 3 story home, R rail with stairs. Does not use an AD. 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 Reports several stumbles on uneven ground. States worsening global strength but does not do any exercises except for walking. Lives on a [place], son helps with the heavy stuff. PMH B TKA, high blood pressure (130-135- 140/70), HR in low 40's; declined pacemaker. Pt denies passing out, lightheadedness, but reports dizziness with positional changes. Prior Treatments and Tests Pt reports radiographs with nerve specialist of R knee Treatment Goals Patient/Caregiver Goals balance, strength, transfers Current Functional Impairments (Reported) Functional Limitations- ADL's difficulty with putting on socks due to reaching when crossing leg (R harder) Functional Limitations- Mobility/Gait uses hand rails from stairs (R side usually) Functional Limitations- Work/School getting up/down from floor Functional Limitations- Recreation/ dropping objects and picking Hobbies them up (e.g. 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 PT-OP-D Balance Start: 09/07/24 09:01 Freq: Status: Active Protocol: Document 09/07/24 09:46 NM (Rec: 09/07/24 11:20 NM [id number]) Balance Tests Durham Balance Test Durham Balance Test Score 36/56 PT-OP-E Functional Tests Start: 09/07/24 09:01 Freq: Status: Active Protocol: Document 09/07/24 09:46 NM (Rec: 09/07/24 11:20 NM [id number]) Functional Tests Dynamic Gait Index (DGI) Score 08/21 PT-OP-F Manual Assessment Start: 09/07/24 09:01 Freq: Status: Active Protocol: Document 09/07/24 09:46 NM (Rec: 09/07/24 11:20 NM [id number]) Manual Assessments Soft Tissue Assessment Soft Tissue Mobility Assessment Tenderness over medial knee near pes anserine and femoral condyle/adductors, distal ITB. Tightness of hip flexors/quad , calves Joint Mobility Assessment Joint Mobility Assessment Limited R knee AROM/PROM. Soft tissue approximation end feel , not empty. Minimal limitations in patellar mobility PT-OP-G Mobility & Gait Start: 09/07/24 09:01 Freq: Status: Active Protocol: Document 09/07/24 09:46 NM (Rec: 09/07/24 11:20 NM [id number]) OP Mobility Evaluation Bed Mobility Supine to and from Sit CGA with cueing Transfers Sit to Stand with B hand support, using BLE to stabilize, initial standing balance unsteady, decreased hip hinge OP Gait Assessment Gait Gait Assistance Required: Standby Assistance Distance (Feet) 150 Comments Gait Comments Less L foot clearance than R, but still limited B. Mild forward trunk lean especially with R stance. When pt distracted, has tendency to stumble. Stair Climbing Evaluation Evaluation Level of Assist On Stairs Contact Guard Assistance Devices Stair Climbing Assistive Devices Right Railing Technique/Endurance Stair Climbing Direction Ascend and Descend Stair Climbing Technique Step Over Step Number of Steps Climbed 4 Stair Climbing Set # Repetitions (reps) 1 Comments Stair Climbing Comments Uses rail to assist with elevation, difficulty controlling descent- CGA PT-OP-J Posture/Palpation/Skin Start: 09/07/24 09:01 Freq: Status: Active Protocol: Document 09/07/24 09:46 NM (Rec: 09/07/24 11:20 NM [id number]) Posture Evaluation Position Standing Head/C-Spine Posture Forward Head T-Spine Posture Increased Kyphosis Shoulder Posture (L) Rounded,(R) Rounded Arm Posture (L) Internally Rotated,(R) Internally Rotated Hip Posture (L) Externally Rotated,(R) Externally Rotated Knee Posture (L) Genu Valgus,(R) Genu Valgus Palpation Assessment Location R knee Palpation Details Tenderness over medial knee near femoral condyle, pes anserine and distal adductors; superior patellar near quad tendon and distal patella near patellar tendon Global hip tightness, quad tightness No tenderness but slight bulge near lateral posterior knee PT-OP-K Range of Motion Start: 09/07/24 09:01 Freq: Status: Active Protocol: Document 09/07/24 09:46 NM (Rec: 09/07/24 11:20 NM [id number]) Knee Goniometric Range of Motion Knee Right Flexion Active (degrees) 110 Extension Active (degrees) 0 Left Flexion Active (degrees) 115 Extension Active (degrees) 2 PT-OP-M Strength Start: 09/07/24 09:01 Freq: Status: Active Protocol: Document 09/07/24 09:46 NM (Rec: 09/07/24 11:20 NM [id number]) Hip Strength Hip Manual Muscle Testing Right Flexion (L2) 4- Good- Extension (S1) 4- Good- Abduction 4- Good- Adduction 4- Good- Left Flexion (L2) 4 Good Extension (S1) 4- Good- Abduction 4- Good- Adduction 4- Good- Knee Strength Knee Manual Muscle Testing Right Flexion (S2) 4- Good- Extension (L3) 4- Good- Comments No pain with resisted motion Left Flexion (S2) 4- Good- Extension (L3) 4 Good Ankle/Foot Strength Ankle and Foot Manual Muscle Testing Right Dorsiflexion (L4) 4- Good- Plantarflexion (S1) 4- Good- Left Dorsiflexion (L4) 4- Good- Plantarflexion (S1) 4- Good- PT-OP-Q Treatments Start: 09/07/24 09:01 Freq: Status: Active Protocol: Document 10/08/24 08:11 AB (Rec: 10/08/24 10:38 AB [id number]) Therapeutic Exercises Sitting Exercises sit to stand Sitting Exercise Name webbed chair with UE use Reps/Minutes X6 and X 5 Comments VC for trunk fwd Hip abduction Sitting Exercise Name clams Side bilateral Resistance level 3 band Equipment Used HEP for one minute hold Reps/Minutes one one minute hold then X 15 without hold Standing Exercises calf stretch Standing Exercise Name with UE support Side bilateral Resistance JAYDA Reps/Minutes 60 gastroc heel raises Standing Exercise Name HEP Side bilateral Resistance AROM Equipment Used hand support Reps/Minutes 2X10 Comments verbal cues to lower heels to floor slowly Manual Therapy Treatment Consent Patient gave verbal consent for manual Yes treatment Soft Tissue Mobilization R knee/thigh Body Location quad, HS and adduct distally Mobilization Type Cross-Friction,Rolling, Strumming Intensity/Depth Moderate Body Position Hooklying Joint Mobilizations R knee Joint patellar and tib on femur AP and PA Direction sup/inf/med/lat, CW and CCW Grade II Body Position Supine Reps/Duration X10 X 3 each Neuro Re-Education Treatment Balance Activities SLS Reps/Duration CGA X 5 each LE without UE use tilt board Details AP and lateral Equipment X10 each Comments CGA hands above bars step up taps Details standing on foam Equipment X10 Comments CGA hands above bars tandem stepping Details CGA hands above bars Reps/Duration 10 feet X 6 PT-OP-T Assessment and Plan Start: 09/07/24 09:01 Freq: Status: Active Protocol: Document 10/08/24 08:11 AB (Rec: 10/08/24 10:38 AB [id number]) Physical Therapy Assessment Goals Five Impairment not using AD Residential Goal (LTG) If appropriate, pt will be evaluated for and recommended an AD in order to decrease fall risk, improve mobility and safety during gait LTG Duration 12 weeks Four Impairment not performing HEP or any exercise Short Term Goal (STG) Pt will report compliance with HEP at least 2x/wk in order to maximize progression with PT and demonstrate carryover between sessions STG Duration 6 weeks Residential Goal (LTG) Pt will improve global B hip and knee strength to at least 4/5 in order to demonstrate increased strength for gait, balance, transfers, and ADLs LTG Duration 12 weeks Three Impairment reports fear of falling on stairs, 1 rail assist, poor control with descent Residential Goal (LTG) Pt will be able to perform at least 12 stairs using 1 or fewer rails while carrying an object without loss of balance or uncontrolled descent in order to improve safety during household mobility LTG Duration 12 weeks Two Impairment BLE weakness, limited STS transfers Short Term Goal (STG) Pt will be able to perform at least 5 STS from standard chair without UE assistance and controlled descent in order to demonstrate increased BLE strength for transfers and safety STG Duration 6 weeks Residential Goal (LTG) Pt will be able to perform at least 10 STS without compensation from standard chair with or without hand support and/or 5x STS test in <18 seconds in order to demonstrate increased BLE strength and improvements in initial standing balance during transfers LTG Duration 12 weeks One Impairment Durham 36/56, DGI 08/21- indicate increased risk of falls Residential Goal (LTG) Pt will improve Durham balance score >44/56 (1 MCID) in order to demonstrate improved standing balance and weight shifting during reaching or ADLs LTG Duration 12 weeks Assessment Summary Assessment Jayda reports having no pain end of session. SLS right LE and ROM right knee continues to be limited, and increased velocity end ROM stand to sit as well as occasionally unsteady with sit to stand persists. Physical Therapy Plan Frequency and Duration Frequency of Treatment 2x/Week Duration of treatment (weeks) 12 Plan of Care Start Date 09/07/24 Plan of Care End Date 11/30/24 Next Visit Focus/Plan Next Note Type Treatment Note Next Visit Plan monitor vitals STS training 18-20. ( post calf stretch during session on JAYDA, also review Heel raise ) Balance training. Step up. HS length, hip flexor. Review ankle strengthening in seated and standing heel raise. Trial leg press. Cont with quad/ HS /glute strengthening in seated and standing. LAQ, HSC, hip abduction, SLR, hip ER/IR in sitting. Balance training. Emphasize neutral foot position Manual: STM and joint mobilizations to R knees/ adductors
--- NOTE | 2024-10-11 10:44 | PT.OTN ---
Current Diagnoses Unilateral primary osteoarthritis, unspecified knee (10/11/24) Stiffness of right knee, not elsewhere classified (10/11/24) Other lack of coordination (10/11/24) Weakness (10/11/24) Physical Therapy Treatment Note PT-OP-A Visit Information Start: 09/07/24 09:01 Freq: Status: Active Protocol: Document 10/11/24 08:54 AB (Rec: 10/11/24 10:44 AB [id number]) Out-Patient Physical Therapy Visit Information Visit Information Visit Type Treatment Note Visit Note KX after 19 visits BP seated start of session Access Code: [email or web address] Seated BP LE UE 148/73 Hr 46 start of session Visit Start Time 09:05 Visit Stop Time 09:41 Visit Number 8 Number of REJECT OPENER Visits 3 Evaluation Information Evaluation Date 09/07/24 Precautions Precautions monitor vitals: low heart rate PT-OP-B Current Condition Start: 09/07/24 09:01 Freq: Status: Active Protocol: Document 09/07/24 09:46 NM (Rec: 09/07/24 11:20 NM [id number]) Current Condition History of Current Condition Current Complaints pain, limited mobility, decreased strength, poor balance History of Current Condition Pt presents with R knee pain. He reports limitations with standing for 30 minutes, states his knee locks on him and shoots pain down his leg; when he moves a little bit, then it feels better and he can walk more normally. He reports problems with balance, transfers especially with STS , bending forward. 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 He reports that his R knee has locked on him 3 times recently , when standing; states unable to bend it without hurting. He saw Dr. 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 States all intact, but reports that knee cap off 12/01 to R. 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 Pt has basement stairs with B railing, requires rails to go up. States no knee pain with stairs. Lives in 3 foster home, R rail with stairs. Does not use an AD. 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 Reports several stumbles on uneven ground. States worsening global strength but does not do any exercises except for walking. Lives on a [place], son helps with the heavy stuff. PMH B TKA, high blood pressure (130-135- 140/70), HR in low 40's; declined pacemaker. Pt denies passing out, lightheadedness, but reports dizziness with positional changes. 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 Patient reports no pain start of session. PT-OP-D Balance Start: 09/07/24 09:01 Freq: Status: Active Protocol: Document 09/07/24 09:46 NM (Rec: 09/07/24 11:20 NM [id number]) Balance Tests Durham Balance Test Durham Balance Test Score 36/56 PT-OP-E Functional Tests Start: 09/07/24 09:01 Freq: Status: Active Protocol: Document 09/07/24 09:46 NM (Rec: 09/07/24 11:20 NM [id number]) Functional Tests Dynamic Gait Index (DGI) Score 08/21 PT-OP-F Manual Assessment Start: 09/07/24 09:01 Freq: Status: Active Protocol: Document 09/07/24 09:46 NM (Rec: 09/07/24 11:20 NM [id number]) Manual Assessments Soft Tissue Assessment Soft Tissue Mobility Assessment Tenderness over medial knee near pes anserine and femoral condyle/adductors, distal ITB. Tightness of hip flexors/quad , calves Joint Mobility Assessment Joint Mobility Assessment Limited R knee AROM/PROM. Soft tissue approximation end feel , not empty. Minimal limitations in patellar mobility PT-OP-G Mobility & Gait Start: 09/07/24 09:01 Freq: Status: Active Protocol: Document 09/07/24 09:46 NM (Rec: 09/07/24 11:20 NM [id number]) OP Mobility Evaluation Bed Mobility Supine to and from Sit CGA with cueing Transfers Sit to Stand with B hand support, using BLE to stabilize, initial standing balance unsteady, decreased hip hinge OP Gait Assessment Gait Gait Assistance Required: Standby Assistance Distance (Feet) 150 Comments Gait Comments Less L foot clearance than R, but still limited B. Mild forward trunk lean especially with R stance. When pt distracted, has tendency to stumble. Stair Climbing Evaluation Evaluation Level of Assist On Stairs Contact Guard Assistance Devices Stair Climbing Assistive Devices Right Railing Technique/Endurance Stair Climbing Direction Ascend and Descend Stair Climbing Technique Step Over Step Number of Steps Climbed 4 Stair Climbing Set # Repetitions (reps) 1 Comments Stair Climbing Comments Uses rail to assist with elevation, difficulty controlling descent- CGA PT-OP-J Posture/Palpation/Skin Start: 09/07/24 09:01 Freq: Status: Active Protocol: Document 09/07/24 09:46 NM (Rec: 09/07/24 11:20 NM [id number]) Posture Evaluation Position Standing Head/C-Spine Posture Forward Head T-Spine Posture Increased Kyphosis Shoulder Posture (L) Rounded,(R) Rounded Arm Posture (L) Internally Rotated,(R) Internally Rotated Hip Posture (L) Externally Rotated,(R) Externally Rotated Knee Posture (L) Genu Valgus,(R) Genu Valgus Palpation Assessment Location R knee Palpation Details Tenderness over medial knee near femoral condyle, pes anserine and distal adductors; superior patellar near quad tendon and distal patella near patellar tendon Global hip tightness, quad tightness No tenderness but slight bulge near lateral posterior knee PT-OP-K Range of Motion Start: 09/07/24 09:01 Freq: Status: Active Protocol: Document 09/07/24 09:46 NM (Rec: 09/07/24 11:20 NM [id number]) Knee Goniometric Range of Motion Knee Right Flexion Active (degrees) 110 Extension Active (degrees) 0 Left Flexion Active (degrees) 115 Extension Active (degrees) 2 PT-OP-M Strength Start: 09/07/24 09:01 Freq: Status: Active Protocol: Document 09/07/24 09:46 NM (Rec: 09/07/24 11:20 NM [id number]) Hip Strength Hip Manual Muscle Testing Right Flexion (L2) 4- Good- Extension (S1) 4- Good- Abduction 4- Good- Adduction 4- Good- Left Flexion (L2) 4 Good Extension (S1) 4- Good- Abduction 4- Good- Adduction 4- Good- Knee Strength Knee Manual Muscle Testing Right Flexion (S2) 4- Good- Extension (L3) 4- Good- Comments No pain with resisted motion Left Flexion (S2) 4- Good- Extension (L3) 4 Good Ankle/Foot Strength Ankle and Foot Manual Muscle Testing Right Dorsiflexion (L4) 4- Good- Plantarflexion (S1) 4- Good- Left Dorsiflexion (L4) 4- Good- Plantarflexion (S1) 4- Good- PT-OP-Q Treatments Start: 09/07/24 09:01 Freq: Status: Active Protocol: Document 10/11/24 08:54 AB (Rec: 10/11/24 10:44 AB [id number]) Therapeutic Exercises Supine Exercises moises stretch Supine Exercise Name trialed in PT Side bilateral Reps/Minutes 60 ea Comments cued let leg relax, flatten back against table for form hamstring stretch Supine Exercise Name 1. w/ knee flex/ext (strap at knee), 2. with strap at foot for HS/calf Side bilateral Reps/Minutes 1. 60 sec with X 10 knee flex/ ext 2 60 sec figure 4 stretch Supine Exercise Name 45 deg hip flex (HEP review) Side bilateral Reps/Minutes 60 Comments reports good stretch on R ADD/ glutes, back better w/ time Sitting Exercises Hip abduction Sitting Exercise Name clams Side bilateral Resistance level 3 band Equipment Used HEP for one minute hold Reps/Minutes one one minute hold then X 15 without hold Standing Exercises sit to stand Standing Exercise Name with UE support Side bilateral Reps/Minutes X 5 Comments Verbal cues for hip hinge calf stretch Standing Exercise Name with UE support Side bilateral Resistance JAYDA Reps/Minutes 60 gastroc X2 soelus X 1 heel raises Standing Exercise Name HEP Side bilateral Resistance AROM Equipment Used hand support Reps/Minutes X10 Comments verbal cues to lower heels to floor slowly Manual Therapy Treatment Soft Tissue Mobilization R knee/thigh Body Location quad, HS and adduct distally also calf proximally Mobilization Type Cross-Friction,Rolling, Strumming Intensity/Depth Moderate Body Position Hooklying Joint Mobilizations R knee Joint patellar and tib on femur AP and PA Direction sup/inf/med/lat, CW and CCW Grade II Body Position Supine Reps/Duration X10 X 3 each PT-OP-T Assessment and Plan Start: 09/07/24 09:01 Freq: Status: Active Protocol: Document 10/11/24 08:54 AB (Rec: 10/11/24 10:44 AB [id number]) Physical Therapy Assessment Goals Five Impairment not using AD Agents' Records Clerk Goal (LTG) If appropriate, pt will be evaluated for and recommended an AD in order to decrease fall risk, improve mobility and safety during gait LTG Duration 12 weeks Four Impairment not performing HEP or any exercise Short Term Goal (STG) Pt will report compliance with HEP at least 2x/wk in order to maximize progression with PT and demonstrate carryover between sessions STG Duration 6 weeks Half-Way Goal (LTG) Pt will improve global B hip and knee strength to at least 4/5 in order to demonstrate increased strength for gait, balance, transfers, and ADLs LTG Duration 12 weeks Three Impairment reports fear of falling on stairs, 1 rail assist, poor control with descent Agents' Records Clerk Goal (LTG) Pt will be able to perform at least 12 stairs using 1 or fewer rails while carrying an object without loss of balance or uncontrolled descent in order to improve safety during household mobility LTG Duration 12 weeks Two Impairment BLE weakness, limited STS transfers Short Term Goal (STG) Pt will be able to perform at least 5 STS from standard chair without UE assistance and controlled descent in order to demonstrate increased BLE strength for transfers and safety STG Duration 6 weeks Agents' Records Clerk Goal (LTG) Pt will be able to perform at least 10 STS without compensation from standard chair with or without hand support and/or 5x STS test in <18 seconds in order to demonstrate increased BLE strength and improvements in initial standing balance during transfers LTG Duration 12 weeks One Impairment Durham 36/56, DGI 08/21- indicate increased risk of falls Agents' Records Clerk Goal (LTG) Pt will improve Durham balance score >44/56 (1 MCID) in order to demonstrate improved standing balance and weight shifting during reaching or ADLs LTG Duration 12 weeks Assessment Summary Assessment Jayda reports having 2/10 knee pain end of session, no LOB with sit to stand, but guarded movement, pauses occasionally post hip hinge and increased UE use. Physical Therapy Plan Frequency and Duration Frequency of Treatment 2x/Week Duration of treatment (weeks) 12 Plan of Care Start Date 09/07/24 Plan of Care End Date 11/30/24 Next Visit Focus/Plan Next Note Type Progress Note Next Visit Plan monitor vitals STS training 18-20. ( post calf stretch during session on JAYDA, also review Heel raise ) Balance training. Step up. HS length, hip flexor. Review ankle strengthening in seated and standing heel raise. Trial leg press. Cont with quad/ HS /glute strengthening in seated and standing. LAQ, HSC, hip abduction, SLR, hip ER/IR in sitting. Balance training. Emphasize neutral foot position Manual: STM and joint mobilizations to R knees/ adductors
--- NOTE | 2024-10-17 15:49 | PT.OTN ---
Current Diagnoses Unilateral primary osteoarthritis, unspecified knee (10/17/24) Stiffness of right knee, not elsewhere classified (10/17/24) Other lack of coordination (10/17/24) Weakness (10/17/24) Physical Therapy Treatment Note PT-OP-A Visit Information Start: 09/07/24 09:01 Freq: Status: Active Protocol: Document 10/17/24 12:59 NM (Rec: 10/17/24 13:46 NM [id number]) Out-Patient Physical Therapy Visit Information Visit Information Visit Type Progress Note Visit Note KX after 19 visits BP seated start of session Access Code: [email or web address] seated BP: LUE 137/72 mmHg , HR 46 bpm Visit Start Time 13:01 Visit Stop Time 13:44 Visit Number 9 Evaluation Information Evaluation Date 09/07/24 Precautions Precautions monitor vitals: low heart rate PT-OP-B Current Condition Start: 09/07/24 09:01 Freq: Status: Active Protocol: Document 09/07/24 09:46 NM (Rec: 09/07/24 11:20 NM [id number]) Current Condition History of Current Condition Current Complaints pain, limited mobility, decreased strength, poor balance History of Current Condition Pt presents with R knee pain. He reports limitations with standing for 30 minutes, states his knee locks on him and shoots pain down his leg; when he moves a little bit, then it feels better and he can walk more normally. He reports problems with balance, transfers especially with STS , bending forward. 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 He reports that his R knee has locked on him 3 times recently , when standing; states unable to bend it without hurting. He saw Dr. 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 States all intact, but reports that knee cap off 12/01 to R. 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 Pt has basement stairs with B railing, requires rails to go up. States no knee pain with stairs. Lives in 3 story home, R rail with stairs. Does not use an AD. 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 Reports several stumbles on uneven ground. States worsening global strength but does not do any exercises except for walking. Lives on a [place], son helps with the heavy stuff. PMH B TKA, high blood pressure (130-135- 140/70), HR in low 40's; declined pacemaker. Pt denies passing out, lightheadedness, but reports dizziness with positional changes. Prior Treatments and Tests Pt reports radiographs with certified health education specialist of R knee Treatment Goals Patient/Caregiver Goals balance, strength, transfers Current Functional Impairments (Reported) Functional Limitations- ADL's difficulty with putting on socks due to reaching when crossing leg (R harder) Functional Limitations- Mobility/Gait uses hand rails from stairs (R side usually) Functional Limitations- Work/School getting up/down from floor Functional Limitations- Recreation/ dropping objects and picking Hobbies them up (e.g. 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 He reports that he still has impairments with balance, especially with turning; he reports that he is more aware. He reports 0/10 knee pain PT-OP-D Balance Start: 09/07/24 09:01 Freq: Status: Active Protocol: Document 09/07/24 09:46 NM (Rec: 09/07/24 11:20 NM [id number]) Balance Tests Durham Balance Test [place] Balance Test Score 36/56 PT-OP-E Functional Tests Start: 09/07/24 09:01 Freq: Status: Active Protocol: Document 09/07/24 09:46 NM (Rec: 09/07/24 11:20 NM [id number]) Functional Tests Dynamic Gait Index (DGI) Score 08/21 PT-OP-F Manual Assessment Start: 09/07/24 09:01 Freq: Status: Active Protocol: Document 09/07/24 09:46 NM (Rec: 09/07/24 11:20 NM [id number]) Manual Assessments Soft Tissue Assessment Soft Tissue Mobility Assessment Tenderness over medial knee near pes anserine and femoral condyle/adductors, distal ITB. Tightness of hip flexors/quad , calves Joint Mobility Assessment Joint Mobility Assessment Limited R knee AROM/PROM. Soft tissue approximation end feel , not empty. Minimal limitations in patellar mobility PT-OP-G Mobility & Gait Start: 09/07/24 09:01 Freq: Status: Active Protocol: Document 09/07/24 09:46 NM (Rec: 09/07/24 11:20 NM [id number]) OP Mobility Evaluation Bed Mobility Supine to and from Sit CGA with cueing Transfers Sit to Stand with B hand support, using BLE to stabilize, initial standing balance unsteady, decreased hip hinge OP Gait Assessment Gait Gait Assistance Required: Standby Assistance Distance (Feet) 150 Comments Gait Comments Less L foot clearance than R, but still limited B. Mild forward trunk lean especially with R stance. When pt distracted, has tendency to stumble. Stair Climbing Evaluation Evaluation Level of Assist On Stairs Contact Guard Assistance Devices Stair Climbing Assistive Devices Right Railing Technique/Endurance Stair Climbing Direction Ascend and Descend Stair Climbing Technique Step Over Step Number of Steps Climbed 4 Stair Climbing Set # Repetitions (reps) 1 Comments Stair Climbing Comments Uses rail to assist with elevation, difficulty controlling descent- CGA PT-OP-J Posture/Palpation/Skin Start: 09/07/24 09:01 Freq: Status: Active Protocol: Document 09/07/24 09:46 NM (Rec: 09/07/24 11:20 NM [id number]) Posture Evaluation Position Standing Head/C-Spine Posture Forward Head T-Spine Posture Increased Kyphosis Shoulder Posture (L) Rounded,(R) Rounded Arm Posture (L) Internally Rotated,(R) Internally Rotated Hip Posture (L) Externally Rotated,(R) Externally Rotated Knee Posture (L) Genu Valgus,(R) Genu Valgus Palpation Assessment Location R knee Palpation Details Tenderness over medial knee near femoral condyle, pes anserine and distal adductors; superior patellar near quad tendon and distal patella near patellar tendon Global hip tightness, quad tightness No tenderness but slight bulge near lateral posterior knee PT-OP-K Range of Motion Start: 09/07/24 09:01 Freq: Status: Active Protocol: Document 10/17/24 12:59 NM (Rec: 10/17/24 13:46 NM [id number]) Knee Goniometric Range of Motion Knee Right Flexion Active (degrees) 113 Extension Active (degrees) 0 Comments IE: 110 deg flex Left Flexion Active (degrees) 115 Extension Active (degrees) 2 PT-OP-M Strength Start: 09/07/24 09:01 Freq: Status: Active Protocol: Document 10/17/24 12:59 NM (Rec: 10/17/24 13:46 NM [id number]) Knee Strength Knee Manual Muscle Testing Right Flexion (S2) 4 Good Extension (L3) 4 Good Comments No pain with resisted motion Left Flexion (S2) 4- Good- Extension (L3) 4 Good PT-OP-Q Treatments Start: 09/07/24 09:01 Freq: Status: Active Protocol: Document 10/17/24 12:59 NM (Rec: 10/17/24 13:46 NM [id number]) Therapeutic Exercises Sitting Exercises toe raises Sitting Exercise Name HEP Side bilateral Reps/Minutes 20x3 sit to stand Sitting Exercise Name 1. plinth, 2. std chair Side bilateral Reps/Minutes 1. 5 no UE, 2.5 no UE Comments dec eccentric control but better Standing Exercises stairs Side bilateral Equipment Used 1 rail assist R side Reps/Minutes 2 sets x 4 stairs Comments reciprocal; no knee pain side steps Standing Exercise Name HEP review Side bilateral Resistance level 2 Equipment Used no hand support Reps/Minutes 2x15 ft ea direction Comments cued neutral foot placement, foot clearance; improved w/ reps Neuro Re-Education Treatment Balance Activities [place] Reps/Duration 45/56 hurdles Comments 1. fwd reciprocal 2. lateral step up taps Details close SBA Comments 1. 6 step taps 2. 6 double taps same step 3. 6 double taps on 1 and 2 step PT-OP-T Assessment and Plan Start: 09/07/24 09:01 Freq: Status: Active Protocol: Document 10/17/24 12:59 NM (Rec: 10/17/24 13:46 NM [id number]) Physical Therapy Assessment Goals Five Impairment not using AD Director Instrumentation Goal (LTG) If appropriate, pt will be evaluated for and recommended an AD in order to decrease fall risk, improve mobility and safety during gait LTG Duration 12 weeks Four Impairment not performing HEP or any exercise Short Term Goal (STG) Pt will report compliance with HEP at least 2x/wk in order to maximize progression with PT and demonstrate carryover between sessions 10/17/24: he reports performing HEP daily STG Duration 6 weeks MET Director Instrumentation Goal (LTG) Pt will improve global B hip and knee strength to at least 4/5 in order to demonstrate increased strength for gait, balance, transfers, and ADLs LTG Duration 12 weeks Three Impairment reports fear of falling on stairs, 1 rail assist, poor control with descent Skilled Nursing Goal (LTG) Pt will be able to perform at least 12 stairs using 1 or fewer rails while carrying an object without loss of balance or uncontrolled descent in order to improve safety during household mobility 10/17/24: 8 stairs without knee pain, 1 rail LTG Duration 12 weeks PROGRESSING Two Impairment BLE weakness, limited STS transfers Short Term Goal (STG) Pt will be able to perform at least 5 STS from standard chair without UE assistance and controlled descent in order to demonstrate increased BLE strength for transfers and safety 10/17/24: 5 STS from standard chair, still challenged with ecc descent but controls until last few inches STG Duration 6 weeks PROGRESSING, PARTIALLY MET Director Instrumentation Goal (LTG) Pt will be able to perform at least 10 STS without compensation from standard chair with or without hand support and/or 5x STS test in <18 seconds in order to demonstrate increased BLE strength and improvements in initial standing balance during transfers LTG Duration 12 weeks One Impairment Durham 36/56, DGI 08/21- indicate increased risk of falls Skilled Nursing Goal (LTG) Pt will improve [place] balance score >44/56 (1 MCID) in order to demonstrate improved standing balance and weight shifting during reaching or ADLs 10/17/24: Durham 45/56 LTG Duration 12 weeks MET Progress Towards Goals Progress Towards Goals Progressing Toward Goals,Goals Met Assessment Summary Assessment One instance LOB with STS, requires min A from PT to assist. Pt demos improved eccentric control with STS. Changing JAE and single leg stance for hurdles more challenging. Moderate cueing for control, correct execution and weight shifts. Pt reports no knee pain at end of session. Durham improved to 45/ 56 Physical Therapy Plan Frequency and Duration Frequency of Treatment 2x/Week Duration of treatment (weeks) 12 Plan of Care Start Date 09/07/24 Plan of Care End Date 11/30/24 Therapeutic Interventions Therapeutic Interventions Balance Training,Gait Training ,Home Exercise Program,Joint Mobilizations,Manual Therapy, Neuromuscular Re-education, Orthotic/Prosthetic Management ,Patient/Caregiver Education, Self-Care/Home Management, Sensory Integration,Soft Tissue Mobilization,Taping, Therapeutic Activities, Therapeutic Exercises Modalities Cold Pack/Ice Massage,Hot Packs Next Visit Focus/Plan Next Note Type Treatment Note Next Visit Plan monitor vitals STS training 18-20. Cont balance work. Step up and down w control. HS length, hip flexor. Review ankle strengthening in seated and standing heel raise. Trial leg press. Cont with quad/ HS/ glute strengthening in seated and standing. LAQ, HSC, hip abduction, SLR, hip ER/IR in sitting. Balance training. Emphasize neutral foot position Manual: STM and joint mobilizations to R knees/ adductors
--- NOTE | 2024-10-23 10:39 | PT.OTN ---
Current Diagnoses Unilateral primary osteoarthritis, unspecified knee (10/23/24) Stiffness of right knee, not elsewhere classified (10/23/24) Other lack of coordination (10/23/24) Weakness (10/23/24) Physical Therapy Treatment Note PT-OP-A Visit Information Start: 09/07/24 09:01 Freq: Status: Active Protocol: Document 10/23/24 08:41 AB (Rec: 10/23/24 10:38 AB [id number]) Out-Patient Physical Therapy Visit Information Visit Information Visit Type Treatment Note Visit Note KX after 19 visits Access Code: [email or web address] Seated BP left UE 143/69 HR 40 BPM start of session Visit Start Time 08:57 Visit Stop Time 09:45 Visit Number 10 Number of BLOWER BLAST FURNACE Visits 11 Evaluation Information Evaluation Date 09/07/24 Precautions Precautions monitor vitals: low heart rate PT-OP-B Current Condition Start: 09/07/24 09:01 Freq: Status: Active Protocol: Document 09/07/24 09:46 NM (Rec: 09/07/24 11:20 NM [id number]) Current Condition History of Current Condition Current Complaints pain, limited mobility, decreased strength, poor balance History of Current Condition Pt presents with R knee pain. He reports limitations with standing for 30 minutes, states his knee locks on him and shoots pain down his leg; when he moves a little bit, then it feels better and he can walk more normally. He reports problems with balance, transfers especially with STS , bending forward. 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 He reports that his R knee has locked on him 3 times recently , when standing; states unable to bend it without hurting. He saw Dr. 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 States all intact, but reports that knee cap off 12/01 to R. 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 Pt has basement stairs with B railing, requires rails to go up. States no knee pain with stairs. Lives in 3 story home, R rail with stairs. Does not use an AD. 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 Reports several stumbles on uneven ground. States worsening global strength but does not do any exercises except for walking. Lives [place], son helps with the heavy stuff. PMH B TKA, high blood pressure (130-135- 140/70), HR in low 40's; declined pacemaker. Pt denies passing out, lightheadedness, but reports dizziness with positional changes. 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 PT-OP-D Balance Start: 09/07/24 09:01 Freq: Status: Active Protocol: Document 09/07/24 09:46 NM (Rec: 09/07/24 11:20 NM [id number]) Balance Tests Durham Balance Test Durham Balance Test Score 36/56 PT-OP-E Functional Tests Start: 09/07/24 09:01 Freq: Status: Active Protocol: Document 09/07/24 09:46 NM (Rec: 09/07/24 11:20 NM [id number]) Functional Tests Dynamic Gait Index (DGI) Score 08/21 PT-OP-F Manual Assessment Start: 09/07/24 09:01 Freq: Status: Active Protocol: Document 09/07/24 09:46 NM (Rec: 09/07/24 11:20 NM [id number]) Manual Assessments Soft Tissue Assessment Soft Tissue Mobility Assessment Tenderness over medial knee near pes anserine and femoral condyle/adductors, distal ITB. Tightness of hip flexors/quad , calves Joint Mobility Assessment Joint Mobility Assessment Limited R knee AROM/PROM. Soft tissue approximation end feel , not empty. Minimal limitations in patellar mobility PT-OP-G Mobility & Gait Start: 09/07/24 09:01 Freq: Status: Active Protocol: Document 09/07/24 09:46 NM (Rec: 09/07/24 11:20 NM [id number]) OP Mobility Evaluation Bed Mobility Supine to and from Sit CGA with cueing Transfers Sit to Stand with B hand support, using BLE to stabilize, initial standing balance unsteady, decreased hip hinge OP Gait Assessment Gait Gait Assistance Required: Standby Assistance Distance (Feet) 150 Comments Gait Comments Less L foot clearance than R, but still limited B. Mild forward trunk lean especially with R stance. When pt distracted, has tendency to stumble. Stair Climbing Evaluation Evaluation Level of Assist On Stairs Contact Guard Assistance Devices Stair Climbing Assistive Devices Right Railing Technique/Endurance Stair Climbing Direction Ascend and Descend Stair Climbing Technique Step Over Step Number of Steps Climbed 4 Stair Climbing Set # Repetitions (reps) 1 Comments Stair Climbing Comments Uses rail to assist with elevation, difficulty controlling descent- CGA PT-OP-J Posture/Palpation/Skin Start: 09/07/24 09:01 Freq: Status: Active Protocol: Document 09/07/24 09:46 NM (Rec: 09/07/24 11:20 NM [id number]) Posture Evaluation Position Standing Head/C-Spine Posture Forward Head T-Spine Posture Increased Kyphosis Shoulder Posture (L) Rounded,(R) Rounded Arm Posture (L) Internally Rotated,(R) Internally Rotated Hip Posture (L) Externally Rotated,(R) Externally Rotated Knee Posture (L) Genu Valgus,(R) Genu Valgus Palpation Assessment Location R knee Palpation Details Tenderness over medial knee near femoral condyle, pes anserine and distal adductors; superior patellar near quad tendon and distal patella near patellar tendon Global hip tightness, quad tightness No tenderness but slight bulge near lateral posterior knee PT-OP-K Range of Motion Start: 09/07/24 09:01 Freq: Status: Active Protocol: Document 10/17/24 12:59 NM (Rec: 10/17/24 13:46 NM [id number]) Knee Goniometric Range of Motion Knee Right Flexion Active (degrees) 113 Extension Active (degrees) 0 Comments IE: 110 deg flex Left Flexion Active (degrees) 115 Extension Active (degrees) 2 PT-OP-M Strength Start: 09/07/24 09:01 Freq: Status: Active Protocol: Document 10/17/24 12:59 NM (Rec: 10/17/24 13:46 NM [id number]) Knee Strength Knee Manual Muscle Testing Right Flexion (S2) 4 Good Extension (L3) 4 Good Comments No pain with resisted motion Left Flexion (S2) 4- Good- Extension (L3) 4 Good PT-OP-Q Treatments Start: 09/07/24 09:01 Freq: Status: Active Protocol: Document 10/23/24 08:41 AB (Rec: 10/23/24 10:38 AB [id number]) Therapeutic Exercises Supine Exercises SLR Side bilateral Reps/Minutes X10 each LE Comments verbal cues moises stretch Supine Exercise Name trialed in PT Side bilateral Reps/Minutes 60 ea Comments with AROM knee flexion X10 hamstring stretch Supine Exercise Name 1. w/ knee flex/ext/ankl ( strap at knee), 2. with strap at foot for HS/calf Side bilateral Reps/Minutes 1. 60 sec with X 10 knee flex/ ext 2 60 sec figure 4 stretch Supine Exercise Name 45 deg hip flex also piriformis stretch (HEP review ) Side bilateral Reps/Minutes 60 Comments reports good stretch on R ADD/ glutes, back better w/ time Sitting Exercises Hip abduction Sitting Exercise Name clams Side bilateral Resistance level 3 band Equipment Used HEP for one minute hold Reps/Minutes one one minute hold then X 15 without hold Standing Exercises sit to stand Side bilateral Reps/Minutes X 5 x2 Comments Verbal cues for hip hinge step up Standing Exercise Name trialed 6 fwd step up then 6 inch Side bilateral Reps/Minutes light UE use X2 each LE on 6 inch X10 on 4 inch Comments monitored for pain, comments feels it in right knee on 6 inch step Neuro Re-Education Treatment Balance Activities marching on blue cushion Details CGA hands above bars Reps/Duration X10 hurdles Details CGA hands above bars Reps/Duration 10 feet X 6 Comments 1. fwd reciprocal SLS Details without UE use CGA Surface on and off foam Reps/Duration X6 each LE tandem stepping Details CGA hands above bars Reps/Duration 10 feet X 4 PT-OP-T Assessment and Plan Start: 09/07/24 09:01 Freq: Status: Active Protocol: Document 10/23/24 08:41 AB (Rec: 10/23/24 10:38 AB [id number]) Physical Therapy Assessment Goals Five Impairment not using AD Ios Architect Goal (LTG) If appropriate, pt will be evaluated for and recommended an AD in order to decrease fall risk, improve mobility and safety during gait LTG Duration 12 weeks Four Impairment not performing HEP or any exercise Short Term Goal (STG) Pt will report compliance with HEP at least 2x/wk in order to maximize progression with PT and demonstrate carryover between sessions 10/17/24: he reports performing HEP daily STG Duration 6 weeks MET Ios Architect Goal (LTG) Pt will improve global B hip and knee strength to at least 4/5 in order to demonstrate increased strength for gait, balance, transfers, and ADLs LTG Duration 12 weeks Three Impairment reports fear of falling on stairs, 1 rail assist, poor control with descent Senior Living Goal (LTG) Pt will be able to perform at least 12 stairs using 1 or fewer rails while carrying an object without loss of balance or uncontrolled descent in order to improve safety during household mobility 10/17/24: 8 stairs without knee pain, 1 rail LTG Duration 12 weeks PROGRESSING Two Impairment BLE weakness, limited STS transfers Short Term Goal (STG) Pt will be able to perform at least 5 STS from standard chair without UE assistance and controlled descent in order to demonstrate increased BLE strength for transfers and safety 10/17/24: 5 STS from standard chair, still challenged with ecc descent but controls until last few inches STG Duration 6 weeks PROGRESSING, PARTIALLY MET Ios Architect Goal (LTG) Pt will be able to perform at least 10 STS without compensation from standard chair with or without hand support and/or 5x STS test in <18 seconds in order to demonstrate increased BLE strength and improvements in initial standing balance during transfers LTG Duration 12 weeks One Impairment Durham 36/56, DGI 08/21- indicate increased risk of falls Ios Architect Goal (LTG) Pt will improve Durham balance score >44/56 (1 MCID) in order to demonstrate improved standing balance and weight shifting during reaching or ADLs 10/17/24: [place] 45/56 LTG Duration 12 weeks MET Assessment Summary Assessment Ruben reports having no pain in knees end of session, reports back pain is the same, end of session, but did report back felt better post exercises supine. No unsteadiness with sit to stand this session and able to perform from webbed chair without UE use. Physical Therapy Plan Frequency and Duration Frequency of Treatment 2x/Week Duration of treatment (weeks) 12 Plan of Care Start Date 09/07/24 Plan of Care End Date 11/30/24 Next Visit Focus/Plan Next Note Type Treatment Note Next Visit Plan monitor vitals STS training 18-20. Cont balance work. Step up and down w control. HS length, hip flexor. Review ankle strengthening in seated and standing heel raise. Trial leg press. Cont with quad/ HS/ glute strengthening in seated and standing. LAQ, HSC, hip abduction, SLR, hip ER/IR in sitting. Balance training. Emphasize neutral foot position Manual: STM and joint mobilizations to R knees/ adductors
--- NOTE | 2024-10-30 09:48 | PT.OTN ---
Current Diagnoses Unilateral primary osteoarthritis, unspecified knee (10/30/24) Stiffness of right knee, not elsewhere classified (10/30/24) Other lack of coordination (10/30/24) Weakness (10/30/24) Physical Therapy Treatment Note PT-OP-A Visit Information Start: 09/07/24 09:01 Freq: Status: Active Protocol: Document 10/30/24 09:06 NM (Rec: 10/30/24 09:47 NM [id number]) Out-Patient Physical Therapy Visit Information Visit Information Visit Type Treatment Note Visit Note KX after 19 visits Access Code: [email or web address] Visit Start Time 09:07 Visit Stop Time 09:45 Visit Number 11 Evaluation Information Evaluation Date 09/07/24 Precautions Precautions monitor vitals: low heart rate PT-OP-B Current Condition Start: 09/07/24 09:01 Freq: Status: Active Protocol: Document 09/07/24 09:46 NM (Rec: 09/07/24 11:20 NM [id number]) Current Condition History of Current Condition Current Complaints pain, limited mobility, decreased strength, poor balance History of Current Condition Pt presents with R knee pain. He reports limitations with standing for 30 minutes, states his knee locks on him and shoots pain down his leg; when he moves a little bit, then it feels better and he can walk more normally. He reports problems with balance, transfers especially with STS , bending forward. 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 He reports that his R knee has locked on him 3 times recently , when standing; states unable to bend it without hurting. He saw Dr. 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 States all intact, but reports that knee cap off 12/01 to R. 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 Pt has basement stairs with B railing, requires rails to go up. States no knee pain with stairs. Lives in 3 story home, R rail with stairs. Does not use an AD. 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 Reports several stumbles on uneven ground. States worsening global strength but does not do any exercises except for walking. Lives on a [place], son helps with the heavy stuff. PMH B TKA, high blood pressure (130-135- 140/70), HR in low 40's; declined pacemaker. Pt denies passing out, lightheadedness, but reports dizziness with positional changes. Prior Treatments and Tests Pt reports radiographs with pharmacy retail support specialist of R knee Treatment Goals Patient/Caregiver Goals balance, strength, transfers Current Functional Impairments (Reported) Functional Limitations- ADL's difficulty with putting on socks due to reaching when crossing leg (R harder) Functional Limitations- Mobility/Gait uses hand rails from stairs (R side usually) Functional Limitations- Work/School getting up/down from floor Functional Limitations- Recreation/ dropping objects and picking Hobbies them up (e.g. 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 Has a little pain when walking from his truck. Wants to work on his balance PT-OP-D Balance Start: 09/07/24 09:01 Freq: Status: Active Protocol: Document 09/07/24 09:46 NM (Rec: 09/07/24 11:20 NM [id number]) Balance Tests Durham Balance Test Durham Balance Test Score 36/56 PT-OP-E Functional Tests Start: 09/07/24 09:01 Freq: Status: Active Protocol: Document 09/07/24 09:46 NM (Rec: 09/07/24 11:20 NM [id number]) Functional Tests Dynamic Gait Index (DGI) Score 08/21 PT-OP-F Manual Assessment Start: 09/07/24 09:01 Freq: Status: Active Protocol: Document 09/07/24 09:46 NM (Rec: 09/07/24 11:20 NM [id number]) Manual Assessments Soft Tissue Assessment Soft Tissue Mobility Assessment Tenderness over medial knee near pes anserine and femoral condyle/adductors, distal ITB. Tightness of hip flexors/quad , calves Joint Mobility Assessment Joint Mobility Assessment Limited R knee AROM/PROM. Soft tissue approximation end feel , not empty. Minimal limitations in patellar mobility PT-OP-G Mobility & Gait Start: 09/07/24 09:01 Freq: Status: Active Protocol: Document 09/07/24 09:46 NM (Rec: 09/07/24 11:20 NM [id number]) OP Mobility Evaluation Bed Mobility Supine to and from Sit CGA with cueing Transfers Sit to Stand with B hand support, using BLE to stabilize, initial standing balance unsteady, decreased hip hinge OP Gait Assessment Gait Gait Assistance Required: Standby Assistance Distance (Feet) 150 Comments Gait Comments Less L foot clearance than R, but still limited B. Mild forward trunk lean especially with R stance. When pt distracted, has tendency to stumble. Stair Climbing Evaluation Evaluation Level of Assist On Stairs Contact Guard Assistance Devices Stair Climbing Assistive Devices Right Railing Technique/Endurance Stair Climbing Direction Ascend and Descend Stair Climbing Technique Step Over Step Number of Steps Climbed 4 Stair Climbing Set # Repetitions (reps) 1 Comments Stair Climbing Comments Uses rail to assist with elevation, difficulty controlling descent- CGA PT-OP-J Posture/Palpation/Skin Start: 09/07/24 09:01 Freq: Status: Active Protocol: Document 09/07/24 09:46 NM (Rec: 09/07/24 11:20 NM [id number]) Posture Evaluation Position Standing Head/C-Spine Posture Forward Head T-Spine Posture Increased Kyphosis Shoulder Posture (L) Rounded,(R) Rounded Arm Posture (L) Internally Rotated,(R) Internally Rotated Hip Posture (L) Externally Rotated,(R) Externally Rotated Knee Posture (L) Genu Valgus,(R) Genu Valgus Palpation Assessment Location R knee Palpation Details Tenderness over medial knee near femoral condyle, pes anserine and distal adductors; superior patellar near quad tendon and distal patella near patellar tendon Global hip tightness, quad tightness No tenderness but slight bulge near lateral posterior knee PT-OP-K Range of Motion Start: 09/07/24 09:01 Freq: Status: Active Protocol: Document 10/17/24 12:59 NM (Rec: 10/17/24 13:46 NM [id number]) Knee Goniometric Range of Motion Knee Right Flexion Active (degrees) 113 Extension Active (degrees) 0 Comments IE: 110 deg flex Left Flexion Active (degrees) 115 Extension Active (degrees) 2 PT-OP-M Strength Start: 09/07/24 09:01 Freq: Status: Active Protocol: Document 10/17/24 12:59 NM (Rec: 10/17/24 13:46 NM [id number]) Knee Strength Knee Manual Muscle Testing Right Flexion (S2) 4 Good Extension (L3) 4 Good Comments No pain with resisted motion Left Flexion (S2) 4- Good- Extension (L3) 4 Good PT-OP-Q Treatments Start: 09/07/24 09:01 Freq: Status: Active Protocol: Document 10/30/24 09:06 NM (Rec: 10/30/24 09:47 NM [id number]) Gym Equipment Shuttle Recovery Bilateral Squats Resistance 112# Shuttle Recovery Platform Stable Reps/Time 3x8 Neuro Re-Education Treatment Balance Activities reactive balance Details and anticipatory balance Equipment CGA Comments 1. ball toss on foam w/ large blue ball (a) chest pass (b) over head pass (c) front foot on foam, staggered stance 2. perturbations: pt holding ball while PT provided multi- directional perturbations, (a)NBOS (b) staggered stance ~semi- tandem hurdles Reps/Duration 10 ft x 6 hurdles, 4 reps ea direction Comments 1. fwd reciprocal 2. lateral Cueing for control, slower, foot clearance SLS Details CGA Comments 1. for time, prn finger support 2x30, stable surface 2. w/o UE use, stable surface, 3x ea 3. on foam, no UE assist 4. marching on foam prn UE assist tilt board Details red Surface unstable Reps/Duration 2 min Comments CGA- min A. Cueing for weight shifting PT-OP-T Assessment and Plan Start: 09/07/24 09:01 Freq: Status: Active Protocol: Document 10/30/24 09:06 NM (Rec: 10/30/24 09:47 NM [id number]) Physical Therapy Assessment Goals Five Impairment not using AD Alf Goal (LTG) If appropriate, pt will be evaluated for and recommended an AD in order to decrease fall risk, improve mobility and safety during gait LTG Duration 12 weeks Four Impairment not performing HEP or any exercise Short Term Goal (STG) Pt will report compliance with HEP at least 2x/wk in order to maximize progression with PT and demonstrate carryover between sessions 11/20/24: he reports performing HEP daily STG Duration 6 weeks MET Pipeline Dispatch Operator Goal (LTG) Pt will improve global B hip and knee strength to at least 4/5 in order to demonstrate increased strength for gait, balance, transfers, and ADLs LTG Duration 12 weeks Three Impairment reports fear of falling on stairs, 1 rail assist, poor control with descent Pipeline Dispatch Operator Goal (LTG) Pt will be able to perform at least 12 stairs using 1 or fewer rails while carrying an object without loss of balance or uncontrolled descent in order to improve safety during household mobility 10/17/24: 8 stairs without knee pain, 1 rail LTG Duration 12 weeks PROGRESSING Two Impairment BLE weakness, limited STS transfers Short Term Goal (STG) Pt will be able to perform at least 5 STS from standard chair without UE assistance and controlled descent in order to demonstrate increased BLE strength for transfers and safety 10/17/24: 5 STS from standard chair, still challenged with ecc descent but controls until last few inches STG Duration 6 weeks PROGRESSING, PARTIALLY MET Alf Goal (LTG) Pt will be able to perform at least 10 STS without compensation from standard chair with or without hand support and/or 5x STS test in <18 seconds in order to demonstrate increased BLE strength and improvements in initial standing balance during transfers LTG Duration 12 weeks One Impairment [place] 36/56, DGI 08/21- indicate increased risk of falls Pipeline Dispatch Operator Goal (LTG) Pt will improve [place] balance score >44/56 (1 MCID) in order to demonstrate improved standing balance and weight shifting during reaching or ADLs 10/17/24: [place] 45/56 LTG Duration 12 weeks MET Assessment Summary Assessment Pt tolerated session well. No knee pain during session. Emphasis on balance training for foot clearance and on unstable surfaces with less visual dependence. During hurdles, demos one instance where clips all hurdles; but able to perform remaining reps without touching hurdles when cued for slower motion for control. Able to self correct for most reactionary and anticipatory balance activities, requires min A for 2 instances to prevent fall. Pt would continue to benefit from skilled PT for progressive strengthening and balance training to reduce fall risk during mobility. Physical Therapy Plan Frequency and Duration Frequency of Treatment 2x/Week Duration of treatment (weeks) 12 Plan of Care Start Date 09/07/24 Plan of Care End Date 11/30/24 Therapeutic Interventions Therapeutic Interventions Balance Training,Gait Training ,Home Exercise Program,Joint Mobilizations,Manual Therapy, Neuromuscular Re-education, Orthotic/Prosthetic Management ,Patient/Caregiver Education, Self-Care/Home Management, Sensory Integration,Soft Tissue Mobilization,Taping, Therapeutic Activities, Therapeutic Exercises Modalities Cold Pack/Ice Massage,Hot Packs Next Visit Focus/Plan Next Note Type Treatment Note Next Visit Plan monitor vitals STS training standard ht; stairs. Cont balance work isauro on unstable surfaces. leg press. Cont with quad/ HS/ glute strengthening in seated and standing. LAQ, HSC, hip abduction, SLR, hip ER/IR in sitting. Balance training. Emphasize neutral foot position Manual: STM and joint mobilizations to R knees/ adductors
--- NOTE | 2024-11-01 15:49 | PT.OTN ---
Current Diagnoses Unilateral primary osteoarthritis, unspecified knee (11/01/24) Stiffness of right knee, not elsewhere classified (11/01/24) Other lack of coordination (11/01/24) Weakness (11/01/24) Physical Therapy Treatment Note PT-OP-A Visit Information Start: 09/07/24 09:01 Freq: Status: Active Protocol: Document 11/01/24 08:08 AB (Rec: 11/01/24 10:44 AB [id number]) Out-Patient Physical Therapy Visit Information Visit Information Visit Type Treatment Note Visit Note KX after 19 visits Access Code: [email or web address] Seated BP left UE start of session 142/58 taken manually post X 2 right UE X left UE with BP machine error reading O2 sat 97% HR 38 BPM Visit Start Time 09:05 Visit Stop Time 09:48 Visit Number 12 [facility] of [facility] Visits 1 Evaluation Information Evaluation Date 09/07/24 Precautions Precautions monitor vitals: low heart rate PT-OP-B Current Condition Start: 09/07/24 09:01 Freq: Status: Active Protocol: Document 09/07/24 09:46 NM (Rec: 09/07/24 11:20 NM [id number]) Current Condition History of Current Condition Current Complaints pain, limited mobility, decreased strength, poor balance History of Current Condition Pt presents with R knee pain. He reports limitations with standing for 30 minutes, states his knee locks on him and shoots pain down his leg; when he moves a little bit, then it feels better and he can walk more normally. He reports problems with balance, transfers especially with STS , bending forward. 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 He reports that his R knee has locked on him 3 times recently , when standing; states unable to bend it without hurting. He saw Dr. 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 States all intact, but reports that knee cap off 12/01 to R. 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 Pt has basement stairs with B railing, requires rails to go up. States no knee pain with stairs. Lives in 3 story home, R rail with stairs. Does not use an AD. 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 Reports several stumbles on uneven ground. States worsening global strength but does not do any exercises except for walking. Lives [place], son helps with the heavy stuff. PMH B TKA, high blood pressure (130-135- 140/70), HR in low 40's; declined pacemaker. Pt denies passing out, lightheadedness, but reports dizziness with positional changes. Prior Treatments and Tests Pt reports radiographs with independent living specialist of R knee Treatment Goals Patient/Caregiver Goals balance, strength, transfers Current Functional Impairments (Reported) Functional Limitations- ADL's difficulty with putting on socks due to reaching when crossing leg (R harder) Functional Limitations- Mobility/Gait uses hand rails from stairs (R side usually) Functional Limitations- Work/School getting up/down from floor Functional Limitations- Recreation/ dropping objects and picking Hobbies them up (e.g. sitting at desk when performing coin collection) due to low back strain PT-OP-C Subjective Start: 09/07/24 09:01 Freq: Status: Active Protocol: Document 11/01/24 08:08 AB (Rec: 11/01/24 10:44 AB [id number]) OP-PT Subjective Patient Comments Patient Comments Patient reports back and knees are good, liked the balance work he did here last time. Patient reports having no falls since previous session. Patient reprots he did his home exercises every day. PT-OP-D Balance Start: 09/07/24 09:01 Freq: Status: Active Protocol: Document 09/07/24 09:46 NM (Rec: 09/07/24 11:20 NM [id number]) Balance Tests Durham Balance Test Durham Balance Test Score 36/56 PT-OP-E Functional Tests Start: 09/07/24 09:01 Freq: Status: Active Protocol: Document 09/07/24 09:46 NM (Rec: 09/07/24 11:20 NM [id number]) Functional Tests Dynamic Gait Index (DGI) Score 08/21 PT-OP-F Manual Assessment Start: 09/07/24 09:01 Freq: Status: Active Protocol: Document 09/07/24 09:46 NM (Rec: 09/07/24 11:20 NM [id number]) Manual Assessments Soft Tissue Assessment Soft Tissue Mobility Assessment Tenderness over medial knee near pes anserine and femoral condyle/adductors, distal ITB. Tightness of hip flexors/quad , calves Joint Mobility Assessment Joint Mobility Assessment Limited R knee AROM/PROM. Soft tissue approximation end feel , not empty. Minimal limitations in patellar mobility PT-OP-G Mobility & Gait Start: 09/07/24 09:01 Freq: Status: Active Protocol: Document 09/07/24 09:46 NM (Rec: 09/07/24 11:20 NM [id number]) OP Mobility Evaluation Bed Mobility Supine to and from Sit CGA with cueing Transfers Sit to Stand with B hand support, using BLE to stabilize, initial standing balance unsteady, decreased hip hinge OP Gait Assessment Gait Gait Assistance Required: Standby Assistance Distance (Feet) 150 Comments Gait Comments Less L foot clearance than R, but still limited B. Mild forward trunk lean especially with R stance. When pt distracted, has tendency to stumble. Stair Climbing Evaluation Evaluation Level of Assist On Stairs Contact Guard Assistance Devices Stair Climbing Assistive Devices Right Railing Technique/Endurance Stair Climbing Direction Ascend and Descend Stair Climbing Technique Step Over Step Number of Steps Climbed 4 Stair Climbing Set # Repetitions (reps) 1 Comments Stair Climbing Comments Uses rail to assist with elevation, difficulty controlling descent- CGA PT-OP-J Posture/Palpation/Skin Start: 09/07/24 09:01 Freq: Status: Active Protocol: Document 09/07/24 09:46 NM (Rec: 09/07/24 11:20 NM [id number]) Posture Evaluation Position Standing Head/C-Spine Posture Forward Head T-Spine Posture Increased Kyphosis Shoulder Posture (L) Rounded,(R) Rounded Arm Posture (L) Internally Rotated,(R) Internally Rotated Hip Posture (L) Externally Rotated,(R) Externally Rotated Knee Posture (L) Genu Valgus,(R) Genu Valgus Palpation Assessment Location R knee Palpation Details Tenderness over medial knee near femoral condyle, pes anserine and distal adductors; superior patellar near quad tendon and distal patella near patellar tendon Global hip tightness, quad tightness No tenderness but slight bulge near lateral posterior knee PT-OP-K Range of Motion Start: 09/07/24 09:01 Freq: Status: Active Protocol: Document 10/17/24 12:59 NM (Rec: 10/17/24 13:46 NM [id number]) Knee Goniometric Range of Motion Knee Right Flexion Active (degrees) 113 Extension Active (degrees) 0 Comments IE: 110 deg flex Left Flexion Active (degrees) 115 Extension Active (degrees) 2 PT-OP-M Strength Start: 09/07/24 09:01 Freq: Status: Active Protocol: Document 10/17/24 12:59 NM (Rec: 10/17/24 13:46 NM [id number]) Knee Strength Knee Manual Muscle Testing Right Flexion (S2) 4 Good Extension (L3) 4 Good Comments No pain with resisted motion Left Flexion (S2) 4- Good- Extension (L3) 4 Good PT-OP-Q Treatments Start: 09/07/24 09:01 Freq: Status: Active Protocol: Document 11/01/24 08:08 AB (Rec: 11/01/24 10:44 AB [id number]) Gym Equipment Shuttle Balance red Details normal JAE and stagger Comments CGA, visual scanning and head turns during normal JAE Therapeutic Exercises Sitting Exercises Hip abduction Sitting Exercise Name clams Side bilateral Resistance level 5 band Equipment Used HEP for one minute hold Reps/Minutes one one minute hold then X 17 without hold Standing Exercises heel raises Standing Exercise Name HEP Side bilateral Resistance AROM Equipment Used hand support Reps/Minutes X10 Comments verbal cues to lower heels to floor slowly Neuro Re-Education Treatment Balance Activities hurdles Details CGA hands above bars Reps/Duration fwd X 6 lat X 2 left and right Comments 3 hurdles knocked over first trial fwd, none on final 2 rouands fwd step up taps Details close SBA Equipment 6 inch step Reps/Duration X10 from floor X 10 from foal tandem stepping Details CGA to very minimal assist hands above bars Reps/Duration 10 feet X 4 PT-OP-T Assessment and Plan Start: 09/07/24 09:01 Freq: Status: Active Protocol: Document 11/01/24 08:08 AB (Rec: 11/01/24 10:44 AB [id number]) Physical Therapy Assessment Goals Five Impairment not using AD Sheet Rock Installation Helper Goal (LTG) If appropriate, pt will be evaluated for and recommended an AD in order to decrease fall risk, improve mobility and safety during gait LTG Duration 12 weeks Four Impairment not performing HEP or any exercise Short Term Goal (STG) Pt will report compliance with HEP at least 2x/wk in order to maximize progression with PT and demonstrate carryover between sessions 10/17/24: he reports performing HEP daily STG Duration 6 weeks MET Sheet Rock Installation Helper Goal (LTG) Pt will improve global B hip and knee strength to at least 4/5 in order to demonstrate increased strength for gait, balance, transfers, and ADLs 11/01/2024 Patient reprots he did his home exercises every day. LTG Duration 12 weeks Three Impairment reports fear of falling on stairs, 1 rail assist, poor control with descent Sheet Rock Installation Helper Goal (LTG) Pt will be able to perform at least 12 stairs using 1 or fewer rails while carrying an object without loss of balance or uncontrolled descent in order to improve safety during household mobility 10/17/24: 8 stairs without knee pain, 1 rail LTG Duration 12 weeks PROGRESSING Two Impairment BLE weakness, limited STS transfers Short Term Goal (STG) Pt will be able to perform at least 5 STS from standard chair without UE assistance and controlled descent in order to demonstrate increased BLE strength for transfers and safety 10/17/24: 5 STS from standard chair, still challenged with ecc descent but controls until last few inches STG Duration 6 weeks PROGRESSING, PARTIALLY MET Intermediate Goal (LTG) Pt will be able to perform at least 10 STS without compensation from standard chair with or without hand support and/or 5x STS test in <18 seconds in order to demonstrate increased BLE strength and improvements in initial standing balance during transfers LTG Duration 12 weeks One Impairment [place] 36/56, DGI /- indicate increased risk of falls Intermediate Goal (LTG) Pt will improve Durham balance score >44/56 (1 MCID) in order to demonstrate improved standing balance and weight shifting during reaching or ADLs 10/17/24: [place] 45/56 LTG Duration 12 weeks MET Assessment Summary Assessment Patient reports having no pain end of session. Improved hurdles knocking none over on last 2 trials, when initiated iwth 3 over on first trial. Physical Therapy Plan Frequency and Duration Frequency of Treatment 2x/Week Duration of treatment (weeks) 12 Plan of Care Start Date 09/07/24 Plan of Care End Date 11/30/24 Next Visit Focus/Plan Next Note Type Treatment Note Next Visit Plan monitor vitals STS training standard ht; stairs. Cont balance work isauro on unstable surfaces. leg press. Cont with quad/ HS/ glute strengthening in seated and standing. LAQ, HSC, hip abduction, SLR, hip ER/IR in sitting. Balance training. Emphasize neutral foot position Manual: STM and joint mobilizations to R knees/ adductors
--- NOTE | 2024-11-06 09:45 | PT.OTN ---
Current Diagnoses Unilateral primary osteoarthritis, unspecified knee (11/06/24) Stiffness of right knee, not elsewhere classified (11/06/24) Other lack of coordination (11/06/24) Weakness (11/06/24) Physical Therapy Treatment Note PT-OP-A Visit Information Start: 09/07/24 09:01 Freq: Status: Active Protocol: Document 11/06/24 09:02 NM (Rec: 11/06/24 09:45 NM [id number]) Out-Patient Physical Therapy Visit Information Visit Information Visit Type Treatment Note Visit Note KX after 19 visits Access Code: [email or web address] Seated BP L arm SOS: 125/61 bpm, 96%, 43 bpm Visit Start Time 09:03 Visit Stop Time 09:45 Visit Number 13 Evaluation Information Evaluation Date 09/07/24 Precautions Precautions monitor vitals: low heart rate PT-OP-B Current Condition Start: 09/07/24 09:01 Freq: Status: Active Protocol: Document 09/07/24 09:46 NM (Rec: 09/07/24 11:20 NM [id number]) Current Condition History of Current Condition Current Complaints pain, limited mobility, decreased strength, poor balance History of Current Condition Pt presents with R knee pain. He reports limitations with standing for 30 minutes, states his knee locks on him and shoots pain down his leg; when he moves a little bit, then it feels better and he can walk more normally. He reports problems with balance, transfers especially with STS , bending forward. 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 He reports that his R knee has locked on him 3 times recently , when standing; states unable to bend it without hurting. He saw Dr. 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 States all intact, but reports that knee cap off 12/01 to R. 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 Pt has basement stairs with B railing, requires rails to go up. States no knee pain with stairs. Lives in 3 story home, R rail with stairs. Does not use an AD. 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 Reports several stumbles on uneven ground. States worsening global strength but does not do any exercises except for walking. Lives on a [place], son helps with the heavy stuff. PMH B TKA, high blood pressure (130-135- 140/70), HR in low 40's; declined pacemaker. Pt denies passing out, lightheadedness, but reports dizziness with positional changes. Prior Treatments and Tests Pt reports radiographs with employment service specialist of R knee Treatment Goals Patient/Caregiver Goals balance, strength, transfers Current Functional Impairments (Reported) Functional Limitations- ADL's difficulty with putting on socks due to reaching when crossing leg (R harder) Functional Limitations- Mobility/Gait uses hand rails from stairs (R side usually) Functional Limitations- Work/School getting up/down from floor Functional Limitations- Recreation/ dropping objects and picking Hobbies them up (e.g. sitting at desk when performing coin collection) due to low back strain PT-OP-C Subjective Start: 09/07/24 09:01 Freq: Status: Active Protocol: Document 11/06/24 09:02 NM (Rec: 11/06/24 09:45 NM [id number]) OP-PT Subjective Patient Comments Patient Comments Pt reports knees doing well, states a little kinky in the morning, worse in the cold; feel better with activity. PT-OP-D Balance Start: 09/07/24 09:01 Freq: Status: Active Protocol: Document 09/07/24 09:46 NM (Rec: 09/07/24 11:20 NM [id number]) Balance Tests Durham Balance Test Durham Balance Test Score 36/56 PT-OP-E Functional Tests Start: 09/07/24 09:01 Freq: Status: Active Protocol: Document 09/07/24 09:46 NM (Rec: 09/07/24 11:20 NM [id number]) Functional Tests Dynamic Gait Index (DGI) Score 08/21 PT-OP-F Manual Assessment Start: 09/07/24 09:01 Freq: Status: Active Protocol: Document 09/07/24 09:46 NM (Rec: 09/07/24 11:20 NM [id number]) Manual Assessments Soft Tissue Assessment Soft Tissue Mobility Assessment Tenderness over medial knee near pes anserine and femoral condyle/adductors, distal ITB. Tightness of hip flexors/quad , calves Joint Mobility Assessment Joint Mobility Assessment Limited R knee AROM/PROM. Soft tissue approximation end feel , not empty. Minimal limitations in patellar mobility PT-OP-G Mobility & Gait Start: 09/07/24 09:01 Freq: Status: Active Protocol: Document 09/07/24 09:46 NM (Rec: 09/07/24 11:20 NM [id number]) OP Mobility Evaluation Bed Mobility Supine to and from Sit CGA with cueing Transfers Sit to Stand with B hand support, using BLE to stabilize, initial standing balance unsteady, decreased hip hinge OP Gait Assessment Gait Gait Assistance Required: Standby Assistance Distance (Feet) 150 Comments Gait Comments Less L foot clearance than R, but still limited B. Mild forward trunk lean especially with R stance. When pt distracted, has tendency to stumble. Stair Climbing Evaluation Evaluation Level of Assist On Stairs Contact Guard Assistance Devices Stair Climbing Assistive Devices Right Railing Technique/Endurance Stair Climbing Direction Ascend and Descend Stair Climbing Technique Step Over Step Number of Steps Climbed 4 Stair Climbing Set # Repetitions (reps) 1 Comments Stair Climbing Comments Uses rail to assist with elevation, difficulty controlling descent- CGA PT-OP-J Posture/Palpation/Skin Start: 09/07/24 09:01 Freq: Status: Active Protocol: Document 09/07/24 09:46 NM (Rec: 09/07/24 11:20 NM [id number]) Posture Evaluation Position Standing Head/C-Spine Posture Forward Head T-Spine Posture Increased Kyphosis Shoulder Posture (L) Rounded,(R) Rounded Arm Posture (L) Internally Rotated,(R) Internally Rotated Hip Posture (L) Externally Rotated,(R) Externally Rotated Knee Posture (L) Genu Valgus,(R) Genu Valgus Palpation Assessment Location R knee Palpation Details Tenderness over medial knee near femoral condyle, pes anserine and distal adductors; superior patellar near quad tendon and distal patella near patellar tendon Global hip tightness, quad tightness No tenderness but slight bulge near lateral posterior knee PT-OP-K Range of Motion Start: 09/07/24 09:01 Freq: Status: Active Protocol: Document 10/17/24 12:59 NM (Rec: 10/17/24 13:46 NM [id number]) Knee Goniometric Range of Motion Knee Right Flexion Active (degrees) 113 Extension Active (degrees) 0 Comments IE: 110 deg flex Left Flexion Active (degrees) 115 Extension Active (degrees) 2 PT-OP-M Strength Start: 09/07/24 09:01 Freq: Status: Active Protocol: Document 10/17/24 12:59 NM (Rec: 10/17/24 13:46 NM [id number]) Knee Strength Knee Manual Muscle Testing Right Flexion (S2) 4 Good Extension (L3) 4 Good Comments No pain with resisted motion Left Flexion (S2) 4- Good- Extension (L3) 4 Good PT-OP-Q Treatments Start: 09/07/24 09:01 Freq: Status: Active Protocol: Document 11/06/24 09:02 NM (Rec: 11/06/24 09:45 NM [id number]) Therapeutic Exercises Sitting Exercises LAQ Side bilateral Resistance level 5 band Reps/Minutes 2x10 ea Comments medium difficult Standing Exercises sit to stand Standing Exercise Name HEP Side bilateral Equipment Used standard chair Reps/Minutes 10 Comments no cueing needed for form; good ecc control side steps Standing Exercise Name HEP review Side bilateral Resistance level 4 band > below knees Equipment Used no hand support Reps/Minutes 3x10 ft ea direction Comments cued neutral foot placement, foot clearance; improved w/ reps Neuro Re-Education Treatment Balance Activities wall falls Details reactive and anticipatory balance, fall mgmt Surface stable Equipment pillow behind back Comments 1. w/ pillow, 10 2. w/ peturbation from PT w/ stepping in multiple directions carioca Details CGA, hands hovering over // bars Reps/Duration 10 ft x 3 reps Comments challenging for pt to coord. performed for reactive stepping retro stepping Details CGA, hands hovering over // bars Reps/Duration 10 ft x 3 reps Comments cueing to reduce visual contact, wider JAE, larger step backward SLS Details close SBA - added to HEP Surface stable Reps/Duration 2x30 ea Comments 2 finger support (1 ea hand), with prn periodically removing 1 finger for balance tandem stepping Details CGA, hands hovering over // bars Reps/Duration 10 ft x 3 reps Comments cueing to reduce visual contact w/ feet PT-OP-T Assessment and Plan Start: 09/07/24 09:01 Freq: Status: Active Protocol: Document 11/06/24 09:02 NM (Rec: 12/10/24 09:45 NM [id number]) Physical Therapy Assessment Goals Five Impairment not using AD Filler Machine Operator Goal (LTG) If appropriate, pt will be evaluated for and recommended an AD in order to decrease fall risk, improve mobility and safety during gait LTG Duration 12 weeks Four Impairment not performing HEP or any exercise Short Term Goal (STG) Pt will report compliance with HEP at least 2x/wk in order to maximize progression with PT and demonstrate carryover between sessions 10/17/24: he reports performing HEP daily STG Duration 6 weeks MET Filler Machine Operator Goal (LTG) Pt will improve global B hip and knee strength to at least 4/5 in order to demonstrate increased strength for gait, balance, transfers, and ADLs 11/01/2024 Patient reprots he did his home exercises every day. LTG Duration 12 weeks Three Impairment reports fear of falling on stairs, 1 rail assist, poor control with descent Filler Machine Operator Goal (LTG) Pt will be able to perform at least 12 stairs using 1 or fewer rails while carrying an object without loss of balance or uncontrolled descent in order to improve safety during household mobility 10/17/24: 8 stairs without knee pain, 1 rail LTG Duration 12 weeks PROGRESSING Two Impairment BLE weakness, limited STS transfers Short Term Goal (STG) Pt will be able to perform at least 5 STS from standard chair without UE assistance and controlled descent in order to demonstrate increased BLE strength for transfers and safety 10/17/24: 5 STS from standard chair, still challenged with ecc descent but controls until last few inches STG Duration 6 weeks PROGRESSING, PARTIALLY MET Senior Living Goal (LTG) Pt will be able to perform at least 10 STS without compensation from standard chair with or without hand support and/or 5x STS test in <18 seconds in order to demonstrate increased BLE strength and improvements in initial standing balance during transfers LTG Duration 12 weeks One Impairment Durham 36/56, DGI 08/21- indicate increased risk of falls Filler Machine Operator Goal (LTG) Pt will improve [place] balance score >44/56 (1 MCID) in order to demonstrate improved standing balance and weight shifting during reaching or ADLs 10/17/24: [place] 45/56 LTG Duration 12 weeks MET Assessment Summary Assessment Pt tolerated session well, progressed resistance bands for LAQ and resisted stepping. Added sit to stand to HEP. Pt able demos improved eccentric control and weight shift, able to perform from standard chair with no UE assist and no assist from PT for balance this session. Initiated fall management and perturbation training to retrain stepping reactions. Pt needs cueing for execution and close monitoring for safety to prevent fall. Improves with reps. Pt continues to be very dependent on visual feedback to maintain balance. Pt would continue to benefit from skilled PT for progressive strengthening and balance training to reduce fall risk. Physical Therapy Plan Frequency and Duration Frequency of Treatment 2x/Week Duration of treatment (weeks) 12 Plan of Care Start Date 09/07/24 Plan of Care End Date 11/30/24 Therapeutic Interventions Therapeutic Interventions Balance Training,Gait Training ,Home Exercise Program,Joint Mobilizations,Manual Therapy, Neuromuscular Re-education, Orthotic/Prosthetic Management ,Patient/Caregiver Education, Self-Care/Home Management, Sensory Integration,Soft Tissue Mobilization,Taping, Therapeutic Activities, Therapeutic Exercises Modalities Cold Pack/Ice Massage,Hot Packs Next Visit Focus/Plan Next Note Type Treatment Note Next Visit Plan monitor vitals Initiate floor transfers, stair training. Update HEP resistane as needed. Cont balance work isauro on unstable surfaces. leg press. Cont with quad/ HS/glute strengthening in seated and standing. LAQ, HSC, hip abduction, SLR, hip ER/IR in sitting. Balance training. Emphasize neutral foot position Manual: STM and joint mobilizations to R knees/ adductors
--- NOTE | 2024-11-08 09:48 | PT.OTN ---
Current Diagnoses Unilateral primary osteoarthritis, unspecified knee (11/08/24) Stiffness of right knee, not elsewhere classified (11/08/24) Other lack of coordination (11/08/24) Weakness (11/08/24) Physical Therapy Treatment Note PT-OP-A Visit Information Start: 09/07/24 09:01 Freq: Status: Active Protocol: Document 11/08/24 09:06 NM (Rec: 11/08/24 09:46 NM [id number]) Out-Patient Physical Therapy Visit Information Visit Information Visit Type Treatment Note Visit Note KX after 19 visits Access Code: [email or web address] Seated BP L arm SOS: 140/71 mmHg, 40 bpm, 98% Visit Start Time 09:07 Visit Stop Time 09:45 Visit Number 14 Evaluation Information Evaluation Date 09/07/24 Precautions Precautions monitor vitals: low heart rate PT-OP-B Current Condition Start: 09/07/24 09:01 Freq: Status: Active Protocol: Document 09/07/24 09:46 NM (Rec: 09/07/24 11:20 NM [id number]) Current Condition History of Current Condition Current Complaints pain, limited mobility, decreased strength, poor balance History of Current Condition Pt presents with R knee pain. He reports limitations with standing for 30 minutes, states his knee locks on him and shoots pain down his leg; when he moves a little bit, then it feels better and he can walk more normally. He reports problems with balance, transfers especially with STS , bending forward. 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 He reports that his R knee has locked on him 3 times recently , when standing; states unable to bend it without hurting. He saw Dr. 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 States all intact, but reports that knee cap off 12/01 to R. 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 Pt has basement stairs with B railing, requires rails to go up. States no knee pain with stairs. Lives in 3 story home, R rail with stairs. Does not use an AD. 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 Reports several stumbles on uneven ground. States worsening global strength but does not do any exercises except for walking. [place], son helps with the heavy stuff. PMH B TKA, high blood pressure (130-135- 140/70), HR in low 40's; declined pacemaker. Pt denies passing out, lightheadedness, but reports dizziness with positional changes. Prior Treatments and Tests Pt reports radiographs with academic program specialist of R knee Treatment Goals Patient/Caregiver Goals balance, strength, transfers Current Functional Impairments (Reported) Functional Limitations- ADL's difficulty with putting on socks due to reaching when crossing leg (R harder) Functional Limitations- Mobility/Gait uses hand rails from stairs (R side usually) Functional Limitations- Work/School getting up/down from floor Functional Limitations- Recreation/ dropping objects and picking Hobbies them up (e.g. sitting at desk when performing coin collection) due to low back strain PT-OP-C Subjective Start: 09/07/24 09:01 Freq: Status: Active Protocol: Document 11/08/24 09:06 NM (Rec: 11/08/24 09:46 NM [id number]) OP-PT Subjective Patient Comments Patient Comments Pt reports that his quads were stiff this morning, felt stiff after last session. PT-OP-D Balance Start: 09/07/24 09:01 Freq: Status: Active Protocol: Document 09/07/24 09:46 NM (Rec: 09/07/24 11:20 NM [id number]) Balance Tests Durham Balance Test Durham Balance Test Score 36/56 PT-OP-E Functional Tests Start: 09/07/24 09:01 Freq: Status: Active Protocol: Document 09/07/24 09:46 NM (Rec: 09/07/24 11:20 NM [id number]) Functional Tests Dynamic Gait Index (DGI) Score 08/21 PT-OP-F Manual Assessment Start: 09/07/24 09:01 Freq: Status: Active Protocol: Document 09/07/24 09:46 NM (Rec: 09/07/24 11:20 NM [id number]) Manual Assessments Soft Tissue Assessment Soft Tissue Mobility Assessment Tenderness over medial knee near pes anserine and femoral condyle/adductors, distal ITB. Tightness of hip flexors/quad , calves Joint Mobility Assessment Joint Mobility Assessment Limited R knee AROM/PROM. Soft tissue approximation end feel , not empty. Minimal limitations in patellar mobility PT-OP-G Mobility & Gait Start: 09/07/24 09:01 Freq: Status: Active Protocol: Document 09/07/24 09:46 NM (Rec: 09/07/24 11:20 NM [id number]) OP Mobility Evaluation Bed Mobility Supine to and from Sit CGA with cueing Transfers Sit to Stand with B hand support, using BLE to stabilize, initial standing balance unsteady, decreased hip hinge OP Gait Assessment Gait Gait Assistance Required: Standby Assistance Distance (Feet) 150 Comments Gait Comments Less L foot clearance than R, but still limited B. Mild forward trunk lean especially with R stance. When pt distracted, has tendency to stumble. Stair Climbing Evaluation Evaluation Level of Assist On Stairs Contact Guard Assistance Devices Stair Climbing Assistive Devices Right Railing Technique/Endurance Stair Climbing Direction Ascend and Descend Stair Climbing Technique Step Over Step Number of Steps Climbed 4 Stair Climbing Set # Repetitions (reps) 1 Comments Stair Climbing Comments Uses rail to assist with elevation, difficulty controlling descent- CGA PT-OP-J Posture/Palpation/Skin Start: 09/07/24 09:01 Freq: Status: Active Protocol: Document 09/07/24 09:46 NM (Rec: 09/07/24 11:20 NM [id number]) Posture Evaluation Position Standing Head/C-Spine Posture Forward Head T-Spine Posture Increased Kyphosis Shoulder Posture (L) Rounded,(R) Rounded Arm Posture (L) Internally Rotated,(R) Internally Rotated Hip Posture (L) Externally Rotated,(R) Externally Rotated Knee Posture (L) Genu Valgus,(R) Genu Valgus Palpation Assessment Location R knee Palpation Details Tenderness over medial knee near femoral condyle, pes anserine and distal adductors; superior patellar near quad tendon and distal patella near patellar tendon Global hip tightness, quad tightness No tenderness but slight bulge near lateral posterior knee PT-OP-K Range of Motion Start: 09/07/24 09:01 Freq: Status: Active Protocol: Document 10/17/24 12:59 NM (Rec: 10/17/24 13:46 NM [id number]) Knee Goniometric Range of Motion Knee Right Flexion Active (degrees) 113 Extension Active (degrees) 0 Comments IE: 110 deg flex Left Flexion Active (degrees) 115 Extension Active (degrees) 2 PT-OP-M Strength Start: 09/07/24 09:01 Freq: Status: Active Protocol: Document 10/17/24 12:59 NM (Rec: 10/17/24 13:46 NM [id number]) Knee Strength Knee Manual Muscle Testing Right Flexion (S2) 4 Good Extension (L3) 4 Good Comments No pain with resisted motion Left Flexion (S2) 4- Good- Extension (L3) 4 Good PT-OP-Q Treatments Start: 09/07/24 09:01 Freq: Status: Active Protocol: Document 11/08/24 09:06 NM (Rec: 11/08/24 09:46 NM [id number]) Cardio Equipment Recumbent Stepper (Sci-Fit) Duration (Minutes) 5 Resistance 1.2 Seat Position 12 Other warm up Therapeutic Exercises Standing Exercises ankle dorsiflexion Side bilateral Equipment Used back against wall Reps/Minutes 15 ea lunges Standing Exercise Name forward Side bilateral Equipment Used 1 hand support on rail Reps/Minutes 12 ea, 10 ea Comments cued for set up, no knee pain stairs Standing Exercise Name for goal management Side bilateral Equipment Used reciprocal Reps/Minutes 16 stairs, 1 hand rail R Comments close SBA calf stretch Standing Exercise Name 1. gastrocnemius, 2. soleus Side bilateral Equipment Used JAYDA, B hand support Reps/Minutes 60 ea heel raises Side bilateral Equipment Used hands on wall Reps/Minutes 20 Comments verbal cues for correct execution Therapeutic Activity Therapeutic Activity Floor transfers Name on blue mat w/ chair for support; CGA Reps/Minutes 8 min Comments 1. via 1/2 lunge 2. via lunge to floor, ea direction. L behind gives more depth 3. from squat- does not transfer to floor Initiated but did not complete transfer. Pt does put L knee on floor several times but does not have full knee ROM or quad/hip strength to push up PT-OP-T Assessment and Plan Start: 09/07/24 09:01 Freq: Status: Active Protocol: Document 11/08/24 09:06 NM (Rec: 11/08/24 09:46 NM [id number]) Physical Therapy Assessment Goals Five Impairment not using AD [facility] Goal (LTG) If appropriate, pt will be evaluated for and recommended an AD in order to decrease fall risk, improve mobility and safety during gait 11/08/24: pt balance testing does not indicate need for AD at this time LTG Duration 12 weeks MET Four Impairment not performing HEP or any exercise Short Term Goal (STG) Pt will report compliance with HEP at least 2x/wk in order to maximize progression with PT and demonstrate carryover between sessions 10/17/24: he reports performing HEP daily STG Duration 6 weeks MET [facility] Goal (LTG) Pt will improve global B hip and knee strength to at least 4/5 in order to demonstrate increased strength for gait, balance, transfers, and ADLs 11/01/2024 Patient reprots he did his home exercises every day. LTG Duration 12 weeks Three Impairment reports fear of falling on stairs, 1 rail assist, poor control with descent [employer] Goal (LTG) Pt will be able to perform at least 12 stairs using 1 or fewer rails while carrying an object without loss of balance or uncontrolled descent in order to improve safety during household mobility 10/17/24: 8 stairs without knee pain, 1 rail 11/08/24: 16 stairs with 1 rail, no knee pain, close SBA; controlled descent LTG Duration 12 weeks MET Two Impairment BLE weakness, limited STS transfers Short Term Goal (STG) Pt will be able to perform at least 5 STS from standard chair without UE assistance and controlled descent in order to demonstrate increased BLE strength for transfers and safety 10/17/24: 5 STS from standard chair, still challenged with ecc descent but controls until last few inches STG Duration 6 weeks PROGRESSING, PARTIALLY MET [employer] Goal (LTG) Pt will be able to perform at least 10 STS without compensation from standard chair with or without hand support and/or 5x STS test in <18 seconds in order to demonstrate increased BLE strength and improvements in initial standing balance during transfers LTG Duration 12 weeks One Impairment Durham 36/56, DGI 08/21- indicate increased risk of falls [employer] Goal (LTG) Pt will improve Durham balance score >44/56 (1 MCID) in order to demonstrate improved standing balance and weight shifting during reaching or ADLs 10/17/24: Durham 45/56 LTG Duration 12 weeks MET Assessment Summary Assessment Pt reports mild knee pain following initiation of floor transfers with lunges. Limited by knee ROM and quad/glute strength. Pt able to transfer to L knee but with great effort and B UE support. Will continue to address in future. Met stair goal today, able to do 16 stairs with 1 rail and maintain balance/control. Continued with global strengthening of BLE; good feedback for standing ankle dorsiflexion and lunges. Pt would benefit from skilled PT for progressive strengthening and balance training in order to improve symptom management, decrease fall risk, and improve functional mobility. Physical Therapy Plan Frequency and Duration Frequency of Treatment 2x/Week Duration of treatment (weeks) 12 Plan of Care Start Date 09/07/24 Plan of Care End Date 11/30/24 Therapeutic Interventions Therapeutic Interventions Balance Training,Gait Training ,Home Exercise Program,Joint Mobilizations,Manual Therapy, Neuromuscular Re-education, Orthotic/Prosthetic Management ,Patient/Caregiver Education, Self-Care/Home Management, Sensory Integration,Soft Tissue Mobilization,Taping, Therapeutic Activities, Therapeutic Exercises Modalities Cold Pack/Ice Massage,Hot Packs Next Visit Focus/Plan Next Note Type Treatment Note Next Visit Plan monitor vitals Initiate floor transfers, review lunges. Leg press. Update HEP resistane as needed . Cont balance work isauro on unstable surfaces. leg press. Cont with quad/ HS/glute strengthening in seated and standing. LAQ, HSC, hip abduction, SLR, hip ER/IR in sitting. Balance training. Emphasize neutral foot position Manual: STM and joint mobilizations to R knees/ adductors
--- NOTE | 2024-11-13 09:46 | PT.OTN ---
Current Diagnoses Unilateral primary osteoarthritis, unspecified knee (11/13/24) Stiffness of right knee, not elsewhere classified (11/13/24) Other lack of coordination (11/13/24) Weakness (11/13/24) Physical Therapy Treatment Note PT-OP-A Visit Information Start: 09/07/24 09:01 Freq: Status: Active Protocol: Document 11/13/24 09:05 NM (Rec: 11/13/24 09:45 NM [id number]) Out-Patient Physical Therapy Visit Information Visit Information Visit Type Progress Note Visit Note KX after 19 visits seated BP L arm SOS: 140/67 mmHg, 96%, 45 bpm Visit Start Time 09:06 Visit Stop Time 09:45 Visit Number 15 Evaluation Information Evaluation Date 09/07/24 Precautions Precautions monitor vitals: low heart rate PT-OP-B Current Condition Start: 09/07/24 09:01 Freq: Status: Active Protocol: Document 09/07/24 09:46 NM (Rec: 09/07/24 11:20 NM [id number]) Current Condition History of Current Condition Current Complaints pain, limited mobility, decreased strength, poor balance History of Current Condition Pt presents with R knee pain. He reports limitations with standing for 30 minutes, states his knee locks on him and shoots pain down his leg; when he moves a little bit, then it feels better and he can walk more normally. He reports problems with balance, transfers especially with STS , bending forward. 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 He reports that his R knee has locked on him 3 times recently , when standing; states unable to bend it without hurting. He saw Dr. 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 States all intact, but reports that knee cap off 12/01 to R. 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 Pt has basement stairs with B railing, requires rails to go up. States no knee pain with stairs. Lives in 3 story home, R rail with stairs. Does not use an AD. 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 Reports several stumbles on uneven ground. States worsening global strength but does not do any exercises except for walking. [place], son helps with the heavy stuff. PMH B TKA, high blood pressure (130-135- 140/70), HR in low 40's; declined pacemaker. Pt denies passing out, lightheadedness, but reports dizziness with positional changes. Prior Treatments and Tests Pt reports radiographs with bankruptcy law specialist of R knee Treatment Goals Patient/Caregiver Goals balance, strength, transfers Current Functional Impairments (Reported) Functional Limitations- ADL's difficulty with putting on socks due to reaching when crossing leg (R harder) Functional Limitations- Mobility/Gait uses hand rails from stairs (R side usually) Functional Limitations- Work/School getting up/down from floor Functional Limitations- Recreation/ dropping objects and picking Hobbies them up (e.g. 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 He had to get down to floor over the weekend, able to get up with support using cabinets. Has neuropathy in LLE, takes gabapentin PT-OP-D Balance Start: 09/07/24 09:01 Freq: Status: Active Protocol: Document 09/07/24 09:46 NM (Rec: 09/07/24 11:20 NM [id number]) Balance Tests Durham Balance Test Durham Balance Test Score 36/56 PT-OP-E Functional Tests Start: 09/07/24 09:01 Freq: Status: Active Protocol: Document 09/07/24 09:46 NM (Rec: 09/07/24 11:20 NM [id number]) Functional Tests Dynamic Gait Index (DGI) Score 08/21 PT-OP-F Manual Assessment Start: 09/07/24 09:01 Freq: Status: Active Protocol: Document 09/07/24 09:46 NM (Rec: 09/07/24 11:20 NM [id number]) Manual Assessments Soft Tissue Assessment Soft Tissue Mobility Assessment Tenderness over medial knee near pes anserine and femoral condyle/adductors, distal ITB. Tightness of hip flexors/quad , calves Joint Mobility Assessment Joint Mobility Assessment Limited R knee AROM/PROM. Soft tissue approximation end feel , not empty. Minimal limitations in patellar mobility PT-OP-G Mobility & Gait Start: 09/07/24 09:01 Freq: Status: Active Protocol: Document 09/07/24 09:46 NM (Rec: 09/07/24 11:20 NM [id number]) OP Mobility Evaluation Bed Mobility Supine to and from Sit CGA with cueing Transfers Sit to Stand with B hand support, using BLE to stabilize, initial standing balance unsteady, decreased hip hinge OP Gait Assessment Gait Gait Assistance Required: Standby Assistance Distance (Feet) 150 Comments Gait Comments Less L foot clearance than R, but still limited B. Mild forward trunk lean especially with R stance. When pt distracted, has tendency to stumble. Stair Climbing Evaluation Evaluation Level of Assist On Stairs Contact Guard Assistance Devices Stair Climbing Assistive Devices Right Railing Technique/Endurance Stair Climbing Direction Ascend and Descend Stair Climbing Technique Step Over Step Number of Steps Climbed 4 Stair Climbing Set # Repetitions (reps) 1 Comments Stair Climbing Comments Uses rail to assist with elevation, difficulty controlling descent- CGA PT-OP-J Posture/Palpation/Skin Start: 09/07/24 09:01 Freq: Status: Active Protocol: Document 09/07/24 09:46 NM (Rec: 09/07/24 11:20 NM [id number]) Posture Evaluation Position Standing Head/C-Spine Posture Forward Head T-Spine Posture Increased Kyphosis Shoulder Posture (L) Rounded,(R) Rounded Arm Posture (L) Internally Rotated,(R) Internally Rotated Hip Posture (L) Externally Rotated,(R) Externally Rotated Knee Posture (L) Genu Valgus,(R) Genu Valgus Palpation Assessment Location R knee Palpation Details Tenderness over medial knee near femoral condyle, pes anserine and distal adductors; superior patellar near quad tendon and distal patella near patellar tendon Global hip tightness, quad tightness No tenderness but slight bulge near lateral posterior knee PT-OP-K Range of Motion Start: 09/07/24 09:01 Freq: Status: Active Protocol: Document 10/17/24 12:59 NM (Rec: 10/17/24 13:46 NM [id number]) Knee Goniometric Range of Motion Knee Right Flexion Active (degrees) 113 Extension Active (degrees) 0 Comments IE: 110 deg flex Left Flexion Active (degrees) 115 Extension Active (degrees) 2 PT-OP-M Strength Start: 09/07/24 09:01 Freq: Status: Active Protocol: Document 11/13/24 09:05 NM (Rec: 11/13/24 09:45 NM [id number]) Hip Strength Hip Manual Muscle Testing Right Flexion (L2) 4 Good Extension (S1) 4- Good- Abduction 4 Good Adduction 4 Good Left Flexion (L2) 4 Good Extension (S1) 4- Good- Abduction 4 Good Adduction 4 Good Knee Strength Knee Manual Muscle Testing Right Flexion (S2) 4 Good Extension (L3) 4 Good Comments No pain with resisted motion Left Flexion (S2) 4 Good Extension (L3) 4 Good PT-OP-Q Treatments Start: 09/07/24 09:01 Freq: Status: Active Protocol: Document 11/13/24 09:05 NM (Rec: 11/13/24 09:45 NM [id number]) Gym Equipment Shuttle Recovery Unilateral Squats Resistance 87# Shuttle Recovery Platform Stable Reps/Time 10 ea (due to time) Therapeutic Exercises Standing Exercises ankle dorsiflexion Standing Exercise Name 1. aguilar bag car pick up driver to bucket, 2. at wall Side bilateral Resistance 2. 2# ankle weight Equipment Used 1. hand supprt on bar for balance Reps/Minutes 1. 10 ea, 2. 15 ea leg Comments challenging, but improved w/ reps, min cues needed lunges Standing Exercise Name forward w/ step Side bilateral Equipment Used 1 hand support on rail Reps/Minutes 15 ea Comments cued for set up and wider JAE, no knee pain sit to stand Standing Exercise Name for goals Side bilateral Equipment Used standard chair, no UE assist Reps/Minutes 10 Comments no cueing needed for form; good ecc control Therapeutic Activity Therapeutic Activity Floor transfers Name on blue mat w/ chair for support; CGA Reps/Minutes 10 min Comments via 1/2 lunge to floor, 1 hand on chair to assist up and down. then to half kneel. Cueing needed for weight shift once in 1/2 kneel for transition to tall kneel > quadruped. Demos crawling and reaching. Pt then transfer with fewer cues in reverse PT-OP-T Assessment and Plan Start: 09/07/24 09:01 Freq: Status: Active Protocol: Document 11/13/24 09:05 NM (Rec: 11/13/24 09:45 NM [id number]) Physical Therapy Assessment Goals Five Impairment not using AD Joint Supervisor Goal (LTG) If appropriate, pt will be evaluated for and recommended an AD in order to decrease fall risk, improve mobility and safety during gait 11/08/24: pt balance testing does not indicate need for AD at this time LTG Duration 12 weeks MET Four Impairment not performing HEP or any exercise Short Term Goal (STG) Pt will report compliance with HEP at least 2x/wk in order to maximize progression with PT and demonstrate carryover between sessions 10/17/24: he reports performing HEP daily STG Duration 6 weeks MET Prison Goal (LTG) Pt will improve global B hip and knee strength to at least 4/5 in order to demonstrate increased strength for gait, balance, transfers, and ADLs 11/01/2024 Patient reprots he did his home exercises every day. 11/13/24: 4/5 for all except hip ext LTG Duration 12 weeks PROGRESSING, PARTIALLY MET 11/13 Three Impairment reports fear of falling on stairs, 1 rail assist, poor control with descent Prison Goal (LTG) Pt will be able to perform at least 12 stairs using 1 or fewer rails while carrying an object without loss of balance or uncontrolled descent in order to improve safety during household mobility 10/17/24: 8 stairs without knee pain, 1 rail 11/08/24: 16 stairs with 1 rail, no knee pain, close SBA; controlled descent LTG Duration 12 weeks MET Two Impairment BLE weakness, limited STS transfers Short Term Goal (STG) Pt will be able to perform at least 5 STS from standard chair without UE assistance and controlled descent in order to demonstrate increased BLE strength for transfers and safety 10/17/24: 5 STS from standard chair, still challenged with ecc descent but controls until last few inches STG Duration 6 weeks PROGRESSING, PARTIALLY MET Joint Supervisor Goal (LTG) Pt will be able to perform at least 10 STS without compensation from standard chair with or without hand support and/or 5x STS test in <18 seconds in order to demonstrate increased BLE strength and improvements in initial standing balance during transfers 11/13/24: 10 STS from standard chair without hand support and good control LTG Duration 12 weeks MET One Impairment Durham 36/56, DGI 08/21- indicate increased risk of falls Prison Goal (LTG) Pt will improve Durham balance score >44/56 (1 MCID) in order to demonstrate improved standing balance and weight shifting during reaching or ADLs 10/17/24: [place] 45/56 LTG Duration 12 weeks MET Assessment Summary Assessment Pt demos improved form with lunges today, needs periodic cues for trunk posture and wider JAE; however, able to achieve more depth. Continued with floor transfers for pt to carryover at home as able; demos improvement in ability to transfer via 1/2 kneel with less assist from PT and less UE support. Remainder of session emphasizing foot clearance with ankle dorsiflexor strengthening. Unilateral press still challenging for pt. Physical Therapy Plan Frequency and Duration Frequency of Treatment 2x/Week Duration of treatment (weeks) 12 Plan of Care Start Date 09/07/24 Plan of Care End Date 11/30/24 Therapeutic Interventions Therapeutic Interventions Balance Training,Gait Training ,Home Exercise Program,Joint Mobilizations,Manual Therapy, Neuromuscular Re-education, Orthotic/Prosthetic Management ,Patient/Caregiver Education, Self-Care/Home Management, Sensory Integration,Soft Tissue Mobilization,Taping, Therapeutic Activities, Therapeutic Exercises Modalities Cold Pack/Ice Massage,Hot Packs Next Visit Focus/Plan Next Note Type Treatment Note Next Visit Plan monitor vitals Continue with ankle DF strength. Balance and unilateral Leg press. Update HEP resistane as needed. Cont balance work isauro on unstable surfaces. leg press. Cont with quad/ HS/glute strengthening in seated and standing. LAQ, HSC, hip abduction, SLR, hip ER/IR in sitting. Balance training. Emphasize neutral foot position Manual: STM and joint mobilizations to R knees/ adductors
--- NOTE | 2024-11-23 09:46 | PT.OTN ---
Current Diagnoses Unilateral primary osteoarthritis, unspecified knee (11/23/24) Stiffness of right knee, not elsewhere classified (11/23/24) Other lack of coordination (11/23/24) Weakness (11/23/24) Physical Therapy Treatment Note PT-OP-A Visit Information Start: 09/07/24 09:01 Freq: Status: Active Protocol: Document 11/23/24 09:01 NM (Rec: 11/23/24 09:46 NM [id number]) Out-Patient Physical Therapy Visit Information Visit Information Visit Type Treatment Note Visit Note KX after 19 visits seated BP L arm SOS: 120/64 mmHg,45 bom, 96% spO2, unable to get BP reading with 3 different devices including manual at start of session Visit Start Time 09:03 Visit Stop Time 09:45 Visit Number 16 Evaluation Information Evaluation Date 09/07/24 Precautions Precautions monitor vitals: low heart rate PT-OP-B Current Condition Start: 09/07/24 09:01 Freq: Status: Active Protocol: Document 09/07/24 09:46 NM (Rec: 09/07/24 11:20 NM [id number]) Current Condition History of Current Condition Current Complaints pain, limited mobility, decreased strength, poor balance History of Current Condition Pt presents with R knee pain. He reports limitations with standing for 30 minutes, states his knee locks on him and shoots pain down his leg; when he moves a little bit, then it feels better and he can walk more normally. He reports problems with balance, transfers especially with STS , bending forward. 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 He reports that his R knee has locked on him 3 times recently , when standing; states unable to bend it without hurting. He saw Dr. 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 States all intact, but reports that knee cap off 12/01 to R. 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 Pt has basement stairs with B railing, requires rails to go up. States no knee pain with stairs. Lives in 3 story home, R rail with stairs. Does not use an AD. 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 Reports several stumbles on uneven ground. States worsening global strength but does not do any exercises except for walking. [place], son helps with the heavy stuff. PMH B TKA, high blood pressure (130-135- 140/70), HR in low 40's; declined pacemaker. Pt denies passing out, lightheadedness, but reports dizziness with positional changes. Prior Treatments and Tests Pt reports radiographs with podiatrist orthopedic of R knee Treatment Goals Patient/Caregiver Goals balance, strength, transfers Current Functional Impairments (Reported) Functional Limitations- ADL's difficulty with putting on socks due to reaching when crossing leg (R harder) Functional Limitations- Mobility/Gait uses hand rails from stairs (R side usually) Functional Limitations- Work/School getting up/down from floor Functional Limitations- Recreation/ dropping objects and picking Hobbies them up (e.g. sitting at desk when performing coin collection) due to low back strain PT-OP-C Subjective Start: 09/07/24 09:01 Freq: Status: Active Protocol: Document 11/23/24 09:01 NM (Rec: 11/23/24 09:46 NM [id number]) OP-PT Subjective Patient Comments Patient Comments Pt reports stiff this morning, reports that his knees have not been bothering him. He states that he did not do his exercises over [facility] PT-OP-D Balance Start: 09/07/24 09:01 Freq: Status: Active Protocol: Document 09/07/24 09:46 NM (Rec: 09/07/24 11:20 NM [id number]) Balance Tests Durham Balance Test Durham Balance Test Score 36/56 PT-OP-E Functional Tests Start: 09/07/24 09:01 Freq: Status: Active Protocol: Document 09/07/24 09:46 NM (Rec: 09/07/24 11:20 NM [id number]) Functional Tests Dynamic Gait Index (DGI) Score 08/21 PT-OP-F Manual Assessment Start: 09/07/24 09:01 Freq: Status: Active Protocol: Document 09/07/24 09:46 NM (Rec: 09/07/24 11:20 NM [id number]) Manual Assessments Soft Tissue Assessment Soft Tissue Mobility Assessment Tenderness over medial knee near pes anserine and femoral condyle/adductors, distal ITB. Tightness of hip flexors/quad , calves Joint Mobility Assessment Joint Mobility Assessment Limited R knee AROM/PROM. Soft tissue approximation end feel , not empty. Minimal limitations in patellar mobility PT-OP-G Mobility & Gait Start: 09/07/24 09:01 Freq: Status: Active Protocol: Document 09/07/24 09:46 NM (Rec: 09/07/24 11:20 NM [id number]) OP Mobility Evaluation Bed Mobility Supine to and from Sit CGA with cueing Transfers Sit to Stand with B hand support, using BLE to stabilize, initial standing balance unsteady, decreased hip hinge OP Gait Assessment Gait Gait Assistance Required: Standby Assistance Distance (Feet) 150 Comments Gait Comments Less L foot clearance than R, but still limited B. Mild forward trunk lean especially with R stance. When pt distracted, has tendency to stumble. Stair Climbing Evaluation Evaluation Level of Assist On Stairs Contact Guard Assistance Devices Stair Climbing Assistive Devices Right Railing Technique/Endurance Stair Climbing Direction Ascend and Descend Stair Climbing Technique Step Over Step Number of Steps Climbed 4 Stair Climbing Set # Repetitions (reps) 1 Comments Stair Climbing Comments Uses rail to assist with elevation, difficulty controlling descent- CGA PT-OP-J Posture/Palpation/Skin Start: 09/07/24 09:01 Freq: Status: Active Protocol: Document 09/07/24 09:46 NM (Rec: 09/07/24 11:20 NM [id number]) Posture Evaluation Position Standing Head/C-Spine Posture Forward Head T-Spine Posture Increased Kyphosis Shoulder Posture (L) Rounded,(R) Rounded Arm Posture (L) Internally Rotated,(R) Internally Rotated Hip Posture (L) Externally Rotated,(R) Externally Rotated Knee Posture (L) Genu Valgus,(R) Genu Valgus Palpation Assessment Location R knee Palpation Details Tenderness over medial knee near femoral condyle, pes anserine and distal adductors; superior patellar near quad tendon and distal patella near patellar tendon Global hip tightness, quad tightness No tenderness but slight bulge near lateral posterior knee PT-OP-K Range of Motion Start: 09/07/24 09:01 Freq: Status: Active Protocol: Document 10/17/24 12:59 NM (Rec: 10/17/24 13:46 NM [id number]) Knee Goniometric Range of Motion Knee Right Flexion Active (degrees) 113 Extension Active (degrees) 0 Comments IE: 110 deg flex Left Flexion Active (degrees) 115 Extension Active (degrees) 2 PT-OP-M Strength Start: 09/07/24 09:01 Freq: Status: Active Protocol: Document 11/13/24 09:05 NM (Rec: 11/13/24 09:45 NM [id number]) Hip Strength Hip Manual Muscle Testing Right Flexion (L2) 4 Good Extension (S1) 4- Good- Abduction 4 Good Adduction 4 Good Left Flexion (L2) 4 Good Extension (S1) 4- Good- Abduction 4 Good Adduction 4 Good Knee Strength Knee Manual Muscle Testing Right Flexion (S2) 4 Good Extension (L3) 4 Good Comments No pain with resisted motion Left Flexion (S2) 4 Good Extension (L3) 4 Good PT-OP-Q Treatments Start: 09/07/24 09:01 Freq: Status: Active Protocol: Document 11/23/24 09:01 NM (Rec: 11/23/24 09:46 NM [id number]) Therapeutic Exercises Standing Exercises ankle dorsiflexion Standing Exercise Name at wall Side bilateral Resistance level 2 band at toes Reps/Minutes 15 ea step up Standing Exercise Name 8 Side bilateral Equipment Used 1 hand support for balance Reps/Minutes 15 ea Comments pain free Neuro Re-Education Treatment Balance Activities unstable surface Surface blue cushion Equipment unstable, no hand support; CGA <> SBA Reps/Duration 10 ea foot, ea direction - requires increased time Comments 1. lateral stepping 2. step up/down 3. heel raises- challenging to lift cued for foot clearance, core activation/rhomboid facilitation shuttle balance Details unstable Surface red level Equipment 1 finger > no finger support, min A Reps/Duration 8 min Comments 1. staggered stance 2. normal stance A/P 3. normal stance w/ head turns Self-Care/Home Management Treatment Education Other Education 8 minutes - increased time needed to take BP today. Unable to initially get readings with 3 different cuffs. Educated on monitoring BP in several positions, several times per day, keep log for MD and with HEP. Educated on BP norms and with exercise PT-OP-T Assessment and Plan Start: 09/07/24 09:01 Freq: Status: Active Protocol: Document 11/23/24 09:01 NM (Rec: 11/23/24 09:46 NM [id number]) Physical Therapy Assessment Goals Five Impairment not using AD Entry Level Finance Goal (LTG) If appropriate, pt will be evaluated for and recommended an AD in order to decrease fall risk, improve mobility and safety during gait 11/08/24: pt balance testing does not indicate need for AD at this time LTG Duration 12 weeks MET Four Impairment not performing HEP or any exercise Short Term Goal (STG) Pt will report compliance with HEP at least 2x/wk in order to maximize progression with PT and demonstrate carryover between sessions 10/17/24: he reports performing HEP daily STG Duration 6 weeks MET Halfway Goal (LTG) Pt will improve global B hip and knee strength to at least 4/5 in order to demonstrate increased strength for gait, balance, transfers, and ADLs 11/01/2024 Patient reprots he did his home exercises every day. 11/13/24: 4/5 for all except hip ext LTG Duration 12 weeks PROGRESSING, PARTIALLY MET 11/13 Three Impairment reports fear of falling on stairs, 1 rail assist, poor control with descent Halfway Goal (LTG) Pt will be able to perform at least 12 stairs using 1 or fewer rails while carrying an object without loss of balance or uncontrolled descent in order to improve safety during household mobility 10/17/24: 8 stairs without knee pain, 1 rail 11/08/24: 16 stairs with 1 rail, no knee pain, close SBA; controlled descent LTG Duration 12 weeks MET Two Impairment BLE weakness, limited STS transfers Short Term Goal (STG) Pt will be able to perform at least 5 STS from standard chair without UE assistance and controlled descent in order to demonstrate increased BLE strength for transfers and safety 10/17/24: 5 STS from standard chair, still challenged with ecc descent but controls until last few inches STG Duration 6 weeks PROGRESSING, PARTIALLY MET Halfway Goal (LTG) Pt will be able to perform at least 10 STS without compensation from standard chair with or without hand support and/or 5x STS test in <18 seconds in order to demonstrate increased BLE strength and improvements in initial standing balance during transfers 11/13/24: 10 STS from standard chair without hand support and good control LTG Duration 12 weeks MET One Impairment Durham 36/56, DGI 08/21- indicate increased risk of falls Halfway Goal (LTG) Pt will improve Durham balance score >44/56 (1 MCID) in order to demonstrate improved standing balance and weight shifting during reaching or ADLs 10/17/24: Durham 45/56 LTG Duration 12 weeks MET Assessment Summary Assessment Pt continues to require cues for trunk control and foot clearance during balance exercises. Trialed shuttle balance for vestibular input and proprioceptive training as part of balance re-education on unstable surface. Initiated training on blue cushion in multiple directions to address reactionary and anticipatory balance. Able to tolerate progression to 8 step up, no knee pain. Physical Therapy Plan Frequency and Duration Frequency of Treatment 2x/Week Duration of treatment (weeks) 12 Plan of Care Start Date 09/07/24 Plan of Care End Date 11/30/24 Therapeutic Interventions Therapeutic Interventions Balance Training,Gait Training ,Home Exercise Program,Joint Mobilizations,Manual Therapy, Neuromuscular Re-education, Orthotic/Prosthetic Management ,Patient/Caregiver Education, Self-Care/Home Management, Sensory Integration,Soft Tissue Mobilization,Taping, Therapeutic Activities, Therapeutic Exercises Modalities Cold Pack/Ice Massage,Hot Packs Next Visit Focus/Plan Next Note Type Discharge Summary Next Visit Plan Maintenance program for HEP especially glute and quad strength
--- NOTE | 2024-11-27 09:51 | PT.OTN ---
Current Diagnoses Unilateral primary osteoarthritis, unspecified knee (11/27/24) Stiffness of right knee, not elsewhere classified (11/27/24) Other lack of coordination (11/27/24) Weakness (11/27/24) Physical Therapy Treatment Note PT-OP-A Visit Information Start: 09/07/24 09:01 Freq: Status: Active Protocol: Document 11/27/24 09:04 NM (Rec: 11/27/24 09:51 NM [id number]) Out-Patient Physical Therapy Visit Information Visit Information Visit Type Discharge Summary Visit Note KX after 19 visits Visit Start Time 09:05 Visit Stop Time 09:45 Visit Number 17 Evaluation Information Evaluation Date 09/07/24 Precautions Precautions monitor vitals: low heart rate PT-OP-B Current Condition Start: 09/07/24 09:01 Freq: Status: Active Protocol: Document 09/07/24 09:46 NM (Rec: 09/07/24 11:20 NM [id number]) Current Condition History of Current Condition Current Complaints pain, limited mobility, decreased strength, poor balance History of Current Condition Pt presents with R knee pain. He reports limitations with standing for 30 minutes, states his knee locks on him and shoots pain down his leg; when he moves a little bit, then it feels better and he can walk more normally. He reports problems with balance, transfers especially with STS , bending forward. 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 He reports that his R knee has locked on him 3 times recently , when standing; states unable to bend it without hurting. He saw Dr. 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 States all intact, but reports that knee cap off 12/01 to R. 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 Pt has basement stairs with B railing, requires rails to go up. States no knee pain with stairs. Lives in 3 story home, R rail with stairs. Does not use an AD. 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 Reports several stumbles on uneven ground. States worsening global strength but does not do any exercises except for walking. [place], son helps with the heavy stuff. PMH B TKA, high blood pressure (130-135- 140/70), HR in low 40's; declined pacemaker. Pt denies passing out, lightheadedness, but reports dizziness with positional changes. Prior Treatments and Tests Pt reports radiographs with naval architect specialist of R knee Treatment Goals Patient/Caregiver Goals balance, strength, transfers Current Functional Impairments (Reported) Functional Limitations- ADL's difficulty with putting on socks due to reaching when crossing leg (R harder) Functional Limitations- Mobility/Gait uses hand rails from stairs (R side usually) Functional Limitations- Work/School getting up/down from floor Functional Limitations- Recreation/ dropping objects and picking Hobbies them up (e.g. sitting at desk when performing coin collection) due to low back strain PT-OP-C Subjective Start: 09/07/24 09:01 Freq: Status: Active Protocol: Document 11/27/24 09:04 NM (Rec: 11/27/24 09:51 NM [id number]) OP-PT Subjective Patient Comments Patient Comments Pt reports a little stiff this morning. Ready to d/c this morning. Reports doing well PT-OP-D Balance Start: 09/07/24 09:01 Freq: Status: Active Protocol: Document 09/07/24 09:46 NM (Rec: 09/07/24 11:20 NM [id number]) Balance Tests Durham Balance Test Durham Balance Test Score 36/56 PT-OP-E Functional Tests Start: 09/07/24 09:01 Freq: Status: Active Protocol: Document 09/07/24 09:46 NM (Rec: 09/07/24 11:20 NM [id number]) Functional Tests Dynamic Gait Index (DGI) Score 08/21 PT-OP-F Manual Assessment Start: 09/07/24 09:01 Freq: Status: Active Protocol: Document 09/07/24 09:46 NM (Rec: 09/07/24 11:20 NM [id number]) Manual Assessments Soft Tissue Assessment Soft Tissue Mobility Assessment Tenderness over medial knee near pes anserine and femoral condyle/adductors, distal ITB. Tightness of hip flexors/quad , calves Joint Mobility Assessment Joint Mobility Assessment Limited R knee AROM/PROM. Soft tissue approximation end feel , not empty. Minimal limitations in patellar mobility PT-OP-G Mobility & Gait Start: 09/07/24 09:01 Freq: Status: Active Protocol: Document 09/07/24 09:46 NM (Rec: 09/07/24 11:20 NM [id number]) OP Mobility Evaluation Bed Mobility Supine to and from Sit CGA with cueing Transfers Sit to Stand with B hand support, using BLE to stabilize, initial standing balance unsteady, decreased hip hinge OP Gait Assessment Gait Gait Assistance Required: Standby Assistance Distance (Feet) 150 Comments Gait Comments Less L foot clearance than R, but still limited B. Mild forward trunk lean especially with R stance. When pt distracted, has tendency to stumble. Stair Climbing Evaluation Evaluation Level of Assist On Stairs Contact Guard Assistance Devices Stair Climbing Assistive Devices Right Railing Technique/Endurance Stair Climbing Direction Ascend and Descend Stair Climbing Technique Step Over Step Number of Steps Climbed 4 Stair Climbing Set # Repetitions (reps) 1 Comments Stair Climbing Comments Uses rail to assist with elevation, difficulty controlling descent- CGA PT-OP-J Posture/Palpation/Skin Start: 09/07/24 09:01 Freq: Status: Active Protocol: Document 09/07/24 09:46 NM (Rec: 09/07/24 11:20 NM [id number]) Posture Evaluation Position Standing Head/C-Spine Posture Forward Head T-Spine Posture Increased Kyphosis Shoulder Posture (L) Rounded,(R) Rounded Arm Posture (L) Internally Rotated,(R) Internally Rotated Hip Posture (L) Externally Rotated,(R) Externally Rotated Knee Posture (L) Genu Valgus,(R) Genu Valgus Palpation Assessment Location R knee Palpation Details Tenderness over medial knee near femoral condyle, pes anserine and distal adductors; superior patellar near quad tendon and distal patella near patellar tendon Global hip tightness, quad tightness No tenderness but slight bulge near lateral posterior knee PT-OP-K Range of Motion Start: 09/07/24 09:01 Freq: Status: Active Protocol: Document 11/27/24 09:04 NM (Rec: 11/27/24 09:51 NM [id number]) Knee Goniometric Range of Motion Knee Right Flexion Active (degrees) 113 Extension Active (degrees) 0 Comments IE: 110 deg flex Left Flexion Active (degrees) 115 Extension Active (degrees) 2 PT-OP-M Strength Start: 09/07/24 09:01 Freq: Status: Active Protocol: Document 11/27/24 09:04 NM (Rec: 11/27/24 09:51 NM [id number]) Hip Strength Hip Manual Muscle Testing Right Flexion (L2) 4 Good Extension (S1) 4- Good- Abduction 4 Good Adduction 4 Good Left Flexion (L2) 4 Good Extension (S1) 4- Good- Abduction 4 Good Adduction 4 Good Knee Strength Knee Manual Muscle Testing Right Flexion (S2) 4 Good Extension (L3) 4 Good Comments No pain with resisted motion Left Flexion (S2) 4 Good Extension (L3) 4 Good PT-OP-Q Treatments Start: 09/07/24 09:01 Freq: Status: Active Protocol: Document 11/27/24 09:04 NM (Rec: 11/27/24 09:51 NM [id number]) Gym Equipment Shuttle Recovery Bilateral Squats Resistance 100# Shuttle Recovery Platform Stable Reps/Time 10 Therapeutic Exercises Sitting Exercises LAQ Side bilateral Resistance level 4 band at ankles Reps/Minutes 2x15x3 Comments self donned band; decreased resistance d/t hold time Standing Exercises ankle dorsiflexion Standing Exercise Name facing wall Side bilateral Equipment Used hand support for balance at bar Reps/Minutes 30 ea Comments cued to limit bwd translation sit to stand Side bilateral Resistance level 3 band at thighs Equipment Used standard chair, no UE assist Reps/Minutes 2x10 Comments good ecc control; 1st rep needs min A balance but rest SBA today heel raises Side bilateral Equipment Used balance support on bar Reps/Minutes 30 Comments less fwd translation side steps Side bilateral Resistance level 3 band below knees > level 4 band Equipment Used no hand support Reps/Minutes 4x10 ft ea direction Comments cued foot clearance, neutral foot placement PT-OP-T Assessment and Plan Start: 09/07/24 09:01 Freq: Status: Active Protocol: Document 11/27/24 09:04 NM (Rec: 11/27/24 09:51 NM [id number]) Physical Therapy Assessment Goals Five Impairment not using AD Varnishing Unit Tool Setter Goal (LTG) If appropriate, pt will be evaluated for and recommended an AD in order to decrease fall risk, improve mobility and safety during gait 11/08/24: pt balance testing does not indicate need for AD at this time LTG Duration 12 weeks MET Four Impairment not performing HEP or any exercise Short Term Goal (STG) Pt will report compliance with HEP at least 2x/wk in order to maximize progression with PT and demonstrate carryover between sessions 10/17/24: he reports performing HEP daily STG Duration 6 weeks MET Longterm Goal (LTG) Pt will improve global B hip and knee strength to at least 4/5 in order to demonstrate increased strength for gait, balance, transfers, and ADLs 11/01/2024 Patient reprots he did his home exercises every day. 11/13/24: 4/5 for all except hip ext LTG Duration 12 weeks PROGRESSING, PARTIALLY MET 11/13 Three Impairment reports fear of falling on stairs, 1 rail assist, poor control with descent Varnishing Unit Tool Setter Goal (LTG) Pt will be able to perform at least 12 stairs using 1 or fewer rails while carrying an object without loss of balance or uncontrolled descent in order to improve safety during household mobility 10/17/24: 8 stairs without knee pain, 1 rail 11/08/24: 16 stairs with 1 rail, no knee pain, close SBA; controlled descent LTG Duration 12 weeks MET Two Impairment BLE weakness, limited STS transfers Short Term Goal (STG) Pt will be able to perform at least 5 STS from standard chair without UE assistance and controlled descent in order to demonstrate increased BLE strength for transfers and safety 10/17/24: 5 STS from standard chair, still challenged with ecc descent but controls until last few inches STG Duration 6 weeks PROGRESSING, PARTIALLY MET Longterm Goal (LTG) Pt will be able to perform at least 10 STS without compensation from standard chair with or without hand support and/or 5x STS test in <18 seconds in order to demonstrate increased BLE strength and improvements in initial standing balance during transfers 11/13/24: 10 STS from standard chair without hand support and good control LTG Duration 12 weeks MET One Impairment Durham 36/56, DGI 08/21- indicate increased risk of falls Varnishing Unit Tool Setter Goal (LTG) Pt will improve Durham balance score >44/56 (1 MCID) in order to demonstrate improved standing balance and weight shifting during reaching or ADLs 10/17/24: Durham 45/56 LTG Duration 12 weeks MET Assessment Summary Assessment Pt tolerated session well. Emphasis on creating maintenance program for carryover at home. Pt progressed to level 3 band for hip abduction during sit to stand. Does have 1 instance of needing Min A to correct for LOB to prevent fall when initially standing up from chair during STS. Demos less sagittal translation with heel and toe raises but still needs periodic cues for execution to assist with foot clearance and propulsion during gait. Added isometric hold for LAQ, thus decreased band resistance. Physical Therapy Plan Frequency and Duration Frequency of Treatment 2x/Week Duration of treatment (weeks) 12 Plan of Care Start Date 09/07/24 Plan of Care End Date 11/30/24 Therapeutic Interventions Therapeutic Interventions Balance Training,Gait Training ,Home Exercise Program,Joint Mobilizations,Manual Therapy, Neuromuscular Re-education, Orthotic/Prosthetic Management ,Patient/Caregiver Education, Self-Care/Home Management, Sensory Integration,Soft Tissue Mobilization,Taping, Therapeutic Activities, Therapeutic Exercises Modalities Cold Pack/Ice Massage,Hot Packs Discharge Physical Therapy Discharge Reasons Goals Met Discharge Comments Pt plan of care ending. Pt has met or partially met all PT goals; he is compliant with HEP. PT and pt discussed discharge at last progress note. PT and pt in agreement. PT issued maintenance program for continued strengthening to address pt impairments. Also educated pt to follow up with PCP or ortho specialist for future PT referral if needed or if knee symptoms return, change, or worsen. Pt verbalizes understanding Next Visit Focus/Plan Next Note Type Discharge Summary Next Visit Plan discharge from PT
== END 2024-12-06 10:50 | disposition home or self-care (01) ==
LOC: PHYS 09:00
PROVIDERS: Family Provider Family Medicine; PCP Family Medicine; Referring Provider Orthopaedic Surgery; Visit Provider Orthopaedic Surgery
DX: M17.10 Unilateral primary osteoarthritis, unspecified knee (principal); M25.661 Stiffness of right knee, not elsewhere classified; R53.1 Weakness; R27.8 Other lack of coordination
CPT/HCPCS: 97110; 97112; 97140; 97161; 97530; 97535

== ENCOUNTER → 2025-03-06 07:50 | Outpatient (CLI) | payer MEDICARE, SELFPAY ==
[2022-12-06 14:17] VITALS: BMI 31.0
[2025-03-06 09:26] LABS: Prostate Specific Antigen 0.834 ng/mL (0.10-4.00)
== END ==
PROVIDERS: Family Provider Family Medicine; PCP Family Medicine; Referring Provider Urology; Visit Provider Urology
DX: C61 Malignant neoplasm of prostate (principal)
CPT/HCPCS: 36415; 84153

== ENCOUNTER → 2025-03-14 14:12 | Outpatient (CLI) | payer MEDICARE, SELFPAY ==
[2022-12-06 14:17] VITALS: BMI 31.0
== END ==
PROVIDERS: Family Provider Family Medicine; PCP Family Medicine; Referring Provider Family Medicine; Visit Provider Urology
DX: N39.0 Urinary tract infection, site not specified (principal); C61 Malignant neoplasm of prostate; N31.2 Flaccid neuropathic bladder, not elsewhere classified; R33.9 Retention of urine, unspecified; Z68.33 Body mass index [BMI] 33.0-33.9, adult
CPT/HCPCS: 51798; 81002; 87077; 87086; 87186; 99213

== ENCOUNTER → 2025-08-12 13:44 | Outpatient (CLI) | payer MEDICARE, SELFPAY ==
[2022-12-06 14:17] VITALS: BMI 31.0
[2025-08-12 15:14] LABS: Prostate Specific Antigen 0.822 ng/mL (0.10-4.00)
== END ==
PROVIDERS: Family Provider Family Medicine; PCP Family Medicine; Referring Provider Urology; Visit Provider Urology
DX: C61 Malignant neoplasm of prostate (principal)
CPT/HCPCS: 36415; 84153

== ENCOUNTER → 2025-10-04 16:06 | Outpatient (ROUT) | payer MEDICARE, SELFPAY ==
[2022-12-06 14:17] VITALS: BMI 31.0
[2025-10-04 16:29] LABS: INR 2.5 (0.9-1.3); Prothrombin Time 27.2 SECONDS (9.4-12.5)
== END ==
PROVIDERS: Family Provider Family Medicine; PCP Family Medicine; Visit Provider Family Medicine
DX: I48.0 Paroxysmal atrial fibrillation (principal)
CPT/HCPCS: 85610